=== PATIENT | male | born 1965 | race Caucasian/White ===

== ENCOUNTER → 2018-07-12 | Outpatient (REF) | payer OTHER | LOC: M SFHCWOUN 11:30 | DX: Z53.20 Procedure and treatment not carried out because of patient's decision for unspecified reasons (principal) ==

== ENCOUNTER → 2018-07-12 | Outpatient (REF) | payer OTHER ==
[2018-07-12 18:53] LABS: C REACTIVE PROTEIN QUANTITATIV < 0.30 MG/DL (0.00-0.30)
[2018-07-12 19:00] LABS: ESTIMATED AVERAGE GLUCOSE 128 MG/DL (60-110); HEMOGLOBIN A1c 6.1 %
[2018-07-12 19:29] LABS: ERYTHROCYTE SEDIMENTATION RATE 6 mm/hr (0-20)
== END ==
LOC: M LAB REF 16:45
DX: E11.621 Type 2 diabetes mellitus with foot ulcer (principal); L97.523 Non-pressure chronic ulcer of other part of left foot with necrosis of muscle
CPT/HCPCS: 83036

== ENCOUNTER → 2019-10-10 | Outpatient (REF) | payer OTHER, BC ==
[~2019-10-10] MED LIST: ASPI81TA85 PO; ATOR1TAB21 PO; AUGM875T28 PO; HYDR25TAB PO; INSUDET SC; INVO300T PO; JANU50TA8 PO; LISI40TA PO; METO1TAB32 PO
== END ==
LOC: M SFHCPLAZ 12:35
PROVIDERS: ATTEND Surgery
DX: L97.523 Non-pressure chronic ulcer of other part of left foot with necrosis of muscle (principal)

== ENCOUNTER 2019-10-15 10:01 | Inpatient (IN) | payer BC, OTHER ==
[~2019-10-15] VITALS: Ht 182.9 cm; Wt 150.2 kg
[2019-10-15] MEDS: ENOXAPARIN 40 MG/0.4 ML SYRINGE (J1650) SC SCH (00:14)
[2019-10-15] MEDS ORDERED: JANU50TA8 PO (10:36)
[2019-10-15] MEDS ORDERED: LISI40TA PO (10:36)
[2019-10-15] MEDS ORDERED: ATOR1TAB21 PO (10:36)
[2019-10-15] MEDS ORDERED: HYDR25TAB PO (10:36)
[2019-10-15] MEDS ORDERED: INSUDET SC (10:36)
[2019-10-15] MEDS ORDERED: METO1TAB32 PO (10:36)
[2019-10-15] MEDS ORDERED: ASPI81TA85 PO (10:36)
[2019-10-15] MEDS ORDERED: INVO300T PO (10:36)
[2019-10-15] MEDS ORDERED: PIPERACILLIN/TAZOBACTAM SOD 4.5 GM in D5W MINI-BAG PLUS 50 ML IV ONE (11:00)
[2019-10-15 11:30] LABS: BASO # 0.1 10^3/uL (0.0-0.2); BASO % 0.4 % (0.0-1.0); EOS # 0.2 10^3/uL (0.0-0.5); EOS % 1.3 % (0.0-3.0); HEMATOCRIT 43.8 % (42.0-52.0); HEMOGLOBIN 14.1 g/dl (13.5-17.5); LYMPH # 1.3 10^3/uL (1.5-5.0); LYMPH % 8.6 % (24.0-44.0); MEAN CORPUSCULAR HGB CONC 32.2 g/dl (32.0-36.5); MEAN CORPUSCULAR VOLUME 90.1 fl (80.0-96.0); MONO # 1.6 10^3/uL (0.0-0.8); MONO % 10.1 % (0.0-5.0); NEUTROPHILS % 78.2 % (36.0-66.0); PLATELET COUNT, AUTOMATED 320 10^3/uL (150-450); RED BLOOD COUNT 4.86 10^6/uL (4.30-6.10); WHITE BLOOD COUNT 15.4 10^3/uL (4.0-10.0)
[2019-10-15 11:38] LABS: INR 1.23; PROTHROMBIN TIME 15.2 SECONDS (11.8-14.0)
[2019-10-15 11:39] LABS: PARTIAL THROMBOPLASTIN TIME 30.6 SECONDS (25.0-38.4)
[2019-10-15] MEDS ORDERED: AUGM875T28 PO (11:51)
[2019-10-15 11:59] LABS: ERYTHROCYTE SEDIMENTATION RATE 65 mm/hr (0-20); HEMOGLOBIN A1c 9.6 %
[2019-10-15 12:05] LABS: ALBUMIN 2.5 GM/DL (3.2-5.2); BILIRUBIN,DIRECT 0.3 MG/DL (0.0-0.2); BILIRUBIN,TOTAL 0.6 MG/DL (0.2-1.0); C REACTIVE PROTEIN QUANTITATIV 22.8 MG/DL (0.00-0.30); CALCIUM LEVEL 8.4 MG/DL (8.5-10.1); CREATININE FOR GFR 1.78 MG/DL (0.70-1.30); GLOMERULAR FILTRATION RATE 42.9 (>56); POTASSIUM SERUM 4.2 MEQ/L (3.5-5.1); TOTAL PROTEIN 7.5 GM/DL (6.4-8.2)
[2019-10-15] MEDS ORDERED: NS IV ONE (12:15)
[2019-10-15] MEDS ORDERED: DEXTROSE 50% 50 ML SYRINGE IV PRN (12:30)
[2019-10-15] MEDS ORDERED: GLUCOSE 4 GM CHEW TABLET PO PRN (12:30)
[2019-10-15] MEDS ORDERED: GLUCAGON FOR INJ 1 MG VIAL (J1610) SC PRN (12:30)
--- NOTE | 2019-10-15 13:38 | REP ---
PORTABLE CHEST X-RAY: SINGLE VIEW. HISTORY: Assess ulcer. FINDINGS: Portable semierect AP chest x-ray shows clear well-inflated lungs and sharp pleural angles. Heart is not enlarged. Pulmonary vasculature is not increased. IMPRESSION: No active disease. Electronically Signed by Derrick Fierro MD 10/15/2019 02:50 P
--- NOTE | 2019-10-15 13:43 | REP ---
LEFT FOOT SERIES, FOUR VIEWS: Four views of left foot performed. No fracture or dislocation is seen. There are no obvious radiographic signs of osteomyelitis. There is mild inferior calcaneal spurring. There is moderate dorsal navicular spurring. There is air in the soft tissues of the medial mid and forefoot, compatible with cellulitis. Electronically Signed by Javi Madrigal MD 10/15/2019 06:06 P
[2019-10-15 14:00] VITALS: BP 137/75
[2019-10-15] MEDS ORDERED: CEFTAROLINE FOSAMIL 300 MG in D5W 50 ML IV SCH (14:00)
[2019-10-15] MEDS: CEFTAROLINE FOSAMIL 600 MG in D5W MINI-BAG PLUS 50 ML IV SCH (14:16)
[2019-10-15] MEDS: HumaLOG INSULIN (NovoLOG) PER UNIT SC SCH ×3 (14:17→21:00)
[2019-10-15] MEDS: LR 1,000 ML IV SCH (14:17)
[2019-10-15 14:19] LABS: CALCIUM LEVEL 8.3 MG/DL (8.5-10.1); CREATININE FOR GFR 1.85 MG/DL (0.70-1.30); GLOMERULAR FILTRATION RATE 41.1 (>56)
[2019-10-15] MEDS ORDERED: ACETAMINOPHEN TAB 650MG DOSE (2X325MG) PO PRN (14:30)
--- NOTE | 2019-10-15 14:59 | HPE ---
DATE OF ADMISSION: 10/15/2019 PRIMARY CARE PROVIDER: Justin _RA , [place]. CHIEF COMPLAINT: Diabetic foot ulcer left first metatarsophalangeal (MTP) joint. HISTORY: Adrian Medina a 54-year-old patient of Dr[facility] is admitted to the hospitalist service with diabetic ulcer of the left first MTP joint. He has been on Augmentin as an outpatient, came for a routine appointment with Dr. Amador and found to have worsening ulcer with cellulitis of his foot to the mid lower leg. He was sent to the emergency room for admission. The patient has a history of previous diabetic foot infections which have required debridement. He has diabetes, hemoglobin A1c is up to 9.6%. Previous hemoglobin A1c per Mr. Goldberg nurse (I called prior to admission) was approximately 8.6. He denies any fever or chills. He has had increased drainage from the foot. He denies any claudication, but he is high risk for peripheral arterial disease. PAST MEDICAL HISTORY: Shows: Hypertension. Type 2 diabetes under loose control. Hyperlipidemia. Morbid obesity with a body mass index (BMI) of 46 in a diabetic. HOME MEDICATIONS: - lisinopril 40 mg daily - Janumet (Januvia/metformin) 50-1000 one tablet twice a day - atorvastatin 20 mg daily - Invokana 300 mg daily - hydrochlorothiazide 25 mg daily - aspirin 81 mg daily - Levemir 26 unit daily - Lopressor 25 mg daily - current on doxycycline and Augmentin ALLERGIES: 1. SULFA - unknown reaction. SURGICAL HISTORY: Debridement left great 05/2018. FAMILY HISTORY: Father had diabetes. Mother of heart disease, she had diabetes and hypertension. SOCIAL HISTORY: He is a nonsmoker. He drinks alcohol on rare occasions. He is single. 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 REVIEW OF SYSTEMS: No fever, chills or night sweats. No polyuria, polydipsia. No chest pain. PHYSICAL EXAMINATION: VITAL SIGNS: Per flow sheet. He is alert and conversant in no distress. HEENT: Unremarkable. LUNGS: Clear. HEART: Regular rhythm without masses. ABDOMEN: Obese, nontender, no masses. EXTREMITIES: No clubbing, cyanosis, or edema. His left lower extremity has erythema from around the foot up to the lower leg. There is blistering of the left great toe. There is an ulcer under the first MTP joint with some foul drainage. Pulses are decreased in the left foot compared to the right. LABORATORIES: X-ray of chest and foot were done. Chest x-ray showed no active disease. Foot showed air in the soft tissues of the medial foot and forefoot compatible with cellulitis. Electrolytes are unremarkable. Creatinine is 1.85 (baseline creatinine is 1.5 per the patient's primary care provider). Lactic acid was 2.6. White count 15.4, hemoglobin 14, platelets 320, sed rate 65, C-reactive protein was 22.8. IMPRESSION: 1. Diabetic ulcer left foot. Patient will be admitted to a medical bed. I have consulted Dr. Amador as well as Dr. Reddy of vascular surgery. I have started ceftaroline dosing confirmed by pharmacology, 600 mg IV every 12 hours. IV Lactated Ringer's have been ordered. 2. Diabetes. Hold oral agents, sliding scale insulin ordered with reduced dose of Levemir while on an enforced diabetic diet in order to avoid hypoglycemia. Hypoglycemic protocol ordered. 3. Hypertension. Hold the lisinopril in the face of the acute kidney injury. Hold hydrochlorothiazide while receiving IV fluids. Continue Lopressor. 4. Acute kidney injury superimposed on stage III chronic kidney disease. Creatinine is up from baseline, baseline is 1.5, currently greater than 1.8. IV hydration is ordered with Lactated Ringer's (He has already received saline in the emergency room; excess saline contributes to acute kidney injury so he will be changed to Lactated Ringer's). Repeat labs have been ordered for the morning. Hold lisinopril until renal function recovers. 5. Hyperlipidemia. Continue atorvastatin. Continue aspirin 81 mg daily. MTDD
--- NOTE | 2019-10-15 15:09 | CR.PDOC ---
General Date of Consultation: Oct 15, [address] Reddy HPI: 54 year old M referred to the emergency department as per Dr. Amador for further evaluation of left foot wound and possible need for amputation. Admission was arranged by hospitalist. Vascular surgery was consulted for further evaluation of left foot wound. Podiatry is consulted for wound management. Denies any fevers, chills, weakness, fatigue, Headache, Chest Pain, Shortness of breath, cough, palpitations, abdominal pain, N/V/D or changes in bowel or bladder habits. PMHx: IDDM Hypertension Dyslipidemia Obesity. BMI 44.9 CKD PSHX: Debridement left great toe. SOCHX: Nonsmoker. FAMHX: Hypertension CAD DM ROS: As noted in HPI, otherwise 11pt ROS of systems reviewed and unremarkable. PE: GEN: 54 yo M, appears stated age. Alert and oriented x 3. HEENT: Normocephalic, atraumatic. Moist mucous membranes. CHEST: Regular rate and rhythm, +S1, +S2 LUNGS: Clear to auscultation bilaterally. No wheezes, rales, or rhonchi. EXT: Left foot is bandaged, dark discoloration of the left great toe with erythema of the remaining toes with wet gangrene. Erythema noted at the distal pretibial area left lower extremity. NEURO: Alert and oriented x 3. Cranial nerves III-XII are intact. No focal deficits appreciated. A&P: 1. Left foot wound. The patient is reviewed and examined as per Dr. Reddy. IV antibiotics/pain control as per hospitalist. Wound management as per podiatry. Continue aspirin/statin. Will request bilateral lower extremity arterial ultrasound to further assess for any areas of concerning stenosis, likely proceed with arteriogram of the left lower extremity. 2. CKD. Serum creatinine noted to be 1.85 with GFR 41. Monitor labs. Thank you for your consultation. We will continue to follow along with you. Vital Signs/I&O Vital Signs Date Time Temp Pulse Resp B/P (MAP) Pulse Ox O2 Delivery O2 Flow Rate FiO2 10/15/19 14:00 98.8 105 20 137/75 (95) 96 Room Air Laboratory Data Labs 24H Laboratory Tests 2 10/15/19 10:54: Immature Granulocyte % (Auto) 1.4, Neutrophils (%) (Auto) 78.2H, Lymphocytes (%) (Auto) 8.6L, Monocytes (%) (Auto) 10.1H, Eosinophils (%) (Auto) 1.3, Basophils (%) (Auto) 0.4, Neutrophils # (Auto) 12.0H, Lymphocytes # (Auto) 1.3L, Monocytes # (Auto) 1.6H, Eosinophils # (Auto) 0.2, Basophils # (Auto) 0.1, Nucleated Red Blood Cells % (auto) 0.0, Erythrocyte Sedimentation Rate 65H, Prothrombin Time 15.2H, Prothromb Time International Ratio 1.23, Activated Partial Thromboplast Time 30.6, Anion Gap 12, Glomerular Filtration Rate 42.9L, Estimated Mean Plasma Glucose 229H, Hemoglobin A1c 9.6, Lactic Acid Level 2.6*H, Calcium Level 8.4L, Total Bilirubin 0.6, Direct Bilirubin 0.3H, Aspartate Amino Transf (AST/SGOT) 24, Alanine Aminotransferase (ALT/SGPT) 33, Alkaline Phosphatase 81, C-Reactive Protein, Quantitative 22.80H, Total Protein 7.5, Albumin 2.5L, Albumin/Globulin Ratio 0.50L 10/15/19 11:04: Bedside Glucose (Misc Panel) 337H 10/15/19 13:34: Anion Gap 12, Glomerular Filtration Rate 41.1L, Calcium Level 8.3L CBC/BMP Laboratory Tests 10/15/19 10:54 10/15/19 13:34 Microbiology Microbiology 10/15/19 Gram Stain, Received Pending 10/15/19 Wound Culture, Received Pending 10/15/19 Blood Culture, Received Pending 10/15/19 Blood Culture, Received Pending Allergies Coded Allergies: Sulfa (Sulfonamide Antibiotics) (Verified Allergy, Unknown, UNKNOWN CHILDHOOD REACTION, 10/15/19) Home Medications Scheduled Amoxicillin/Potassium Clav (Augmentin 875-125 Tablet) 1 Each Tablet, 1 TAB PO BID, (Reported) for 10 days, filled 10/12/19 Aspirin (Aspir 81) 81 Mg Tablet.dr, 81 MG PO DAILY, (Reported) Atorvastatin Calcium (Atorvastatin Calcium) 20 Mg Tablet, 20 MG PO DAILY, (Reported) Canagliflozin (Invokana) 300 Mg Tablet, 300 MG PO DAILY, (Reported) Hydrochlorothiazide (Hydrochlorothiazide) 25 Mg Tablet, 25 MG PO DAILY, (Reported) Insulin Detemir (Levemir) 100 Unit/1 Ml Vial, 26 UNITS SC QHS, (Reported) Lisinopril (Lisinopril) 40 Mg Tablet, 40 MG PO DAILY, (Reported) Metoprolol Succinate (Metoprolol Succinate) 25 Mg Tab.er.24h, 25 MG PO QHS, (Reported) Sitagliptin Phos/Metformin HCl (Janumet 50-1,000 mg Tablet) 1 Each Tablet, 1 TAB PO BID, (Reported) Sandie Tabares Oct 15, 2019 14:47
[2019-10-15 18:00] VITALS: BP 110/77
[2019-10-15 18:51] LABS: CALCIUM LEVEL 8.7 MG/DL (8.5-10.1); CREATININE FOR GFR 1.66 MG/DL (0.70-1.30); GLOMERULAR FILTRATION RATE 46.5 (>56); POTASSIUM SERUM 3.7 MEQ/L (3.5-5.1)
--- NOTE | 2019-10-15 19:51 | ECGEPIP ---
[facility] - ED Test Date: 2019-10-15 Pat Name: KRYSTYNA ARCEO Department: Room: - Gender: Male Guest Request Runner: DAJA : [id number] Requested By: Charmaine Cuellar Order Number: [id number] Reading MD: Charmaine Cuellar Measurements Intervals [place] Rate: 110 P: 56 SC: 154 QRS: 50 QRSD: 99 T: 30 QT: 326 QTc: 441 Interpretive Statements SINUS TACHYCARDIA NONSPECIFIC T-WAVE ABNORMALITY ABNORMAL RHYTHM ECG NO PRIOR ECG FOR COMPARISON Electronically Signed on 10-15-2019 19:51:19 EST by Charmaine Cuellar
[2019-10-15 21:00] VITALS: BP 116/74
[2019-10-15] MEDS ORDERED: LABETALOL HCL 100 MG/20 ML VIAL As Ordered ONE (22:26)
[2019-10-15] MEDS ORDERED: MIDAZOLAM INJ 5 MG/ML VIAL (J2250) As Ordered ONE (22:26)
[2019-10-15] MEDS ORDERED: fentaNYL 100 MCG/2 ML INJECTION (J3010) As Ordered ONE (22:26)
[2019-10-15 23:30] VITALS: BP 116/71
[2019-10-15] MEDS ORDERED: fentaNYL 100 MCG/2 ML INJECTION (J3010) IV PRN (23:30)
[2019-10-15] MEDS ORDERED: ONDANSETRON 4MG/2ML VIAL (J2405) IV PRN (23:30)
[2019-10-15] MEDS ORDERED: PERCOCET 5MG/325MG TAB PO PRN (23:30)
[2019-10-15] MEDS ORDERED: LR 1,000 ML IV SCH (23:30)
[2019-10-16] VITALS (14 sets, daily range): BP systolic 115–143; BP diastolic 72–88
[2019-10-16] MEDS: LR 1,000 ML IV SCH (00:02)
[2019-10-16] MEDS: LEVEMIR (INSULIN DETEMIR) 1 UNITS/0.01ML SC SCH ×2 (00:18→21:04)
[2019-10-16 00:32] LABS: CALCIUM LEVEL 8.4 MG/DL (8.5-10.1); CREATININE FOR GFR 1.49 MG/DL (0.70-1.30); GLOMERULAR FILTRATION RATE 52.7 (>56); POTASSIUM SERUM 3.8 MEQ/L (3.5-5.1)
[2019-10-16] MEDS: CEFTAROLINE FOSAMIL 600 MG in D5W MINI-BAG PLUS 50 ML IV SCH ×2 (02:25→13:13)
[2019-10-16] MEDS ORDERED: NORCO, ANEXSIA 5/325MG TABLET (HYDROcodone/ACETAMINOPHEN) PO PRN (03:30)
--- NOTE | 2019-10-16 05:59 | CR ---
DATE OF CONSULTATION: 10/15/2019 REASON FOR CONSULTATION: Left foot infection. Adrian Medina is a pleasant 54-year-old male who was admitted to the emergency room (ER) from the wound care center due to worsening left foot infection. He has been seeing Dr. Amador for a chronic left first metatarsal phalangeal joint ulceration. He was being treated with Augmentin as an outpatient; however he was seen to have significant worsening redness and swelling to his left foot and leg and he was sent to the ER for admission. PAST MEDICAL HISTORY: 1. Significant for diabetes with poor control of glucose. 2. Neuropathy. 3. Hypertension related to obesity. ALLERGIES: SULFA. SOCIAL HISTORY: Nonsmoker. As I reviewed, temperature maximum (T-MAX) is 98.8, vitals are stable. LABS: Reviewed. White blood cell count is 15.4, ESR 65, CRP 22.8, lactic acid on admission was 2.6, followup is pending. A1c 9.6, culture is also pending. X-RAYS are reviewed. There is moderate amount of soft tissue erythema along the dorsomedial left foot consistent with area of ulceration. LOWER EXTREMITY EXAMINATION: On the left foot there is significant erythema to the left forefoot. There is duskiness to the left hallux. Pedal pulses are nonpalpable secondary to edema and there is a large ulceration of the plantar first metatarsal head with necrotic tissue. ASSESSMENT: This is a 54-year-old diabetic male with left foot diabetic ulceration infection. PLAN: The patient will be brought to the operating room tonight for incision and drainage. He should be nothing by mouth, continue with empiric antibiotics. Will take operative cultures. Did discuss the patient is high risk for limb loss secondary to severity of the infection. Vascular surgery has been consulted and is on board.
[2019-10-16 07:04] LABS: BASO # 0.1 10^3/uL (0.0-0.2); BASO % 0.4 % (0.0-1.0); EOS # 0.4 10^3/uL (0.0-0.5); EOS % 3.1 % (0.0-3.0); HEMATOCRIT 37.9 % (42.0-52.0); HEMOGLOBIN 12.3 g/dl (13.5-17.5); LYMPH # 1.4 10^3/uL (1.5-5.0); LYMPH % 12.7 % (24.0-44.0); MEAN CORPUSCULAR HEMOGLOBIN 29.3 pg (27.0-33.0); MEAN CORPUSCULAR HGB CONC 32.5 g/dl (32.0-36.5); MEAN CORPUSCULAR VOLUME 90.2 fl (80.0-96.0); MONO # 1.3 10^3/uL (0.0-0.8); MONO % 11.5 % (0.0-5.0); NEUTROPHILS # 7.8 10^3/uL (1.5-8.5); NEUTROPHILS % 70.1 % (36.0-66.0); PLATELET COUNT, AUTOMATED 292 10^3/uL (150-450); WHITE BLOOD COUNT 11.2 10^3/uL (4.0-10.0)
[2019-10-16 07:27] LABS: BLOOD UREA NITROGEN 29 MG/DL (7-18); CALCIUM LEVEL 8.5 MG/DL (8.5-10.1); CARBON DIOXIDE LEVEL 21 MEQ/L (21-32); CHLORIDE LEVEL 103 MEQ/L (98-107); CREATININE FOR GFR 1.29 MG/DL (0.70-1.30); GLOMERULAR FILTRATION RATE > 60.0 (>56); GLUCOSE, FASTING 176 MG/DL (70-100); POTASSIUM SERUM 3.9 MEQ/L (3.5-5.1); SODIUM LEVEL 135 MEQ/L (136-145)
[2019-10-16] MEDS: HumaLOG INSULIN (NovoLOG) PER UNIT SC SCH ×4 (07:30→20:50)
--- NOTE | 2019-10-16 08:32 | IPNPDOC ---
Text Note Date of Service The patient was seen on 10/16/19. NOTE Vascular surgery. Dr. Reddy HPI: 54 year old M referred to the emergency department as per Dr. Amador for further evaluation of left foot wound and possible need for amputation. Admission 10/15/19 was arranged by hospitalist. Vascular surgery was consulted for further evaluation of left foot wound. Podiatry is consulted for wound management. The irritation is currently off the floor for MRI and ultrasound. PE: The pt is currently off the floor for imaging. A&P: 1. Left foot wound. The patient is reviewed and examined as per Dr. Reddy. IV antibiotics/pain control as per hospitalist. Wound management as per podiatry. Continue aspirin/statin. The patient is currently in the ultrasound department, await results of bilateral lower extremity arterial ultrasound. Will likely proceed with arteriogram of the left lower extremity later today. 2. CKD. Serum creatinine on admission noted to be 1.85 with GFR 41. This a.m. labs indicate serum creatinine 1.29 with GFR greater than 60 status post IV fluids overnight. Continue to Monitor labs. VS,Fishbone, I+O VS, Fishbone, I+O Laboratory Tests 10/15/19 10:54 10/15/19 13:34 10/15/19 18:08 10/15/19 23:58 10/16/19 06:30 Vital Signs Date Time Temp Pulse Resp B/P (MAP) Pulse Ox O2 Delivery O2 Flow Rate FiO2 10/16/19 04:00 98.1 97 18 124/76 (92) 96 NIPPV (BIPAP/CPAP) I&O- Last 24 Hours up to 6 AM 10/16/19 06:00 Intake Total 2860 ml Output Total 950 ml Balance 1910 ml Sandie Tabares Oct 16, 2019 08:32
[2019-10-16] MEDS ORDERED: lisinopriL 40 MG TAB PO SCH (09:00)
[2019-10-16] MEDS: ATORVASTATIN 20 MG TAB PO SCH (09:35)
[2019-10-16] MEDS: ASPIRIN 81 MG ENTERIC TAB PO SCH (09:35)
--- NOTE | 2019-10-16 10:02 | REP ---
MRI left foot without contrast: History: Question osteomyelitis. Comparison radiographs 15 October 2019. Technique: Axial, sagittal, and coronal imaging planes were utilized. T1 and T2-weighted scans were obtained with and without fat saturation. MRI findings: The big toe has been amputated in the interval since yesterday's foot radiograph. The first digital ray is amputated at the level of the distal metatarsal. T1 signal intensity is normal in the remaining distal first metatarsal and in the other metatarsals and remaining phalanges. There is no MR evidence to suggest osteomyelitis. No soft tissue abscess is appreciated. There is considerable soft tissue edema in the medial aspect of the forefoot and diffuse edema is seen dorsally in the soft tissues. There is some plantar calcaneal spurring and thickening of the plantar fascia. Impression: Diffuse forefoot edema. Status post transmetatarsal first digital ray amputation. No MRI evidence of osteomyelitis. Electronically Signed by Derrick Fierro MD 10/16/2019 01:07 P
--- NOTE | 2019-10-16 10:21 | RO ---
DATE OF PROCEDURE: 10/15/2019 PREOPERATIVE DIAGNOSES: Left foot gas gangrene and diabetic foot infection. POSTOPERATIVE DIAGNOSES: Left foot gas gangrene and diabetic foot infection. PROCEDURE: Left foot incision and drainage, hallux and first metatarsal head amputation. SURGEON: Nelson Laboy DPM [employer]ER: ANESTHESIA: Monitored anesthesia care (MAC). ESTIMATED BLOOD LOSS: 50 mL. SPECIMENS: Left hallux, left first metatarsal and necrotic tissue. COMPLICATIONS: None. CONDITION: Stable. Adrian Medina is a 54-year-old male who was admitted to the hospital with a left foot infection. He had x-ray findings significant for gas in the soft tissue. Decision was made to bring him to the operating room for surgical intervention. The patient site and side were identified in the preoperative area, consent was reviewed and obtained. The risks, complications and alternatives to the procedure were explained to the patient in detail, and all questions were answered. PROCEDURE: The patient was brought to the operating room and placed on the operating room table in supine position. Monitored anesthesia care was delivered by the anesthesia team. Tourniquet was applied to the left ankle but was not used during the procedure. The foot was prepped and draped in a normal sterile fashion. The foot was inspected. Apparently, the ulceration causing this infection started at the plantar aspect of the first metatarsal. Using a hemostat, tracking was noted from the dorsal plantar wound into the dorsal tissue. Tracking continued along the entire dorsal aspect of the first metatarsal as well as the medial aspect of the metatarsal with tracking laterally to approximately the fourth toe. Significant purulence, necrotic tissue and malodor was noted circumferentially around the first metatarsal and at the sites I just listed. Using a #15 blade, incisions were made and purulent drainage was expressed. The toe had no viability as there was no bleeding surrounding the toe and no capillary refill. So the toe was disarticulated at the metatarsal phalangeal joint and sent for pathology. Culture had been taken of the purulent drainage, aerobic and anaerobic. Because of the soft tissue defect of the metatarsal head, this would not be viable and this was removed as well using a sagittal saw. Site was irrigated with 3000 mL pulse irrigation. No further significant purulence was noted. The wound was packed using saline soaked gauze and dry sterile dressing. The patient was brought to the postanesthesia care unit (PACU) with vital signs stable and neurovascular status intact. He will be readmitted to the floor for continued antibiotics and monitoring. He will require further surgery during this hospital stay, I suspect on . Will follow and monitor wound progress.
--- NOTE | 2019-10-16 10:34 | REP ---
Bilateral lower extremity arterial ultrasound: Doppler evaluation. History: Left foot wound. Findings: Ankle brachial index on the right was normal at 1.3. On the left the ankle brachial index could not be accomplished due to the patient's wound recent amputation and dressing. Triphasic waveforms are noted throughout the right lower extremity. These are normal. Normal triphasic waveforms are seen in the left lower extremity to the level of the up proximal anterior tibial artery. At and below the tibioperoneal trunk, with monophasic waveforms are noted on the left but no high-grade stenosis or significant plaquing is seen. There is minimal diffuse plaquing noted. No high-grade stenosis noted on either side. Right lower extremity arterial Doppler velocity chart: CF A 69 cm/S Profunda 38 Proximal SFA 75 Mid SFA 58 Distal SFA and 56 Popliteal 44 Proximal AT A 45 Tibioperoneal trunk 63 Proximal BUSINESS CENTER MANAGER 85 Distal BUSINESS CENTER MANAGER 58 Distal AT A 79 Left lower extremity arterial Doppler velocity chart: CF A 93 cm/S Profunda 68 Proximal SFA 99 Mid SFA 92 Distal SFA 88 Popliteal 52 Proximal AT A 46 Tibioperoneal trunk 47 Proximal BUSINESS CENTER MANAGER 81 Distal BUSINESS CENTER MANAGER 103 Distal AT A 102 Electronically Signed by Derrick Fierro MD 10/16/2019 10:24 A
[2019-10-16 12:59] LABS: BLOOD UREA NITROGEN 24 MG/DL (7-18); CALCIUM LEVEL 8.9 MG/DL (8.5-10.1); CARBON DIOXIDE LEVEL 22 MEQ/L (21-32); CHLORIDE LEVEL 104 MEQ/L (98-107); CREATININE FOR GFR 1.19 MG/DL (0.70-1.30); GLOMERULAR FILTRATION RATE > 60.0 (>56); GLUCOSE, FASTING 163 MG/DL (70-100); POTASSIUM SERUM 4.1 MEQ/L (3.5-5.1); SODIUM LEVEL 134 MEQ/L (136-145)
--- NOTE | 2019-10-16 13:34 | IPN ---
DATE: 10/16/2019 Patient seen and examined, denies overnight complaints. He has no pain in feet. Vitals are reviewed. He has remained afebrile. Labs are reviewed. White blood cell count is 11.2. MRI reviewed. No osteomyelitis noted to the bones. Postsurgical changes noted. Arterial study examined. Triphasic waveforms noted of the right lower extremity with monophasic noted below the tibioperoneal trunk. Lower extremity examination: Erythema and edema are improved. Wound base without significant necrosis or purulence. ASSESSMENT: 54-year-old male with gas gangrene, diabetic ulceration, status post right hallux and first metatarsal partial amputation. PLAN: He is to undergo angiogram by Dr. Reddy later today Start saline wet-to-dry dressings three times a day. Continue on empiric antibiotics. Await culture results. Will follow.
[2019-10-16] MEDS ORDERED: MIDAZOLAM INJ 2 MG/2 ML VIAL (J2250) As Ordered ONE (14:48)
[2019-10-16] MEDS ORDERED: HEPARIN 1,000 UNITS/ML 10ML VIAL (FOR RADIOLOGY& DIALYSIS ONLY) As Ordered ONE (14:48)
[2019-10-16] MEDS ORDERED: fentaNYL 100 MCG/2 ML INJECTION (J3010) As Ordered ONE (14:48)
[2019-10-16] MEDS ORDERED: LIDOCAINE 1% MDV 20ML VIAL As Ordered ONE (14:49)
[2019-10-16] MEDS ORDERED: ISOVUE-300 61% 50ML VIAL (Q9967) As Ordered ONE (14:49)
--- NOTE | 2019-10-16 15:59 | ROOPDOC ---
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 Ultrasound-guided access right common femoral artery 2. Aortoiliofemoral arteriogram, selection left common femoral artery and left lower extremity arteriogram, selection left superficial femoral artery and left lower extremity runoff 3. Mynx closure right common femoral artery SURGEON: Nancy Reddy MD ANESTHESIA: Local anesthesia 6 mL lidocaine. Moderate intravenous conscious sedation was supervised by Dr. Reddy. The patient was independent we monitored by a registered nurse assigned to the Department of radiology using automated blood pressure, EKG, and pulse oximetry. The detailed sedation record is permanently housed in the hospital information system. The following if the brief sedation record: Start time 15:14, stop time 15:30, Versed 1 mg IV, fentanyl 50 g IV. CONTRAST: 26 mL Isovue-300 INDICATION FOR PROCEDURE: Mr. Medina is a very pleasant 54-year-old gentleman with uncontrolled diabetes and long-standing left foot wound progressed to wet gangrene status post debridement by our podiatry colleagues last night. The patient had a noninvasive arterial study, and after reviewing it, I am not sure he has significant arterial disease. He does have some monophasic flow below the knee, but there is good flow velocity with good diastolic flow, and I am wondering if the phasicity is affected by the left foot wounds. Nevertheless, I discussed the risks benefits and alternatives to an arteriogram and potential intervention with the patient. It is possible he has some mild disease, and any improvement in blood flow we could give him would be helpful. However, I did discuss with the patient that there may not be any significant arterial disease present, which is never a bad thing, and then wound healing would depend on the amount of viable tissue, his compliance with tight glucose control diet and offloading of his foot, and surgical outcomes and local wound care. The patient was thoroughly counseled and he was agreeable to proceed. Informed consent was obtained. INTERPRETATION: The patient has widely patent inflow from the aorta to the left toe. His aortoiliac segment are widely patent including the common iliac arteries, hypogastric arteries, and external iliac arteries. The common femoral arteries are widely patent, and on the left the profunda is widely patent as well as the SFA. There is widely patent popliteal artery with 3 vessel runoff to the foot. The vessels are large and no areas of stenosis are noted. The pedal vessels are also good size and widely patent. The flow to the foot is rapid, and no intervention was needed at this time. REPORT OF OPERATION: The patient was brought to the angiographic suite in stable condition. His bilateral groins were prepped and draped in a sterile fashion. A timeout was performed. Sedation was administered without complication. Local anesthesia was a project leader to the skin and subcutaneous tissue in the right groin and a microneedle was used to access the right common femoral artery under ultrasound guidance. A wire was passed through this access under fluoroscopic g uidance and the needle was exchanged for a micro-sheath over the wire using a Seldinger technique. The inner cannula and wire were removed and the Glidewire was advanced into the aorta under fluoroscopic guidance. The sheath was exchanged for 6 Indonesian sheath which was flushed with saline. An Omni flushed catheter was advanced over the wire into the aorta and in aortoiliofemoral art eriogram was performed. Please see interpretation above. We then went up and over the bifurcation with the Glidewire and Omni flushed catheter and selected the left common femoral artery. Arteriograms were performed and the interpretation as above. We then selected the left superficial femoral artery and advanced the catheter to the mid superficial femoral artery and a runoff was performed. Please see interpretation above. A Mynx closure device was then deployed in the right common femoral artery with good hemostasis. Pressure was held for 10 minutes and the patient was taken to recovery in stable condition and was then discharged back to his room for bedrest until later this evening. ESTIMATED BLOOD LOSS: Approximately 5 mL. COMPLICATIONS: None. PLAN: Okay for patient to resume preoperative medications, IV fluids, and diet. Flat bed rest with right leg straight for 3 hours postprocedure and additional hours bedrest following that for an end of bedrest at 20:00 tonight. No further vascular intervention indicated further left lower extremity at this time. The patient has excellent vascular flow. He is a suitable candidate for what ever intervention podiatry has in mind for foot salvage, and also a suitable candidate for a below-knee amputation should his foot be unsalvageable. NANCY REDDY MD Oct 16, 2019 15:59
--- NOTE | 2019-10-16 16:14 | IPNPDOC ---
Subjective Date Seen The patient was seen on 10/16/19. Subjective Chief Complaint/HPI Resting in bed, no complaints. Afebrile, awaiting lower extremity a-gram this afternoon. 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 I+D w/ hallux & 1st metatarsal amputation (10/15) POD # 1 - s/p a-gram with no evidence of arterial stenosis - IV ceftaroline day # 2 - operative cultures pending # DM type 2 not well controlled - continue SS and levemir # ANA superimposed on CKD stage 3 - resolved - repeat BMP in am # Hyperlipidemia - continue atorvastatin Plan/VTE VTE Prophylaxis Ordered?: Yes (hep sq bid) VS, I&O, 24H, Fishbone Vital Signs/I&O Vital Signs Date Time Temp Pulse Resp B/P (MAP) Pulse Ox O2 Delivery O2 Flow Rate FiO2 10/16/19 15:53 92 18 94 Room Air 10/16/19 14:40 97.7 10/16/19 10:00 124/74 (91) I&O- Last 24 Hours up to 6 AM 10/16/19 05:59 Intake Total 2860 ml Output Total 450 ml Balance 2410 ml Laboratory Data 24H LABS Laboratory Tests 2 10/15/19 16:23: Bedside Glucose (Misc Panel) 225H 10/15/19 18:08: Anion Gap 9, Glomerular Filtration Rate 46.5L, Calcium Level 8.7 10/15/19 21:03: Bedside Glucose (Misc Panel) 183H 10/15/19 23:58: Anion Gap 10, Glomerular Filtration Rate 52.7L, Calcium Level 8.4L 10/16/19 06:30: Immature Granulocyte % (Auto) 2.2, Neutrophils (%) (Auto) 70.1H, Lymphocytes (%) (Auto) 12.7L, Monocytes (%) (Auto) 11.5H, Eosinophils (%) (Auto) 3.1H, Basophils (%) (Auto) 0.4, Neutrophils # (Auto) 7.8, Lymphocytes # (Auto) 1.4L, Monocytes # (Auto) 1.3H, Eosinophils # (Auto) 0.4, Basophils # (Auto) 0.1, Nucleated Red Blood Cells % (auto) 0.0, Anion Gap 11, Glomerular Filtration Rate > 60.0, Calcium Level 8.5 10/16/19 12:00: Bedside Glucose (Misc Panel) 162H 10/16/19 12:22: Anion Gap 8, Glomerular Filtration Rate > 60.0, Calcium Level 8.9 CBC/BMP Laboratory Tests 10/15/19 18:08 10/15/19 23:58 10/16/19 06:30 10/16/19 12:22 Microbiology Microbiology 10/15/19 Gram Stain - Final, Resulted 10/15/19 Wound Culture, Resulted Pending 10/15/19 Anaerobic Culture, Resulted Pending 10/15/19 Gram Stain - Final, Resulted 10/15/19 Wound Culture, Resulted Pending 10/15/19 Blood Culture - Preliminary, Resulted No growth after 24 hours . All specim... 10/15/19 Blood Culture - Preliminary, Resulted No growth after 24 hours . All specim... VIVIENNE TELLO MD Oct 16, 2019 16:14
[2019-10-16 18:49] LABS: BLOOD UREA NITROGEN 23 MG/DL (7-18); CALCIUM LEVEL 8.2 MG/DL (8.5-10.1); CARBON DIOXIDE LEVEL 21 MEQ/L (21-32); CHLORIDE LEVEL 105 MEQ/L (98-107); CREATININE FOR GFR 1.11 MG/DL (0.70-1.30); GLOMERULAR FILTRATION RATE > 60.0 (>56); GLUCOSE, FASTING 139 MG/DL (70-100); POTASSIUM SERUM 4.2 MEQ/L (3.5-5.1); SODIUM LEVEL 137 MEQ/L (136-145)
[2019-10-16] MEDS: METOPROLOL SUCC *XL* 25MG TAB (TopROL *XL*) PO SCH (21:05)
[2019-10-16] MEDS: ENOXAPARIN 40 MG/0.4 ML SYRINGE (J1650) SC SCH (21:05)
[2019-10-17 00:34] LABS: BLOOD UREA NITROGEN 24 MG/DL (7-18); CALCIUM LEVEL 8.5 MG/DL (8.5-10.1); CARBON DIOXIDE LEVEL 23 MEQ/L (21-32); CHLORIDE LEVEL 104 MEQ/L (98-107); CREATININE FOR GFR 1.26 MG/DL (0.70-1.30); GLOMERULAR FILTRATION RATE > 60.0 (>56); GLUCOSE, FASTING 192 MG/DL (70-100); POTASSIUM SERUM 4.1 MEQ/L (3.5-5.1); SODIUM LEVEL 135 MEQ/L (136-145)
[2019-10-17] MEDS: CEFTAROLINE FOSAMIL 600 MG in D5W MINI-BAG PLUS 50 ML IV SCH ×2 (01:21→13:00)
[2019-10-17 02:00] VITALS: BP 125/75
[2019-10-17 06:00] VITALS: BP 121/73
[2019-10-17 06:11] LABS: BASO # 0.1 10^3/uL (0.0-0.2); BASO % 0.6 % (0.0-1.0); EOS # 0.5 10^3/uL (0.0-0.5); EOS % 5.7 % (0.0-3.0); HEMATOCRIT 37.3 % (42.0-52.0); HEMOGLOBIN 12.2 g/dl (13.5-17.5); LYMPH # 1.8 10^3/uL (1.5-5.0); LYMPH % 18.9 % (24.0-44.0); MEAN CORPUSCULAR HEMOGLOBIN 29.6 pg (27.0-33.0); MEAN CORPUSCULAR HGB CONC 32.7 g/dl (32.0-36.5); MEAN CORPUSCULAR VOLUME 90.5 fl (80.0-96.0); MONO % 11.1 % (0.0-5.0); NEUTROPHILS # 5.6 10^3/uL (1.5-8.5); NEUTROPHILS % 59.9 % (36.0-66.0); PLATELET COUNT, AUTOMATED 322 10^3/uL (150-450); RED BLOOD COUNT 4.12 10^6/uL (4.30-6.10); WHITE BLOOD COUNT 9.3 10^3/uL (4.0-10.0)
[2019-10-17 06:35] LABS: BLOOD UREA NITROGEN 21 MG/DL (7-18); CALCIUM LEVEL 8.3 MG/DL (8.5-10.1); CARBON DIOXIDE LEVEL 20 MEQ/L (21-32); CHLORIDE LEVEL 107 MEQ/L (98-107); GLOMERULAR FILTRATION RATE > 60.0 (>56); GLUCOSE, FASTING 163 MG/DL (70-100); POTASSIUM SERUM 4.2 MEQ/L (3.5-5.1); SODIUM LEVEL 138 MEQ/L (136-145)
[2019-10-17] MEDS: ASPIRIN 81 MG ENTERIC TAB PO SCH (08:17)
[2019-10-17] MEDS: ATORVASTATIN 20 MG TAB PO SCH (08:17)
[2019-10-17] MEDS: HumaLOG INSULIN (NovoLOG) PER UNIT SC SCH ×4 (08:17→21:00)
--- NOTE | 2019-10-17 09:51 | IPNPDOC ---
Date Seen The patient was seen on 10/17/19. Progress Note Patient seen and examined. Doing well this morning status post arteriogram yesterday evening. His right groin access site is clean dry and intact. The nurse is going to place a dry dressing today since the patient is quite obese and has a large overhanging of his pannus over his groin, this one more day of dressings will be helpful. It is okay for the patient to shower from a vascular standpoint, considering of course that this may not be possible from a podiatry standpoint due to open foot wounds. Tomorrow it is okay to remove the dressing and leave open to air. We will see how he does from a podiatry standpoint. If his foot is salvageable, no further vascular intervention needed at this time. However, we would be happy to help, if for some reason his foot is not salvageable, to provide a below-knee amputation if needed. VS, I&O, 24H, Fishbone Vital Signs/I&O Vital Signs Date Time Temp Pulse Resp B/P (MAP) Pulse Ox O2 Delivery O2 Flow Rate FiO2 10/17/19 06:00 97.0 51 17 121/73 (89) 100 NIPPV (BIPAP/CPAP) I&O- Last 24 Hours up to 6 AM 10/17/19 06:00 Intake Total 2570 ml Output Total 2225 ml Balance 345 ml Laboratory Data 24H LABS Laboratory Tests 2 10/16/19 12:00: Bedside Glucose (Misc Panel) 162H 10/16/19 12:22: Anion Gap 8, Glomerular Filtration Rate > 60.0, Calcium Level 8.9 10/16/19 16:39: Bedside Glucose (Misc Panel) 146H 10/16/19 18:11: Anion Gap 11, Glomerular Filtration Rate > 60.0, Calcium Level 8.2L 10/16/19 20:46: Bedside Glucose (Misc Panel) 185H 10/17/19 00:06: Anion Gap 8, Glomerular Filtration Rate > 60.0, Calcium Level 8.5 10/17/19 05:55: Anion Gap 11, Glomerular Filtration Rate > 60.0, Calcium Level 8.3L, Immature Granulocyte % (Auto) 3.8H, Neutrophils (%) (Auto) 59.9, Lymphocytes (%) (Auto) 18.9L, Monocytes (%) (Auto) 11.1H, Eosinophils (%) (Auto) 5.7H, Basophils (%) (Auto) 0.6, Neutrophils # (Auto) 5.6, Lymphocytes # (Auto) 1.8, Monocytes # (Auto) 1.0H, Eosinophils # (Auto) 0.5, Basophils # (Auto) 0.1, Nucleated Red Blood Cells % (auto) 0.0, C-Reactive Protein, Quantitative 11.60H CBC/BMP Laboratory Tests 10/16/19 12:22 10/16/19 18:11 10/17/19 00:06 10/17/19 05:55 Microbiology Microbiology 10/15/19 Gram Stain - Final, Resulted 10/15/19 Wound Culture, Resulted Pending 10/15/19 Anaerobic Culture, Resulted Pending 10/15/19 Gram Stain - Final, Resulted 10/15/19 Wound Culture, Resulted Pending 10/15/19 Blood Culture - Preliminary, Resulted No growth after 24 hours . All specim... 10/15/19 Blood Culture - Preliminary, Resulted No growth after 24 hours . All specim... NANCY REYES MD Oct 17, 2019 09:51
[2019-10-17 10:00] VITALS: BP 147/80
--- NOTE | 2019-10-17 13:21 | IPNPDOC ---
Subjective Date Seen The patient was seen on 10/17/19. Subjective Chief Complaint/HPI Stable, no complaints. Groin w/o hematoma. Afebrile. 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 I+D w/ hallux & 1st metatarsal amputation (10/15) POD # 2 - s/p a-gram with no evidence of arterial stenosis - IV ceftaroline day # 3 - operative cultures pending - D/w Podiatry, planning on doing further debridement in am, and likely placing wound vac # DM type 2 not well controlled - continue SS and levemir # ANA superimposed on CKD stage 3 - resolved # Hyperlipidemia - continue atorvastatin Plan/VTE VTE Prophylaxis Ordered?: Yes (hep sq bid) VS, I&O, 24H, Fishbone Vital Signs/I&O Vital Signs Date Time Temp Pulse Resp B/P (MAP) Pulse Ox O2 Delivery O2 Flow Rate FiO2 10/17/19 10:00 98.1 89 20 147/80 (102) 97 Room Air l I&O- Last 24 Hours up to 6 AM 10/17/19 05:59 Intake Total 2570 ml Output Total 2725 ml Balance -155 ml Laboratory Data 24H LABS Laboratory Tests 2 10/16/19 16:39: Bedside Glucose (Misc Panel) 146H 10/16/19 18:11: Anion Gap 11, Glomerular Filtration Rate > 60.0, Calcium Level 8.2L 10/16/19 20:46: Bedside Glucose (Misc Panel) 185H 10/17/19 00:06: Anion Gap 8, Glomerular Filtration Rate > 60.0, Calcium Level 8.5 10/17/19 05:55: Immature Granulocyte % (Auto) 3.8H, Neutrophils (%) (Auto) 59.9, Lymphocytes (%) (Auto) 18.9L, Monocytes (%) (Auto) 11.1H, Eosinophils (%) (Auto) 5.7H, Basophils (%) (Auto) 0.6, Neutrophils # (Auto) 5.6, Lymphocytes # (Auto) 1.8, Monocytes # (Auto) 1.0H, Eosinophils # (Auto) 0.5, Basophils # (Auto) 0.1, Nucleated Red Blood Cells % (auto) 0.0, Anion Gap 11, Glomerular Filtration Rate > 60.0, Sandro cium Level 8.3L, C-Reactive Protein, Quantitative 11.60H 10/17/19 11:19: Bedside Glucose (Misc Panel) 195H CBC/BMP Laboratory Tests 10/16/19 18:11 10/17/19 00:06 10/17/19 05:55 Microbiology Microbiology 10/15/19 Gram Stain - Final, Resulted 10/15/19 Wound Culture, Resulted Pending 10/15/19 Anaerobic Culture, Resulted Pending 10/15/19 Gram Stain - Final, Resulted 10/15/19 Wound Culture, Resulted Pending 10/15/19 Blood Culture - Preliminary, Resulted No Growth after 48 hours. All Specime... 10/15/19 Blood Culture - Preliminary, Resulted No Growth after 48 hours. All Specime... VIVIENNE TELLO MD Oct 17, 2019 13:21
[2019-10-17 14:00] VITALS: BP 146/78
--- NOTE | 2019-10-17 14:47 | IPN ---
DATE: 10/17/2019 Patient seen and examined. Denies overnight complaints. Denies nausea, vomiting, fever or chills. Vitals are reviewed. He has remained afebrile. Labs are reviewed. White blood cell count is 9.3. CRP is improved to 11.6. Cultures are all pending. LOWER EXTREMITY EXAMINATION: Erythema and edema are improved. There remains some necrotic tissue and some eschar surrounding the periphery of the wound. No active purulent drainage is noted. ASSESSMENT: 54-year-old male with gas gangrene status post first hallux partial ray amputation, incision and drainage. PLAN: We will repeat incision and drainage with some debridement of necrotic tissue tomorrow afternoon. Nothing by mouth after 8 a.m. Hold anticoagulation. Tentative plan will be for wound vacuum-assisted closure (VAC) once infection full under control.
[2019-10-17 18:00] VITALS: BP_SYST 146; BP_SYST 147; BP_DIAS 78; BP_DIAS 80
[2019-10-17] MEDS: LEVEMIR (INSULIN DETEMIR) 1 UNITS/0.01ML SC SCH (21:38)
[2019-10-17] MEDS: METOPROLOL SUCC *XL* 25MG TAB (TopROL *XL*) PO SCH (21:38)
[2019-10-17 22:00] VITALS: BP 148/79
[2019-10-18] VITALS (11 sets, daily range): BP systolic 130–143; BP diastolic 68–90
[2019-10-18] MEDS: CEFTAROLINE FOSAMIL 600 MG in D5W MINI-BAG PLUS 50 ML IV SCH ×2 (02:13→13:43)
[2019-10-18 06:20] LABS: HEMATOCRIT 37.9 % (42.0-52.0); HEMOGLOBIN 12.4 g/dl (13.5-17.5); MEAN CORPUSCULAR HEMOGLOBIN 29.4 pg (27.0-33.0); MEAN CORPUSCULAR HGB CONC 32.7 g/dl (32.0-36.5); MEAN CORPUSCULAR VOLUME 89.8 fl (80.0-96.0); PLATELET COUNT, AUTOMATED 336 10^3/uL (150-450); RED BLOOD COUNT 4.22 10^6/uL (4.30-6.10); WHITE BLOOD COUNT 8.4 10^3/uL (4.0-10.0)
[2019-10-18 07:02] LABS: ATYPICAL LYMPH 2 % (0-5); EOSINOPHILS 7 % (0-3); LYMPHOCYTES 15 % (16-44); MONOCYTES 5 % (0-5); MYELOCYTES 1 % (0-0); NEUTROPHILS 69 % (28-66)
[2019-10-18 07:03] LABS: PLATELET ESTIMATE NORMAL (NORMAL)
[2019-10-18] MEDS: HumaLOG INSULIN (NovoLOG) PER UNIT SC SCH ×4 (08:52→21:00)
[2019-10-18] MEDS: ATORVASTATIN 20 MG TAB PO SCH (08:52)
--- NOTE | 2019-10-18 16:35 | IPNPDOC ---
Subjective Date Seen The patient was seen on 10/18/19. Subjective Chief Complaint/HPI Resting in bed with good spirits awaiting OR this afternoon. No complaints currently. Objective Physical Examination General Exam: Positive: Alert, No Acute Distress Eye Exam: Positive: PERRLA; Negative: Sclera icteric ENT Exam: Positive: Mucous membr. moist/pink, Pharynx Normal Neck Exam: Positive: Supple; Negative: JVD Chest Exam: Positive: Clear to auscultation Heart Exam: Positive: Rate Normal, Regular Rhythm, Normal S1, Normal S2 Abdomen Exam: Positive: Normal bowel sounds, Soft; Negative: Tenderness Extremity Exam: Positive: Other (left foot pink in color) Skin Exam: Positive: Nl turgor and temperature; Negative: Rash Neuro Exam: Positive: Normal Speech Psych Exam: Positive: Mental status NL Assessment /Plan Assessment # Diabetic Left foot Gas Gangrene - s/p left foot I+D w/ hallux & 1st metatarsal amputation (10/15) POD # 3 - s/p a-gram with no evidence of arterial stenosis - IV ceftaroline day # 4 - operative cultures growing (e.coli, coag (-) staph and alicaligenes f.), can likely transition to oral Bactrim at discharge. MRI Left foot did not show osteomyelitis - OR today for debridement and wound vac placement # DM type 2 not well controlled - continue SS and levemir # ANA superimposed on CKD stage 3 - resolved # Hyperlipidemia - continue atorvastatin Plan/VTE VTE Prophylaxis Ordered?: Yes (hep sq bid) VS, I&O, 24H, Fishbone Vital Signs/I&O Vital Signs Date Time Temp Pulse Resp B/P (MAP) Pulse Ox O2 Delivery O2 Flow Rate FiO2 10/18/19 14:32 98.1 67 18 137/90 (106) 97 Room Air I&O- Last 24 Hours up to 6 AM 10/18/19 06:00 Intake Total 1560 ml Output Total 3150 ml Balance -1590 ml Laboratory Data 24H LABS Laboratory Tests 2 10/17/19 16:25: Bedside Glucose (Misc Panel) 184H 10/17/19 19:58: Bedside Glucose (Misc Panel) 234H 10/18/19 06:00: Immature Granulocyte % (Auto) , Nucleated Red Blood Cells % (auto) 0.0, Neutrophils 69H, Band Neutrophils 1, Lymphocytes (Manual) 15L, Monocytes (Manual) 5, Eosinophils (Manual) 7H, Myelocytes 1H, Atypical Lymphocytes 2, Red Blood Cell Morphology NORMAL, Platelet Estimate NORMAL 10/18/19 06:03: Bedside Glucose (Misc Panel) 184H 10/18/19 12:10: Bedside Glucose (Misc Panel) 178H CBC/BMP Laboratory Tests 10/18/19 06:00 Microbiology Microbiology 10/15/19 Gram Stain - Final, Resulted 10/15/19 Wound Culture - Preliminary, Resulted Escherichia Coli Strep Agalactiae Group B 10/15/19 Anaerobic Culture, Resulted Pending 10/15/19 Gram Stain - Final, Complete 10/15/19 Wound Culture - Final, Complete Escherichia Coli Staphylococcus Sp Coag Neg Alcaligenes Sp. Faecalis 10/15/19 Blood Culture - Preliminary, Resulted No Growth after 72 hours. All specime... 10/15/19 Blood Culture - Preliminary, Resulted No Growth after 72 hours. All specime... VIVIENNE TELLO MD Oct 18, 2019 16:14
[2019-10-18] MEDS ORDERED: LIDOCAINE 1% MDV 20ML VIAL As Ordered ONE (18:01)
[2019-10-18] MEDS ORDERED: BUPIVACAINE HCL 0.5% 30 ML VIAL As Ordered ONE (18:01)
[2019-10-18] MEDS ORDERED: propofoL 500 MG/50 ML VIAL As Ordered ONE (18:04)
[2019-10-18] MEDS ORDERED: MIDAZOLAM INJ 2 MG/2 ML VIAL (J2250) As Ordered ONE (18:04)
[2019-10-18] MEDS ORDERED: fentaNYL 100 MCG/2 ML INJECTION (J3010) As Ordered ONE (18:04)
[2019-10-18] MEDS ORDERED: PERCOCET 5MG/325MG TAB PO PRN (19:30)
[2019-10-18] MEDS ORDERED: METOCLOPRAMIDE INJ 10MG/2ML VIAL (J2765) IV PRN (19:30)
[2019-10-18] MEDS ORDERED: LR 1,000 ML IV SCH (19:30)
[2019-10-18] MEDS ORDERED: fentaNYL 100 MCG/2 ML INJECTION (J3010) IV PRN (19:30)
[2019-10-18] MEDS ORDERED: ONDANSETRON 4MG/2ML VIAL (J2405) IV PRN (19:30)
[2019-10-18] MEDS: LEVEMIR (INSULIN DETEMIR) 1 UNITS/0.01ML SC SCH (21:21)
[2019-10-18] MEDS: METOPROLOL SUCC *XL* 25MG TAB (TopROL *XL*) PO SCH (21:22)
[2019-10-19] VITALS: BP 134/79
--- NOTE | 2019-10-19 00:26 | RO ---
DATE OF PROCEDURE: 10/18/2019 PREPROCEDURE DIAGNOSIS: Left foot diabetic ulceration, infection. POSTPROCEDURE DIAGNOSIS: Left foot diabetic ulceration, infection. PROCEDURE: Left foot incision and drainage with excisional wound debridement, including skin, subcutaneous tissue, muscle and tendon. SURGEON: Nelson Laboy DPM CASTING SUPERVISOR: None. ANESTHESIA: Monitored anesthesia care. ESTIMATED BLOOD LOSS: 10 mL. COMPLICATIONS: None. CONDITION: Stable. Adrian Medina is a 54-year-old male who has severe foot infection to his left foot. He had previous left hallux and first metatarsal partial amputation. He was noted to have continued drainage and necrosis in his wound. He was brought to the operating room for further debridement. The patient's site and side were identified and marked in the preoperative holding area. Consent was reviewed and obtained. All risks, complications and alternatives to the procedure were explained to the patient in detail and all questions were answered. DESCRIPTION OF PROCEDURE: The patient was brought to the operating room and placed on the operating table in supine position. Monitored anesthesia care was delivered by anesthesia team The left foot was prepped and draped in the normal sterile fashion. No tourniquet was used during the procedure. The wound was inspected. There was eschar necrotic tissue noted at the dorsal aspect of the foot near the toes, as well as some purulent drainage on the proximal margins of the wound. All eschar necrotic tissue in nonviable tendon or muscle were debrided free using #15 blade in excisional fashion. Once the majority of the nonviable tissue was removed, site was irrigated with normal saline via bulb syringe. Rongeurs removed some additional nonviable tissue until wound base was much improved in appearance. Site was dressed with saline-soaked gauze. The patient was brought to the post-anesthesia care unit (PACU), vital signs stable, neurovascular status intact. He will be readmitted to the floor for continued antibiotics, wound care. Tentative plan will be wound VAC once the infection is better under control and no further purulent drainage is noted.
[2019-10-19 01:00] VITALS: BP 138/77
[2019-10-19] MEDS: CEFTAROLINE FOSAMIL 600 MG in D5W MINI-BAG PLUS 50 ML IV SCH ×2 (02:52→13:53)
[2019-10-19 05:00] VITALS: BP 139/75
[2019-10-19 06:08] LABS: BASO # 0.1 10^3/uL (0.0-0.2); BASO % 0.8 % (0.0-1.0); EOS # 0.5 10^3/uL (0.0-0.5); EOS % 5.4 % (0.0-3.0); HEMATOCRIT 39.5 % (42.0-52.0); HEMOGLOBIN 12.5 g/dl (13.5-17.5); LYMPH # 1.6 10^3/uL (1.5-5.0); LYMPH % 18.2 % (24.0-44.0); MEAN CORPUSCULAR HEMOGLOBIN 28.9 pg (27.0-33.0); MEAN CORPUSCULAR HGB CONC 31.6 g/dl (32.0-36.5); MEAN CORPUSCULAR VOLUME 91.4 fl (80.0-96.0); MONO # 0.7 10^3/uL (0.0-0.8); MONO % 8.2 % (0.0-5.0); NEUTROPHILS # 5.5 10^3/uL (1.5-8.5); NEUTROPHILS % 63.2 % (36.0-66.0); PLATELET COUNT, AUTOMATED 346 10^3/uL (150-450); RED BLOOD COUNT 4.32 10^6/uL (4.30-6.10); WHITE BLOOD COUNT 8.7 10^3/uL (4.0-10.0)
[2019-10-19 06:37] LABS: BLOOD UREA NITROGEN 13 MG/DL (7-18); C REACTIVE PROTEIN QUANTITATIV 3.56 MG/DL (0.00-0.30); CALCIUM LEVEL 8.3 MG/DL (8.5-10.1); CARBON DIOXIDE LEVEL 23 MEQ/L (21-32); CHLORIDE LEVEL 107 MEQ/L (98-107); GLOMERULAR FILTRATION RATE > 60.0 (>56); GLUCOSE, FASTING 187 MG/DL (70-100); POTASSIUM SERUM 4.3 MEQ/L (3.5-5.1); SODIUM LEVEL 137 MEQ/L (136-145)
[2019-10-19] MEDS: HumaLOG INSULIN (NovoLOG) PER UNIT SC SCH ×4 (08:06→21:22)
[2019-10-19] MEDS: ASPIRIN 81 MG ENTERIC TAB PO SCH (08:07)
[2019-10-19] MEDS: ATORVASTATIN 20 MG TAB PO SCH (08:07)
--- NOTE | 2019-10-19 12:19 | IPNPDOC ---
Subjective Date Seen The patient was seen on 10/19/19. Subjective Chief Complaint/HPI Had a large bm today, denies any diarrhea. Uneventful post-op course. Lying in bed w/o sob/cough. Remains afebrile. Objective Physical Examination General Exam: Positive: Alert, No Acute Distress Eye Exam: Positive: PERRLA; Negative: Sclera icteric ENT Exam: Positive: Mucous membr. moist/pink, Pharynx Normal Neck Exam: Positive: Supple; Negative: JVD Chest Exam: Positive: Clear to auscultation Heart Exam: Positive: Rate Normal, Regular Rhythm, Normal S1, Normal S2 Abdomen Exam: Positive: Normal bowel sounds, Soft; Negative: Tenderness Extremity Exam: Positive: Other (left foot pink in color) Skin Exam: Positive: Nl turgor and temperature; Negative: Rash Neuro Exam: Positive: Normal Speech Psych Exam: Positive: Mental status NL Assessment /Plan Assessment # Diabetic Left foot Gas Gangrene - s/p left foot I+D w/ hallux & 1st metatarsal amputation (10/15) POD # 4 - s/p second I +D Left foot wound (10/18) - s/p a-gram with no evidence of arterial stenosis - IV ceftaroline day # 5 - operative cultures growing (e.coli, coag (-) staph and alicaligenes f.), can likely transition to oral abx on . MRI Left foot did not show osteomyelitis - D/w business performance specialist, will re-examine wound on tuesday to insure no further drainage before applying wound vac # DM type 2 not well controlled - continue SS - increase levemir 15 units sq qhs # ANA superimposed on CKD stage 3 - resolved # Hyperlipidemia - continue atorvastatin Plan/VTE VTE Prophylaxis Ordered?: Yes (hep sq bid) VS, I&O, 24H, Fishbone Vital Signs/I&O Vital Signs Date Time Temp Pulse Resp B/P (MAP) Pulse Ox O2 Delivery O2 Flow Rate FiO2 10/19/19 05:00 97.1 73 17 139/75 (96) 97 NIPPV (BIPAP/CPAP) I&O- Last 24 Hours up to 6 AM 10/19/19 06:00 Intake Total 1250 ml Output Total 1975 ml Balance -725 ml Laboratory Data 24H LABS Laboratory Tests 2 10/18/19 16:44: Bedside Glucose (Misc Panel) 176H 10/18/19 19:12: Bedside Glucose (Misc Panel) 162H 10/18/19 20:32: Bedside Glucose (Misc Panel) 147H 10/19/19 05:33: Immature Granulocyte % (Auto) 4.2H, Neutrophils (%) (Auto) 63.2, Lymphocytes (%) (Auto) 18.2L, Monocytes (%) (Auto) 8.2H, Eosinophils (%) (Auto) 5.4H, Basophils (%) (Auto) 0.8, Neutrophils # (Auto) 5.5, Lymphocytes # (Auto) 1.6, Monocytes # (Auto) 0.7, Eosinophils # (Auto) 0.5, Basophils # (Auto) 0.1, Nucleated Red Blood Cells % (auto) 0.0, Anion Gap 7L, Glomerular Filtration Rate > 60.0, Calcium Level 8.3L, C-Reactive Protein, Quantitative 3.56H 10/19/19 11:24: Bedside Glucose (Misc Panel) 204H CBC/BMP Laboratory Tests 10/19/19 05:33 Microbiology Microbiology 10/15/19 Gram Stain - Final, Resulted 10/15/19 Wound Culture - Final, Resulted Escherichia Coli Strep Agalactiae Group B 10/15/19 Anaerobic Culture, Resulted Pending 10/15/19 Gram Stain - Final, Complete 10/15/19 Wound Culture - Final, Complete Escherichia Coli Staphylococcus Sp Coag Neg Alcaligenes Sp. Faecalis 10/15/19 Blood Culture - Preliminary, Resulted No Growth after 72 hours. All specime... 10/15/19 Blood Culture - Preliminary, Resulted No Growth after 72 hours. All specime... VIVIENNE TELLO MD Oct 19, 2019 12:19
[2019-10-19 14:00] VITALS: BP 131/74
[2019-10-19 18:00] VITALS: BP 129/75
[2019-10-19] MEDS ORDERED: LEVEMIR (INSULIN DETEMIR) 1 UNITS/0.01ML SC SCH (21:00)
[2019-10-19] MEDS: METOPROLOL SUCC *XL* 25MG TAB (TopROL *XL*) PO SCH (21:21)
[2019-10-19] MEDS: ENOXAPARIN 40 MG/0.4 ML SYRINGE (J1650) SC SCH (21:22)
[2019-10-19 22:00] VITALS: BP 130/76
[2019-10-20] MEDS: CEFTAROLINE FOSAMIL 600 MG in D5W MINI-BAG PLUS 50 ML IV SCH ×2 (01:43→14:10)
[2019-10-20 02:00] VITALS: BP 127/76
[2019-10-20 06:00] VITALS: BP 120/72
[2019-10-20 06:10] LABS: HEMATOCRIT 37.1 % (42.0-52.0); HEMOGLOBIN 12.2 g/dl (13.5-17.5); MEAN CORPUSCULAR HEMOGLOBIN 29.6 pg (27.0-33.0); MEAN CORPUSCULAR HGB CONC 32.9 g/dl (32.0-36.5); PLATELET COUNT, AUTOMATED 336 10^3/uL (150-450); RED BLOOD COUNT 4.12 10^6/uL (4.30-6.10); WHITE BLOOD COUNT 8.2 10^3/uL (4.0-10.0)
[2019-10-20 06:45] LABS: BLOOD UREA NITROGEN 15 MG/DL (7-18); CALCIUM LEVEL 8.1 MG/DL (8.5-10.1); CARBON DIOXIDE LEVEL 23 MEQ/L (21-32); CHLORIDE LEVEL 106 MEQ/L (98-107); CREATININE FOR GFR 1.06 MG/DL (0.70-1.30); GLOMERULAR FILTRATION RATE > 60.0 (>56); GLUCOSE, FASTING 215 MG/DL (70-100); POTASSIUM SERUM 4.2 MEQ/L (3.5-5.1); SODIUM LEVEL 136 MEQ/L (136-145)
[2019-10-20 07:03] LABS: BASOPHILS 1 % (0-1); EOSINOPHILS 3 % (0-3); LYMPHOCYTES 29 % (16-44); METAMYELOCYTES 5 % (0-0); MONOCYTES 8 % (0-5); MYELOCYTES 2 % (0-0); NEUTROPHILS 52 % (28-66)
[2019-10-20 07:05] LABS: PLATELET ESTIMATE NORMAL (NORMAL)
--- NOTE | 2019-10-20 07:17 | IPN ---
DATE: 10/18/2019 Patient is examined. Denies overnight complaints. Remains afebrile. Labs are reviewed. White blood cell count is 8.7, hemoglobin is 12.5, CRP is 3.56. Lower extremity examination: Erythema and edema are again improved. There is less necrotic tissue and minimal purulence at the periphery of the wounds. ASSESSMENT: 54-year-old diabetic male status post left foot incision and drainage. PLAN: Start Vashe wound dressings daily. Will re-evaluate Tuesday. If drainage resolved, will start wound vac at that time.
[2019-10-20] MEDS: ATORVASTATIN 20 MG TAB PO SCH (08:16)
[2019-10-20] MEDS: HumaLOG INSULIN (NovoLOG) PER UNIT SC SCH ×4 (08:16→20:48)
[2019-10-20] MEDS: ASPIRIN 81 MG ENTERIC TAB PO SCH (08:16)
[2019-10-20 10:00] VITALS: BP 124/72
--- NOTE | 2019-10-20 11:21 | IPNPDOC ---
Subjective Date Seen The patient was seen on 10/20/19. Subjective Chief Complaint/HPI Lying in bed. Wound c/d/i. afebrile. Objective Physical Examination General Exam: Positive: Cooperative, No Acute Distress Eye Exam: Positive: Conjunctiva & lids normal; Negative: Sclera icteric ENT Exam: Positive: Mucous membr. moist/pink Neck Exam: Positive: Supple; Negative: JVD Chest Exam: Positive: Clear to auscultation Heart Exam: Positive: Rate Normal, Regular Rhythm, Normal S1, Normal S2; Negative: Murmurs Abdomen Exam: Positive: Normal bowel sounds, Soft; Negative: Tenderness Extremity Exam: Positive: Other (left foot pink in color, cap refill < 5 sec) Skin Exam: Positive: Nl turgor and temperature; Negative: Rash Neuro Exam: Positive: Normal Speech Psych Exam: Positive: Mental status NL Assessment /Plan Assessment # Diabetic Left foot Gas Gangrene - s/p left foot I+D w/ hallux & 1st metatarsal amputation (10/15) POD # 5 - s/p second I +D Left foot wound (10/18) - s/p a-gram with no evidence of arterial stenosis - IV ceftaroline day # 6 - operative cultures growing (e.coli, coag (-) staph and alicaligenes f.), can likely transition to oral abx on tuesday . MRI Left foot did not show osteomyelitis - D/w form maker plaster, will re-examine wound on tuesday to insure no further drainage before applying wound vac # DM type 2 not well controlled - continue SS - increase levemir 26 units sq qhs # ANA superimposed on CKD stage 3 - resolved # Hyperlipidemia - continue atorvastatin Plan/VTE VTE Prophylaxis Ordered?: Yes (hep sq bid) VS, I&O, 24H, Fishbone Vital Signs/I&O Vital Signs Date Time Temp Pulse Resp B/P (MAP) Pulse Ox O2 Delivery O2 Flow Rate FiO2 10/20/19 10:00 98.4 80 17 124/72 (89) 96 Room Air I&O- Last 24 Hours up to 6 AM 10/20/19 05:59 Intake Total 1815 ml Output Total 1700 ml Balance 115 ml Laboratory Data 24H LABS Laboratory Tests 2 10/19/19 11:24: Bedside Glucose (Misc Panel) 204H 10/19/19 16:31: Bedside Glucose (Misc Panel) 200H 10/19/19 20:42: Bedside Glucose (Misc Panel) 256H 10/20/19 05:58: Immature Granulocyte % (Auto) , Nucleated Red Blood Cells % (auto) 0.2H, Neutrophils 52, Lymphocytes (Manual) 29, Monocytes (Manual) 8H, Eosinophils (Manual) 3, Basophils (Manual) 1, Metamyelocytes 5H, Myelocytes 2H, Red Blood Cell Morphology NORMAL, Platelet Estimate NORMAL, Anion Gap 7L, Glomerular Filtration Rate > 60.0, Calcium Level 8.1L CBC/BMP Laboratory Tests 10/20/19 05:58 Microbiology Microbiology 10/15/19 Gram Stain - Final, Resulted 10/15/19 Wound Culture - Final, Resulted Escherichia Coli Strep Agalactiae Group B 10/15/19 Anaerobic Culture, Resulted Pending 10/15/19 Gram Stain - Final, Complete 10/15/19 Wound Culture - Final, Complete Escherichia Coli Staphylococcus Sp Coag Neg Alcaligenes Sp. Faecalis 10/15/19 Blood Culture - Preliminary, Resulted No Growth after 72 hours. All specime... 10/15/19 Blood Culture - Final, Complete NO GROWTH AFTER 5 DAYS VIVIENNE TELLO MD Oct 20, 2019 11:21
[2019-10-20 14:00] VITALS: BP 154/91
[2019-10-20 18:00] VITALS: BP 140/80
--- NOTE | 2019-10-20 18:03 | IPN ---
DATE OF SERVICE: 10/20/2019 Patient seen and examined. Denies new complaints. Vitals signs are reviewed. He has been afebrile. Labs are reviewed. White blood cell count is 8.2. Lower extremity examination: No further purulence is noted in the wound. There is some necrotic tissue and eschar at the periphery of the wound; however, this is reduced from previous examinations. There is exposed bone and tendon. ASSESSMENT: A 54-year-old male status post Hallux and 1st metatarsal head excision on the left with incision and drainage. PLAN: Continue current wound dressings with Vashe and Hydrofera Blue. Tentatively will consider wound vacuum-assisted closure (VAC) on Tuesday.
[2019-10-20] MEDS: METOPROLOL SUCC *XL* 25MG TAB (TopROL *XL*) PO SCH (20:48)
[2019-10-20] MEDS: ENOXAPARIN 40 MG/0.4 ML SYRINGE (J1650) SC SCH (20:49)
[2019-10-20] MEDS: LEVEMIR (INSULIN DETEMIR) 1 UNITS/0.01ML SC SCH (20:49)
[2019-10-20 22:00] VITALS: BP 127/25
[2019-10-21 02:00] VITALS: BP 137/81
[2019-10-21] MEDS: CEFTAROLINE FOSAMIL 600 MG in D5W MINI-BAG PLUS 50 ML IV SCH ×2 (02:02→13:10)
[2019-10-21 06:00] VITALS: BP 134/83
[2019-10-21 06:36] LABS: HEMATOCRIT 38.6 % (42.0-52.0); HEMOGLOBIN 12.2 g/dl (13.5-17.5); MEAN CORPUSCULAR HEMOGLOBIN 28.7 pg (27.0-33.0); MEAN CORPUSCULAR HGB CONC 31.6 g/dl (32.0-36.5); MEAN CORPUSCULAR VOLUME 90.8 fl (80.0-96.0); PLATELET COUNT, AUTOMATED 335 10^3/uL (150-450); RED BLOOD COUNT 4.25 10^6/uL (4.30-6.10); WHITE BLOOD COUNT 7.3 10^3/uL (4.0-10.0)
[2019-10-21 06:56] LABS: BLOOD UREA NITROGEN 13 MG/DL (7-18); CALCIUM LEVEL 7.8 MG/DL (8.5-10.1); CARBON DIOXIDE LEVEL 25 MEQ/L (21-32); CHLORIDE LEVEL 107 MEQ/L (98-107); CREATININE FOR GFR 1.08 MG/DL (0.70-1.30); GLOMERULAR FILTRATION RATE > 60.0 (>56); GLUCOSE, FASTING 211 MG/DL (70-100); POTASSIUM SERUM 4.5 MEQ/L (3.5-5.1); SODIUM LEVEL 137 MEQ/L (136-145)
[2019-10-21 07:25] LABS: BASOPHILS 1 % (0-1); EOSINOPHILS 4 % (0-3); LYMPHOCYTES 27 % (16-44); MONOCYTES 11 % (0-5); NEUTROPHILS 57 % (28-66); PLATELET ESTIMATE NORMAL (NORMAL)
[2019-10-21] MEDS: ATORVASTATIN 20 MG TAB PO SCH (09:04)
[2019-10-21] MEDS: ASPIRIN 81 MG ENTERIC TAB PO SCH (09:04)
[2019-10-21] MEDS: HumaLOG INSULIN (NovoLOG) PER UNIT SC SCH ×4 (09:04→21:36)
[2019-10-21] MEDS: NYSTATIN 100,000 UNITS/GM TOPICAL PWD 15 GM TOP SCH ×2 (09:05→21:36)
--- NOTE | 2019-10-21 10:09 | IPNPDOC ---
Subjective Date Seen The patient was seen on 10/21/19. Subjective Chief Complaint/HPI Doing fine this morning, hoping to spend the day in the cardiac chair. No diarrhea. Objective Physical Examination General Exam: Positive: Cooperative, No Acute Distress Eye Exam: Positive: Conjunctiva & lids normal; Negative: Sclera icteric ENT Exam: Positive: Mucous membr. moist/pink Neck Exam: Positive: Supple; Negative: JVD Chest Exam: Positive: Clear to auscultation Heart Exam: Positive: Rate Normal, Regular Rhythm, Normal S1, Normal S2; Negative: Murmurs Abdomen Exam: Positive: Normal bowel sounds, Soft; Negative: Tenderness Extremity Exam: Positive: Other (left foot pink in color, cap refill < 5 sec) Skin Exam: Positive: Nl turgor and temperature; Negative: Rash Neuro Exam: Positive: Normal Speech Psych Exam: Positive: Mental status NL Assessment /Plan Assessment # Diabetic Left foot Gas Gangrene - s/p left foot I+D w/ hallux & 1st metatarsal amputation (10/15) POD # 6 - s/p second I +D Left foot wound (10/18) - s/p a-gram with no evidence of arterial stenosis - IV ceftaroline day # 7 - operative cultures growing (e.coli, coag (-) staph and alicaligenes f.), can likely transition to Augmentin on tuesday . MRI Left foot did not show osteomyelitis - D/w mobile equipment servicer, will re-examine wound on tuesday to insure no further drainage before applying wound vac # DM type 2 not well controlled - continue SS - increase levemir 26 units sq qhs # ANA superimposed on CKD stage 3 - resolved # Hyperlipidemia - continue atorvastatin Plan/VTE VTE Prophylaxis Ordered?: Yes (hep sq bid) VTE Exclusion Mechanical Proph: N/A:VTE Prophy Ordered VTE Exclusion Pharmacological: N/A:VTE Prophy Ordered VS, I&O, 24H, Fishbone Vital Signs/I&O Vital Signs Date Time Temp Pulse Resp B/P (MAP) Pulse Ox O2 Delivery O2 Flow Rate FiO2 10/21/19 06:00 98.3 77 18 134/83 (100) 96 Room Air I&O- Last 24 Hours up to 6 AM 10/21/19 06:00 Intake Total 1440 ml Output Total 1875 ml Balance -435 ml Laboratory Data 24H LABS Laboratory Tests 2 10/20/19 11:33: Bedside Glucose (Misc Panel) 235H 10/20/19 16:20: Bedside Glucose (Misc Panel) 264H 10/20/19 20:38: Bedside Glucose (Misc Panel) 219H 10/21/19 06:19: Immature Granulocyte % (Auto) , Nucleated Red Blood Cells % (auto) 0.0, Neutrophils 57, Lymphocytes (Manual) 27, Monocytes (Manual) 11H, Eosinophils (Manual) 4H, Basophils (Manual) 1, Red Blood Cell Morphology NORMAL, Platelet Estimate NORMAL, Anion Gap 5L, Glomerular Filtration Rate > 60.0, Calcium Level 7.8L CBC/BMP Laboratory Tests 10/21/19 06:19 Microbiology Microbiology 10/15/19 Gram Stain - Final, Resulted 10/15/19 Wound Culture - Final, Resulted Escherichia Coli Strep Agalactiae Group B 10/15/19 Anaerobic Culture, Resulted Pending 10/15/19 Gram Stain - Final, Complete 10/15/19 Wound Culture - Final, Complete Escherichia Coli Staphylococcus Sp Coag Neg Alcaligenes Sp. Faecalis 10/15/19 Blood Culture - Final, Complete NO GROWTH AFTER 5 DAYS 10/15/19 Blood Culture - Final, Complete NO GROWTH AFTER 5 DAYS VIVIENNE TELLO MD Oct 21, 2019 10:09
[2019-10-21 14:00] VITALS: BP 139/82
[2019-10-21 18:00] VITALS: BP 143/82
[2019-10-21] MEDS: METOPROLOL SUCC *XL* 25MG TAB (TopROL *XL*) PO SCH (21:35)
[2019-10-21] MEDS: ENOXAPARIN 40 MG/0.4 ML SYRINGE (J1650) SC SCH (21:36)
[2019-10-21] MEDS: LEVEMIR (INSULIN DETEMIR) 1 UNITS/0.01ML SC SCH (21:36)
[2019-10-21 22:00] VITALS: BP 127/67
[2019-10-22] MEDS: CEFTAROLINE FOSAMIL 600 MG in D5W MINI-BAG PLUS 50 ML IV SCH ×2 (01:41→13:40)
[2019-10-22 02:00] VITALS: BP 123/69
[2019-10-22 06:00] VITALS: BP 125/90
[2019-10-22 06:13] LABS: HEMATOCRIT 38.9 % (42.0-52.0); HEMOGLOBIN 12.4 g/dl (13.5-17.5); MEAN CORPUSCULAR HEMOGLOBIN 29.1 pg (27.0-33.0); MEAN CORPUSCULAR HGB CONC 31.9 g/dl (32.0-36.5); MEAN CORPUSCULAR VOLUME 91.3 fl (80.0-96.0); PLATELET COUNT, AUTOMATED 328 10^3/uL (150-450); RED BLOOD COUNT 4.26 10^6/uL (4.30-6.10); WHITE BLOOD COUNT 7.1 10^3/uL (4.0-10.0)
[2019-10-22 06:39] LABS: EOSINOPHILS 5 % (0-3); LYMPHOCYTES 28 % (16-44); MONOCYTES 2 % (0-5); NEUTROPHILS 65 % (28-66); PLATELET ESTIMATE NORMAL (NORMAL)
[2019-10-22 06:43] LABS: BLOOD UREA NITROGEN 14 MG/DL (7-18); CALCIUM LEVEL 8.1 MG/DL (8.5-10.1); CARBON DIOXIDE LEVEL 26 MEQ/L (21-32); CHLORIDE LEVEL 107 MEQ/L (98-107); CREATININE FOR GFR 1.08 MG/DL (0.70-1.30); GLOMERULAR FILTRATION RATE > 60.0 (>56); GLUCOSE, FASTING 206 MG/DL (70-100); POTASSIUM SERUM 4.2 MEQ/L (3.5-5.1); SODIUM LEVEL 139 MEQ/L (136-145)
[2019-10-22] MEDS: ATORVASTATIN 20 MG TAB PO SCH (08:05)
[2019-10-22] MEDS: HumaLOG INSULIN (NovoLOG) PER UNIT SC SCH ×4 (08:05→21:00)
[2019-10-22] MEDS: ASPIRIN 81 MG ENTERIC TAB PO SCH (08:06)
[2019-10-22] MEDS: NYSTATIN 100,000 UNITS/GM TOPICAL PWD 15 GM TOP SCH ×2 (08:06→21:54)
[2019-10-22 10:00] VITALS: BP 110/65
--- NOTE | 2019-10-22 12:36 | IPN ---
DATE OF SERVICE: 10/22/2019 The patient is seen and examined. Denies overnight complaints. Negative for nausea, vomiting, fever, chills. Vital signs were reviewed. He has remained afebrile. Laboratories are reviewed. White blood cell count is 7.1. PHYSICAL EXAMINATION: Lower foot examination, improved granulation tissue to most of the wound. There is some necrosis and eschar around the periphery, on the dorsal aspect of the wound. There is no purulence. ASSESSMENT: 54-year-old diabetic male, status post first toe partial ray amputation. PLAN: For now, continue Vashe and Hydrofera Blue. At this time, the periphery of the skin is too friable for a wound Vac. Once this is improved, that ultimately will be the plan. We will reassess on Tuesday. [facility]ITALBlessing
[2019-10-22 14:00] VITALS: BP 120/66
--- NOTE | 2019-10-22 17:09 | IPNPDOC ---
Subjective Date Seen The patient was seen on 10/22/19. Subjective Chief Complaint/HPI No complaints. Pleasant as usual. No diarrhea. Objective Physical Examination General Exam: Positive: Cooperative, No Acute Distress Eye Exam: Negative: Sclera icteric ENT Exam: Positive: Atraumatic Chest Exam: Positive: Clear to auscultation Heart Exam: Positive: Rate Normal, Regular Rhythm, Normal S1, Normal S2; Negative: Murmurs Abdomen Exam: Positive: Normal bowel sounds, Soft; Negative: Tenderness Extremity Exam: Positive: Other (left foot pink in color, cap refill < 5 sec) Skin Exam: Positive: Nl turgor and temperature; Negative: Rash Psych Exam: Positive: Mood NL Assessment /Plan Assessment # Diabetic Left foot Gas Gangrene - s/p left foot I+D w/ hallux & 1st metatarsal amputation (10/15) POD # 7 - s/p second I +D Left foot wound POD # 4 (10/18) - s/p a-gram with no evidence of arterial stenosis - IV ceftaroline day # 8 - operative cultures growing (e.coli, coag (-) staph and alicaligenes f., + anaerobic cx :provetella morning of 10/22), change to augmentin bid and flagyl. MRI Left foot did not show osteomyelitis - Podiatry noted reviewed will reexamine for wound vac placement on Tuesday # DM type 2 not well controlled - continue SS - increase levemir 26 units sq qhs # ANA superimposed on CKD stage 3 - resolved # Hyperlipidemia - continue atorvastatin Plan/VTE VTE Prophylaxis Ordered?: Yes (hep sq bid) VTE Exclusion Mechanical Proph: N/A:VTE Prophy Ordered VTE Exclusion Pharmacological: N/A:VTE Prophy Ordered VS, I&O, 24H, Fishbone Vital Signs/I&O Vital Signs Date Time Temp Pulse Resp B/P (MAP) Pulse Ox O2 Delivery O2 Flow Rate FiO2 10/22/19 14:00 97.4 71 16 120/66 (84) 98 Room Air I&O- Last 24 Hours up to 6 AM 10/22/19 06:00 Intake Total 2020 ml Output Total 1250 ml Balance 770 ml Laboratory Data 24H LABS Laboratory Tests 2 10/21/19 21:02: Bedside Glucose (Misc Panel) 263H 10/22/19 05:44: Immature Granulocyte % (Auto) , Nucleated Red Blood Cells % (auto) 0.3H, Neutrophils 65, Lymphocytes (Manual) 28, Monocytes (Manual) 2, Eosinophils (Manual) 5H, Red Blood Cell Morphology NORMAL, Platelet Estimate NORMAL, Anion Gap 6L, Glomerular Filtration Rate > 60.0, Calcium Level 8.1L 10/22/19 11:31: Bedside Glucose (Misc Panel) 216H 10/22/19 16:18: Bedside Glucose (Misc Panel) 262H CBC/BMP Laboratory Tests 10/22/19 05:44 Microbiology Microbiology 10/15/19 Gram Stain - Final, Complete 10/15/19 Wound Culture - Final, Complete Escherichia Coli Strep Agalactiae Group B 10/15/19 Anaerobic Culture - Final, Complete Prevotella Intermedia 10/15/19 Gram Stain - Final, Complete 10/15/19 Wound Culture - Final, Complete Escherichia Coli Staphylococcus Sp Coag Neg Alcaligenes Sp. Faecalis 10/15/19 Blood Culture - Final, Complete NO GROWTH AFTER 5 DAYS 10/15/19 Blood Culture - Final, Complete NO GROWTH AFTER 5 DAYS VIVIENNE TELLO MD Oct 22, 2019 17:09
[2019-10-22 18:00] VITALS: BP 126/69
[2019-10-22] MEDS: AUGMENTIN 875 MG TAB PO SCH (21:53)
[2019-10-22] MEDS: ENOXAPARIN 40 MG/0.4 ML SYRINGE (J1650) SC SCH (21:53)
[2019-10-22] MEDS: LEVEMIR (INSULIN DETEMIR) 1 UNITS/0.01ML SC SCH (21:54)
[2019-10-22] MEDS: METOPROLOL SUCC *XL* 25MG TAB (TopROL *XL*) PO SCH (21:56)
[2019-10-22] MEDS: metroNIDAZOLE (FLAGYL) 500 MG TAB PO SCH (21:58)
[2019-10-22 22:00] VITALS: BP 129/69
[2019-10-23] MEDS: metroNIDAZOLE (FLAGYL) 500 MG TAB PO SCH ×3 (05:24→21:40)
[2019-10-23 06:00] VITALS: BP 151/85
[2019-10-23] MEDS: HumaLOG INSULIN (NovoLOG) PER UNIT SC SCH ×4 (09:41→21:00)
[2019-10-23] MEDS: AUGMENTIN 875 MG TAB PO SCH ×2 (09:42→21:40)
[2019-10-23] MEDS: ATORVASTATIN 20 MG TAB PO SCH (09:42)
[2019-10-23] MEDS: ASPIRIN 81 MG ENTERIC TAB PO SCH (09:42)
[2019-10-23] MEDS: NYSTATIN 100,000 UNITS/GM TOPICAL PWD 15 GM TOP SCH ×2 (09:43→21:42)
[2019-10-23 10:00] VITALS: BP 140/76
[2019-10-23] MEDS ORDERED: FLAG500T PO (12:36)
[2019-10-23] MEDS ORDERED: AUGM875T28 PO (12:36)
[2019-10-23 14:00] VITALS: BP 131/74
[2019-10-23 18:00] VITALS: BP 151/79
--- NOTE | 2019-10-23 20:05 | IPN ---
DATE: 10/23/2019 The patient has no pain at the moment, rated at 1 out of 10, remains laying down and when he ambulates he will usually hop on the right foot, requesting a bariatric walker. Awaiting Dr. Laboy for evaluation of the left partial ambulation on Tuesday to decide whether a wound Vac is appropriate. The patient is requesting home care. He says that his glucose level has been over 180 usually at home, 80s since he has been infected. No fever or chills. Tolerating his diet well. No nausea or vomiting, dysuria, urgency or frequency. No chest pain, pressure, tightness or shortness of breath. The patient has passed physical therapy (PT) and is awaiting disposition. He would like to make an appointment with Dr. Amador on Tuesday for chronic wound care. He will be arranging for some extra help at home, as he is unable to do his chores. PHYSICAL EXAMINATION: VITAL SIGNS: Afebrile, temperature 97.8, pulse 79, respiratory rate 19, blood pressure 140/76, 96% on room air. GENERAL: Awake, alert, oriented, obese male. No respiratory distress. Speaking in full sentences. LUNGS: Clear to auscultation. No wheezing, rales or rhonchi. HEART: S1, S2. Sinus rhythm. ABDOMEN: Obese, soft, nontender, nondistended. Positive bowel sounds times four quadrants. EXTREMITIES: Left lower extremity with no purulence. Partial amputation noted with bandage. Dorsalis pedis and posterior tibialis noted. Chronic lower extremity edema. Venous stasis changes. LABORATORY DATA: White count 7.1, hemoglobin 12, hematocrit 38, platelet count 328. Sodium 139, potassium 4.2, chloride 107, bicarbonate 26, BUN 14, creatinine 1.0, glucose 206. Microbiology: Wound culture showed Escherichia (E) coli, group B Streptococcus, Prevotella intermedia sensitive to ampicillin, sulbactam, ceftriaxone, Levaquin. ASSESSMENT AND PLAN: This is a 54-year-old with diabetes, morbid obesity, hypertension, dyslipidemia, chronic kidney disease stage III who follows with Dr. Amador for chronic diabetic wound, status post arterial study with Doppler that showed normal triphasic waveforms to the left lower extremity to the level of the proximal anterior tibial artery below the tibioperoneal trunk with monophasic waveforms noted on the left but no high grade stenosis or significant plaquing. No high grade stenosis noted in either side. MRI of the foot on 10/16/2019 showed diffuse forefoot edema status post transmetatarsal first digit ray amputation. No MRI evidence of osteomyelitis. ACTIVE ISSUES: 1. Status post transmetatarsal first digit ray amputation secondary to diabetic foot infection with Escherichia (E) coli, Group B Streptococcus agalactiae and Prevotella, as well as coag negative Staphylococcus alcaligenes species. Currently on Augmentin and Flagyl. The patient has remained afebrile with normal white count. Sedimentation rate on 10/15/2019 was 65. C-reactive protein was 22.8, currently 3.56 on 10/19/2019. Awaiting clearance from podiatry for discharge home. Currently undergoing Vashe and Hydrofera Blue cleansing. Outpatient followup with Dr. Amador and Dr. Laboy once cleared for home. Patient and family services (PFS) has been consulted for home care referral. Physical therapy (PT) has cleared the patient for discharge home. No significant peripheral arterial disease that requires stenting or angioplasty, according to Dr. Reddy. 2. Type 2 diabetes, uncontrolled due to diabetic foot infection. Currently on Levemir 26 units at night. 3. Dyslipidemia. On chronic Lipitor. 4. Morbid obesity. Body Mass Index (BMI) 44.9, complicating his care. DISPOSITION: Discharge in the morning if cleared by podiatry. Will need home care, dressing changes as an outpatient. Followup with grounds/maintenance specialist, Dr. Amador. [facility]
[2019-10-23] MEDS: LEVEMIR (INSULIN DETEMIR) 1 UNITS/0.01ML SC SCH (21:41)
[2019-10-23 21:42] VITALS: BP 143/88
[2019-10-23] MEDS: ENOXAPARIN 40 MG/0.4 ML SYRINGE (J1650) SC SCH (21:42)
[2019-10-23] MEDS: METOPROLOL SUCC *XL* 25MG TAB (TopROL *XL*) PO SCH (21:42)
[2019-10-23 22:00] VITALS: BP 143/87
[2019-10-24] MEDS: metroNIDAZOLE (FLAGYL) 500 MG TAB PO SCH ×2 (05:20→13:42)
[2019-10-24 06:00] VITALS: BP 136/85
[2019-10-24] MEDS: ATORVASTATIN 20 MG TAB PO SCH (09:06)
[2019-10-24] MEDS: AUGMENTIN 875 MG TAB PO SCH (09:06)
[2019-10-24] MEDS: HumaLOG INSULIN (NovoLOG) PER UNIT SC SCH ×2 (09:06→13:42)
[2019-10-24] MEDS: NYSTATIN 100,000 UNITS/GM TOPICAL PWD 15 GM TOP SCH (09:06)
[2019-10-24] MEDS: ASPIRIN 81 MG ENTERIC TAB PO SCH (09:06)
[2019-10-24 10:00] VITALS: BP 118/71
[2019-10-24] MEDS ORDERED: LEVA750T7 PO (12:48)
[2019-10-24 14:00] VITALS: BP 148/78
--- NOTE | 2019-10-24 20:40 | DSES ---
DATE OF ADMISSION: 10/15/2019 DATE OF DISCHARGE: 10/24/2019 CONSULTANTS DURING ADMISSION: Skirt Clipper, Dr. Nelson Laboy. Vascular surgery, Dr. Reddy. PROCEDURES DURING THIS ADMISSION: 1. 10/15/2019, incision and drainage of the left foot, amputation of the left hallux and first metatarsal of the left foot secondary to left foot gangrene and diabetic foot infection. 2. 10/17/2019, angiogram of her extremity by Dr. Reddy. 3. 10/18/2019, left foot incision and drainage, wound debridement, including skin, subcutaneous tissue, muscle and tendon by Dr. Laboy. PRIMARY DISCHARGE DIAGNOSES: 1. Left foot gangrene, status post transmetatarsal first digit ray amputation. Incision and drainage and debridement. 2. Left foot diabetic infection. 3. Peripheral vascular disease. 4. Type 2 diabetes. 5. Dyslipidemia. 6. Morbid obesity. DISCHARGE MEDICATIONS: - Flagyl 500 mg every 8 hours for 7 days - Augmentin one tablet by mouth twice a day for 7 days - aspirin 81 mg daily - atorvastatin 20 mg daily - hydrochlorothiazide 25 mg daily - Invokana 300 daily - Levemir insulin 26 units at night - Lisinopril 40 mg daily - metoprolol 25 mg at night - Janumet one tablet by mouth twice a day mg tablet DISCHARGE INSTRUCTIONS: The patient is to have immediate followup for debridement and surgical postoperative management with Dr. Laboy within 5 days of hospital discharge, as well as Dr. Amador for chronic wound management within 7 days of discharge. Primary care doctor appointment within 1 week. Call his physician if fever greater than 100.4, increase in drainage, pain or purulent discharge of the foot. Dressing changes per Dr. Laboy. HOSPITAL COURSE: This is a 54-year-old male, diabetic, with chronic left foot diabetic foot infection managed by Dr. Amador and Dr. Laboy, morbid obesity, hypertension, dyslipidemia, chronic kidney disease stage III, who presented on 10/15/2019 for treatment for left first metatarsal joint infection with no signs of osteomyelitis, on Augmentin. The patient had no fever or chills. He was admitted to the hospitalist service and given intravenous ceftaroline [address] Reddy of vascular surgery was consulted to evaluate for peripheral arterial disease. The patient was afebrile, temperature 97.2 on arrival. White count was elevated at 15.4. Sedimentation rate was 65. C-reactive protein was elevated at 22.8. The patient underwent foot x-ray, which showed left foot without any signs of osteomyelitis, air in the soft tissue was seen on the medial, mid and forefoot compatible with cellulitis. The patient underwent incision and drainage with first ray amputation by Dr. Laboy on 10/15/2019. Vascular surgery evaluated the patient. Dr. Reddy did not feel that there was significant peripheral arterial disease that would require angioplasty or any stenting. The patient had significant improvement with antibiotics and was transitioned to Augmentin, as well as Flagyl. White count improved to normal. He remained afebrile. The patient's glucose levels were uncontrolled with a glucose of 304. Fingersticks improved with increasing Levemir insulin to 26 units at night to current numbers of 189 fasting. Wound cultures grew out Escherichia (E) coli , coagulase negative Staphylococcus alcaligenes and Group B Streptococcus, Prevotella intermedia. The patient is discharged in stable condition with immediate followup with Dr. Amador, logistic specialist, and Dr. Laboy, podiatry, for postoperative management. PHYSICAL EXAMINATION: On discharge: Vital signs: Temperature 98.1, pulse 72, respiratory rate 16, blood pressure 118/71, 98% on room air. GENERAL: Awake, alert, oriented times three. Answering questions appropriately. LUNGS: Clear to auscultation. No wheezing, rales or rhonchi. HEART: S1, S2. Sinus rhythm. No murmurs, rubs or gallops. ABDOMEN: Obese, soft, nontender, nondistended. EXTREMITIES: The patient's left foot is pink in color. Capillary refill less than 5 seconds. The patient's foot is bandaged. Dorsalis pedis and posterior tibialis pulses noted. Skin is warm and dry, well perfused, pink in color. LABORATORY DATA: On discharge: White count 7.1, hemoglobin 12, hematocrit 38, platelet count 328. Sodium 139, potassium 4.2, chloride 107, bicarbonate 26, BUN 14, creatinine 1.08, glucose of 206. Wound culture of the left foot Group B Streptococcus, Prevotella, coag negative Staphylococcus alcaligenes. IMAGING STUDIES: Extremity arterial study showed CHE on the right is normal at 1.3, on the left could not be accomplished due to wound, recent amputation and dressing. Triphasic waveforms on the right lower extremity are normal. There is minimal diffuse plaquing noted. Foot MRI on 10/16/2019 showed diffuse forefoot edema, status post transmetatarsal first digit ray amputation, no MRI evidence of osteomyelitis. Chest x-ray on 10/15/2019 showed no active disease. Foot x-ray on 10/15/2019 compatible with cellulitis. No signs of osteomyelitis of the left foot. Time spent on discharge: 30 minutes. MTDD
== END 2019-10-24 15:29 | disposition home health service (06) | DRG 314 ==
LOC: M ED 10:01 → M ED INP 12:26 → ENRESERV 12:45 → M MSPAV 13:53
PROVIDERS: ADMIT Family Medicine; ATTEND General Practice
PROC: 0Y6Q0Z1 Detachment at Left 1st Toe, High, Open Approach (ICD-10-PCS; principal; 2019-10-15 21:00)
PROC: BW0 Imaging, Anatomical Regions, Plain Radiography (ICD-10-PCS; 2019-10-16)
PROC: B400YZZ Plain Radiography of Abdominal Aorta using Other Contrast (ICD-10-PCS; 2019-10-16)
PROC: 0LBW0ZZ Excision of Left Foot Tendon, Open Approach (ICD-10-PCS; 2019-10-18)
DX: E11.621 Type 2 diabetes mellitus with foot ulcer (principal); E11.22 Type 2 diabetes mellitus with diabetic chronic kidney disease; A48.0 Gas gangrene; N17.9 Acute kidney failure, unspecified; I70.262 Atherosclerosis of native arteries of extremities with gangrene, left leg; E11.40 Type 2 diabetes mellitus with diabetic neuropathy, unspecified; Z68.42 Body mass index [BMI] 45.0-49.9, adult; L03.116 Cellulitis of left lower limb; E11.52 Type 2 diabetes mellitus with diabetic peripheral angiopathy with gangrene; N18.3 Chronic kidney disease, stage 3 (moderate); E66.01 Morbid (severe) obesity due to excess calories; E11.65 Type 2 diabetes mellitus with hyperglycemia; L97.528 Non-pressure chronic ulcer of other part of left foot with other specified severity; I12.9 Hypertensive chronic kidney disease with stage 1 through stage 4 chronic kidney disease, or unspecified chronic kidney disease; E78.5 Hyperlipidemia, unspecified; Z79.82 Long term (current) use of aspirin; Z79.84 Long term (current) use of oral hypoglycemic drugs; Z79.899 Other long term (current) drug therapy; Z88.2 Allergy status to sulfonamides

== ENCOUNTER → 2019-11-02 | Outpatient (REF) | payer BC ==
[~2019-11-02] MED LIST changes: +FLAG500T PO; +LEVA750T7 PO
== END ==
LOC: M SFHCLERA 12:24
PROVIDERS: ATTEND Physician Assistant
DX: L97.523 Non-pressure chronic ulcer of other part of left foot with necrosis of muscle (principal)

== ENCOUNTER → 2020-10-17 | Outpatient (CLI) | payer BC ==
[~2020-10-17] MED LIST changes: +ASPI81TA26 PO; -ASPI81TA85 PO; +ASPI81TA86 PO
== END ==
LOC: M LABSMTC 10:01
PROVIDERS: ATTEND Anesthesiology
DX: Z01.812 Encounter for preprocedural laboratory examination (principal); Z20.822 Contact with and (suspected) exposure to COVID-19

== ENCOUNTER 2020-10-22 09:36 | Day surgery (SDC) | payer BC ==
[~2020-10-22] VITALS: Ht 182.9 cm; Wt 151.4 kg
[~2020-10-22 09:36] MED LIST changes: +BUPIVACAINE HCL 0.5% 30 ML VIAL As Ordered ONE; +HYDR-3490 PO; -HYDR25TAB PO; +LIDOCAINE 1% SDV 30ML VIAL As Ordered ONE; +LIDOCAINE 2% 100MG/5ML SDV (FOR ANES.) As Ordered ONE; -LISI40TA PO; +LISI40TA4 PO; +LR 1,000 ML IV ONE; +MIDAZOLAM INJ 2MG/2ML VIAL (J2250 PER 1MG) As Ordered ONE; +ceFAZolin SOD 2 GM in IV 1 EA IV ONE; +dexameTHASONE 4 MG/ML 1ML VIAL (J1100 PER 1MG) As Ordered ONE; +propofoL 200 MG/20 ML VIAL As Ordered ONE
--- OUTSIDE RECORDS SUMMARY | 2020-10-22 09:41 | CCD ---
Author Author [facility] er Organization [facility] er Address Unknown Phone Unavailable Care Team Providers Care Resource Conservationist Name Role Phone Justin Valdez Unavailable PROBLEMS Type Condition ICD9-CM Code [id number] Code Onset Dates Condition S tatus SNOMED Code Notes Problem Hyperlipidemia, unspecified hyperlipidemia type E7 8.5 Active 06016046 Problem Essential (primary) hypertension I10 Active 97324994 Problem BRANDEN (obstructive sleep apnea) G47.33 Active 78 164670 Problem Body mass index (BMI) of 45.0-49.9 in adult Z68.42 Active 352461044 Problem Chronic renal failure, stage 3 (moderate) N18.3 Active 72942473 Problem Morbid (severe) obesity due to excess calories E66 .01 Active 550193111 Problem Type 2 diabetes mellitus with foot ulcer E11.621 Active 4378209554719 Problem Other osteomyelitis of left foot M86.8X7 Active 36727540 Problem Peripheral polyneuropathy G62.9 Active 060840 00 ALLERGIES Allergen (clinical drug ingredient) Drug/Non Drug Allergy do cumented on EMR Reaction Allergy Type Onset Date Status Sulfa Medications Unknown Drug Allergy Activ e ENCOUNTERS from 1967 to 2020-10-20 Encounter Location Date Provider Diagnosis [facility] Internal Medicine [address] [facility] [address] [place] [address] Oct, Justin Valdez Pre-operative cleara nce Z01.818 ; Type 2 diabetes mellitus with foot ulcer E11.621 ; Body mass index (BMI) of 45.0-49.9 in adult Z68.42 ; Essential (primary) hypertension I10 ; Hyperlipidemia, unspec ified hyperlipidemia type E78.5 ; BRANDEN (obstructive sleep apnea) G47.33 ; Peripheral polyneuropathy G62.9 and Chronic renal failure, stage 3 (moderate) N18.3 IMMUNIZATIONS Vaccine Route Administration Date Status Influenza (FluLaval 6+ mos) >18 yrs Unknown Aug 07, 2020 Administered Influenza, Medicare, Afluria Unknown Jul 03, 2019 Adm inistered Influenza (Afluria/Fluvirin 3+ yrs) <18 yrs Unknown Aug 14, 2018 Administered Tdap 18 or < IM Intramuscular April 25, 2020 Administered Pneumococcal (PPSV 23) 18 or < IM Intramuscular April 25, 2020 Administered SOCIAL HISTORY Tobacco Use: Social History Observation Description Date Details (start date - stop date) Never Smoker Sex Assigned At : Social History Observation Description Sex Assigned At Unknown Alcohol Screen (Audit-C) Question Answer Notes Did you have a drink containing alcohol in the past year? Ye s Points 1 Interpretation Negative How often did you have 6 or more drinks on one occasio n in the past year? Never (0 points) How many drinks did you have on a typica l day when you were drinking in the past year? 1 or 2 (0 points) How often did you have a drink containing alcohol in t he past year? Monthly or less (1 point) DAST-10 Question Answer Notes Total Score: 0 Interpretation: No problems reported Tobacco Use/Smoking Question Answer Notes Patient is a never smoker REASON FOR REFERRAL No Information VITAL SIGNS Height 72 in Oct, Weight 330 lbs Oct, BMI 44.75 kg/m2 Oct, Temperature 96.1 degrees Fahrenheit Oct, Heart Rate 84 /min Oct, Respiratory Rate 18 /min Oct, Oximetry 96 % Oct, Blood pressure systolic 128 mm Hg Oct, Blood pressure diastolic 72 mm Hg Oct, MEDICATIONS Medication SIG (Take, Route, Frequency, Duration) Notes Start Da te End Date Status Hydrochlorothiazide 25 MG TAKE ONE TABLET BY MOUTH EVERY DAY for 90 Active Aspirin 81 MG 1 tablet Orally Once a day for 30 day(s) May, Active OneTouch Delica Lancets 33G - as directed in vitro DX E11.9 3-4 times per day for 30 days Jul, Active Metoprolol Succinate ER 25 MG 1 tablet Orally Once a day for 30 Active Levemir FlexTouch 100 UNIT/ML 24 units Subcutaneous every night Active Pen Creswell 02/15" 31G X 8 MM as directed sub cut Daily for 30 days Active Lisinopril 40 MG TAKE ONE TABLET BY MOUTH EVERY DAY for 90 Active Invokana 300 MG TAKE ONE TABLET BY MOUTH EVERY DAY for 90 Active One Touch Ultra Test Strips 1 use as directed sub cut DX E11.9 Use as directed 3-4 times per day for 30 days Jul, Ac tive Janumet 50-1000 MG TAKE ONE TABLET BY MOUTH TWICE A DAY WITH MEALS fo r 90 Active Atorvastatin Calcium 20 MG TAKE ONE TABLET BY MOUTH EVERY DAY for 90 Active NovoLog Flexpen 100 UNIT/ML 5 units Subcutaneous immed iately prior to meal if blood glucose greater than 140 mg/dl for 30 days Nov, Active PROCEDURES No Information RESULTS Component Value Reference Range Hemoglobin A1C (IH) Reviewed date:10/10/2020 13:06:06 Interpretation: Performing Lab: HgBA1C 7.2 CMP COMPREHENSIVE METABOLIC PROFILE Reviewed date:10/13/2020 08:24:30 Interpretation: Performing Lab: GLU 157 70-110 BUN 26 7-23 CRE 1.520 0.500-1.300 GFR 51 CHLORIDE 103 99-110 NA 141 136-147 POTASSIUM 4.4 3.5-5.1 TCO2 29 20-33 ANION GAP 13.4 10.0-20.0 CA 9.0 8.3-10.7 ALKALINE PHOS 73 45-117 TP 7.8 6.0-7.8 ALB 3.9 3.5-5.0 GL 3.9 2.3-3.5 A/G 1.0 1.0-2.5 T. BILIRUBIN 0.4 0.1-1.1 ALTI 48 6-54 AST 19 8-40 MICROALBUMIN/CREATININE RATIO Reviewed date:10/13/2020 08:24:30 Interpretation: Performing Lab: ALBUMIN,URINE < 5.0 5-17 MICROALB/CREAT 7.4 0-30 CREAT. URINE 67.0 CBC Reviewed date:10/13/2020 08:24:30 Interpretation: Performing Lab: WBC 7.48 4.0-10.5 RBC 5.42 4.70-6.00 Hemoglobin 16.0 14.0-18.0 Hematocrit 46.8 42.0-52.0 MCV 86.3 81.0-99.0 MCH 29.5 27.0-31.0 MCHC 34.2 32.7-35.6 RDW 13.0 11.5-14.0 Platelet count 237 150-450 MPV 10.2 6.9-9.5 Neutrophils 53.0 34-64 Lymphocytes 34.2 25-45 Monocytes 8.2 1.7-10.6 Eosinophils 3.6 0.4-7.0 Basophils 0.7 0.1-2.0 Imm. Gran. 0.3 0.1-2.0 Abs. Neutro. 3.97 1.2-7.6 Abs. Lymph. 2.56 1.0-3.5 Abs. Newport. 0.61 0.1-1.0 Abs. Eosin. 0.27 0.1-0.7 Abs. Baso. 0.05 0.0-0.1 Abs. Imm. Gran. 0.02 0.0-0.1 ANRBC% 0 0 URINALYSIS Reviewed date:10/13/2020 08:24:30 Interpretation: Performing Lab: URINE COLOR Yellow UAPR Clear UGLU 3+ NEGATIVE URINE BILIRUBIN Negative NEGATIVE UKET Negative NEGATIVE USG 1.026 1.010-1.025 UBLO Negative NEGATIVE UpH 5.0 5.0-8.0 UPRO Negative Negative UUB 0.2 0.2-1.0 UNIT Negative Negative ULEU Negative Negative EKG 96188 Reviewed date:10/14/2020 16:44:24 Interpretation: Performing Lab: REASON FOR VISIT med clearance for left second metatarsal head excision with Dr Laboy on 10/22/19 MEDICAL (GENERAL) HISTORY Type Description Date Medical History Essential (primary) hypertension Medical History Morbid (severe) obesity due to excess ca lories Medical History Type 2 diabetes mellitus wit hout complication, unspecified half-way insulin use status Medical History Hyperlipidemia, unspecified hyperlipidem ia type Medical History BRANDEN (obstructive sleep apnea) Medical History Essential (primary) hypertension Medical History Morbid (severe) obesity due to excess ca lories Medical History Hyperlipidemia, unspecified hyperlipidem ia type Medical History BRANDEN (obstructive sleep apnea) Medical History Type 2 diabetes mellitus with foot ulcer Medical History Other osteomyelitis of left foot Surgical History Left Great Toe Debridement 05/11/18 Surgical History Left Great toe amputation 10/2019 Hospitalization History osteomyelitis 05/2018 Hospitalization History Foot infection 10/2019 Goals Section No Information Health Concerns No Information MEDICAL EQUIPMENT No Information MENTAL STATUS No Information FUNCTIONAL STATUS No Information ASSESSMENTS Encounter Date Diagnosis Assessment Notes Treatment Notes Treatm ent Clinical Notes Oct, Pre-operative clearance (ICD-10 - Z01.818) DO NOT EAT OR DRINK ANYTHING ON THE DAY OF YOUR SURGERY/ PROCEDURE EXCEPT YOUR MEDICATIONS WITH A SIP OF WATER Hold all herbal and over the counter medications 7 days prior to surgery and resume the day following surgery Hold aspirin 3-7 days prior to surgery and resume the day following surgery based on the discretion and guidance of the surgeon Hold diuretics on the day of surgery Continue beta blockers and calcium channel blockers on the day of surgery Continue statin medication Reduce long acting insulin dose by 50% on the evening prior to the procedure Hold meal time insulin on the day of surgery until eating again after the surgery -Physical exam is unremarkable; vitals are stable -The patient has a calculated Revised Cardiac Risk Index Score of _1_ (Class 1__) suggestive of 6% risk of a major cardiac event during surgery -Relevant labs have been ordered for pre-op clearance -EKG was reviewed today and showed a normal sinus rhythm with a rate of approximately 97 bpm there were no acute changes noted. -Based on the past medical history and ongoing chronic conditions, this patient is at intermediate risk for the planned procedure and is currently medically optimized for 2nd left metatarsal head excison under MAC anesthesia. Medications to be held prior to procedure were discussed in detail with the patient and given as part of written instructions. He will contact Dr. Coombs office for instructions for Covid testing. -Patient verbalized understanding the above plan Oct, Type 2 diabetes mellitus with foot ulcer (ICD-10 - E11.621) His hemoglobin A1c today is 7.2%. His diabetes appears to be under fairly good control. We will continue with her current treatment plan. Oct, Body mass index (BMI) of 45.0-49.9 in adult (ICD -10 - Z68.42) Learning About [employer]ting Calories material was printed He does have morbid obesity. Unfortunately his mobility is somewhat limited by his foot issues. Hopefully after his surgery he will be able to increase his activity and be able to bring his weight down some. Oct, Essential (primary) hypertension (ICD-10 - I10) His blood pressure appears to be under good control. We will continue with our current medications. Oct, Hyperlipidemia, unspecified hyperlipidemia type (ICD-10 - E78.5) He is up-to-date on his lipid profiles. We will continue with her current medications. Oct, BRANDEN (obstructive sleep apnea) (ICD-10 - G47.33) He does have a diagnosis of obstructive sleep apnea and does wear his CPAP machine on a regular basis. He finds that this is beneficial for him and we will continue with such. Oct, Peripheral polyneuropathy (ICD-10 - G62.9) He does have a diagnosis of diabetes related to polyneuropathy. We will continue to follow this carefully. Oct, Chronic renal failure, stage 3 (moderate) (ICD-1 0 - N18.3) He does have mild chronic renal failure this appears to be generally stable we will be updating his labs today. Oct, Other He has received his influenza vaccine this year. He is up-to-date on his health maintenance issues. I will be seeing him back in 3 months for follow-up. PLAN OF TREATMENT Medication Medication Name Sig Start Date Stop Date Pen Creswell 02/15" 31G X 8 MM as directed sub cut Daily for 30 da ys Treatment Notes Assessment Notes Clinical Notes Pre-operative clearance DO NOT EAT OR DRINK ANYTHING ON THE DAY OF YOUR SURGERY/ PROCEDURE EXCEPT YOUR MEDICATIONS WITH A SIP OF WATERHold all herbal and over the counter medications 7 days prior to surgery and resume the day following surgeryHold aspirin 3-7 days prior to surgery and resume the day following surgery based on the discretion and guidance of the surgeonHold diuretics on the day of surgeryContinue beta blockers and calcium channel blockers on the day of surgeryContinue statin medicationReduce long acting insulin dose by 50% on the evening prior to the procedureHold meal time insulin on the day of surgery until eating again after the surgery -Physical exam is unremarkable; vitals a re stable-The patient has a calculated Revised Cardiac Risk Index Score of _1_ (Class 1__) suggestive of 6% risk of a major cardiac event during surgery-Releva nt labs have been ordered for pre-op clearance-EKG was reviewed today and showed a normal sinus rhythm with a rate of approximately 97 bpm there were no acute changes noted.-Based on the past medical history and ongoing chronic conditions, this patient is at intermediate risk for the planned procedure and is currently medically optimized for 2nd left metatarsal head excison under MAC anesthesia.Medications to be held prior to procedure were discussed in detail with the patient and given as part of written instructions. He will contact Dr. Coombs office for instructions for Covid testing.-Patient verbalized understanding the above plan Type 2 diabetes mellitus with foot ulcer His hemoglobin A1c today is 7.2%. His diabetes appears to be under fairly good control. We will continue with her current treatment plan. Body mass index (BMI) of 45.0-49.9 in adult Learning A bout [employer]ting Calories material was printed He does have morbid obesity. Unfortunat jazlyn his mobility is somewhat limited by his foot issues. Hopefully after his surgery he will be able to increase his activity and be able to bring his weight down some. Essential (primary) hypertension His blo od pressure appears to be under good control. We will continue with our current medications. Hyperlipidemia, unspecified hyperlipidemia type He is up-to-date on his lipid profiles. We will continue with her current medications. BRANDEN (obstructive sleep apnea) He does rao ve a diagnosis of obstructive sleep apnea and does wear his CPAP machine on a regular basis. He finds that this is beneficial for him and we will continue with such. Peripheral polyneuropathy He does have a diagnosis of diabetes related to polyneuropathy. We will continue to follow this carefully. Chronic renal failure, stage 3 (moderate) He does have mild chronic renal failure this appears to be generally stable we will be updating his labs today. Next Appt Details 3 Months Reason: Provider Name:Justin Valdez, 2021-01-08 0 2:30:00 PM, [address] [facility], [address], [address], Provider Name:Justin José Miguel, 2021-04-27 0 8:00:00 AM, [address] [facility], [address], [place], [address], Insurance Providers Payer Name Payer Address Payer Phone Insured Name Patient Relati onship to Insured Coverage Start Date Coverage End Date [employer] [address] [address] [place] [address] KRYSTYNA ARCEO
--- OUTSIDE RECORDS SUMMARY | 2020-10-22 09:42 | CCD ---
Author Author [facility] er Organization [facility] er Address Unknown Phone Unavailable Care Team Providers Care It Application Administrator Name Role Phone Justin Valdez Unavailable PROBLEMS Type Condition ICD9-CM Code [id number] Code Onset Dates Condition S tatus SNOMED Code Notes Problem Hyperlipidemia, unspecified hyperlipidemia type E7 8.5 Active 76024505 Problem Essential (primary) hypertension I10 Active 63260853 Problem BRANDEN (obstructive sleep apnea) G47.33 Active 78 777049 Problem Body mass index (BMI) of 45.0-49.9 in adult Z68.42 Active 972621219 Problem Chronic renal failure, stage 3 (moderate) N18.3 Active 54215569 Problem Morbid (severe) obesity due to excess calories E66 .01 Active 429481818 Problem Type 2 diabetes mellitus with foot ulcer E11.621 Active 6832547333872 Problem Other osteomyelitis of left foot M86.8X7 Active 07746631 Problem Peripheral polyneuropathy G62.9 Active 741079 00 ALLERGIES Allergen (clinical drug ingredient) Drug/Non Drug Allergy do cumented on EMR Reaction Allergy Type Onset Date Status Sulfa Medications Unknown Drug Allergy Activ e ENCOUNTERS from 1967 to 2020-07-25 Encounter Location Date Provider Diagnosis [facility] [address] [facility] [address] [place] [address] 16 Jul, 2020 Justin Valdez IMMUNIZATIONS Vaccine Route Administration Date Status Influenza, Medicare, Afluria Unknown Jul 03, 2019 [...] REASON FOR REFERRAL No Information VITAL SIGNS No information MEDICATIONS Medication SIG (Take, Route, Frequency, Duration) Start Date En d Date Status Invokana 300 MG TAKE ONE TABLET BY MOUTH EVERY DAY for 90 Active NovoLog Flexpen 100 UNIT/ML 5 units Subcutaneous immed iately prior to meal if blood glucose greater than 140 mg/dl for 30 days Nov, Active Hydrochlorothiazide 25 MG TAKE ONE TABLET BY MOUTH EVERY DAY for 90 Active Atorvastatin Calcium 20 MG TAKE ONE TABLET BY MOUTH EVERY DAY for 9 0 Active Levemir FlexTouch 100 UNIT/ML 20 units Subcutaneous every night for 30 Active Metoprolol Succinate ER 25 MG 1 tablet Orally Once a day for 30 Active Janumet 50-1000 MG TAKE ONE TABLET BY MOUTH TWICE A DAY WITH MEALS for 90 Active One Touch Ultra Test Strips 1 use as directed sub cut DX E11.9 Use as directed 3-4 times per day for 30 days Jul, Active OneTouch Delica Lancets 33G - as directed in vitro DX E11.9 3-4 times per day for 30 days Jul, Active Aspirin 81 MG 1 tablet Orally Once a day for 30 day(s) May, Active Pen Naper 5/16" 31G X 8 MM as directed sub cut Daily for 100 Active Lisinopril 40 MG TAKE ONE TABLET BY MOUTH EVERY DAY for 90 Active PROCEDURES No Information RESULTS No Results REASON FOR VISIT refill MEDICAL (GENERAL) HISTORY Type Description Date Medical History Essential (primary) hypertension Medical History Morbid (severe) obesity due to excess ca lories Medical History Type 2 diabetes mellitus wit hout complication, unspecified halfway insulin use status Medical History Hyperlipidemia, unspecified [...] No Information FUNCTIONAL STATUS No Information ASSESSMENTS No Information PLAN OF TREATMENT Medication Medication Name Sig Start Date Stop Date Pen Naper 02/15" 31G X 8 MM as directed sub cut Daily for 100 Invokana 300 MG TAKE ONE TABLET BY MOUTH EVERY DAY for 90 Levemir FlexTouch 100 UNIT/ML 20 units Subcutaneous every night for 30 Metoprolol Succinate ER 25 MG 1 tablet Orally Once a day for 30 Janumet 50-1000 MG TAKE ONE TABLET BY MOUTH TWICE A DAY WITH JOSE A LS for 90 Lisinopril 40 MG TAKE ONE TABLET BY MOUTH EVERY DAY for 90 Hydrochlorothiazide 25 MG TAKE ONE TABLET BY MOUTH EVERY DAY for 90 Atorvastatin Calcium 20 MG TAKE ONE TABLET BY MOUTH EVERY DAY fo r 90 Next Appt Details Provider Name:Justin Valdez, 2020-08-08 0 2:30:00 PM, [address] [place] [address], [id number], Provider Name:Justin Valdez 2021-04-27 0 8:00:00 AM, 3 [facility], [address], [address], Insurance Providers Payer Name Payer Address Payer Phone Insured Name Patient Relati onship to Insured Coverage Start Date Coverage End Date [employer] [address] [address] [facility] [id number] KRYSTYNA ARCEO
--- OUTSIDE RECORDS SUMMARY | 2020-10-22 09:42 | CCD ---
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 Active 162825745 Problem Traumatic open wound of left lower leg, subsequent enc ounter S81.802D Active 887649241 Problem Type 2 diabetes mellitus with foot ulcer E11.621 Active 812129953 Problem 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 Active 569826780 ALLERGIES Allergen (clinical drug ingredient) Drug/Non Drug Allergy do cumented on EMR Reaction Allergy Type Onset Date Status Sulfa (for allergy use only) unknown Drug Allergy Active ENCOUNTERS from 1967 to 2020-08-12 Encounter Location Date Provider Diagnosis [facility] [address] [place] [address] Jul Andres Amador Type 2 diabetes mellitus with foot ulcer E11.621 and Non-pressure chronic ulcer of other part of left foot with necrosis of muscle L97.523 IMMUNIZATIONS Vaccine Route Administration Date Status Influenza (Pharmacy Given) Unknown Aug 14, 2018 Refus ed Influenza (18 yrs & older) Flublok Unknown Oct 10, 2019 Refused SOCIAL HISTORY Tobacco Use: Social History Observation Description Date Details (start date - stop date) Never Smoker Sex Assigned At : Social History Observation Description Sex Assigned At Unknown Education: Question Answer Notes Level of Education: Finished College Language: Question Answer Notes Languages spoken: Citizen Of [place] Alcohol Screening: Question Answer Notes Did you have a drink containing alcohol in the past year? Ye s Points 4 Interpretation Positive How often did you have six or more drinks on one occas ion in the past year? Less than monthly (1 point) How many drinks did you have on a typica l day when you were drinking in the past year? 5 or 6 (2 points) How often did you have a drink containing alcohol in t he past year? Monthly or less (1 point) Tobacco Use: Question Answer Notes Are you a: never smoker REASON FOR REFERRAL No Information VITAL SIGNS Weight 337 lbs Jul, Weight-kg PER PATIENT kg Jul, Height 72 in Jul, BMI 45.70 kg/m2 Jul, Heart Rate 80 /min Jul, Respiratory Rate 16 /min Jul, Temperature 97.2 degrees Fahrenheit Jul, Oximetry 98 Jul, Blood pressure systolic 134 mm Hg Jul, Blood pressure diastolic 77 mm Hg Jul, MEDICATIONS Medication SIG (Take, Route, Frequency, Duration) Start Date En d Date Status Levofloxacin 750 MG TAKE ONE TABLET BY MOUTH EVERY DAY Oral for 7 Not-Taking NovoLog Flexpen 100 UNIT/ML 5 units Subcutaneous before lunch & din ner Active Hydrochlorothiazide 25 MG 1 tablet in the morning Orally Once a day Active Atorvastatin Calcium 20 MG 1 tablet Orally Once a day Active Janumet 50-1000 MG 1 tablet with meals Orally Twice a day Active Amoxicillin-Pot Clavulanate 875-125 MG 1 tablet Orally every 12 hrs for 10 day(s) Oct, Not-Taking Doxycycline Hyclate 100 MG 1 tablet Orally twice a day for 1 0 day(s) Oct, Not-Taking Aspirin 81 81 MG 1 tablet Orally Once a day Active Ceftriaxone Sodium 2 GM Injection Not- Taking Vitamin C 250 MG 1 tablet Orally Once a day Not-Taking Metoprolol Tartrate 25 MG 1 tablet with food Orally DAILY Active Lactobacillus - Orally Not-Taking Levemir 28 units intradermally Daily Active Lisinopril 40 MG 1 tablet Orally Once a day Active Invokana 300 MG 1 tablet Orally Once a day Active NovoLog 100 UNIT/ML as directed Subcutaneous Active PROCEDURES No Information RESULTS No Results REASON FOR VISIT Cast Check MEDICAL (GENERAL) HISTORY Type Description Date Medical History DM Medical History HTN Surgical History Debridement of left great toe 05/2018 Surgical History Left great toe amputation 10/15/2019 Hospitalization History Related to debridement 05/2018 Hospitalization History Left great toe amputation 10/2019 Goals Section No Information Health Concerns No Information MEDICAL EQUIPMENT No Information MENTAL STATUS No Information FUNCTIONAL STATUS No Information ASSESSMENTS Encounter Date Diagnosis Notes Jul, Type 2 diabetes mellitus with foot ulcer (ICD-10 - E11.621) Jul, 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
--- OUTSIDE RECORDS SUMMARY | 2020-10-22 09:42 | CCD ---
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 Active 506797881 Problem Traumatic open wound of left lower leg, subsequent enc ounter S81.802D Active 626559534 Problem Type 2 diabetes mellitus with foot ulcer E11.621 Active 477237049 Problem 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 Active 922357371 ALLERGIES Allergen (clinical drug ingredient) Drug/Non Drug Allergy do cumented on EMR Reaction Allergy Type Onset Date Status Sulfa (for allergy use only) unknown Drug Allergy Active ENCOUNTERS from 1967 to 2020-10-15 Encounter Location Date Provider Diagnosis [facility] W[facility] Care [address] [place] [address] Oct Caty Alvarez Type 2 diabetes mellitus with foot ulcer [...] College Language: Question Answer Notes Languages spoken: Kuwaiti Alcohol Screening: Question Answer Notes Did you [...] FOR REFERRAL No Information VITAL SIGNS Weight 340 lbs Oct, Weight-kg per pt kg Oct, Height 72 in Oct, BMI 46.11 kg/m2 Oct, Heart Rate 77 /min Oct, Respiratory Rate 18 /min Oct, Temperature 96.8 degrees Fahrenheit Oct, Oximetry 94 Oct, Blood pressure systolic 145 mm Hg Oct, Blood pressure diastolic 86 mm Hg Oct, MEDICATIONS Medication SIG (Take, Route, Frequency, Duration) Notes Start Da te End Date Status Lactobacillus - Orally Not-Takin g Invokana 300 MG 1 tablet Orally Once a day Active Atorvastatin Calcium 20 MG 1 tablet Orally Once a day Active NovoLog 100 UNIT/ML as directed Subcutaneous Active Metoprolol Tartrate 25 MG 1 tablet with food Orally DAILY Active NovoLog Flexpen 100 UNIT/ML 5 units Subcutaneous before lunch & dinne r Active Aspirin 81 81 MG 1 tablet Orally Once a day Active Janumet 50-1000 MG 1 tablet with meals Orally Twice a day Active Vitamin C 250 MG 1 tablet Orally Once a day Not-Taking Lisinopril 40 MG 1 tablet Orally Once a day Active Hydrochlorothiazide 25 MG 1 tablet in the morning Orally Once a day Active Levofloxacin 750 MG TAKE ONE TABLET BY MOUTH EVERY DAY Oral for 7 Not-Taking Amoxicillin-Pot Clavulanate 875-125 MG 1 tablet Orally every 12 hrs for 10 day(s) Oct, Not-Taking Levemir 28 units intradermally Daily Active Doxycycline Hyclate 100 MG 1 tablet Orally twice a day for 10 da y(s) Oct, Not-Taking Ceftriaxone Sodium 2 GM Injection N ot-Taking PROCEDURES No Information RESULTS No Results REASON FOR VISIT Left foot wound MEDICAL (GENERAL) HISTORY Type Description Date Medical [...] Treatment Notes Treatm ent Clinical Notes Oct, Type 2 diabetes mellitus with foot ulcer (ICD-10 - E11.621) Oct, 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
--- OUTSIDE RECORDS SUMMARY | 2020-10-22 09:42 | CCD ---
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 Active 499458968 ALLERGIES Allergen (clinical drug ingredient) Drug/Non Drug Allergy do cumented on EMR Reaction Allergy Type Onset Date Status Sulfa (for allergy use only) unknown Drug Allergy Active ENCOUNTERS from 1967 to 2020-08-23 Encounter Location Date Provider Diagnosis [facility] Wound Care [address] [place] [address] Aug Caty Alvarez Type 2 diabetes mellitus with [...] College Language: Question Answer Notes Languages spoken: South African Alcohol Screening: Question Answer Notes Did you [...] REFERRAL No Information VITAL SIGNS Weight 337 per pt. lbs Aug, Height 72 in Aug, BMI 45.70 kg/m2 Aug, Heart Rate 76 /min Aug, Respiratory Rate 18 /min Aug, Temperature 96.6 degrees Fahrenheit Aug, Oximetry 96 Aug, Blood pressure systolic 143 mm Hg Aug, Blood pressure diastolic 84 mm Hg Aug, MEDICATIONS Medication SIG (Take, Route, Frequency, Duration) Notes Start Da te End Date Status NovoLog 100 UNIT/ML as directed Subcutaneous Active Metoprolol Tartrate 25 MG 1 tablet with food Orally DAILY Active Levofloxacin 750 MG TAKE ONE TABLET BY MOUTH EVERY DAY Oral for 7 Not-Taking Hydrochlorothiazide 25 MG 1 tablet in the morning Orally Once a day Active Invokana 300 MG 1 tablet Orally Once a day Active Lactobacillus - Orally Not-Takin g Vitamin C 250 MG 1 tablet Orally Once a day Not-Taking Doxycycline Hyclate 100 MG 1 tablet Orally twice a day for 10 da y(s) Oct, Not-Taking Lisinopril 40 MG 1 tablet Orally Once a day Active Ceftriaxone Sodium 2 GM Injection N ot-Taking Amoxicillin-Pot Clavulanate 875-125 MG 1 tablet Orally every 12 hrs for 10 day(s) Oct, Not-Taking NovoLog Flexpen 100 UNIT/ML 5 units Subcutaneous before lunch & dinne r Active Janumet 50-1000 MG 1 tablet with meals Orally Twice a day Active Atorvastatin Calcium 20 MG 1 tablet Orally Once a day Active Aspirin 81 81 MG 1 tablet Orally Once a day Active Levemir 28 units intradermally Daily Active PROCEDURES No Information RESULTS No Results REASON FOR VISIT cast removal , LE wound MEDICAL (GENERAL) HISTORY Type Description Date [...] Notes Treatment Notes Treatm ent Clinical Notes Aug, Type 2 diabetes mellitus with foot ulcer (ICD-10 - E11.621) Dressing changes once a week. 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 The dressing should follow those documented in the procedure note Next Appt Details later today for TCC placement Reason: Provider Name:Andres Amador, 08:30:00 AM, [address] [place], [address], Provider Name:Caty Alvarez, 09-05 07:30:00 AM, [address] [place], [address], Insurance Providers Payer Name Payer Address Payer Phone Insured Name Patient Relati onship to Insured Coverage Start Date Coverage End Date BCHORACE BUENROSTRO PPO [phone] [facility] [employer] [facility] [place] [address] KRYSTYNA ARCEO self
--- OUTSIDE RECORDS SUMMARY | 2020-10-22 09:42 | CCD ---
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 Active 989719290 Problem Traumatic open wound of left lower leg, subsequent enc ounter S81.802D Active 157971362 Problem Type 2 diabetes mellitus with foot ulcer E11.621 Active 736970735 Problem 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 Active 834247820 ALLERGIES Allergen (clinical drug ingredient) Drug/Non Drug Allergy do cumented on EMR Reaction Allergy Type Onset Date Status Sulfa (for allergy use only) unknown Drug Allergy Active ENCOUNTERS from 1967 to 2020-08-05 Encounter Location Date Provider Diagnosis [facility] Wound Care [address] [place] [address] Jul Andres Amador Open wound T14.8XXA ; Type 2 diabetes me llitus with foot ulcer E11.621 and Non-pressure chronic [...] College Language: Question Answer Notes Languages spoken: Kiswahili Alcohol Screening: Question Answer Notes Did you [...] REFERRAL No Information VITAL SIGNS Weight 337 PER PT lbs Jul, Height 72 in Jul, BMI 45.70 kg/m2 Jul, Heart Rate 93 /min Jul, Respiratory Rate 16 /min Jul, Temperature 97.9 degrees Fahrenheit Jul, Oximetry 95 Jul, Blood pressure systolic 138 mm Hg Jul, Blood pressure diastolic 84 mm Hg Jul, MEDICATIONS Medication SIG (Take, Route, Frequency, Duration) Start Date En d Date Status NovoLog 100 UNIT/ML as directed Subcutaneous Active Metoprolol Tartrate 25 MG 1 tablet with food Orally DAILY Active Invokana 300 MG 1 tablet Orally Once a day Active Janumet 50-1000 MG 1 tablet with meals Orally Twice a day Active Lisinopril 40 MG 1 tablet Orally Once a day Active Doxycycline Hyclate 100 MG 1 tablet Orally twice a day for 1 0 day(s) Oct, Not-Taking Levofloxacin 750 MG TAKE ONE TABLET BY MOUTH EVERY DAY Oral for 7 Not-Taking Hydrochlorothiazide 25 MG 1 tablet in the morning Orally Once a day Active Lactobacillus - Orally Not-Taking Amoxicillin-Pot Clavulanate 875-125 MG 1 tablet Orally every 12 hrs for 10 day(s) Oct, Not-Taking Aspirin 81 81 MG 1 tablet Orally Once a day Active Vitamin C 250 MG 1 tablet Orally Once a day Not-Taking Ceftriaxone Sodium 2 GM Injection Not- Taking NovoLog Flexpen 100 UNIT/ML 5 units Subcutaneous before lunch & din ner Active Atorvastatin Calcium 20 MG 1 tablet [...] Information ASSESSMENTS Encounter Date Diagnosis Notes Jul, Open wound (ICD-10 - T14.8XXA) Jul, 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
--- OUTSIDE RECORDS SUMMARY | 2020-10-22 09:42 | CCD ---
Author Author [facility] Organization [facility] Address Unknown Phone Unavailable Care Team Providers Care Sr. 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 Active 163940257 ALLERGIES Allergen (clinical drug ingredient) Drug/Non Drug Allergy do cumented on EMR Reaction Allergy Type Onset Date Status Sulfa (for allergy use only) unknown Drug Allergy Active ENCOUNTERS from 1967 to 2020-08-23 Encounter Location Date Provider Diagnosis [facility] Wound Care [address] [place] [address] 13 Aug Caty Alvarez Type 2 diabetes mellitus [...] College Language: Question Answer Notes Languages spoken: Malaysian Alcohol Screening: Question Answer Notes Did you [...] Aug, BMI 45.70 kg/m2 Aug, Heart Rate 72 /min Aug, Respiratory Rate 18 /min Aug, Temperature 96 degrees Fahrenheit Aug, Oximetry 97 Aug, Blood pressure systolic 146 mm Hg Aug, Blood pressure diastolic 82 mm Hg Aug, MEDICATIONS Medication SIG (Take, [...] Levemir 28 units intradermally Daily Active PROCEDURES Procedure Date Ordered Result Body Site LIDOCAINE 4% CREAM TOPICAL 2020-08-15 N/A RESULTS No Results REASON FOR VISIT Left [...] in the procedure note Next Appt Details 1 Week Reason: Provider Name:Andres Amador, 08:30:00 AM, [address] [place], [address], Provider Name:Caty Alvarez 09-05 07:30:00 AM, [address] [place], [address], Insurance Providers Payer Name Payer Address Payer Phone Insured Name Patient Relati onship to Insured Coverage Start Date Coverage End Date FLAQUITO BUENROSTRO PPO [phone] [facility] [employer] [facility] [place] [address] KRYSTYNA ARCEO self
--- OUTSIDE RECORDS SUMMARY | 2020-10-22 09:42 | CCD ---
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 Active 582545611 Problem Traumatic open wound of left lower leg, subsequent enc ounter S81.802D Active 470701041 Problem Type 2 diabetes mellitus with foot ulcer E11.621 Active 998640724 Problem 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 Active 735319643 ALLERGIES Allergen (clinical drug ingredient) Drug/Non Drug Allergy do cumented on EMR Reaction Allergy Type Onset Date Status Sulfa (for allergy use only) unknown Drug Allergy Active ENCOUNTERS from 1967 to 2020-07-29 Encounter Location Date Provider Diagnosis [facility] Wound Care [address] [place] [address] Jul Andres Amador IMMUNIZATIONS Vaccine Route Administration Date Status Influenza [...] College Language: Question Answer Notes Languages spoken: Austrian Alcohol Screening: Question Answer Notes Did you [...] Duration) Start Date En d Date Status Janumet 50-1000 MG 1 tablet with meals Orally Twice a day Active Lisinopril 40 MG 1 tablet Orally Once a day Active Levemir 28 units intradermally Daily Active Atorvastatin Calcium 20 MG 1 tablet [...] 12 hrs for 10 day(s) Oct, Not-Taking Vitamin C 250 MG 1 tablet Orally Once a day Not-Taking Invokana 300 MG 1 tablet Orally Once a day Active Metoprolol Tartrate 25 MG 1 tablet with food Orally DAILY Active NovoLog Flexpen 100 UNIT/ML 5 units Subcutaneous before lunch & din ner Active Ceftriaxone Sodium 2 GM Injection Not- Taking Hydrochlorothiazide 25 MG 1 tablet in the morning Orally Once a day Active NovoLog 100 UNIT/ML as directed Subcutaneous Active Lactobacillus - Orally Not-Taking PROCEDURES No Information RESULTS No Results REASON FOR VISIT surgery MEDICAL (GENERAL) HISTORY Type Description Date Medical [...] Information ASSESSMENTS No Information PLAN OF TREATMENT Next Appt Details Provider Name:Caty Alvarez 08-01 07:00:00 AM, [address] [place], [address], Provider Name:Caty Alvarez 08-07 07:30:00 AM, [place], [address], Insurance Providers Payer Name Payer Address Payer Phone Insured Name Patient Relati onship to Insured Coverage Start Date Coverage End Date BCBS NORMAN BUENROSTRO [facility] [phone] [facility] [address] KRYSTYNA ARCEO self
--- OUTSIDE RECORDS SUMMARY | 2020-10-22 09:42 | CCD ---
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 Active 889146300 ALLERGIES Allergen (clinical drug ingredient) Drug/Non Drug Allergy do cumented on EMR Reaction Allergy Type Onset Date Status Sulfa (for allergy use only) unknown Drug Allergy Active ENCOUNTERS from 1967 to 2020-08-12 Encounter Location Date Provider Diagnosis [facility] Wound Care [address] [place] [address] Jul Caty Alvarez Type 2 diabetes mellitus with [...] College Language: Question Answer Notes Languages spoken: Cymraes Alcohol Screening: Question Answer Notes Did you [...] VITAL SIGNS Weight 337 lbs Jul, Weight-kg per pt kg Jul, Height 72 in Jul, BMI 45.70 kg/m2 Jul, Heart Rate 70 /min Jul, Respiratory Rate 18 /min Jul, Temperature 95.7 degrees Fahrenheit Jul, Oximetry 97 Jul, Blood pressure systolic 145 mm Hg Jul, Blood pressure diastolic 92 mm Hg Jul, MEDICATIONS Medication SIG (Take, [...] 100 UNIT/ML as directed Subcutaneous Active PROCEDURES Procedure Date Ordered Result Body Site LIDOCAINE 4% CREAM TOPICAL 2020-08-01 N/A RESULTS No Results REASON FOR VISIT LE wound MEDICAL (GENERAL) HISTORY Type Description [...] Provider Name:Caty Alvarez, 08-15 07:30:00 AM, [address] [place], [address], Insurance Providers Payer Name Payer Address Payer Phone Insured Name Patient Relati onship to Insured Coverage Start Date Coverage End Date BCBS NORMAN BUENROSTRO PPO [phone] [facility] [employer] [place] [address] KRYSTYNA ARCEO self
--- OUTSIDE RECORDS SUMMARY | 2020-10-22 09:42 | CCD ---
Author Author [facility] Organization [facility] Address Unknown Phone Unavailable Care Team Providers Care Physician Scientist Name Role Phone Justin Valdez Unavailable PROBLEMS Type Condition ICD9-CM Code [id number] Code Onset Dates Condition S tatus SNOMED Code Notes Problem Hyperlipidemia, unspecified hyperlipidemia type E7 8.5 Active 93897334 Problem Essential (primary) hypertension I10 Active 48469194 Problem BRANDEN (obstructive sleep apnea) G47.33 Active 78 279780 Problem Body mass index (BMI) of 45.0-49.9 in adult Z68.42 Active 480743603 Problem Chronic renal failure, stage 3 (moderate) N18.3 Active 19397548 Problem Morbid (severe) obesity due to excess calories E66 .01 Active 966511969 Problem Type 2 diabetes mellitus with foot ulcer E11.621 Active 9702940560992 Problem Other osteomyelitis of left foot M86.8X7 Active 21243480 Problem Peripheral polyneuropathy G62.9 Active 975673 00 ALLERGIES Allergen (clinical drug ingredient) Drug/Non Drug Allergy do cumented on EMR Reaction Allergy Type Onset Date Status Sulfa Medications Unknown Drug Allergy Activ e ENCOUNTERS from 1967 to 2020-10-11 Encounter Location Date Provider Diagnosis [facility] Internal Medicine [address] [facility] [address] [place] [address] Oct, Justin Valdez IMMUNIZATIONS Vaccine Route Administration Date Status Influenza [...] 24 units Subcutaneous every night Active Pen Beatrice 5/16" 31G X 8 MM as directed [...] days Nov, Active PROCEDURES No Information RESULTS No Results REASON FOR VISIT Needs call back from office MEDICAL (GENERAL) HISTORY Type Description Date Medical History Essential (primary) hypertension Medical History Morbid (severe) obesity due to excess ca lories Medical History Type 2 diabetes mellitus wit hout complication, unspecified termite technician insulin use status Medical History Hyperlipidemia, unspecified [...] Name Sig Start Date Stop Date Pen Beatrice 02/15" 31G X 8 MM as directed sub cut Daily for 30 da ys Next Appt Details Provider Name:Justin Valdez, 2021-01-08 0 2:30:00 PM, [address] [facility], [address], [address], Provider Name:Justin Valdez 2021-04-27 0 8:00:00 AM, [address] [facility], [facility] [address], [address], Insurance Providers Payer Name Payer Address Payer Phone Insured Name Patient Relati onship to Insured Coverage Start Date Coverage End Date [employer] [address] [address] [place] [address] KRYSTYNA ARCEO
--- OUTSIDE RECORDS SUMMARY | 2020-10-22 09:42 | CCD ---
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 Active 210716546 Problem Traumatic open wound of left lower leg, subsequent enc ounter S81.802D Active 538140477 Problem Type 2 diabetes mellitus with foot ulcer E11.621 Active 880982981 Problem 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 Active 317982006 ALLERGIES Allergen (clinical drug ingredient) Drug/Non Drug Allergy do cumented on EMR Reaction Allergy Type Onset Date Status Sulfa (for allergy use only) unknown Drug Allergy Active ENCOUNTERS from 1967 to 2020-08-06 Encounter Location Date Provider Diagnosis [facility] Wound Care [address] [place] [address] Aug Caty Alvarez IMMUNIZATIONS Vaccine Route Administration Date Status Influenza [...] College Language: Question Answer Notes Languages spoken: Greek Alcohol Screening: Question Answer Notes Did you [...] Information RESULTS No Results REASON FOR VISIT No Information MEDICAL (GENERAL) HISTORY Type Description Date Medical [...] TREATMENT Next Appt Details Provider Name:Caty Alvarez 08-07 08:00:00 AM, [address] [place], [address], Provider Name:Caty Alvarez 08-15 07:30:00 AM, [address] [place], [address], Insurance Providers Payer Name Payer Address Payer Phone Insured Name Patient Relati onship to Insured Coverage Start Date Coverage End Date HORACE BUENROSTRO [facility] [phone] [facility] [place] [address] KRYSTYNA ARCEO self
--- OUTSIDE RECORDS SUMMARY | 2020-10-22 09:42 | CCD ---
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 Active 627501581 Problem Traumatic open wound of left lower leg, subsequent enc ounter S81.802D Active 203950590 Problem Type 2 diabetes mellitus with foot ulcer E11.621 Active 000266169 Problem 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 Active 705556402 ALLERGIES Allergen (clinical drug ingredient) Drug/Non Drug Allergy do cumented on EMR Reaction Allergy Type Onset Date Status Sulfa (for allergy use only) unknown Drug Allergy Active ENCOUNTERS from 1967 to 2020-09-04 Encounter Location Date Provider Diagnosis [facility] [address] [place] [address] Aug Caty Alvarez Type 2 diabetes mellitus [...] College Language: Question Answer Notes Languages spoken: Indian Alcohol Screening: Question Answer Notes Did you [...] No Information VITAL SIGNS Weight 337 lbs Aug, Weight-kg per pt kg Aug, Height 72 in Aug, BMI 45.70 kg/m2 Aug, Heart Rate 78 /min Aug, Respiratory Rate 18 /min Aug, Temperature 97.1 degrees Fahrenheit Aug, Oximetry 93 Aug, Blood pressure systolic 141 mm Hg Aug, Blood pressure diastolic 81 mm Hg Aug, MEDICATIONS Medication SIG (Take, Route, Frequency, Duration) Notes Start Da te End Date Status Levofloxacin 750 MG TAKE ONE TABLET BY MOUTH EVERY DAY Oral for 7 Not-Taking NovoLog Flexpen 100 UNIT/ML 5 units Subcutaneous before lunch & dinne r Active Atorvastatin Calcium 20 MG 1 tablet Orally Once a day Active Lisinopril 40 MG 1 tablet Orally Once a day Active Aspirin 81 81 MG 1 tablet Orally Once a day Active Levemir 28 units intradermally Daily Active Ceftriaxone Sodium 2 GM Injection N ot-Taking Invokana 300 MG 1 tablet Orally Once a day Active Vitamin C 250 MG 1 tablet Orally Once a day Not-Taking Doxycycline Hyclate 100 MG 1 tablet Orally twice a day for 10 da y(s) Oct, Not-Taking Metoprolol Tartrate 25 MG 1 tablet with food Orally DAILY Active Amoxicillin-Pot Clavulanate 875-125 MG 1 tablet Orally every 12 hrs for 10 day(s) Oct, Not-Taking Lactobacillus - Orally Not-Takin g Hydrochlorothiazide 25 MG 1 tablet in the morning Orally Once a day Active Janumet 50-1000 MG 1 tablet with meals Orally Twice a day Active NovoLog 100 UNIT/ML as [...] note Next Appt Details 1 Week Reason: Insurance Providers Payer Name Payer Address Payer Phone Insured Name Patient Relati onship to Insured Coverage Start Date Coverage End Date BCHORACE BUENROSTRO PPO [id number] [facility] [employer] [place] [place] [facility] [place] [id number] KRYSTYNA ARCEO self
--- OUTSIDE RECORDS SUMMARY | 2020-10-22 09:42 | CCD | Continuity of Care Document ---
Author Author Adrian OLIVO DPM Organization Unknown Address [address] [place] [address], [facility] [address] [place] [address] Phone [phone] Care Team Providers Care Export Clerk Name Role Phone Oskar Thomas MD AUTM [phone] Justin Valdez RPA AUTM [phone] MD Andres Amador AUTM [phone] Problems Active Problems Provider Date Type 2 diabetes mellitus with diabetic polyneuropathy Nelson Olivo DPM Onset: 10/30/2019 Type 2 diabetes mellitus with ulcer Nelson Olivo DPM Ons et: 08/26/2020 Pressure ulcer of left foot stage 1 Nelson Olivo DPM Ons et: 08/26/2020 Osteochondropathy Nelson Olivo DPM Onset: 08/26/2020 Social History Type Date Description Comments Sex Unknown ETOH Use Rarely consumes alcohol 3-4 time s per year Tobacco Use Start: Unknown Patient has never smoked Allergies, Adverse Reactions, Alerts Active Allergies Reaction Severity Comments Date Bactrim sulfa drugs 10/29/2019 Medications Active Medications SIG Qnty Indications Ordering Provide r Date Atorvastatin Calcium 20mg Tablets Take One Tablet By Mouth Every Day Unknown Lisinopril 40mg Tablets Take One Tablet By Mouth Every Day Unknown Janumet 50-1000mg Tablets Take One Tablet By Mouth Twice A Day With Meals Unknown Invokana 300mg Tablets Take One Tablet By Mouth Every Day Unknown Hydrochlorothiazide 25mg Tablets Take One Tablet By Mouth Every Day Unknown Levemir Flextouch 10 0Unit/ML Solution Pen-Inject Inject 20 Units Under The Skin Every Evening Unknown Metoprolol Succinate ER 25mg Tablets ER 24HR Take One Tablet By Mouth Every Day Unknow n Aspirin Unknown Unifine Pentips Plus 31G X 8 mm Mi sc Use as Directed Once Daily Unknown 0 Novolog Flexpen 100U nit/ML Solution Pen-Inject Inject 5 Units Subcutaneously Immediatel y Prior To Meals If Blood Glucose Is 140 MG/DL Unknown Levofloxacin 750mg Tablets Take One Tablet By Mouth Every Day Unknown Amoxicillin/Clavulanate Potassium 875-125mg Tablets Take 1 Tablet By Mouth Every 12 Hours Unk nown Doxycycline Hyclate 100mg Tablets Take One Tablet By Mouth Twice A Day For 10 Days Unknown Immunizations Description No Information Available Vital Signs Date Vital Result Comment 10/07/2020 9:20am Height 72 inches 6'0" Weight 340.00 lb BP Systolic 132 mmHg BP Diastolic 86 mmHg Heart Rate 84 /min BMI (Body Mass Index) 46.1 kg/m2 08/07/2020 9:39am Height 72 inches 6'0" Weight 337.00 lb BP Systolic 120 mmHg BP Diastolic 74 mmHg Heart Rate 99 /min BMI (Body Mass Index) 45.7 kg/m2 Results Description No Information Available Procedures Date Code Description Status 10/07/2020 16704 X-Ray Foot Complete Completed Medical Devices Description No Information Available Encounters Type Date Location Provider Dx Diagnosis Office Visit 10/07/2020 9:00a [place] [facility] Nelson Olivo DPM M84.872 Other disorders of continuity of bone, left ankle and foot E11.621 Type 2 diabetes mellitus wit h foot ulcer L89.892 Pressure ulcer of other site , stage 2 Office Visit 08/07/2020 9:45a [place] [facility] Nelson Olivo DPM E11.621 Type 2 diabetes mellitus with foot ulcer L89.891 Pressure ulcer of other site , stage 1 M84.872 Other disorders of continuit y of bone, left ankle and foot Assessments Date Code Description Provider 10/07/2020 M84.872 Other disorders of continuity of bone, left ankle and foot Nelson Olivo DPM 10/07/2020 E11.621 Type 2 diabetes mellitus with fo ot ulcer Nelson Olivo DPM 10/07/2020 L89.892 Pressure ulcer of other site, st age 4 Nelson Olivo DPM 08/07/2020 E11.621 Type 2 diabetes mellitus with fo ot ulcer Nelson Olivo DPM 08/07/2020 L89.891 Pressure ulcer of other site, st age 3 Nelson Olivo DPM 08/07/2020 M84.872 Other disorders of continuity of bone, left ankle and foot Nelson Olivo DPM Plan of Treatment Future Appointment(s):* 10/24/2020 3:00 pm - Nelson Olivo DPM at [facility] * 10/22/2020 1:30 pm - Nelson Olivo DPM at [facility] Functional Status Description No Information Available Mental Status Description No Information Available Referrals Description No Information Available
--- OUTSIDE RECORDS SUMMARY | 2020-10-22 09:42 | CCD | Continuity of Care Document ---
Author Adrian Lind DPOtto Organization Unknown Address [address] [place] [address], [facility] [address] [place] [address] Phone [phone] Care Team Providers Care Manager Corporate Name Role Phone Oskar Thomas MD AUTM [phone] Justin Valdez RPA AUTM [phone] MD Andres Amador AUTM [phone] Problems Active Problems Provider Date Type 2 diabetes mellitus with diabetic polyneuropathy Nelson Laboy DPM Onset: 10/30/2019 Social History Type Date Description Comments Sex [...] Available Vital Signs Date Vital Result Comment 08/07/2020 9:39am Height 72 inches 6'0" Weight 337.00 lb BP Systolic 120 mmHg BP Diastolic 74 mmHg Heart Rate 99 /min BMI (Body Mass Index) 45.7 kg/m2 10/29/2019 10:45am Height 72 inches 6'0" Weight 338.00 lb BMI (Body Mass Index) 45.8 kg/m2 Results Description No Information Available Procedures Description No Information Available Medical Devices Description No Information Available Encounters Type Date Location Provider Dx Diagnosis Office Visit 08/07/2020 9:45a [place] [facility] Nelson Laboy DPM E11.621 Type 2 diabetes mellitus with foot ulcer L89.891 Pressure ulcer of other site , stage 1 M84.872 Other disorders of continuit y of bone, left ankle and foot Assessments Date Code Description Provider 08/07/2020 E11.621 Type 2 diabetes mellitus with fo ot ulcer Nelson Laboy DPM 08/07/2020 L89.891 Pressure ulcer of other site, st age 3 Nelson Laboy DPM 08/07/2020 M84.872 Other disorders of continuity of bone, left ankle and foot Nelson Laboy DPM Plan of Treatment Future Appointment(s):* 10/07/2020 9:00 am - Nelson Laboy DPM at [facility] Functional Status Description No Information Available Mental Status Description No Information Available Referrals Description No Information Available
--- OUTSIDE RECORDS SUMMARY | 2020-10-22 09:42 | CCD ---
Author Author [facility] Organization 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 [address] [place] [address] Aug Andres Amador Type 2 diabetes mellitus with [...] College Language: Question Answer Notes Languages spoken: Wallisian Alcohol Screening: Question Answer Notes Did you [...] VITAL SIGNS Weight 337 lbs Aug, Weight-kg PER PT kg Aug, Height 72 in Aug, BMI 45.70 kg/m2 Aug, Heart Rate 83 /min Aug, Respiratory Rate 19 /min Aug, Temperature 96.4 degrees Fahrenheit Aug, Oximetry 97% Aug, Blood pressure systolic 137 mm Hg Aug, Blood pressure diastolic 91 mm Hg Aug, MEDICATIONS Medication SIG (Take, [...] 100 UNIT/ML as directed Subcutaneous Active PROCEDURES from 1967 to 2020-09-10 Procedure Date Ordered Result Body Site LIDOCAINE 4% CREAM TOPICAL 2020-08-27 N/A RESULTS No Results REASON FOR VISIT [...] mellitus with foot ulcer (ICD-10 - E11.621) Patient's plantar wound left foot second metatarsal head region is now closed. I have discussed with the patient the need for semi-elective amputation of the left second toe or excision of the left second toe metatarsal head in an effort to avoid recurrence. Patient is aware that some time in the future he may require a transmetatarsal amputation but that is not indicated at this time. He is aware that any drainage erythema odor or discomfort from his wound site would indicate a recurrence and that his first treatment is to immediately offload by bedrest apply a foam dressing and call our clinic. He is also aware that he is to follow-up with Dr. Martin sooner versus later as I have discussed with Dr. Martin the need for early surgical intervention in an effort to prevent recurrence. 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 I have discussed with the patient the need for semi-elective amputation of the left second toe or excision of the left second toe metatarsal head in an effort to avoid recurrence. Patient is aware that some time in the future he may require a transmetatarsal amputation but that is not indicated at this time. He is aware that any drainage erythema odor or discomfort from his wound site would indicate a recurrence and that his first treatment is to immediately offload by bedrest apply a foam dressing and call our clinic. He is also aware that he is to follow-up with Dr. Martin sooner versus later as I have discussed with Dr. Martin the need for early surgical intervention in an effort to prevent recurrence. Next Appt Details prn Reason: Insurance Providers Payer Name Payer Address Payer Phone Insured Name Patient Relati onship to Insured Coverage Start Date Coverage End Date [employer]CH[employer] BUENROSTRO PPO [phone] [facility] [place] [id number] KRYSTYNA ARCEO self
--- OUTSIDE RECORDS SUMMARY | 2020-10-22 09:45 | CCD ---
Author Author [facility] Organization [facility] Address Unknown Phone Unavailable Care Team Providers Care University Counselor Name Role Phone Brittanie Villeda MD Unavailable Unavailable Brittanie Villeda MD Unavailable Unavailable Brittanie Villeda MD Unavailable Unavailable Brittanie Villeda MD Unavailable Unavailable Brittanie Villeda MD Unavailable Unavailable Brittanie Villeda MD Unavailable Unavailable Brittanie Villeda MD Unavailable Unavailable Brittanie Villeda MD Unavailable Unavailable Brittanie OLIVO DPM Unavailable Unavailable Brittanie OLIVO DPM Unavailable Unavailable Brittanie OLIVO DPM Unavailable Unavailable Brittanie OLIVO DPM Unavailable Unavailable Brittanie OLIVO DPM Unavailable Unavailable Brittanie OLIVO DPM Unavailable Unavailable Brittanie OLIVO DPM Unavailable Unavailable Brittanie OLIVO DPM Unavailable Unavailable Brittanie OLIVO DPM Unavailable Unavailable Brittanie OLIVO DPM Unavailable Unavailable Brittanie OLIVO DPM Unavailable Unavailable Brittanie OLIVO DPM Unavailable Unavailable Brittanie OLIVO DPM Unavailable Unavailable Brittanie OLIVO DPM Unavailable Unavailable Brittanie OLIVO DPM Unavailable Unavailable MAJAK, R VILLA DPM Unavailable Unavailable MAJAK, R VILLA DPM Unavailable Unavailable MAJAK, R VILLA DPM Unavailable Unavailable MAJAK, R VILLA DPM Unavailable Unavailable MAJAK, R VILLA DPM Unavailable Unavailable MAJAK, R VILLA DPM Unavailable Unavailable MAJAK, R VILLA DPM Unavailable Unavailable MAJAK, R VILLA DPM Unavailable Unavailable MAJAK, R VILLA DPM Unavailable Unavailable MAJAK, R VILLA DPM Unavailable Unavailable MAJAK, R VILLA DPM Unavailable Unavailable MAJAK, R VILLA DPM Unavailable Unavailable MAJAK, R VILLA DPM Unavailable Unavailable MAJAK, R VILLA DPM Unavailable Unavailable MAJAK, R VILLA DPM Unavailable Unavailable Beeles, D Justin PA Unavailable Unavailable Beeles, D Justin PA Unavailable Unavailable Beeles, D Justin PA Unavailable Unavailable Beeles, D Justin PA Unavailable Unavailable Beeles, D Justin PA Unavailable Unavailable Beeles, D Justin PA Unavailable Unavailable Beeles, D Justin PA Unavailable Unavailable Beeles, D Justin PA Unavailable Unavailable Beeles, D Justin PA Unavailable Unavailable Beeles, D Justin PA Unavailable Unavailable Beeles, D Justin PA Unavailable Unavailable Beeles, D Justin PA Unavailable Unavailable Beeles, D Justin PA Unavailable Unavailable Beeles, D Justin PA Unavailable Unavailable Beeles, D Justin PA Unavailable Unavailable Beeles, D Justin PA Unavailable Unavailable Beeles, D Justin PA Unavailable Unavailable Beeles, D Justin PA Unavailable Unavailable Beeles, D Justin PA Unavailable Unavailable Beeles, D Justin PA Unavailable Unavailable Beeles, D Justin PA Unavailable Unavailable Beeles, D Justin PA Unavailable Unavailable Beeles, D Justin PA Unavailable Unavailable Beeles, D Justin PA Unavailable Unavailable Beeles, D Justin PA Unavailable Unavailable Beeles, D Justin PA Unavailable Unavailable Beeles, D Justin PA Unavailable Unavailable Beeles, D Justin PA Unavailable Unavailable Beeles, D Justin PA Unavailable Unavailable Beeles, D Justin PA Unavailable Unavailable Beeles, D Justin PA Unavailable Unavailable Beeles, D Justin PA Unavailable Unavailable Beeles, D Justin PA Unavailable Unavailable Beeles, D Justin PA Unavailable Unavailable Beeles, D Justin PA Unavailable Unavailable Beeles, D Justin PA Unavailable Unavailable Beeles, D Justin PA Unavailable Unavailable Beeles, D Justin PA Unavailable Unavailable Beeles, D Justin PA Unavailable Unavailable Beeles, D Justin PA Unavailable Unavailable Beeles, D Justin PA Unavailable Unavailable Beeles, D Justin PA Unavailable Unavailable Beeles, D Justin PA Unavailable Unavailable Beeles, D Justin PA Unavailable Unavailable THATTE, Loretta SARAVIAMI MD Unavailable Unavailable THATTE, V RADHA MD Unavailable Unavailable THATTE, V RADHA MD Unavailable Unavailable THATTE, V RADHA MD Unavailable Unavailable THATTE, V RADHA MD Unavailable Unavailable THATTE, V RADHA MD Unavailable Unavailable YARRA, SRINADH MD Unavailable Unavailable YARRA, SRINADH MD Unavailable Unavailable YARRA, SRINADH MD Unavailable Unavailable YARRA, SRINADH MD Unavailable Unavailable YARRA, SRINADH MD Unavailable Unavailable YARRA, SRINADH MD Unavailable Unavailable YARRA, SRINADH MD Unavailable Unavailable YARRA, SRINADH MD Unavailable Unavailable YARRA, SRINADH MD Unavailable Unavailable YARRA, SRINADH MD Unavailable Unavailable YARRA, SRINADH MD Unavailable Unavailable YARRA, SRINADH MD Unavailable Unavailable YARRA, SRINADH MD Unavailable Unavailable JOSE ARMANDO VILLEDA MD Unavailable Unavailable BELLA, ROGERIO MD Unavailable Unavailable BELLA, ROGERIO MD Unavailable Unavailable BELLA, ROGERIO MD Unavailable Unavailable BELLA, ROGERIO MD Unavailable Unavailable BELLA, ROGERIO MD Unavailable Unavailable BELLA, ROGERIO MD Unavailable Unavailable BELLA, ROGERIO MD Unavailable Unavailable BELLA, ROGERIO MD Unavailable Unavailable BELLA, ROGERIO MD Unavailable Unavailable BELLA, ROGERIO MD Unavailable Unavailable BELLA, ROGERIO MD Unavailable Unavailable BELLA, ROGERIO MD Unavailable Unavailable BELLA, ROGERIO MD Unavailable Unavailable BELLA, ROGERIO MD Unavailable Unavailable BELLA, ROGERIO MD Unavailable Unavailable BELLA, ROGERIO MD Unavailable Unavailable BELLA, ROGERIO MD Unavailable Unavailable BELLA, ROGERIO MD Unavailable Unavailable BELLA, ROGERIO MD Unavailable Unavailable BELLA, ROGERIO MD Unavailable Unavailable BELLA, ROGERIO MD Unavailable Unavailable BELLA, ROGERIO MD Unavailable Unavailable BELLA, ROGERIO MD Unavailable Unavailable BELLA, ROGERIO MD Unavailable Unavailable BELLA, ROGERIO MD Unavailable Unavailable BELLA, ROGERIO MD Unavailable Unavailable BELLA, ROGERIO MD Unavailable Unavailable BELLA, ROGERIO MD Unavailable Unavailable BELLA, ROGERIO MD Unavailable Unavailable BELLA, ROGERIO MD Unavailable Unavailable BELLA, ROGERIO MD Unavailable Unavailable BELLA, ROGERIO MD Unavailable Unavailable BELLA, ROGERIO MD Unavailable Unavailable BELLA, ROGERIO MD Unavailable Unavailable BELLA, ROGERIO MD Unavailable Unavailable BELLA, ROGERIO MD Unavailable Unavailable BELLA, ROGERIO MD Unavailable Unavailable BELLA, ROGERIO MD Unavailable Unavailable BELLA, ROGERIO MD Unavailable Unavailable BELLA, ROGERIO MD Unavailable Unavailable BELLA, ROGERIO MD Unavailable Unavailable BELLA, ROGERIO MD Unavailable Unavailable Brydges, I Dawson DO Unavailable Unavailable Brydges, I Dawson DO Unavailable Unavailable Brydges, I Dawson DO Unavailable Unavailable Brydges, I Dawson DO Unavailable Unavailable Brydges, I Dawson DO Unavailable Unavailable Brydges, I Dawson DO Unavailable Unavailable Brydges, I Dawson DO Unavailable Unavailable Brydges, I Dawson DO Unavailable Unavailable Brydges, I Dawson DO Unavailable Unavailable Brydges, I Dawson DO Unavailable Unavailable Brydges, I Dawson DO Unavailable Unavailable Brydges, I Dawson DO Unavailable Unavailable Brydges, I Dawson DO Unavailable Unavailable Brydges, I Dawson DO Unavailable Unavailable Brydges, I Dawson DO Unavailable Unavailable Brydges, I Dawson DO Unavailable Unavailable Brydges, I Dawson DO Unavailable Unavailable Brydges, I Dawson DO Unavailable Unavailable Brydges, I Dawson DO Unavailable Unavailable Brydges, I Dawson DO Unavailable Unavailable Brydges, I Dawson DO Unavailable Unavailable Brydges, I Dawson DO Unavailable Unavailable Brydges, I Dawson DO Unavailable Unavailable Brydges, I Dawson DO Unavailable Unavailable Brydges, I Dawson DO Unavailable Unavailable Brydges, I Dawson DO Unavailable Unavailable Brydges, I Dawson DO Unavailable Unavailable Brydges, I Dawson DO Unavailable Unavailable Brydges, I Dawson DO Unavailable Unavailable Brydges, I Dawson DO Unavailable Unavailable Brydges, I Dawson DO Unavailable Unavailable Brydges, I Dawson DO Unavailable Unavailable Re-disclosure Warning The records that you are about to access may contain information from federally-assisted alcohol or drug abuse programs. If such information is present, then the following federally mandated warning applies: This information has been disclosed to you from records protected by federal confidentiality rules (42 CFR part 2). The federal rules prohibit you from making any further disclosure of this information unless further disclosure is expressly permitted by the written consent of the person to whom it pertains or as otherwise permitted by 42 CFR part 2. A general authorization for the release of medical or other information is NOT sufficient for this purpose. The Federal rules restrict any use of the information to criminally investigate or prosecute any alcohol or drug abuse patient.The records that you are about to access may contain highly sensitive health information, the redisclosure of which is protected by Article 27-F of the [facility] Public Health law. If you continue you may have access to information: Regarding HIV / AIDS; Provided by facilities licensed or operated by the [facility] Office of Mental Health; or Provided by the [facility] Office for People With Developmental Disabilities. If such information is present, then the following [facility] mandated warning applies: This information has been disclosed to you from confidential records which are protected by state law. State law prohibits you from making any further disclosure of this information without the specific written consent of the person to whom it pertains, or as otherwise permitted by law. Any unauthorized further disclosure in violation of state law may result in a fine or penitentiary sentence or both. A general authorization for the release of medical or other information is NOT sufficient authorization for further disc losure. Allergies and Adverse Reactions Type Description Substance Reaction Status Data Source(s ) Sulfa (for allergy use only) Sulfa (for allergy use only) Neri lfa (for allergy use only) unknown Active eCW1 ([facility]) Sulfa (for allergy use only) Sulfa (for allergy use only) Neri lfa (for allergy use only) unknown Active eCW1 ([facility]) Sulfa (for allergy use only) Sulfa (for allergy use only) Neri lfa (for allergy use only) unknown Active eCW1 ([facility]) Sulfa (for allergy use only) Sulfa (for allergy use only) Neri lfa (for allergy use only) unknown Active eCW1 ([facility]) Sulfa (for allergy use only) Sulfa (for allergy use only) Neri lfa (for allergy use only) unknown Active eCW1 ([facility]) Sulfa (for allergy use only) Sulfa (for allergy use only) Neri lfa (for allergy use only) unknown Active eCW1 ([facility]) Sulfa (for allergy use only) Sulfa (for allergy use only) Neri lfa (for allergy use only) unknown Active eCW1 ([facility]) Sulfa (for allergy use only) Sulfa (for allergy use only) Neri lfa (for allergy use only) unknown Active eCW1 ([facility]) Sulfa (for allergy use only) Sulfa (for allergy use only) Neri lfa (for allergy use only) unknown Active eCW1 ([facility]) Sulfa (for allergy use only) Sulfa (for allergy use only) Neri lfa (for allergy use only) unknown Active eCW1 ([facility]) Sulfa (for allergy use only) Sulfa (for allergy use only) Neri lfa (for allergy use only) unknown Active eCW1 ([facility]) Sulfa (for allergy use only) Sulfa (for allergy use only) Neri lfa (for allergy use only) unknown Active eCW1 ([facility]) Sulfa (for allergy use only) Sulfa (for allergy use only) Neri lfa (for allergy use only) unknown Active eCW1 ([facility]) Sulfa (for allergy use only) Sulfa (for allergy use only) Neri lfa (for allergy use only) unknown Active eCW1 ([facility]) Sulfa (for allergy use only) Sulfa (for allergy use only) Neri lfa (for allergy use only) unknown Active eCW1 ([facility]) Sulfa (for allergy use only) Sulfa (for allergy use only) Neri lfa (for allergy use only) unknown Active eCW1 ([facility]) Sulfa (for allergy use only) Sulfa (for allergy use only) Neri lfa (for allergy use only) unknown Active eCW1 ([facility]) Sulfa (for allergy use only) Sulfa (for allergy use only) Neri lfa (for allergy use only) unknown Active eCW1 ([facility]) Sulfa (for allergy use only) Sulfa (for allergy use only) Neri lfa (for allergy use only) unknown Active eCW1 ([facility]) Sulfa (for allergy use only) Sulfa (for allergy use only) Neri lfa (for allergy use only) unknown Active eCW1 ([facility]) Sulfa (for allergy use only) Sulfa (for allergy use only) Neri lfa (for allergy use only) unknown Active eCW1 ([facility]) Sulfa (for allergy use only) Sulfa (for allergy use only) Neri lfa (for allergy use only) unknown Active eCW1 ([facility]) Sulfa (for allergy use only) Sulfa (for allergy use only) Neri lfa (for allergy use only) unknown Active eCW1 ([facility]) Sulfa (for allergy use only) Sulfa (for allergy use only) Neri lfa (for allergy use only) unknown Active eCW1 ([facility]) Sulfa (for allergy use only) Sulfa (for allergy use only) Neri lfa (for allergy use only) unknown Active eCW1 ([facility]) Sulfa (for allergy use only) Sulfa (for allergy use only) Neri lfa (for allergy use only) unknown Active eCW1 ([facility]) Sulfa (for allergy use only) Sulfa (for allergy use only) Neri lfa (for allergy use only) unknown Active eCW1 ([facility]) Sulfa Medications Sulfa Medications Sulfa Medications Unknown Acti ve eCW1 ([facility]) Sulfa (for allergy use only) Sulfa (for allergy use only) Neri lfa (for allergy use only) unknown Active eCW1 ([facility]) Sulfa (for allergy use only) Sulfa (for allergy use only) Neri lfa (for allergy use only) unknown Active eCW1 ([facility]) Sulfa (for allergy use only) Sulfa (for allergy use only) Neri lfa (for allergy use only) unknown Active eCW1 ([facility]) Sulfa (for allergy use only) Sulfa (for allergy use only) Neri lfa (for allergy use only) unknown Active eCW1 ([facility]) Sulfa (for allergy use only) Sulfa (for allergy use only) Neri lfa (for allergy use only) unknown Active eCW1 ([facility]) Sulfa (for allergy use only) Sulfa (for allergy use only) Neri lfa (for allergy use only) unknown Active eCW1 ([facility]) Sulfa (for allergy use only) Sulfa (for allergy use only) Neri lfa (for allergy use only) unknown Active eCW1 ([facility]) Sulfa (for allergy use only) Sulfa (for allergy use only) Neri lfa (for allergy use only) unknown Active eCW1 ([facility]) Sulfa (for allergy use only) Sulfa (for allergy use only) Neri lfa (for allergy use only) unknown Active eCW1 ([facility]) Sulfa (for allergy use only) Sulfa (for allergy use only) Neri lfa (for allergy use only) unknown Active eCW1 ([facility]) Sulfa (for allergy use only) Sulfa (for allergy use only) Neri lfa (for allergy use only) unknown Active eCW1 ([facility]) Sulfa (for allergy use only) Sulfa (for allergy use only) Neri lfa (for allergy use only) unknown Active eCW1 ([facility]) Sulfa (for allergy use only) Sulfa (for allergy use only) Neri lfa (for allergy use only) unknown Active eCW1 ([facility]) Sulfa (for allergy use only) Sulfa (for allergy use only) Neri lfa (for allergy use only) unknown Active eCW1 ([facility]) Sulfa (for allergy use only) Sulfa (for allergy use only) Neri lfa (for allergy use only) unknown Active eCW1 ([facility]) Sulfa (for allergy use only) Sulfa (for allergy use only) Neri lfa (for allergy use only) unknown Active eCW1 ([facility]) Sulfa (for allergy use only) Sulfa (for allergy use only) Neri lfa (for allergy use only) unknown Active eCW1 ([facility]) Sulfa (for allergy use only) Sulfa (for allergy use only) Neri lfa (for allergy use only) unknown Active eCW1 ([facility]) Sulfa (for allergy use only) Sulfa (for allergy use only) Neri lfa (for allergy use only) unknown Active eCW1 ([facility]) Sulfa (for allergy use only) Sulfa (for allergy use only) Neri lfa (for allergy use only) unknown Active eCW1 ([facility]) Sulfa (for allergy use only) Sulfa (for allergy use only) Neri lfa (for allergy use only) unknown Active eCW1 ([facility]) Sulfa (for allergy use only) Sulfa (for allergy use only) Neri lfa (for allergy use only) unknown Active eCW1 ([facility]) Sulfa (for allergy use only) Sulfa (for allergy use only) Neri lfa (for allergy use only) unknown Active eCW1 ([facility]) Sulfa (for allergy use only) Sulfa (for allergy use only) Neri lfa (for allergy use only) unknown Active eCW1 ([facility]) Sulfa (for allergy use only) Sulfa (for allergy use only) Neri lfa (for allergy use only) unknown Active eCW1 ([facility]) Sulfa (for allergy use only) Sulfa (for allergy use only) Neri lfa (for allergy use only) unknown Active eCW1 ([facility]) Sulfa (for allergy use only) Sulfa (for allergy use only) Neri lfa (for allergy use only) unknown Active eCW1 ([facility]) Sulfa (for allergy use only) Sulfa (for allergy use only) Neri lfa (for allergy use only) unknown Active eCW1 ([facility]) Sulfa (for allergy use only) Sulfa (for allergy use only) Neri lfa (for allergy use only) unknown Active eCW1 ([facility]) Sulfa (for allergy use only) Sulfa (for allergy use only) Neri lfa (for allergy use only) unknown Active eCW1 ([facility]) Sulfa (for allergy use only) Sulfa (for allergy use only) Neri lfa (for allergy use only) unknown Active eCW1 ([facility]) Sulfa (for allergy use only) Sulfa (for allergy use only) Neri lfa (for allergy use only) unknown Active eCW1 ([facility]) Sulfa (for allergy use only) Sulfa (for allergy use only) Neri lfa (for allergy use only) unknown Active eCW1 ([facility]) Sulfa (for allergy use only) Sulfa (for allergy use only) Neri lfa (for allergy use only) unknown Active eCW1 ([facility]) Sulfa (for allergy use only) Sulfa (for allergy use only) Neri lfa (for allergy use only) unknown Active eCW1 ([facility]) Sulfa (for allergy use only) Sulfa (for allergy use only) Neri lfa (for allergy use only) unknown Active eCW1 ([facility]) Sulfa (for allergy use only) Sulfa (for allergy use only) Neri lfa (for allergy use only) unknown Active eCW1 ([facility]) Sulfa (for allergy use only) Sulfa (for allergy use only) Neri lfa (for allergy use only) unknown Active eCW1 ([facility]) Sulfa (for allergy use only) Sulfa (for allergy use only) Neri lfa (for allergy use only) unknown Active eCW1 ([facility]) Sulfa (for allergy use only) Sulfa (for allergy use only) Neri lfa (for allergy use only) unknown Active eCW1 ([facility]) Sulfa (for allergy use only) Sulfa (for allergy use only) Neri lfa (for allergy use only) unknown Active eCW1 ([facility]) Sulfa (for allergy use only) Sulfa (for allergy use only) Neri lfa (for allergy use only) unknown Active eCW1 ([facility]) Sulfa (for allergy use only) Sulfa (for allergy use only) Neri lfa (for allergy use only) unknown Active eCW1 ([facility]) Sulfa (for allergy use only) Sulfa (for allergy use only) Neri lfa (for allergy use only) unknown Active eCW1 ([facility]) Sulfa (for allergy use only) Sulfa (for allergy use only) Neri lfa (for allergy use only) unknown Active eCW1 ([facility]) Sulfa (for allergy use only) Sulfa (for allergy use only) Neri lfa (for allergy use only) unknown Active eCW1 ([facility]) Sulfa (for allergy use only) Sulfa (for allergy use only) Neri lfa (for allergy use only) unknown Active eCW1 ([facility]) Sulfa (for allergy use only) Sulfa (for allergy use only) Neri lfa (for allergy use only) unknown Active eCW1 ([facility]) Sulfa (for allergy use only) Sulfa (for allergy use only) Neri lfa (for allergy use only) unknown Active eCW1 ([facility]) Sulfa (for allergy use only) Sulfa (for allergy use only) Neri lfa (for allergy use only) unknown Active eCW1 ([facility]) Sulfa (for allergy use only) Sulfa (for allergy use only) Neri lfa (for allergy use only) unknown Active eCW1 ([facility]) Sulfa (for allergy use only) Sulfa (for allergy use only) Neri lfa (for allergy use only) unknown Active eCW1 ([facility]) Sulfa (for allergy use only) Sulfa (for allergy use only) Neri lfa (for allergy use only) unknown Active eCW1 ([facility]) Sulfa Medications Sulfa Medications Sulfa Medications Unknown Acti ve eCW1 ([facility]) Sulfa (for allergy use only) Sulfa (for allergy use only) Neri lfa (for allergy use only) unknown Active eCW1 ([facility]) Sulfa (for allergy use only) Sulfa (for allergy use only) Neri lfa (for allergy use only) unknown Active eCW1 ([facility]) Sulfa (for allergy use only) Sulfa (for allergy use only) Neri lfa (for allergy use only) unknown Active eCW1 ([facility]) Sulfa (for allergy use only) Sulfa (for allergy use only) Neri lfa (for allergy use only) unknown Active eCW1 ([facility]) Sulfa (for allergy use only) Sulfa (for allergy use only) Neri lfa (for allergy use only) unknown Active eCW1 ([facility]) Sulfa (for allergy use only) Sulfa (for allergy use only) Neri lfa (for allergy use only) unknown Active eCW1 ([facility]) Sulfa (for allergy use only) Sulfa (for allergy use only) Neri lfa (for allergy use only) unknown Active eCW1 ([facility]) Sulfa (for allergy use only) Sulfa (for allergy use only) Neri lfa (for allergy use only) unknown Active eCW1 ([facility]) Sulfa (for allergy use only) Sulfa (for allergy use only) Neri lfa (for allergy use only) unknown Active eCW1 ([facility]) Sulfa (for allergy use only) Sulfa (for allergy use only) Neri lfa (for allergy use only) unknown Active eCW1 ([facility]) Sulfa (for allergy use only) Sulfa (for allergy use only) Neri lfa (for allergy use only) unknown Active eCW1 ([facility]) Sulfa (for allergy use only) Sulfa (for allergy use only) Neri lfa (for allergy use only) unknown Active eCW1 ([facility]) Encounters Encounter Providers Location Date Indications Data Source(s ) Outpatient Attender: Justin [facility] 10/10/2020 02:26:00 [facility] [address] [facility] [address] 10/10/2020 12:00:00 AM EST eCW1 ([facility]) Outpatient [address] [facility] [address] [place] [address] 10/10/2020 12:00:00 AM EST eCW1 ([facility]) ([id number]) Est New Patient [address] [place] [id number] 10/09/2020 12:00:00 AM EST eCW1 ([facility]) Outpatient Attender: VILLA OLIVO [facility] Office 01/2021 08:00:00 AM EST [facility] ([facility] Outpatient [address] [facility] [address] 08/27/2020 12:00:00 AM EST eCW1 ([facility]) ([id number]) For Template Rivera [address] [place] [phone] 08/22/2020 12:00:00 AM EST eCW1 ([facility]) ([id number]) For Template Rivera [address] [place] [phone] 08/15/2020 12:00:00 AM EST eCW1 ([facility]) Outpatient Attender: VILLA OLIVO [facility] Office 02/2020 08:45:00 AM EST MED[facility] ([facility] ([id number]) For Template Rivera [address] [place] [phone] 08/07/2020 12:00:00 AM EST eCW1 ([facility]) Unknown [address] [place] [phone] 08/06/2020 12:00:00 AM EST eCW1 ([facility]) Office Visit, Est Pt., Level 3 [address] [place] [address] 08/01/2020 12:00:00 AM EDT eCW1 ([facility]) [place] [address] [facility] [address] 07/28/2020 12:00:00 AM EDT [facility]CW1 [facility]) [place] [address] [facility] [address] 07/28/2020 12:00:00 AM EDT eCW1 ([facility]) ([id number]) Est New Patient 60 [address] [place] [address] 07/25/2020 12:00:00 AM EDT eCW1 ([facility]) Outpatient [address] [facility] [address] [place] [address] 07/18/2020 12:00:00 AM EDT eCW1 ([facility]) Outpatient Attender: Justin PATE ER-LAB-PNP 04/27/2020 03:19:00 P M EDT [facility] Admission cancelled. Disregard status an d admitted date. Outpatient Attender: Justin PATE ER-LAB-PNP 04/26/2020 03:20:00 P M EDT [facility] Admission cancelled. Disregard status an d admitted date. Outpatient Attender: Justin PATE ER-MOB 04/25/2020 09:13:00 A M EDT [facility] Outpatient 3 [facility] [address] [place] [address] 04/25/2020 12:00:00 AM EDT eCW1 ([facility]) [place] [address] [facility] [address] 03/21/2020 12:00:00 AM EDT eCW1 ([facility]) [place] [address] [facility] [address] 03/14/2020 12:00:00 AM EDT eCW1 ([facility]) [place] [address] [facility] [address] 03/06/2020 12:00:00 AM EDT eCW1 ([facility]) [facility] [address] [facility] [address] 03/05/2020 12:00:00 AM EDT eCW1 ([facility]) [place] [address] [facility] [address] 03/04/2020 12:00:00 AM EDT eCW1 ([facility]) [facility] [address] [facility] [address] 03/03/2020 12:00:00 AM EDT eCW1 ([facility]) [facility] [address] [facility] [address] 02/29/2020 12:00:00 AM EDT eCW1 ([facility]) [facility] [address] [facility] [address] 02/28/2020 12:00:00 AM EDT eCW1 ([facility]) ([id number]) For Template Rivera [address] [place] [address] 02/27/2020 12:00:00 AM EDT eCW1 ([facility]) [facility] [address] [facility] [address] 02/27/2020 12:00:00 AM EDT eCW1 ([facility]) [facility] [address] [facility] [address] 02/26/2020 12:00:00 AM EDT eCW1 ([facility]) [facility] [address] [facility] [address] 02/22/2020 12:00:00 AM EDT eCW1 ([facility]) [facility] [address] [facility] [address] 02/21/2020 12:00:00 AM EDT eCW1 ([facility]) [facility] [address] [facility] [address] 02/20/2020 12:00:00 AM EDT eCW1 ([facility]) [facility] [address] [facility] [address] 02/20/2020 12:00:00 AM EDT eCW1 ([facility]) [facility] [address] [facility] [address] 02/19/2020 12:00:00 AM EDT [facility]CW1 [facility] [address] [facility] [address] 02/18/2020 12:00:00 AM EDT eCW1 ([facility] [address] [facility] [address] 02/15/2020 12:00:00 AM EDT eCW1 ([facility] [address] [facility] [address] 02/14/2020 12:00:00 AM EDT eCW1 ([facility]) [facility] [address] [facility] [address] 02/13/2020 12:00:00 AM EDT eCW1 ([facility]) [facility] [address] [facility] [address] 02/13/2020 12:00:00 AM EDT eCW1 ([facility] [address] [facility] [address] 02/12/2020 12:00:00 AM EDT eCW1 ([facility]) [facility] [address] [facility] [address] 02/11/2020 12:00:00 AM EDT eCW1 ([facility]) [facility] [address] [facility] [address] 02/08/2020 12:00:00 AM EDT eCW1 ([facility] [address] [facility] [address] 02/07/2020 12:00:00 AM EDT eCW1 ([facility]) [facility] [address] [facility] [address] 02/06/2020 12:00:00 AM EDT eCW1 ([facility] [address] [facility] [address] 02/06/2020 12:00:00 AM EDT eCW1 ([facility]) [facility] [address] [facility] [address] 2020 12:00:00 AM EDT eCW1 ([facility]) [facility] [address] [facility] [address] 02/04/2020 12:00:00 AM EDT eCW1 ([facility] [address] [facility] [address] 02/04/2020 12:00:00 AM EDT eCW1 ([facility]) [facility] [address] [facility] [address] 02/01/2020 12:00:00 AM EDT eCW1 ([facility]) [facility] [address] [facility] [address] 01/31/2020 12:00:00 AM EDT eCW1 ([facility]) [facility] [address] [facility] [address] 01/30/2020 12:00:00 AM EDT eCW1 ([facility]) [facility] [address] [facility] [address] 01/30/2020 12:00:00 AM EDT eCW1 ([facility]) [facility] [address] [facility] [address] 01/29/2020 12:00:00 AM EDT eCW1 ([facility]) [facility] [address] [facility] [address] 01/28/2020 12:00:00 AM EDT eCW1 ([facility]) [facility] [address] [facility] [address] 01/25/2020 12:00:00 AM EDT eCW1 ([facility]) [facility] [address] [address] 01/25/2020 12:00:00 AM EDT eCW1 ([facility]) [facility] [address] [address] 01/25/2020 12:00:00 AM EDT eCW1 ([facility]) [facility] [address] [facility] [address] 01/24/2020 12:00:00 AM EDT eCW1 ([facility]) [facility] [address] [facility] [address] 01/23/2020 12:00:00 AM EDT eCW1 ([facility]) [facility] [address] [facility] [address] 01/23/2020 12:00:00 AM EDT eCW1 ([facility]) [facility] [address] [facility] [address] 01/22/2020 12:00:00 AM EDT eCW1 ([facility]) [facility] [address] [address] 01/22/2020 12:00:00 AM EDT eCW1 ([facility]) [facility] [address] [facility] [address] 01/21/2020 12:00:00 AM EDT eCW1 ([facility]) [facility] [address] [facility] [address] 01/18/2020 12:00:00 AM EDT eCW1 ([facility]) [facility] [address] [facility] [address] 01/17/2020 12:00:00 AM EDT eCW1 ([facility]) [facility] [address] [facility] [address] 01/16/2020 12:00:00 AM EDT eCW1 ([facility]) [facility] [address] [facility] [address] 01/16/2020 12:00:00 AM EDT eCW1 ([facility]) [facility] [address] [facility] [address] 01/15/2020 12:00:00 AM EDT eCW1 ([facility]) [facility] [address] [place] [address] 01/15/2020 12:00:00 AM EDT eCW1 ([facility]) [facility] [address] [facility] [address] 01/14/2020 12:00:00 AM EDT eCW1 ([facility]) [facility] [address] [facility] [address] 01/11/2020 12:00:00 AM EDT eCW1 [facility]) [facility] [address] [facility] [address] 01/10/2020 12:00:00 AM EDT eCW1 ([facility]) [facility] [address] [facility] [address] 01/09/2020 12:00:00 AM EDT eCW1 ([facility]) [facility] [address] [facility] [address] 01/09/2020 12:00:00 AM EDT eCW1 ([facility]) Unknown [address] [facility] [address] 01/08/2020 12:00:00 AM EDT eCW1 ([facility]) [facility] [address] [facility] [address] 01/08/2020 12:00:00 AM EDT eCW1 ([facility]) [facility] [address] [place] [address] 01/08/2020 12:00:00 AM EDT eCW1 ([facility]) [facility] [address] [facility] [address] 01/07/2020 12:00:00 AM EDT eCW1 ([facility]) [facility] [address] [facility] [place] [address] 01/04/2020 12:00:00 AM EDT eCW1 ([facility]) Unknown [address] [place] [address] [place] [address] 01/03/2020 12:00:00 AM EDT eCW1 ([facility]) [facility] [address] [facility] [place] [address] 01/03/2020 12:00:00 AM EDT eCW1 ([facility]) ([id number]) For Template Rivera [address] [place] [address] 01/02/2020 12:00:00 AM EDT eCW1 ([facility]) [facility] [address] [facility] [place] [address] 01/02/2020 12:00:00 AM EDT eCW1 ([facility]) [facility] [address] [facility] [place] [address] 01/01/2020 12:00:00 AM EDT eCW1 ([facility]) [facility] [address] [facility] [place] [address] 12/31/2019 12:00:00 AM EDT eCW1 ([facility]) [facility] [address] [facility] [place] [address] 12/28/2019 12:00:00 AM EDT eCW1 ([facility]) [facility] [address] [place] [address], [place] [address] 12/28/2019 12:00:00 AM EDT eCW1 ([facility]) [facility] [address] [facility] [address] 12/27/2019 12:00:00 AM EDT eCW1 ([facility]) [facility] [address] [facility] [address] 12/26/2019 12:00:00 AM EDT eCW1 ([facility]) [facility] [address] [facility] [address] 12/26/2019 12:00:00 AM EDT eCW1 ([facility]) [facility] [address] [facility] [address] 12/25/2019 12:00:00 AM EDT eCW1 ([facility]) [facility] [address] [facility] [address] 12/24/2019 12:00:00 AM EDT eCW1 ([facility]) [facility] [address] [facility] [address] 12/21/2019 12:00:00 AM EDT eCW1 ([facility]) [facility] [address] [place] [address] 12/20/2019 12:00:00 AM EDT eCW1 ([facility]) [facility] [address] [facility] [address] 12/20/2019 12:00:00 AM EDT eCW1 ([facility]) [facility] [address] [facility] [address] 12/20/2019 12:00:00 AM EDT eCW1 ([facility]) [facility] [address] [facility] [address] 12/19/2019 12:00:00 AM EDT eCW1 ([facility]) [facility] [address] [facility] [address] 12/19/2019 12:00:00 AM EDT eCW1 ([facility]) [facility] [address] [facility] [address] 12/18/2019 12:00:00 AM EDT eCW1 ([facility]) [facility] [address] [facility] [address] 12/17/2019 12:00:00 AM EDT eCW1 ([facility]) [facility] [address] [facility] [address] 12/14/2019 12:00:00 AM EDT eCW1 ([facility] [address] [facility] [address] 12/13/2019 12:00:00 AM EDT eCW1 ([facility]) [facility] [address] [facility] [address] 12/12/2019 12:00:00 AM EDT eCW1 ([facility]) [facility] [address] [facility] [address] 12/12/2019 12:00:00 AM EDT eCW1 ([facility]) [facility] [address] [facility] [address] 12/11/2019 12:00:00 AM EDT eCW1 ([facility]) [facility] [address] [facility] [address] 12/10/2019 12:00:00 AM EDT eCW1 ([facility]) [facility] [address] [facility] [address] 12/10/2019 12:00:00 AM EDT eCW1 ([facility]) [facility] [address] [facility] [address] 12/10/2019 12:00:00 AM EDT eCW1 ([facility]) [facility] [address] [facility] [address] 12/07/2019 12:00:00 AM EST eCW1 ([facility]) [facility] [address] [facility] [address] 12/06/2019 12:00:00 AM EST eCW1 ([facility]) [facility] [address] [facility] [address] 12/05/2019 12:00:00 AM EST eCW1 ([facility]) [facility] [address] [facility] [address] 12/05/2019 12:00:00 AM EST eCW1 ([facility]) [facility] [address] [facility] [address] 12/04/2019 12:00:00 AM EST eCW1 ([facility]) [facility] [address] [facility] [address] 12/03/2019 12:00:00 AM EST eCW1 ([facility]) [facility] [address] [facility] [address] 11/30/2019 12:00:00 AM EST eCW1 ([facility]) [facility] [address] [facility] [address] 11/29/2019 12:00:00 AM EST eCW1 ([facility]) [facility] [address] [facility] [address] 11/28/2019 12:00:00 AM EST eCW1 ([facility]) [facility] [address] [facility] [address] 11/28/2019 12:00:00 AM EST eCW1 ([facility]) [facility] [address] [facility] [place] [address] 11/27/2019 12:00:00 AM EST eCW1 ([facility]) [facility] [address] [facility] [address] 11/26/2019 12:00:00 AM EST eCW1 ([facility]) [facility] [address] [facility] [address] 11/22/2019 12:00:00 AM EST eCW1 ([facility]) [facility] [address] [facility] [address] 11/21/2019 12:00:00 AM EST eCW1 ([facility]) [facility] [address] [facility] [address] 11/21/2019 12:00:00 AM EST eCW1 ([facility]) [facility] [address] [facility] [address] 11/20/2019 12:00:00 AM EST eCW1 ([facility]) [facility] [address] [facility] [address] 11/19/2019 12:00:00 AM EST eCW1 ([facility]) [facility] [address] [facility] [address] 11/16/2019 12:00:00 AM EST eCW1 ([facility]) [facility] [address] [address] 11/16/2019 12:00:00 AM EST eCW1 ([facility]) [facility] [address] [facility] [address] 11/15/2019 12:00:00 AM EST eCW1 ([facility]) [facility] [address] [address] 11/15/2019 12:00:00 AM EST eCW1 ([facility]) [facility] [address] [facility] [address] 11/14/2019 12:00:00 AM EST eCW1 ([facility]) [facility] [address] [facility] [address] 11/14/2019 12:00:00 AM EST eCW1 [facility]) [facility] [address] [facility] [address] 11/13/2019 12:00:00 AM EST eCW1 ([facility]) [facility] [address] [facility] [address] 11/12/2019 12:00:00 AM EST eCW1 ([facility]) [facility] [address] [facility] [address] 11/12/2019 12:00:00 AM EST eCW1 ([facility]) [facility] [address] [facility] [address] 11/09/2019 12:00:00 AM EST eCW1 ([facility]) [facility] [address] [facility] [address] 11/07/2019 12:00:00 AM EST eCW1 ([facility]) [facility] [address] [facility] [address] 11/02/2019 12:00:00 AM EST eCW1 ([facility]) [facility] [address] [facility] [address] 10/31/2019 12:00:00 AM EST eCW1 ([facility]) Outpatient 10/30/2019 08:01:00 AM EST [facility] [address] [facility] [address] 10/29/2019 12:00:00 AM EST eCW1 [facility] [address] [place] [address] 10/29/2019 12:00:00 AM EST eCW1 ([facility]) [facility] [address] [facility] [address] 10/26/2019 12:00:00 AM EST eCW1 ([facility]) [facility] [address] [facility] [address] 10/26/2019 12:00:00 AM EST eCW1 ([facility]) [facility] [address] [facility] [address] 10/24/2019 12:00:00 AM EST eCW1 ([facility]) [facility] [address] [address] 10/24/2019 12:00:00 AM EST eCW1 ([facility]) [facility] [address] [place] [address] 10/24/2019 12:00:00 AM EST eCW1 ([facility]) [facility] [address] [facility] [address] 10/22/2019 12:00:00 AM EST eCW1 ([facility]) [facility] [address] [place] [address] 10/17/2019 12:00:00 AM EST eCW1 ([facility]) [facility] [address] [facility] [address] 10/16/2019 12:00:00 AM EST eCW1 ([facility]) [facility] [address] [facility] [address] 10/15/2019 12:00:00 AM EST eCW1 ([facility]) [facility] [address] [place] [address] 10/15/2019 12:00:00 AM EST eCW1 ([facility]) [facility] [address] [facility] [address] 10/12/2019 12:00:00 AM EST eCW1 ([facility]) [facility] [address] [facility] [address] 10/10/2019 12:00:00 AM EST eCW1 ([facility]) Outpatient Attender: Justin PATE ER-MOB 07/18/2019 02:41:00 P M [facility] Outpatient Attender: Justin PTAE ER-LAB 05/31/2019 01:43:00 P M [facility] Outpatient Attender: Justin PATE ER-LAB 11/20/2018 06:30:00 A M EST [facility] Outpatient Attender: ROGERIO BLANCO MD 07/25/2018 03:20:0 0 PM [facility] Outpatient Attender: ROGERIO BLANCO MD 07/18/2018 11:14:0 0 AM [facility] Outpatient Attender: [facility] 07/11/2018 0 3:15:00 PM [facility] Att[facility]: [facility] 07/04/2018 0 8:54:00 AM [facility] Outpatient Attender: Dawson Glass DO 06/29/2018 09:15:0 0 AM [facility] Outpatient Attender: ROGERIO BLANCO [facility] 06/27/2018 0 9:07:00 AM [facility] Outpatient Attender: ROGERIO BLANCO MD [facility] 06/20/2018 0 9:36:00 AM [facility] Outpatient Attender: Dawson Glass DO 06/16/2018 09:31:0 0 AM [facility] Outpatient Attender: Dawson Glass DO 06/13/2018 08:15:0 0 AM [facility] Outpatient Attender: Justin PATE ER-LAB 06/12/2018 11:27:00 A M [facility] Outpatient Attender: Dawson Glass DO 06/06/2018 03:15:0 0 PM [facility] Outpatient Attender: Dawson Glass DO 05/30/2018 01:57:0 0 PM [facility] Outpatient Attender: Dawson Glass DO ER-RAD 05/30/2018 04:43:0 0 AM [facility] Outpatient Attender: Dawson Jimeneserrer: FIDE CHANDLER MD 05/22/2018 08:00:00 AM EDT [facility] Inpatient Attender: RADHA BIANCHI MDAt tender: FIED MELENDREZ MDAttender: JOSE ARMANDO VILLEDA MDAttender: Jose Armando Villeda MDAdmitter: FIDE MELENDREZ MD ER-2WEST 05/11/2018 03:55:00 PM EDT - 05/18/2018 05:39:00 PM EDT [facility] Immunizations Vaccine Date Status Description Data Source(s) New in 2011. IIV4 08/07/2020 01:07:00 PM EST completed eCW1 ([facility]) New in 2011. IIV4 08/07/2020 01:07:00 PM EST completed eCW1 ([facility]) INFLUENZA VIRUS VACCINE QUADRIVALENT 2020-21 (6 MOS AN D UP) 08/07/2020 12:00:00 AM EST completed [facility] pneumococcal polysaccharide PPV23 04/25/2020 09:14:00 AM EDT comple agueda eCW1 ([facility]) pneumococcal polysaccharide PPV23 04/25/2020 09:14:00 AM EDT comple agueda eCW1 ([facility]) pneumococcal polysaccharide PPV23 04/25/2020 09:14:00 AM EDT comple agueda eCW1 ([facility]) pneumococcal polysaccharide PPV23 04/25/2020 09:14:00 AM EDT comple agueda eCW1 ([facility]) Tdap 04/25/2020 09:11:00 AM EDT completed e CW1 ([facility]) Tdap 04/25/2020 09:11:00 AM EDT completed e CW1 ([facility]) Tdap 04/25/2020 09:11:00 AM EDT completed e CW1 ([facility]) Tdap 04/25/2020 09:11:00 AM EDT completed e CW1 ([facility]) influenza, recombinant, quadrIvalent,injectable, prese rvative free 10/10/2019 08:54:00 AM EST completed eCW1 ([facility]) influenza, recombinant, quadrIvalent,injectable, prese rvative free 10/10/2019 08:54:00 AM EST completed eCW1 ([facility]) influenza, recombinant, quadrIvalent,injectable, prese rvative free 10/10/2019 08:54:00 AM EST completed eCW1 ([facility]) influenza, recombinant, quadrIvalent,injectable, prese rvative free 10/10/2019 08:54:00 AM EST completed eCW1 ([facility]) influenza, recombinant, quadrIvalent,injectable, prese rvative free 10/10/2019 08:54:00 AM EST completed eCW1 ([facility]) influenza, recombinant, quadrIvalent,injectable, prese rvative free 10/10/2019 08:54:00 AM EST completed eCW1 ([facility]) influenza, recombinant, quadrIvalent,injectable, prese rvative free 10/10/2019 08:54:00 AM EST completed eCW1 ([facility]) influenza, recombinant, quadrIvalent,injectable, prese rvative free 10/10/2019 08:54:00 AM EST completed eCW1 ([facility]) influenza, recombinant, quadrIvalent,injectable, prese rvative free 10/10/2019 08:54:00 AM EST completed eCW1 ([facility]) influenza, recombinant, quadrIvalent,injectable, prese rvative free 10/10/2019 08:54:00 AM EST completed eCW1 ([facility]) Medications Medication Brand Name Start Date Product Form Dose Route Admi nistrative Instructions Pharmacy Instructions Status Indications Reaction Description Data Source(s) 31 gauge x 5/16" 10/10/2020 12:00:00 AM EST needle 100 USE DIRECTED FOUR TIMES A DAY USE DIRECTED FOUR TIMES A DAY SOLD: 10/20/2020 [facility] 25 mg 07/21/2020 12:00:00 AM EDT tablet extended release 24 hr 30 TAKE ONE TABLET BY MOUTH EVERY DAY TAKE ONE TABLET BY MOUTH EVERY DAY SOLD: 08/20/2020 [facility] 25 mg 07/21/2020 12:00:00 AM EDT tablet extended release 24 hr 30 TAKE ONE TABLET BY MOUTH EVERY DAY TAKE ONE TABLET BY MOUTH EVERY DAY SOLD: 07/23/2020 [facility] 25 mg 07/21/2020 12:00:00 AM EDT tablet extended release 24 hr 30 TAKE ONE TABLET BY MOUTH EVERY DAY TAKE ONE TABLET BY MOUTH EVERY DAY SOLD: 10/20/2020 [facility] 25 mg 07/21/2020 12:00:00 AM EDT tablet extended release 24 hr 30 TAKE ONE TABLET BY MOUTH EVERY DAY TAKE ONE TABLET BY MOUTH EVERY DAY SOLD: 09/21/2020 [facility] 31 gauge x 5/16" 06/17/2020 12:00:00 AM EDT needle 30 USE DIRECTED ONCE DAILY USE DIRECTED ONCE DAILY SOLD: 06/17/2020 [facility] 31 gauge x 5/16" 06/17/2020 12:00:00 AM EDT needle 30 USE DIRECTED ONCE DAILY USE DIRECTED ONCE DAILY SOLD: 08/18/2020 [facility] 31 gauge x 5/16" 06/17/2020 12:00:00 AM EDT needle 30 USE DIRECTED ONCE DAILY USE DIRECTED ONCE DAILY SOLD: 07/18/2020 [facility] 31 gauge x 5/16" 06/17/2020 12:00:00 AM EDT needle 30 USE DIRECTED ONCE DAILY USE DIRECTED ONCE DAILY SOLD: 09/21/2020 [facility] 100 unit/mL (3 mL) 06/17/2020 12:00:00 AM EDT insulin pen 15 INJECT 20 UNITS SUBCUTANEOUSLY EVERY EVENING (75 SUPPLY) INJECT 20 UNITS SUBCUTANEOUSLY EVERY EVENING (75 SUPPLY) SOLD: 06/17/2020 [facility] 100 unit/mL (3 mL) 06/17/2020 12:00:00 AM EDT insulin pen 15 INJECT 20 UNITS SUBCUTANEOUSLY EVERY EVENING (75 SUPPLY) INJECT 20 UNITS SUBCUTANEOUSLY EVERY EVENING (75 SUPPLY) SOLD: 08/07/2020 [facility] 100 unit/mL (3 mL) 06/17/2020 12:00:00 AM EDT insulin pen 15 INJECT 20 UNITS SUBCUTANEOUSLY EVERY EVENING (75 SUPPLY) INJECT 20 UNITS SUBCUTANEOUSLY EVERY EVENING (75 SUPPLY) SOLD: 10/01/2020 [facility] 300 mg 06/16/2020 12:00:00 AM EDT tablet 30 TAKE ONE TABLET BY MOUTH EVERY DAY TAKE ONE TABLET BY MOUTH EVERY DAY SOLD: 08/18/2020 [facility] 300 mg 06/16/2020 12:00:00 AM EDT tablet 30 TAKE ONE TABLET BY MOUTH EVERY DAY TAKE ONE TABLET BY MOUTH EVERY DAY SOLD: 09/21/2020 [facility] 300 mg 06/16/2020 12:00:00 AM EDT tablet 30 TAKE ONE TABLET BY MOUTH EVERY DAY TAKE ONE TABLET BY MOUTH EVERY DAY SOLD: 07/18/2020 [facility] 300 mg 06/16/2020 12:00:00 AM EDT tablet 30 TAKE ONE TABLET BY MOUTH EVERY DAY TAKE ONE TABLET BY MOUTH EVERY DAY SOLD: 06/17/2020 [facility] 300 mg 06/16/2020 12:00:00 AM EDT tablet 30 TAKE ONE TABLET BY MOUTH EVERY DAY TAKE ONE TABLET BY MOUTH EVERY DAY SOLD: 10/20/2020 [facility] 50-1,000 mg 05/21/2020 12:00:00 AM EDT tablet 60 TAKE ONE TABLET BY MOUTH TWICE A DAY WITH MEALS TAKE ONE TABLET BY MOUTH TWICE A DAY WITH MEALS SOLD: 10/20/2020 [facility] 25 mg 05/21/2020 12:00:00 AM EDT tablet 30 TAKE ONE TABLET BY MOUTH EVERY DAY TAKE ONE TABLET BY MOUTH EVERY DAY SOLD: 05/22/2020 [facility] 40 mg 05/21/2020 12:00:00 AM EDT tablet 30 TAKE ONE TABLET BY MOUTH EVERY DAY TAKE ONE TABLET BY MOUTH EVERY DAY SOLD: 05/22/2020 [facility] 50-1,000 mg 05/21/2020 12:00:00 AM EDT tablet 60 TAKE ONE TABLET BY MOUTH TWICE A DAY WITH MEALS TAKE ONE TABLET BY MOUTH TWICE A DAY WITH MEALS SOLD: 09/21/2020 [facility] 50-1,000 mg 05/21/2020 12:00:00 AM EDT tablet 60 TAKE ONE TABLET BY MOUTH TWICE A DAY WITH MEALS TAKE ONE TABLET BY MOUTH TWICE A DAY WITH MEALS SOLD: 08/18/2020 [facility] 50-1,000 mg 05/21/2020 12:00:00 AM EDT tablet 60 TAKE ONE TABLET BY MOUTH TWICE A DAY WITH MEALS TAKE ONE TABLET BY MOUTH TWICE A DAY WITH MEALS SOLD: 07/18/2020 [facility] 40 mg 05/21/2020 12:00:00 AM EDT tablet 30 TAKE ONE TABLET BY MOUTH EVERY DAY TAKE ONE TABLET BY MOUTH EVERY DAY SOLD: 10/20/2020 [facility] 50-1,000 mg 05/21/2020 12:00:00 AM EDT tablet 60 TAKE ONE TABLET BY MOUTH TWICE A DAY WITH MEALS TAKE ONE TABLET BY MOUTH TWICE A DAY WITH MEALS SOLD: 05/22/2020 [facility] 25 mg 05/21/2020 12:00:00 AM EDT tablet 30 TAKE ONE TABLET BY MOUTH EVERY DAY TAKE ONE TABLET BY MOUTH EVERY DAY SOLD: 10/20/2020 [facility] 40 mg 05/21/2020 12:00:00 AM EDT tablet 30 TAKE ONE TABLET BY MOUTH EVERY DAY TAKE ONE TABLET BY MOUTH EVERY DAY SOLD: 06/17/2020 [facility] 40 mg 05/21/2020 12:00:00 AM EDT tablet 30 TAKE ONE TABLET BY MOUTH EVERY DAY TAKE ONE TABLET BY MOUTH EVERY DAY SOLD: 08/18/2020 [facility] 40 mg 05/21/2020 12:00:00 AM EDT tablet 30 TAKE ONE TABLET BY MOUTH EVERY DAY TAKE ONE TABLET BY MOUTH EVERY DAY SOLD: 07/18/2020 [facility] 25 mg 05/21/2020 12:00:00 AM EDT tablet 30 TAKE ONE TABLET BY MOUTH EVERY DAY TAKE ONE TABLET BY MOUTH EVERY DAY SOLD: 08/18/2020 [facility] 40 mg 05/21/2020 12:00:00 AM EDT tablet 30 TAKE ONE TABLET BY MOUTH EVERY DAY TAKE ONE TABLET BY MOUTH EVERY DAY SOLD: 09/21/2020 [facility] 25 mg 05/21/2020 12:00:00 AM EDT tablet 30 TAKE ONE TABLET BY MOUTH EVERY DAY TAKE ONE TABLET BY MOUTH EVERY DAY SOLD: 07/18/2020 [facility] 25 mg 05/21/2020 12:00:00 AM EDT tablet 30 TAKE ONE TABLET BY MOUTH EVERY DAY TAKE ONE TABLET BY MOUTH EVERY DAY SOLD: 09/21/2020 [facility] 25 mg 05/21/2020 12:00:00 AM EDT tablet 30 TAKE ONE TABLET BY MOUTH EVERY DAY TAKE ONE TABLET BY MOUTH EVERY DAY SOLD: 06/17/2020 [facility] 50-1,000 mg 05/21/2020 12:00:00 AM EDT tablet 60 TAKE ONE TABLET BY MOUTH TWICE A DAY WITH MEALS TAKE ONE TABLET BY MOUTH TWICE A DAY WITH MEALS SOLD: 06/17/2020 [facility] atorvastatin 20 MG Oral Tablet ATORVASTATIN CALCIUM 05/20/2020 1 2:00:00 AM EDT tablet 30 TAKE ONE TABLET BY MOUTH EVERY D AY TAKE ONE TABLET BY MOUTH EVERY DAY SOLD: 10/20/2020 [facility] atorvastatin 20 MG Oral Tablet ATORVASTATIN CALCIUM 05/20/2020 1 2:00:00 AM EDT tablet 30 TAKE ONE TABLET BY MOUTH EVERY D AY TAKE ONE TABLET BY MOUTH EVERY DAY SOLD: 06/17/2020 [facility] atorvastatin 20 MG Oral Tablet ATORVASTATIN CALCIUM 05/20/2020 1 2:00:00 AM EDT tablet 30 TAKE ONE TABLET BY MOUTH EVERY D AY TAKE ONE TABLET BY MOUTH EVERY DAY SOLD: 09/21/2020 [facility] atorvastatin 20 MG Oral Tablet ATORVASTATIN CALCIUM 05/20/2020 1 2:00:00 AM EDT tablet 30 TAKE ONE TABLET BY MOUTH EVERY D AY TAKE ONE TABLET BY MOUTH EVERY DAY SOLD: 05/22/2020 [facility] atorvastatin 20 MG Oral Tablet ATORVASTATIN CALCIUM 05/20/2020 1 2:00:00 AM EDT tablet 30 TAKE ONE TABLET BY MOUTH EVERY D AY TAKE ONE TABLET BY MOUTH EVERY DAY SOLD: 07/18/2020 [facility] atorvastatin 20 MG Oral Tablet ATORVASTATIN CALCIUM 05/20/2020 1 2:00:00 AM EDT tablet 30 TAKE ONE TABLET BY MOUTH EVERY D AY TAKE ONE TABLET BY MOUTH EVERY DAY SOLD: 08/18/2020 [facility] 25 mg 01/22/2020 12:00:00 AM EDT tablet extended release 24 hr 30 TAKE ONE TABLET BY MOUTH EVERY DAY TAKE ONE TABLET BY MOUTH EVERY DAY SOLD: 05/19/2020 [facility] 25 mg 01/22/2020 12:00:00 AM EDT tablet extended release 24 hr 30 TAKE ONE TABLET BY MOUTH EVERY DAY TAKE ONE TABLET BY MOUTH EVERY DAY SOLD: 04/17/2020 [facility] 25 mg 01/22/2020 12:00:00 AM EDT tablet extended release 24 hr 30 TAKE ONE TABLET BY MOUTH EVERY DAY TAKE ONE TABLET BY MOUTH EVERY DAY SOLD: 06/17/2020 [facility] 25 mg 01/22/2020 12:00:00 AM EDT tablet extended release 24 hr 30 TAKE ONE TABLET BY MOUTH EVERY DAY TAKE ONE TABLET BY MOUTH EVERY DAY SOLD: 01/24/2020 [facility] 25 mg 01/22/2020 12:00:00 AM EDT tablet extended release 24 hr 30 TAKE ONE TABLET BY MOUTH EVERY DAY TAKE ONE TABLET BY MOUTH EVERY DAY SOLD: 02/22/2020 [facility] 25 mg 01/22/2020 12:00:00 AM EDT tablet extended release 24 hr 30 TAKE ONE TABLET BY MOUTH EVERY DAY TAKE ONE TABLET BY MOUTH EVERY DAY SOLD: 03/24/2020 [facility] 300 mg 12/31/2019 12:00:00 AM EDT tablet 30 TAKE ONE TABLET BY MOUTH EVERY DAY TAKE ONE TABLET BY MOUTH EVERY DAY SOLD: 01/04/2020 [facility] 300 mg 12/31/2019 12:00:00 AM EDT tablet 30 TAKE ONE TABLET BY MOUTH EVERY DAY TAKE ONE TABLET BY MOUTH EVERY DAY SOLD: 04/25/2020 [facility] 300 mg 12/31/2019 12:00:00 AM EDT tablet 30 TAKE ONE TABLET BY MOUTH EVERY DAY TAKE ONE TABLET BY MOUTH EVERY DAY SOLD: 2020 [facility] 300 mg 12/31/2019 12:00:00 AM EDT tablet 30 TAKE ONE TABLET BY MOUTH EVERY DAY TAKE ONE TABLET BY MOUTH EVERY DAY SOLD: 02/22/2020 [facility] 300 mg 12/31/2019 12:00:00 AM EDT tablet 30 TAKE ONE TABLET BY MOUTH EVERY DAY TAKE ONE TABLET BY MOUTH EVERY DAY SOLD: 05/22/2020 [facility] 300 mg 12/31/2019 12:00:00 AM EDT tablet 30 TAKE ONE TABLET BY MOUTH EVERY DAY TAKE ONE TABLET BY MOUTH EVERY DAY SOLD: 03/24/2020 [facility] 50-1,000 mg 12/05/2019 12:00:00 AM EST tablet 60 TAKE ONE TABLET BY MOUTH TWICE A DAY WITH MEALS TAKE ONE TABLET BY MOUTH TWICE A DAY WITH MEALS SOLD: 03/24/2020 [facility] 50-1,000 mg 12/05/2019 12:00:00 AM EST tablet 60 TAKE ONE TABLET BY MOUTH TWICE A DAY WITH MEALS TAKE ONE TABLET BY MOUTH TWICE A DAY WITH MEALS SOLD: 2020 [facility] 50-1,000 mg 12/05/2019 12:00:00 AM EST tablet 60 TAKE ONE TABLET BY MOUTH TWICE A DAY WITH MEALS TAKE ONE TABLET BY MOUTH TWICE A DAY WITH MEALS SOLD: 04/25/2020 [facility] 25 mg 12/05/2019 12:00:00 AM EST tablet 30 TAKE ONE TABLET BY MOUTH EVERY DAY TAKE ONE TABLET BY MOUTH EVERY DAY SOLD: 04/25/2020 [facility] 50-1,000 mg 12/05/2019 12:00:00 AM EST tablet 60 TAKE ONE TABLET BY MOUTH TWICE A DAY WITH MEALS TAKE ONE TABLET BY MOUTH TWICE A DAY WITH MEALS SOLD: 02/22/2020 [facility] 25 mg 12/05/2019 12:00:00 AM EST tablet 30 TAKE ONE TABLET BY MOUTH EVERY DAY TAKE ONE TABLET BY MOUTH EVERY DAY SOLD: 12/06/2019 [facility] atorvastatin 20 MG Oral Tablet ATORVASTATIN CALCIUM 12/05/2019 1 2:00:00 AM EST tablet 30 TAKE ONE TABLET BY MOUTH EVERY D AY TAKE ONE TABLET BY MOUTH EVERY DAY SOLD: 01/04/2020 [facility] 50-1,000 mg 12/05/2019 12:00:00 AM EST tablet 60 TAKE ONE TABLET BY MOUTH TWICE A DAY WITH MEALS TAKE ONE TABLET BY MOUTH TWICE A DAY WITH MEALS SOLD: 01/04/2020 [facility] 25 mg 12/05/2019 12:00:00 AM EST tablet 30 TAKE ONE TABLET BY MOUTH EVERY DAY TAKE ONE TABLET BY MOUTH EVERY DAY SOLD: 03/24/2020 [facility] 40 mg 12/05/2019 12:00:00 AM EST tablet 30 TAKE ONE TABLET BY MOUTH EVERY DAY TAKE ONE TABLET BY MOUTH EVERY DAY SOLD: 02/22/2020 [facility] 50-1,000 mg 12/05/2019 12:00:00 AM EST tablet 60 TAKE ONE TABLET BY MOUTH TWICE A DAY WITH MEALS TAKE ONE TABLET BY MOUTH TWICE A DAY WITH MEALS SOLD: 12/06/2019 [facility] 25 mg 12/05/2019 12:00:00 AM EST tablet 30 TAKE ONE TABLET BY MOUTH EVERY DAY TAKE ONE TABLET BY MOUTH EVERY DAY SOLD: 01/04/2020 [facility] 25 mg 12/05/2019 12:00:00 AM EST tablet 30 TAKE ONE TABLET BY MOUTH EVERY DAY TAKE ONE TABLET BY MOUTH EVERY DAY SOLD: 2020 [facility] atorvastatin 20 MG Oral Tablet ATORVASTATIN CALCIUM 12/05/2019 1 2:00:00 AM EST tablet 30 TAKE ONE TABLET BY MOUTH EVERY D AY TAKE ONE TABLET BY MOUTH EVERY DAY SOLD: 04/25/2020 [facility] 25 mg 12/05/2019 12:00:00 AM EST tablet 30 TAKE ONE TABLET BY MOUTH EVERY DAY TAKE ONE TABLET BY MOUTH EVERY DAY SOLD: 02/22/2020 [facility] 40 mg 12/05/2019 12:00:00 AM EST tablet 30 TAKE ONE TABLET BY MOUTH EVERY DAY TAKE ONE TABLET BY MOUTH EVERY DAY SOLD: 03/24/2020 [facility] atorvastatin 20 MG Oral Tablet ATORVASTATIN CALCIUM 12/05/2019 1 2:00:00 AM EST tablet 30 TAKE ONE TABLET BY MOUTH EVERY D AY TAKE ONE TABLET BY MOUTH EVERY DAY SOLD: 02/22/2020 [facility] 40 mg 12/05/2019 12:00:00 AM EST tablet 30 TAKE ONE TABLET BY MOUTH EVERY DAY TAKE ONE TABLET BY MOUTH EVERY DAY SOLD: 2020 [facility] atorvastatin 20 MG Oral Tablet ATORVASTATIN CALCIUM 12/05/2019 1 2:00:00 AM EST tablet 30 TAKE ONE TABLET BY MOUTH EVERY D AY TAKE ONE TABLET BY MOUTH EVERY DAY SOLD: 03/24/2020 [facility] atorvastatin 20 MG Oral Tablet ATORVASTATIN CALCIUM 12/05/2019 1 2:00:00 AM EST tablet 30 TAKE ONE TABLET BY MOUTH EVERY D AY TAKE ONE TABLET BY MOUTH EVERY DAY SOLD: 12/06/2019 [facility] 40 mg 12/05/2019 12:00:00 AM EST tablet 30 TAKE ONE TABLET BY MOUTH EVERY DAY TAKE ONE TABLET BY MOUTH EVERY DAY SOLD: 01/04/2020 [facility] 40 mg 12/05/2019 12:00:00 AM EST tablet 30 TAKE ONE TABLET BY MOUTH EVERY DAY TAKE ONE TABLET BY MOUTH EVERY DAY SOLD: 04/25/2020 [facility] 40 mg 12/05/2019 12:00:00 AM EST tablet 30 TAKE ONE TABLET BY MOUTH EVERY DAY TAKE ONE TABLET BY MOUTH EVERY DAY SOLD: 12/06/2019 [facility] atorvastatin 20 MG Oral Tablet ATORVASTATIN CALCIUM 12/05/2019 1 2:00:00 AM EST tablet 30 TAKE ONE TABLET BY MOUTH EVERY D AY TAKE ONE TABLET BY MOUTH EVERY DAY SOLD: 2020 [facility] 31 gauge x 5/16" 11/22/2019 12:00:00 AM EST needle 150 USE DIRECTED DAILY USE DIRECTED DAILY SOLD: 11/23/2019 [facility] 31 gauge x 5/16" 11/22/2019 12:00:00 AM EST needle 120 USE DIRECTED DAILY USE DIRECTED DAILY SOLD: 02/22/2020 [facility] 31 gauge x 5/16" 11/22/2019 12:00:00 AM EST needle 120 USE DIRECTED DAILY USE DIRECTED DAILY SOLD: 03/24/2020 [facility] 100 unit/mL (3 mL) 11/17/2019 12:00:00 AM EST insulin pen 3 INJECT 5 UNITS SUBCUTANEOUSLY IMMEDIATELY PRIOR TO MEALS IF BLOOD GLUCOSE IS > 140 MG/DL INJECT 5 UNITS SUBCUTANEOUSLY IMMEDIATELY PRIOR TO MEALS IF BLOOD GLUCOSE IS > 140 MG/DL SOLD: 11/17/2019 [facility] 100 unit/mL (3 mL) 11/17/2019 12:00:00 AM EST insulin pen 3 INJECT 5 UNITS SUBCUTANEOUSLY IMMEDIATELY PRIOR TO MEALS IF BLOOD GLUCOSE IS > 140 MG/DL INJECT 5 UNITS SUBCUTANEOUSLY IMMEDIATELY PRIOR TO MEALS IF BLOOD GLUCOSE IS > 140 MG/DL SOLD: 12/06/2019 [facility] 100 unit/mL (3 mL) 11/17/2019 12:00:00 AM EST insulin pen 15 INJECT 5 UNITS SUBCUTANEOUSLY IMMEDIATELY PRIOR TO MEALS IF BLOOD GLUCOSE IS > 140 MG/DL INJECT 5 UNITS SUBCUTANEOUSLY IMMEDIATELY PRIOR TO MEALS IF BLOOD GLUCOSE IS > 140 MG/DL SOLD: 05/09/2020 [facility] 100 unit/mL (3 mL) 11/17/2019 12:00:00 AM EST insulin pen 3 INJECT 5 UNITS SUBCUTANEOUSLY IMMEDIATELY PRIOR TO MEALS IF BLOOD GLUCOSE IS > 140 MG/DL INJECT 5 UNITS SUBCUTANEOUSLY IMMEDIATELY PRIOR TO MEALS IF BLOOD GLUCOSE IS > 140 MG/DL SOLD: 02/22/2020 [facility] 100 unit/mL (3 mL) 11/17/2019 12:00:00 AM EST insulin pen 3 INJECT 5 UNITS SUBCUTANEOUSLY IMMEDIATELY PRIOR TO MEALS IF BLOOD GLUCOSE IS > 140 MG/DL INJECT 5 UNITS SUBCUTANEOUSLY IMMEDIATELY PRIOR TO MEALS IF BLOOD GLUCOSE IS > 140 MG/DL SOLD: 01/18/2020 [facility] 3 ML Insulin, Aspart, Human 100 UNT/ML P en Injector [NovoLog] NovoLog Flexpen 100 UNIT/ML NovoLog Flexpen 100 UNIT/ML 11/16/2019 12:00:00 AM EST active 5 units eCW1 ([facility]) 3 ML Insulin, Aspart, Human 100 UNT/ML P en Injector [NovoLog] NovoLog Flexpen 100 UNIT/ML NovoLog Flexpen 100 UNIT/ML 11/16/2019 12:00:00 AM EST active NovoLog Flexpen 100 UNIT/ML eCW1 ([facility]) 3 ML Insulin, Aspart, Human 100 UNT/ML P en Injector [NovoLog] NovoLog Flexpen 100 UNIT/ML NovoLog Flexpen 100 UNIT/ML 11/16/2019 12:00:00 AM EST active NovoLog Flexpen 100 UNIT/ML eCW1 ([facility]) 3 ML Insulin, Aspart, Human 100 UNT/ML P en Injector [NovoLog] NovoLog Flexpen 100 UNIT/ML NovoLog Flexpen 100 UNIT/ML 11/16/2019 12:00:00 AM EST active NovoLog Flexpen 100 UNIT/ML eCW1 ([facility]) 3 ML Insulin, Aspart, Human 100 UNT/ML P en Injector [NovoLog] NovoLog Flexpen 100 UNIT/ML NovoLog Flexpen 100 UNIT/ML 11/16/2019 12:00:00 AM EST active 5 units eCW1 ([facility]) 3 ML Insulin, Aspart, Human 100 UNT/ML P en Injector [NovoLog] NovoLog Flexpen 100 UNIT/ML NovoLog Flexpen 100 UNIT/ML 11/16/2019 12:00:00 AM EST active NovoLog Flexpen 100 UNIT/ML eCW1 ([facility]) 750 mg 10/24/2019 12:00:00 AM EST tablet 7 TAKE ONE TABLET BY MOUTH EVERY DAY TAKE ONE TABLET BY MOUTH EVERY DAY SOLD: 10/24/2019 [facility] Amoxicillin 875 MG / Clavulanate 125 MG Oral Tablet Amoxicillin-Pot Clavulanate 875-125 MG Amoxicillin-Pot Clavulanate 875-125 MG 10/12/2019 12:00:00 AM ES T active 1 tablet eCW1 ([facility]) Amoxicillin 875 MG / Clavulanate 125 MG Oral Tablet Amoxicillin-Pot Clavulanate 875-125 MG Amoxicillin-Pot Clavulanate 875-125 MG 10/12/2019 12:00:00 AM ES T suspended 1 tablet eCW1 ([facility]) Amoxicillin 875 MG / Clavulanate 125 MG Oral Tablet Amoxicillin-Pot Clavulanate 875-125 MG Amoxicillin-Pot Clavulanate 875-125 MG 10/12/2019 12:00:00 AM ES T suspended 1 tablet eCW1 ([facility]) Amoxicillin 875 MG / Clavulanate 125 MG Oral Tablet Amoxicillin-Pot Clavulanate 875-125 MG Amoxicillin-Pot Clavulanate 875-125 MG 10/12/2019 12:00:00 AM ES T suspended 1 tablet eCW1 ([facility]) Amoxicillin 875 MG / Clavulanate 125 MG Oral Tablet Amoxicillin-Pot Clavulanate 875-125 MG Amoxicillin-Pot Clavulanate 875-125 MG 10/12/2019 12:00:00 AM ES T suspended 1 tablet eCW1 ([facility]) Amoxicillin 875 MG / Clavulanate 125 MG Oral Tablet Amoxicillin-Pot Clavulanate 875-125 MG Amoxicillin-Pot Clavulanate 875-125 MG 10/12/2019 12:00:00 AM ES T suspended 1 tablet eCW1 ([facility]) Amoxicillin 875 MG / Clavulanate 125 MG Oral Tablet Amoxicillin-Pot Clavulanate 875-125 MG Amoxicillin-Pot Clavulanate 875-125 MG 10/12/2019 12:00:00 AM ES T suspended 1 tablet eCW1 ([facility]) Amoxicillin 875 MG / Clavulanate 125 MG Oral Tablet Amoxicillin-Pot Clavulanate 875-125 MG Amoxicillin-Pot Clavulanate 875-125 MG 10/12/2019 12:00:00 AM ES T 1.0 {tablet} suspended Amoxicillin-Pot C lavulanate 875-125 MG eCW1 ([facility]) Amoxicillin 875 MG / Clavulanate 125 MG Oral Tablet Amoxicillin-Pot Clavulanate 875-125 MG Amoxicillin-Pot Clavulanate 875-125 MG 10/12/2019 12:00:00 AM ES T suspended 1 tablet eCW1 ([facility]) Amoxicillin 875 MG / Clavulanate 125 MG Oral Tablet Amoxicillin-Pot Clavulanate 875-125 MG Amoxicillin-Pot Clavulanate 875-125 MG 10/12/2019 12:00:00 AM ES T suspended 1 tablet eCW1 ([facility]) Amoxicillin 875 MG / Clavulanate 125 MG Oral Tablet Amoxicillin-Pot Clavulanate 875-125 MG Amoxicillin-Pot Clavulanate 875-125 MG 10/12/2019 12:00:00 AM ES T suspended 1 tablet eCW1 ([facility]) Amoxicillin 875 MG / Clavulanate 125 MG Oral Tablet Amoxicillin-Pot Clavulanate 875-125 MG Amoxicillin-Pot Clavulanate 875-125 MG 10/12/2019 12:00:00 AM ES T suspended 1 tablet eCW1 ([facility]) Amoxicillin 875 MG / Clavulanate 125 MG Oral Tablet Amoxicillin-Pot Clavulanate 875-125 MG Amoxicillin-Pot Clavulanate 875-125 MG 10/12/2019 12:00:00 AM ES T 1.0 {tablet} suspended Amoxicillin-Pot C lavulanate 875-125 MG eCW1 ([facility]) Amoxicillin 875 MG / Clavulanate 125 MG Oral Tablet Amoxicillin-Pot Clavulanate 875-125 MG Amoxicillin-Pot Clavulanate 875-125 MG 10/12/2019 12:00:00 AM ES T suspended 1 tablet eCW1 ([facility]) Amoxicillin 875 MG / Clavulanate 125 MG Oral Tablet Amoxicillin-Pot Clavulanate 875-125 MG Amoxicillin-Pot Clavulanate 875-125 MG 10/12/2019 12:00:00 AM ES T suspended 1 tablet eCW1 ([facility]) Amoxicillin 875 MG / Clavulanate 125 MG Oral Tablet Amoxicillin-Pot Clavulanate 875-125 MG Amoxicillin-Pot Clavulanate 875-125 MG 10/12/2019 12:00:00 AM ES T suspended 1 tablet eCW1 ([facility]) Amoxicillin 875 MG / Clavulanate 125 MG Oral Tablet Amoxicillin-Pot Clavulanate 875-125 MG Amoxicillin-Pot Clavulanate 875-125 MG 10/12/2019 12:00:00 AM ES T suspended 1 tablet eCW1 ([facility]) Amoxicillin 875 MG / Clavulanate 125 MG Oral Tablet Amoxicillin-Pot Clavulanate 875-125 MG Amoxicillin-Pot Clavulanate 875-125 MG 10/12/2019 12:00:00 AM ES T suspended 1 tablet eCW1 ([facility]) Amoxicillin 875 MG / Clavulanate 125 MG Oral Tablet Amoxicillin-Pot Clavulanate 875-125 MG Amoxicillin-Pot Clavulanate 875-125 MG 10/12/2019 12:00:00 AM ES T suspended 1 tablet eCW1 ([facility]) Amoxicillin 875 MG / Clavulanate 125 MG Oral Tablet Amoxicillin-Pot Clavulanate 875-125 MG Amoxicillin-Pot Clavulanate 875-125 MG 10/12/2019 12:00:00 AM ES T suspended 1 tablet eCW1 ([facility]) Amoxicillin 875 MG / Clavulanate 125 MG Oral Tablet Amoxicillin-Pot Clavulanate 875-125 MG Amoxicillin-Pot Clavulanate 875-125 MG 10/12/2019 12:00:00 AM ES T suspended 1 tablet eCW1 ([facility]) Amoxicillin 875 MG / Clavulanate 125 MG Oral Tablet Amoxicillin-Pot Clavulanate 875-125 MG Amoxicillin-Pot Clavulanate 875-125 MG 10/12/2019 12:00:00 AM ES T suspended 1 tablet eCW1 ([facility]) Amoxicillin 875 MG / Clavulanate 125 MG Oral Tablet Amoxicillin-Pot Clavulanate 875-125 MG Amoxicillin-Pot Clavulanate 875-125 MG 10/12/2019 12:00:00 AM ES T suspended 1 tablet eCW1 ([facility]) Amoxicillin 875 MG / Clavulanate 125 MG Oral Tablet Amoxicillin-Pot Clavulanate 875-125 MG Amoxicillin-Pot Clavulanate 875-125 MG 10/12/2019 12:00:00 AM ES T suspended 1 tablet eCW1 ([facility]) Amoxicillin 875 MG / Clavulanate 125 MG Oral Tablet Amoxicillin-Pot Clavulanate 875-125 MG Amoxicillin-Pot Clavulanate 875-125 MG 10/12/2019 12:00:00 AM ES T suspended 1 tablet eCW1 ([facility]) Amoxicillin 875 MG / Clavulanate 125 MG Oral Tablet Amoxicillin-Pot Clavulanate 875-125 MG Amoxicillin-Pot Clavulanate 875-125 MG 10/12/2019 12:00:00 AM ES T suspended 1 tablet eCW1 ([facility]) Amoxicillin 875 MG / Clavulanate 125 MG Oral Tablet Amoxicillin-Pot Clavulanate 875-125 MG Amoxicillin-Pot Clavulanate 875-125 MG 10/12/2019 12:00:00 AM ES T suspended 1 tablet eCW1 ([facility]) Amoxicillin 875 MG / Clavulanate 125 MG Oral Tablet Amoxicillin-Pot Clavulanate 875-125 MG Amoxicillin-Pot Clavulanate 875-125 MG 10/12/2019 12:00:00 AM ES T suspended 1 tablet eCW1 ([facility]) Amoxicillin 875 MG / Clavulanate 125 MG Oral Tablet Amoxicillin-Pot Clavulanate 875-125 MG Amoxicillin-Pot Clavulanate 875-125 MG 10/12/2019 12:00:00 AM ES T suspended 1 tablet eCW1 ([facility]) Amoxicillin 875 MG / Clavulanate 125 MG Oral Tablet Amoxicillin-Pot Clavulanate 875-125 MG Amoxicillin-Pot Clavulanate 875-125 MG 10/12/2019 12:00:00 AM ES T suspended 1 tablet eCW1 ([facility]) Amoxicillin 875 MG / Clavulanate 125 MG Oral Tablet Amoxicillin-Pot Clavulanate 875-125 MG Amoxicillin-Pot Clavulanate 875-125 MG 10/12/2019 12:00:00 AM ES T suspended 1 tablet eCW1 ([facility]) Amoxicillin 875 MG / Clavulanate 125 MG Oral Tablet Amoxicillin-Pot Clavulanate 875-125 MG Amoxicillin-Pot Clavulanate 875-125 MG 10/12/2019 12:00:00 AM ES T suspended 1 tablet eCW1 ([facility]) Amoxicillin 875 MG / Clavulanate 125 MG Oral Tablet Amoxicillin-Pot Clavulanate 875-125 MG Amoxicillin-Pot Clavulanate 875-125 MG 10/12/2019 12:00:00 AM ES T 1.0 {tablet} suspended Amoxicillin-Pot C lavulanate 875-125 MG eCW1 ([facility]) Amoxicillin 875 MG / Clavulanate 125 MG Oral Tablet Amoxicillin-Pot Clavulanate 875-125 MG Amoxicillin-Pot Clavulanate 875-125 MG 10/12/2019 12:00:00 AM ES T suspended 1 tablet eCW1 ([facility]) Amoxicillin 875 MG / Clavulanate 125 MG Oral Tablet Amoxicillin-Pot Clavulanate 875-125 MG Amoxicillin-Pot Clavulanate 875-125 MG 10/12/2019 12:00:00 AM ES T suspended 1 tablet eCW1 ([facility]ly [facility]) Amoxicillin 875 MG / Clavulanate 125 MG Oral Tablet Amoxicillin-Pot Clavulanate 875-125 MG Amoxicillin-Pot Clavulanate 875-125 MG 10/12/2019 12:00:00 AM ES T suspended 1 tablet eCW1 ([facility]ly [facility]) Amoxicillin 875 MG / Clavulanate 125 MG Oral Tablet Amoxicillin-Pot Clavulanate 875-125 MG Amoxicillin-Pot Clavulanate 875-125 MG 10/12/2019 12:00:00 AM ES T 1.0 {tablet} suspended Amoxicillin-Pot C lavulanate 875-125 MG eCW1 ([facility]) Amoxicillin 875 MG / Clavulanate 125 MG Oral Tablet Amoxicillin-Pot Clavulanate 875-125 MG Amoxicillin-Pot Clavulanate 875-125 MG 10/12/2019 12:00:00 AM ES T 1.0 {tablet} suspended Amoxicillin-Pot C lavulanate 875-125 MG eCW1 ([facility]) Amoxicillin 875 MG / Clavulanate 125 MG Oral Tablet Amoxicillin-Pot Clavulanate 875-125 MG Amoxicillin-Pot Clavulanate 875-125 MG 10/12/2019 12:00:00 AM ES T suspended 1 tablet eCW1 (Formerly [facility], [facility]) Amoxicillin 875 MG / Clavulanate 125 MG Oral Tablet Amoxicillin-Pot Clavulanate 875-125 MG Amoxicillin-Pot Clavulanate 875-125 MG 10/12/2019 12:00:00 AM ES T suspended 1 tablet eCW1 (Formerly [facility], [facility]) Amoxicillin 875 MG / Clavulanate 125 MG Oral Tablet Amoxicillin-Pot Clavulanate 875-125 MG Amoxicillin-Pot Clavulanate 875-125 MG 10/12/2019 12:00:00 AM ES T suspended 1 tablet eCW1 (Formerly [facility], [facility]) Amoxicillin 875 MG / Clavulanate 125 MG Oral Tablet Amoxicillin-Pot Clavulanate 875-125 MG Amoxicillin-Pot Clavulanate 875-125 MG 10/12/2019 12:00:00 AM ES T suspended 1 tablet eCW1 (Formerly [facility], [facility]) Amoxicillin 875 MG / Clavulanate 125 MG Oral Tablet Amoxicillin-Pot Clavulanate 875-125 MG Amoxicillin-Pot Clavulanate 875-125 MG 10/12/2019 12:00:00 AM ES T suspended 1 tablet eCW1 (Formerly [facility], [facility]) Amoxicillin 875 MG / Clavulanate 125 MG Oral Tablet Amoxicillin-Pot Clavulanate 875-125 MG Amoxicillin-Pot Clavulanate 875-125 MG 10/12/2019 12:00:00 AM ES T 1.0 {tablet} suspended Amoxicillin-Pot C lavulanate 875-125 MG eCW1 ([facility]) Amoxicillin 875 MG / Clavulanate 125 MG Oral Tablet Amoxicillin-Pot Clavulanate 875-125 MG Amoxicillin-Pot Clavulanate 875-125 MG 10/12/2019 12:00:00 AM ES T 1.0 {tablet} suspended Amoxicillin-Pot C lavulanate 875-125 MG eCW1 ([facility]) Amoxicillin 875 MG / Clavulanate 125 MG Oral Tablet Amoxicillin-Pot Clavulanate 875-125 MG Amoxicillin-Pot Clavulanate 875-125 MG 10/12/2019 12:00:00 AM ES T 1.0 {tablet} suspended Amoxicillin-Pot C lavulanate 875-125 MG eCW1 ([facility]) Amoxicillin 875 MG / Clavulanate 125 MG Oral Tablet Amoxicillin-Pot Clavulanate 875-125 MG Amoxicillin-Pot Clavulanate 875-125 MG 10/12/2019 12:00:00 AM ES T suspended 1 tablet eCW1 ([facility]ly [facility]) Amoxicillin 875 MG / Clavulanate 125 MG Oral Tablet Amoxicillin-Pot Clavulanate 875-125 MG Amoxicillin-Pot Clavulanate 875-125 MG 10/12/2019 12:00:00 AM ES T suspended 1 tablet eCW1 ([facility]ly [facility]) Amoxicillin 875 MG / Clavulanate 125 MG Oral Tablet Amoxicillin-Pot Clavulanate 875-125 MG Amoxicillin-Pot Clavulanate 875-125 MG 10/12/2019 12:00:00 AM ES T 1.0 {tablet} suspended Amoxicillin-Pot C lavulanate 875-125 MG eCW1 ([facility]) Amoxicillin 875 MG / Clavulanate 125 MG Oral Tablet Amoxicillin-Pot Clavulanate 875-125 MG Amoxicillin-Pot Clavulanate 875-125 MG 10/12/2019 12:00:00 AM ES T suspended 1 tablet eCW1 ([facility]ly [facility]) Amoxicillin 875 MG / Clavulanate 125 MG Oral Tablet Amoxicillin-Pot Clavulanate 875-125 MG Amoxicillin-Pot Clavulanate 875-125 MG 10/12/2019 12:00:00 AM ES T suspended 1 tablet eCW1 ([facility]ly [facility]) Amoxicillin 875 MG / Clavulanate 125 MG Oral Tablet Amoxicillin-Pot Clavulanate 875-125 MG Amoxicillin-Pot Clavulanate 875-125 MG 10/12/2019 12:00:00 AM ES T 1.0 {tablet} suspended Amoxicillin-Pot C lavulanate 875-125 MG eCW1 ([facility]) Amoxicillin 875 MG / Clavulanate 125 MG Oral Tablet Amoxicillin-Pot Clavulanate 875-125 MG Amoxicillin-Pot Clavulanate 875-125 MG 10/12/2019 12:00:00 AM ES T suspended 1 tablet eCW1 ([facility]ly [facility]) Amoxicillin 875 MG / Clavulanate 125 MG Oral Tablet Amoxicillin-Pot Clavulanate 875-125 MG Amoxicillin-Pot Clavulanate 875-125 MG 10/12/2019 12:00:00 AM ES T suspended 1 tablet eCW1 ([facility]ly [facility]) Amoxicillin 875 MG / Clavulanate 125 MG Oral Tablet Amoxicillin-Pot Clavulanate 875-125 MG Amoxicillin-Pot Clavulanate 875-125 MG 10/12/2019 12:00:00 AM ES T suspended 1 tablet eCW1 ([facility]) Amoxicillin 875 MG / Clavulanate 125 MG Oral Tablet Amoxicillin-Pot Clavulanate 875-125 MG Amoxicillin-Pot Clavulanate 875-125 MG 10/12/2019 12:00:00 AM ES T suspended 1 tablet eCW1 ([facility]) Amoxicillin 875 MG / Clavulanate 125 MG Oral Tablet Amoxicillin-Pot Clavulanate 875-125 MG Amoxicillin-Pot Clavulanate 875-125 MG 10/12/2019 12:00:00 AM ES T suspended 1 tablet eCW1 ([facility]) Amoxicillin 875 MG / Clavulanate 125 MG Oral Tablet Amoxicillin-Pot Clavulanate 875-125 MG Amoxicillin-Pot Clavulanate 875-125 MG 10/12/2019 12:00:00 AM ES T suspended 1 tablet eCW1 ([facility]) Amoxicillin 875 MG / Clavulanate 125 MG Oral Tablet Amoxicillin-Pot Clavulanate 875-125 MG Amoxicillin-Pot Clavulanate 875-125 MG 10/12/2019 12:00:00 AM ES T 1.0 {tablet} suspended Amoxicillin-Pot C lavulanate 875-125 MG eCW1 ([facility]) Amoxicillin 875 MG / Clavulanate 125 MG Oral Tablet Amoxicillin-Pot Clavulanate 875-125 MG Amoxicillin-Pot Clavulanate 875-125 MG 10/12/2019 12:00:00 AM ES T suspended 1 tablet eCW1 ([facility]) Amoxicillin 875 MG / Clavulanate 125 MG Oral Tablet Amoxicillin-Pot Clavulanate 875-125 MG Amoxicillin-Pot Clavulanate 875-125 MG 10/12/2019 12:00:00 AM ES T suspended 1 tablet eCW1 ([facility]) Amoxicillin 875 MG / Clavulanate 125 MG Oral Tablet Amoxicillin-Pot Clavulanate 875-125 MG Amoxicillin-Pot Clavulanate 875-125 MG 10/12/2019 12:00:00 AM ES T suspended 1 tablet eCW1 ([facility]ly [facility]) Amoxicillin 875 MG / Clavulanate 125 MG Oral Tablet Amoxicillin-Pot Clavulanate 875-125 MG Amoxicillin-Pot Clavulanate 875-125 MG 10/12/2019 12:00:00 AM ES T 1.0 {tablet} suspended Amoxicillin-Pot C lavulanate 875-125 MG eCW1 ([facility]) Amoxicillin 875 MG / Clavulanate 125 MG Oral Tablet Amoxicillin-Pot Clavulanate 875-125 MG Amoxicillin-Pot Clavulanate 875-125 MG 10/12/2019 12:00:00 AM ES T suspended 1 tablet eCW1 ([facility]ly [facility]) Amoxicillin 875 MG / Clavulanate 125 MG Oral Tablet Amoxicillin-Pot Clavulanate 875-125 MG Amoxicillin-Pot Clavulanate 875-125 MG 10/12/2019 12:00:00 AM ES T suspended 1 tablet eCW1 ([facility]) Amoxicillin 875 MG / Clavulanate 125 MG Oral Tablet Amoxicillin-Pot Clavulanate 875-125 MG Amoxicillin-Pot Clavulanate 875-125 MG 10/12/2019 12:00:00 AM ES T 1.0 {tablet} suspended Amoxicillin-Pot C lavulanate 875-125 MG eCW1 ([facility]) Amoxicillin 875 MG / Clavulanate 125 MG Oral Tablet Amoxicillin-Pot Clavulanate 875-125 MG Amoxicillin-Pot Clavulanate 875-125 MG 10/12/2019 12:00:00 AM ES T suspended 1 tablet eCW1 ([facility]) Amoxicillin 875 MG / Clavulanate 125 MG Oral Tablet Amoxicillin-Pot Clavulanate 875-125 MG Amoxicillin-Pot Clavulanate 875-125 MG 10/12/2019 12:00:00 AM ES T suspended 1 tablet eCW1 ([facility]) Amoxicillin 875 MG / Clavulanate 125 MG Oral Tablet Amoxicillin-Pot Clavulanate 875-125 MG Amoxicillin-Pot Clavulanate 875-125 MG 10/12/2019 12:00:00 AM ES T suspended 1 tablet eCW1 ([facility]) Amoxicillin 875 MG / Clavulanate 125 MG Oral Tablet Amoxicillin-Pot Clavulanate 875-125 MG Amoxicillin-Pot Clavulanate 875-125 MG 10/12/2019 12:00:00 AM ES T suspended 1 tablet eCW1 ([facility]) Amoxicillin 875 MG / Clavulanate 125 MG Oral Tablet Amoxicillin-Pot Clavulanate 875-125 MG Amoxicillin-Pot Clavulanate 875-125 MG 10/12/2019 12:00:00 AM ES T suspended 1 tablet eCW1 ([facility]) Amoxicillin 875 MG / Clavulanate 125 MG Oral Tablet Amoxicillin-Pot Clavulanate 875-125 MG Amoxicillin-Pot Clavulanate 875-125 MG 10/12/2019 12:00:00 AM ES T suspended 1 tablet eCW1 ([facility]) Amoxicillin 875 MG / Clavulanate 125 MG Oral Tablet Amoxicillin-Pot Clavulanate 875-125 MG Amoxicillin-Pot Clavulanate 875-125 MG 10/12/2019 12:00:00 AM ES T suspended 1 tablet eCW1 ([facility]) Amoxicillin 875 MG / Clavulanate 125 MG Oral Tablet Amoxicillin-Pot Clavulanate 875-125 MG Amoxicillin-Pot Clavulanate 875-125 MG 10/12/2019 12:00:00 AM ES T suspended 1 tablet eCW1 ([facility]) Amoxicillin 875 MG / Clavulanate 125 MG Oral Tablet Amoxicillin-Pot Clavulanate 875-125 MG Amoxicillin-Pot Clavulanate 875-125 MG 10/12/2019 12:00:00 AM ES T suspended 1 tablet eCW1 ([facility]) Amoxicillin 875 MG / Clavulanate 125 MG Oral Tablet Amoxicillin-Pot Clavulanate 875-125 MG Amoxicillin-Pot Clavulanate 875-125 MG 10/12/2019 12:00:00 AM ES T suspended 1 tablet eCW1 ([facility]) Amoxicillin 875 MG / Clavulanate 125 MG Oral Tablet Amoxicillin-Pot Clavulanate 875-125 MG Amoxicillin-Pot Clavulanate 875-125 MG 10/12/2019 12:00:00 AM ES T 1.0 {tablet} suspended Amoxicillin-Pot C lavulanate 875-125 MG eCW1 ([facility]) Amoxicillin 875 MG / Clavulanate 125 MG Oral Tablet Amoxicillin-Pot Clavulanate 875-125 MG Amoxicillin-Pot Clavulanate 875-125 MG 10/12/2019 12:00:00 AM ES T suspended 1 tablet eCW1 ([facility]) Amoxicillin 875 MG / Clavulanate 125 MG Oral Tablet Amoxicillin-Pot Clavulanate 875-125 MG Amoxicillin-Pot Clavulanate 875-125 MG 10/12/2019 12:00:00 AM ES T suspended 1 tablet eCW1 ([facility]) Amoxicillin 875 MG / Clavulanate 125 MG Oral Tablet Amoxicillin-Pot Clavulanate 875-125 MG Amoxicillin-Pot Clavulanate 875-125 MG 10/12/2019 12:00:00 AM ES T suspended 1 tablet eCW1 ([facility]) Amoxicillin 875 MG / Clavulanate 125 MG Oral Tablet Amoxicillin-Pot Clavulanate 875-125 MG Amoxicillin-Pot Clavulanate 875-125 MG 10/12/2019 12:00:00 AM ES T suspended 1 tablet eCW1 ([facility]) Amoxicillin 875 MG / Clavulanate 125 MG Oral Tablet Amoxicillin-Pot Clavulanate 875-125 MG Amoxicillin-Pot Clavulanate 875-125 MG 10/12/2019 12:00:00 AM ES T suspended 1 tablet eCW1 ([facility]) Amoxicillin 875 MG / Clavulanate 125 MG Oral Tablet Amoxicillin-Pot Clavulanate 875-125 MG Amoxicillin-Pot Clavulanate 875-125 MG 10/12/2019 12:00:00 AM ES T suspended 1 tablet eCW1 ([facility]) Amoxicillin 875 MG / Clavulanate 125 MG Oral Tablet Amoxicillin-Pot Clavulanate 875-125 MG Amoxicillin-Pot Clavulanate 875-125 MG 10/12/2019 12:00:00 AM ES T suspended 1 tablet eCW1 ([facility]) Amoxicillin 875 MG / Clavulanate 125 MG Oral Tablet Amoxicillin-Pot Clavulanate 875-125 MG Amoxicillin-Pot Clavulanate 875-125 MG 10/12/2019 12:00:00 AM ES T suspended 1 tablet eCW1 ([facility]) Amoxicillin 875 MG / Clavulanate 125 MG Oral Tablet Amoxicillin-Pot Clavulanate 875-125 MG Amoxicillin-Pot Clavulanate 875-125 MG 10/12/2019 12:00:00 AM ES T suspended 1 tablet eCW1 ([facility]) Amoxicillin 875 MG / Clavulanate 125 MG Oral Tablet Amoxicillin-Pot Clavulanate 875-125 MG Amoxicillin-Pot Clavulanate 875-125 MG 10/12/2019 12:00:00 AM ES T suspended 1 tablet eCW1 ([facility]) Amoxicillin 875 MG / Clavulanate 125 MG Oral Tablet Amoxicillin-Pot Clavulanate 875-125 MG Amoxicillin-Pot Clavulanate 875-125 MG 10/12/2019 12:00:00 AM ES T suspended 1 tablet eCW1 ([facility]) Amoxicillin 875 MG / Clavulanate 125 MG Oral Tablet Amoxicillin-Pot Clavulanate 875-125 MG Amoxicillin-Pot Clavulanate 875-125 MG 10/12/2019 12:00:00 AM ES T suspended 1 tablet eCW1 ([facility]) Amoxicillin 875 MG / Clavulanate 125 MG Oral Tablet Amoxicillin-Pot Clavulanate 875-125 MG Amoxicillin-Pot Clavulanate 875-125 MG 10/12/2019 12:00:00 AM ES T suspended 1 tablet eCW1 ([facility]) Amoxicillin 875 MG / Clavulanate 125 MG Oral Tablet Amoxicillin-Pot Clavulanate 875-125 MG Amoxicillin-Pot Clavulanate 875-125 MG 10/12/2019 12:00:00 AM ES T suspended 1 tablet eCW1 ([facility]) Amoxicillin 875 MG / Clavulanate 125 MG Oral Tablet Amoxicillin-Pot Clavulanate 875-125 MG Amoxicillin-Pot Clavulanate 875-125 MG 10/12/2019 12:00:00 AM ES T suspended 1 tablet eCW1 ([facility]) Amoxicillin 875 MG / Clavulanate 125 MG Oral Tablet Amoxicillin-Pot Clavulanate 875-125 MG Amoxicillin-Pot Clavulanate 875-125 MG 10/12/2019 12:00:00 AM ES T suspended 1 tablet eCW1 ([facility]) Amoxicillin 875 MG / Clavulanate 125 MG Oral Tablet Amoxicillin-Pot Clavulanate 875-125 MG Amoxicillin-Pot Clavulanate 875-125 MG 10/12/2019 12:00:00 AM ES T suspended 1 tablet eCW1 ([facility]) Amoxicillin 875 MG / Clavulanate 125 MG Oral Tablet Amoxicillin-Pot Clavulanate 875-125 MG Amoxicillin-Pot Clavulanate 875-125 MG 10/12/2019 12:00:00 AM ES T suspended 1 tablet eCW1 ([facility]) Amoxicillin 875 MG / Clavulanate 125 MG Oral Tablet Amoxicillin-Pot Clavulanate 875-125 MG Amoxicillin-Pot Clavulanate 875-125 MG 10/12/2019 12:00:00 AM ES T 1.0 {tablet} suspended Amoxicillin-Pot C lavulanate 875-125 MG eCW1 ([facility]) 875-125 mg 10/12/2019 12:00:00 AM EST tablet 20 TAKE 1 TABLET BY MOUTH EVERY 12 HOURS TAKE 1 TABLET BY MOUTH EVERY 12 HOURS SOLD: 10/12/2019 [facility] Amoxicillin 875 MG / Clavulanate 125 MG Oral Tablet Amoxicillin-Pot Clavulanate 875-125 MG Amoxicillin-Pot Clavulanate 875-125 MG 10/12/2019 12:00:00 AM ES T suspended 1 tablet eCW1 ([facility]) Amoxicillin 875 MG / Clavulanate 125 MG Oral Tablet Amoxicillin-Pot Clavulanate 875-125 MG Amoxicillin-Pot Clavulanate 875-125 MG 10/12/2019 12:00:00 AM ES T suspended 1 tablet eCW1 ([facility]) Amoxicillin 875 MG / Clavulanate 125 MG Oral Tablet Amoxicillin-Pot Clavulanate 875-125 MG Amoxicillin-Pot Clavulanate 875-125 MG 10/12/2019 12:00:00 AM ES T suspended 1 tablet eCW1 ([facility]) Amoxicillin 875 MG / Clavulanate 125 MG Oral Tablet Amoxicillin-Pot Clavulanate 875-125 MG Amoxicillin-Pot Clavulanate 875-125 MG 10/12/2019 12:00:00 AM ES T suspended 1 tablet eCW1 ([facility]) Amoxicillin 875 MG / Clavulanate 125 MG Oral Tablet Amoxicillin-Pot Clavulanate 875-125 MG Amoxicillin-Pot Clavulanate 875-125 MG 10/12/2019 12:00:00 AM ES T suspended 1 tablet eCW1 ([facility]) Amoxicillin 875 MG / Clavulanate 125 MG Oral Tablet Amoxicillin-Pot Clavulanate 875-125 MG Amoxicillin-Pot Clavulanate 875-125 MG 10/12/2019 12:00:00 AM ES T suspended 1 tablet eCW1 ([facility]) Amoxicillin 875 MG / Clavulanate 125 MG Oral Tablet Amoxicillin-Pot Clavulanate 875-125 MG Amoxicillin-Pot Clavulanate 875-125 MG 10/12/2019 12:00:00 AM ES T active 1 tablet eCW1 ([facility]) Amoxicillin 875 MG / Clavulanate 125 MG Oral Tablet Amoxicillin-Pot Clavulanate 875-125 MG Amoxicillin-Pot Clavulanate 875-125 MG 10/12/2019 12:00:00 AM ES T suspended 1 tablet eCW1 ([facility]) Amoxicillin 875 MG / Clavulanate 125 MG Oral Tablet Amoxicillin-Pot Clavulanate 875-125 MG Amoxicillin-Pot Clavulanate 875-125 MG 10/12/2019 12:00:00 AM ES T 1.0 {tablet} suspended Amoxicillin-Pot C lavulanate 875-125 MG eCW1 ([facility]) Amoxicillin 875 MG / Clavulanate 125 MG Oral Tablet Amoxicillin-Pot Clavulanate 875-125 MG Amoxicillin-Pot Clavulanate 875-125 MG 10/12/2019 12:00:00 AM ES T suspended 1 tablet eCW1 ([facility]) Amoxicillin 875 MG / Clavulanate 125 MG Oral Tablet Amoxicillin-Pot Clavulanate 875-125 MG Amoxicillin-Pot Clavulanate 875-125 MG 10/12/2019 12:00:00 AM ES T suspended 1 tablet eCW1 ([facility]) doxycycline hyclate 100 MG Oral Tablet Doxycycline Hyc late 100 MG Doxycycline Hyclate 100 MG 10/10/2019 12:00:00 AM EST suspende d 1 tablet eCW1 ([facility]) doxycycline hyclate 100 MG Oral Tablet Doxycycline Hyc late 100 MG Doxycycline Hyclate 100 MG 10/10/2019 12:00:00 AM EST suspende d 1 tablet eCW1 ([facility]) doxycycline hyclate 100 MG Oral Tablet Doxycycline Hyc late 100 MG Doxycycline Hyclate 100 MG 10/10/2019 12:00:00 AM EST 1.0 {tablet} suspended Doxycycline Hyclate 100 MG eCW1 ([facility]) doxycycline hyclate 100 MG Oral Tablet Doxycycline Hyc late 100 MG Doxycycline Hyclate 100 MG 10/10/2019 12:00:00 AM EST suspende d 1 tablet eCW1 ([facility]) doxycycline hyclate 100 MG Oral Tablet Doxycycline Hyc late 100 MG Doxycycline Hyclate 100 MG 10/10/2019 12:00:00 AM EST 1.0 {tablet} suspended Doxycycline Hyclate 100 MG eCW1 ([facility]) doxycycline hyclate 100 MG Oral Tablet Doxycycline Hyc late 100 MG Doxycycline Hyclate 100 MG 10/10/2019 12:00:00 AM EST suspende d 1 tablet eCW1 ([facility]) doxycycline hyclate 100 MG Oral Tablet Doxycycline Hyc late 100 MG Doxycycline Hyclate 100 MG 10/10/2019 12:00:00 AM EST suspende d 1 tablet eCW1 ([facility]) doxycycline hyclate 100 MG Oral Tablet Doxycycline Hyc late 100 MG Doxycycline Hyclate 100 MG 10/10/2019 12:00:00 AM EST suspende d 1 tablet eCW1 ([facility]) doxycycline hyclate 100 MG Oral Tablet Doxycycline Hyc late 100 MG Doxycycline Hyclate 100 MG 10/10/2019 12:00:00 AM EST suspende d 1 tablet eCW1 ([facility]) doxycycline hyclate 100 MG Oral Tablet Doxycycline Hyc late 100 MG Doxycycline Hyclate 100 MG 10/10/2019 12:00:00 AM EST suspende d 1 tablet eCW1 ([facility]) doxycycline hyclate 100 MG Oral Tablet Doxycycline Hyc late 100 MG Doxycycline Hyclate 100 MG 10/10/2019 12:00:00 AM EST suspende d 1 tablet eCW1 ([facility]) doxycycline hyclate 100 MG Oral Tablet Doxycycline Hyc late 100 MG Doxycycline Hyclate 100 MG 10/10/2019 12:00:00 AM EST 1.0 {tablet} suspended Doxycycline Hyclate 100 MG eCW1 ([facility]) doxycycline hyclate 100 MG Oral Tablet Doxycycline Hyc late 100 MG Doxycycline Hyclate 100 MG 10/10/2019 12:00:00 AM EST suspende d 1 tablet eCW1 ([facility]) doxycycline hyclate 100 MG Oral Tablet Doxycycline Hyc late 100 MG Doxycycline Hyclate 100 MG 10/10/2019 12:00:00 AM EST suspende d 1 tablet eCW1 ([facility]) doxycycline hyclate 100 MG Oral Tablet Doxycycline Hyc late 100 MG Doxycycline Hyclate 100 MG 10/10/2019 12:00:00 AM EST suspende d 1 tablet eCW1 ([facility]) doxycycline hyclate 100 MG Oral Tablet Doxycycline Hyc late 100 MG Doxycycline Hyclate 100 MG 10/10/2019 12:00:00 AM EST suspende d 1 tablet eCW1 ([facility]) doxycycline hyclate 100 MG Oral Tablet Doxycycline Hyc late 100 MG Doxycycline Hyclate 100 MG 10/10/2019 12:00:00 AM EST suspende d 1 tablet eCW1 ([facility]) doxycycline hyclate 100 MG Oral Tablet Doxycycline Hyc late 100 MG Doxycycline Hyclate 100 MG 10/10/2019 12:00:00 AM EST suspende d 1 tablet eCW1 ([facility]) Doxycycline Hyclate 100 MG UNK 10/10/2019 12:00:00 AM EST active 1 tablet eCW1 ([facility]) doxycycline hyclate 100 MG Oral Tablet Doxycycline Hyc late 100 MG Doxycycline Hyclate 100 MG 10/10/2019 12:00:00 AM EST suspende d 1 tablet eCW1 ([facility]) doxycycline hyclate 100 MG Oral Tablet Doxycycline Hyc late 100 MG Doxycycline Hyclate 100 MG 10/10/2019 12:00:00 AM EST suspende d 1 tablet eCW1 ([facility]) doxycycline hyclate 100 MG Oral Tablet Doxycycline Hyc late 100 MG Doxycycline Hyclate 100 MG 10/10/2019 12:00:00 AM EST suspende d 1 tablet eCW1 ([facility]) doxycycline hyclate 100 MG Oral Tablet Doxycycline Hyc late 100 MG Doxycycline Hyclate 100 MG 10/10/2019 12:00:00 AM EST suspende d 1 tablet eCW1 ([facility]) doxycycline hyclate 100 MG Oral Tablet Doxycycline Hyc late 100 MG Doxycycline Hyclate 100 MG 10/10/2019 12:00:00 AM EST suspende d 1 tablet eCW1 ([facility]) doxycycline hyclate 100 MG Oral Tablet Doxycycline Hyc late 100 MG Doxycycline Hyclate 100 MG 10/10/2019 12:00:00 AM EST suspende d 1 tablet eCW1 ([facility]) doxycycline hyclate 100 MG Oral Tablet Doxycycline Hyc late 100 MG Doxycycline Hyclate 100 MG 10/10/2019 12:00:00 AM EST suspende d 1 tablet eCW1 ([facility]) doxycycline hyclate 100 MG Oral Tablet Doxycycline Hyc late 100 MG Doxycycline Hyclate 100 MG 10/10/2019 12:00:00 AM EST 1.0 {tablet} suspended Doxycycline Hyclate 100 MG eCW1 ([facility]) doxycycline hyclate 100 MG Oral Tablet Doxycycline Hyc late 100 MG Doxycycline Hyclate 100 MG 10/10/2019 12:00:00 AM EST suspende d 1 tablet eCW1 ([facility]) doxycycline hyclate 100 MG Oral Tablet Doxycycline Hyc late 100 MG Doxycycline Hyclate 100 MG 10/10/2019 12:00:00 AM EST suspende d 1 tablet eCW1 ([facility]) doxycycline hyclate 100 MG Oral Tablet Doxycycline Hyc late 100 MG Doxycycline Hyclate 100 MG 10/10/2019 12:00:00 AM EST suspende d 1 tablet eCW1 ([facility]) doxycycline hyclate 100 MG Oral Tablet Doxycycline Hyc late 100 MG Doxycycline Hyclate 100 MG 10/10/2019 12:00:00 AM EST suspende d 1 tablet eCW1 ([facility]) doxycycline hyclate 100 MG Oral Tablet Doxycycline Hyc late 100 MG Doxycycline Hyclate 100 MG 10/10/2019 12:00:00 AM EST suspende d 1 tablet eCW1 ([facility]) doxycycline hyclate 100 MG Oral Tablet Doxycycline Hyc late 100 MG Doxycycline Hyclate 100 MG 10/10/2019 12:00:00 AM EST 1.0 {tablet} suspended Doxycycline Hyclate 100 MG eCW1 ([facility]) doxycycline hyclate 100 MG Oral Tablet Doxycycline Hyc late 100 MG Doxycycline Hyclate 100 MG 10/10/2019 12:00:00 AM EST suspende d 1 tablet eCW1 ([facility]) doxycycline hyclate 100 MG Oral Tablet Doxycycline Hyc late 100 MG Doxycycline Hyclate 100 MG 10/10/2019 12:00:00 AM EST 1.0 {tablet} suspended Doxycycline Hyclate 100 MG eCW1 ([facility]) doxycycline hyclate 100 MG Oral Tablet Doxycycline Hyc late 100 MG Doxycycline Hyclate 100 MG 10/10/2019 12:00:00 AM EST suspende d 1 tablet eCW1 ([facility] [facility]) doxycycline hyclate 100 MG Oral Tablet Doxycycline Hyc late 100 MG Doxycycline Hyclate 100 MG 10/10/2019 12:00:00 AM EST suspende d 1 tablet eCW1 ([facility]) doxycycline hyclate 100 MG Oral Tablet Doxycycline Hyc late 100 MG Doxycycline Hyclate 100 MG 10/10/2019 12:00:00 AM EST 1.0 {tablet} suspended Doxycycline Hyclate 100 MG eCW1 ([facility]) 100 mg 10/10/2019 12:00:00 AM EST tablet 20 TAKE ONE TABLET BY MOUTH TWICE A DAY FOR 10 DAYS TAKE ONE TABLET BY MOUTH TWICE A DAY FOR 10 DAYS SOLD: 10/10/2019 [facility] doxycycline hyclate 100 MG Oral Tablet Doxycycline Hyc late 100 MG Doxycycline Hyclate 100 MG 10/10/2019 12:00:00 AM EST suspende d 1 tablet eCW1 ([facility]) doxycycline hyclate 100 MG Oral Tablet Doxycycline Hyc late 100 MG Doxycycline Hyclate 100 MG 10/10/2019 12:00:00 AM EST suspende d 1 tablet eCW1 ([facility]) doxycycline hyclate 100 MG Oral Tablet Doxycycline Hyc late 100 MG Doxycycline Hyclate 100 MG 10/10/2019 12:00:00 AM EST suspende d 1 tablet eCW1 ([facility]) doxycycline hyclate 100 MG Oral Tablet Doxycycline Hyc late 100 MG Doxycycline Hyclate 100 MG 10/10/2019 12:00:00 AM EST suspende d 1 tablet eCW1 ([facility]) doxycycline hyclate 100 MG Oral Tablet Doxycycline Hyc late 100 MG Doxycycline Hyclate 100 MG 10/10/2019 12:00:00 AM EST suspende d 1 tablet eCW1 ([facility]) doxycycline hyclate 100 MG Oral Tablet Doxycycline Hyc late 100 MG Doxycycline Hyclate 100 MG 10/10/2019 12:00:00 AM EST suspende d 1 tablet eCW1 ([facility]) doxycycline hyclate 100 MG Oral Tablet Doxycycline Hyc late 100 MG Doxycycline Hyclate 100 MG 10/10/2019 12:00:00 AM EST suspende d 1 tablet eCW1 ([facility]) doxycycline hyclate 100 MG Oral Tablet Doxycycline Hyc late 100 MG Doxycycline Hyclate 100 MG 10/10/2019 12:00:00 AM EST suspende d 1 tablet eCW1 ([facility]) doxycycline hyclate 100 MG Oral Tablet Doxycycline Hyc late 100 MG Doxycycline Hyclate 100 MG 10/10/2019 12:00:00 AM EST suspende d 1 tablet eCW1 ([facility]) doxycycline hyclate 100 MG Oral Tablet Doxycycline Hyc late 100 MG Doxycycline Hyclate 100 MG 10/10/2019 12:00:00 AM EST suspende d 1 tablet eCW1 ([facility]) doxycycline hyclate 100 MG Oral Tablet Doxycycline Hyc late 100 MG Doxycycline Hyclate 100 MG 10/10/2019 12:00:00 AM EST suspende d 1 tablet eCW1 ([facility]) doxycycline hyclate 100 MG Oral Tablet Doxycycline Hyc late 100 MG Doxycycline Hyclate 100 MG 10/10/2019 12:00:00 AM EST suspende d 1 tablet eCW1 ([facility]) doxycycline hyclate 100 MG Oral Tablet Doxycycline Hyc late 100 MG Doxycycline Hyclate 100 MG 10/10/2019 12:00:00 AM EST suspende d 1 tablet eCW1 ([facility]) doxycycline hyclate 100 MG Oral Tablet Doxycycline Hyc late 100 MG Doxycycline Hyclate 100 MG 10/10/2019 12:00:00 AM EST suspende d 1 tablet eCW1 ([facility]) doxycycline hyclate 100 MG Oral Tablet Doxycycline Hyc late 100 MG Doxycycline Hyclate 100 MG 10/10/2019 12:00:00 AM EST suspende d 1 tablet eCW1 ([facility]) doxycycline hyclate 100 MG Oral Tablet Doxycycline Hyc late 100 MG Doxycycline Hyclate 100 MG 10/10/2019 12:00:00 AM EST suspende d 1 tablet eCW1 ([facility]) doxycycline hyclate 100 MG Oral Tablet Doxycycline Hyc late 100 MG Doxycycline Hyclate 100 MG 10/10/2019 12:00:00 AM EST suspende d 1 tablet eCW1 ([facility]) doxycycline hyclate 100 MG Oral Tablet Doxycycline Hyc late 100 MG Doxycycline Hyclate 100 MG 10/10/2019 12:00:00 AM EST suspende d 1 tablet eCW1 ([facility]) doxycycline hyclate 100 MG Oral Tablet Doxycycline Hyc late 100 MG Doxycycline Hyclate 100 MG 10/10/2019 12:00:00 AM EST suspende d 1 tablet eCW1 ([facility]) doxycycline hyclate 100 MG Oral Tablet Doxycycline Hyc late 100 MG Doxycycline Hyclate 100 MG 10/10/2019 12:00:00 AM EST suspende d 1 tablet eCW1 ([facility]) doxycycline hyclate 100 MG Oral Tablet Doxycycline Hyc late 100 MG Doxycycline Hyclate 100 MG 10/10/2019 12:00:00 AM EST 1.0 {tablet} suspended Doxycycline Hyclate 100 MG eCW1 ([facility]) doxycycline hyclate 100 MG Oral Tablet Doxycycline Hyc late 100 MG Doxycycline Hyclate 100 MG 10/10/2019 12:00:00 AM EST suspende d 1 tablet eCW1 ([facility]) doxycycline hyclate 100 MG Oral Tablet Doxycycline Hyc late 100 MG Doxycycline Hyclate 100 MG 10/10/2019 12:00:00 AM EST 1.0 {tablet} suspended Doxycycline Hyclate 100 MG eCW1 ([facility]) doxycycline hyclate 100 MG Oral Tablet Doxycycline Hyc late 100 MG Doxycycline Hyclate 100 MG 10/10/2019 12:00:00 AM EST active 1 tablet eCW1 ([facility]) doxycycline hyclate 100 MG Oral Tablet Doxycycline Hyc late 100 MG Doxycycline Hyclate 100 MG 10/10/2019 12:00:00 AM EST suspende d 1 tablet eCW1 ([facility]) doxycycline hyclate 100 MG Oral Tablet Doxycycline Hyc late 100 MG Doxycycline Hyclate 100 MG 10/10/2019 12:00:00 AM EST 1.0 {tablet} suspended Doxycycline Hyclate 100 MG eCW1 ([facility]) doxycycline hyclate 100 MG Oral Tablet Doxycycline Hyc late 100 MG Doxycycline Hyclate 100 MG 10/10/2019 12:00:00 AM EST suspende d 1 tablet eCW1 ([facility]) doxycycline hyclate 100 MG Oral Tablet Doxycycline Hyc late 100 MG Doxycycline Hyclate 100 MG 10/10/2019 12:00:00 AM EST suspende d 1 tablet eCW1 ([facility]) doxycycline hyclate 100 MG Oral Tablet Doxycycline Hyc late 100 MG Doxycycline Hyclate 100 MG 10/10/2019 12:00:00 AM EST suspende d 1 tablet eCW1 ([facility]) doxycycline hyclate 100 MG Oral Tablet Doxycycline Hyc late 100 MG Doxycycline Hyclate 100 MG 10/10/2019 12:00:00 AM EST 1.0 {tablet} suspended Doxycycline Hyclate 100 MG eCW1 ([facility]) doxycycline hyclate 100 MG Oral Tablet Doxycycline Hyc late 100 MG Doxycycline Hyclate 100 MG 10/10/2019 12:00:00 AM EST suspende d 1 tablet eCW1 ([facility]) doxycycline hyclate 100 MG Oral Tablet Doxycycline Hyc late 100 MG Doxycycline Hyclate 100 MG 10/10/2019 12:00:00 AM EST active 1 tablet eCW1 ([facility]) doxycycline hyclate 100 MG Oral Tablet Doxycycline Hyc late 100 MG Doxycycline Hyclate 100 MG 10/10/2019 12:00:00 AM EST suspende d 1 tablet eCW1 ([facility]) doxycycline hyclate 100 MG Oral Tablet Doxycycline Hyc late 100 MG Doxycycline Hyclate 100 MG 10/10/2019 12:00:00 AM EST suspende d 1 tablet eCW1 ([facility]) doxycycline hyclate 100 MG Oral Tablet Doxycycline Hyc late 100 MG Doxycycline Hyclate 100 MG 10/10/2019 12:00:00 AM EST suspende d 1 tablet eCW1 ([facility]) doxycycline hyclate 100 MG Oral Tablet Doxycycline Hyc late 100 MG Doxycycline Hyclate 100 MG 10/10/2019 12:00:00 AM EST suspende d 1 tablet eCW1 ([facility]) doxycycline hyclate 100 MG Oral Tablet Doxycycline Hyc late 100 MG Doxycycline Hyclate 100 MG 10/10/2019 12:00:00 AM EST suspende d 1 tablet eCW1 ([facility]) doxycycline hyclate 100 MG Oral Tablet Doxycycline Hyc late 100 MG Doxycycline Hyclate 100 MG 10/10/2019 12:00:00 AM EST suspende d 1 tablet eCW1 ([facility]) doxycycline hyclate 100 MG Oral Tablet Doxycycline Hyc late 100 MG Doxycycline Hyclate 100 MG 10/10/2019 12:00:00 AM EST suspende d 1 tablet eCW1 ([facility]) doxycycline hyclate 100 MG Oral Tablet Doxycycline Hyc late 100 MG Doxycycline Hyclate 100 MG 10/10/2019 12:00:00 AM EST suspende d 1 tablet eCW1 ([facility]) doxycycline hyclate 100 MG Oral Tablet Doxycycline Hyc late 100 MG Doxycycline Hyclate 100 MG 10/10/2019 12:00:00 AM EST suspende d 1 tablet eCW1 ([facility]) doxycycline hyclate 100 MG Oral Tablet Doxycycline Hyc late 100 MG Doxycycline Hyclate 100 MG 10/10/2019 12:00:00 AM EST suspende d 1 tablet eCW1 ([facility]) doxycycline hyclate 100 MG Oral Tablet Doxycycline Hyc late 100 MG Doxycycline Hyclate 100 MG 10/10/2019 12:00:00 AM EST suspende d 1 tablet eCW1 ([facility]) doxycycline hyclate 100 MG Oral Tablet Doxycycline Hyc late 100 MG Doxycycline Hyclate 100 MG 10/10/2019 12:00:00 AM EST suspende d 1 tablet eCW1 ([facility]) doxycycline hyclate 100 MG Oral Tablet Doxycycline Hyc late 100 MG Doxycycline Hyclate 100 MG 10/10/2019 12:00:00 AM EST suspende d 1 tablet eCW1 ([facility]) doxycycline hyclate 100 MG Oral Tablet Doxycycline Hyc late 100 MG Doxycycline Hyclate 100 MG 10/10/2019 12:00:00 AM EST suspende d 1 tablet eCW1 ([facility]) doxycycline hyclate 100 MG Oral Tablet Doxycycline Hyc late 100 MG Doxycycline Hyclate 100 MG 10/10/2019 12:00:00 AM EST suspende d 1 tablet eCW1 ([facility]) doxycycline hyclate 100 MG Oral Tablet Doxycycline Hyc late 100 MG Doxycycline Hyclate 100 MG 10/10/2019 12:00:00 AM EST suspende d 1 tablet eCW1 ([facility]) doxycycline hyclate 100 MG Oral Tablet Doxycycline Hyc late 100 MG Doxycycline Hyclate 100 MG 10/10/2019 12:00:00 AM EST suspende d 1 tablet eCW1 ([facility]) doxycycline hyclate 100 MG Oral Tablet Doxycycline Hyc late 100 MG Doxycycline Hyclate 100 MG 10/10/2019 12:00:00 AM EST suspende d 1 tablet eCW1 ([facility]) doxycycline hyclate 100 MG Oral Tablet Doxycycline Hyc late 100 MG Doxycycline Hyclate 100 MG 10/10/2019 12:00:00 AM EST 1.0 {tablet} suspended Doxycycline Hyclate 100 MG eCW1 ([facility]) doxycycline hyclate 100 MG Oral Tablet Doxycycline Hyc late 100 MG Doxycycline Hyclate 100 MG 10/10/2019 12:00:00 AM EST suspende d 1 tablet eCW1 ([facility]) doxycycline hyclate 100 MG Oral Tablet Doxycycline Hyc late 100 MG Doxycycline Hyclate 100 MG 10/10/2019 12:00:00 AM EST suspende d 1 tablet eCW1 ([facility]) doxycycline hyclate 100 MG Oral Tablet Doxycycline Hyc late 100 MG Doxycycline Hyclate 100 MG 10/10/2019 12:00:00 AM EST suspende d 1 tablet eCW1 ([facility]) doxycycline hyclate 100 MG Oral Tablet Doxycycline Hyc late 100 MG Doxycycline Hyclate 100 MG 10/10/2019 12:00:00 AM EST 1.0 {tablet} suspended Doxycycline Hyclate 100 MG eCW1 ([facility]) doxycycline hyclate 100 MG Oral Tablet Doxycycline Hyc late 100 MG Doxycycline Hyclate 100 MG 10/10/2019 12:00:00 AM EST suspende d 1 tablet eCW1 ([facility]) doxycycline hyclate 100 MG Oral Tablet Doxycycline Hyc late 100 MG Doxycycline Hyclate 100 MG 10/10/2019 12:00:00 AM EST suspende d 1 tablet eCW1 ([facility]) doxycycline hyclate 100 MG Oral Tablet Doxycycline Hyc late 100 MG Doxycycline Hyclate 100 MG 10/10/2019 12:00:00 AM EST suspende d 1 tablet eCW1 ([facility]) doxycycline hyclate 100 MG Oral Tablet Doxycycline Hyc late 100 MG Doxycycline Hyclate 100 MG 10/10/2019 12:00:00 AM EST 1.0 {tablet} suspended Doxycycline Hyclate 100 MG eCW1 ([facility]) doxycycline hyclate 100 MG Oral Tablet Doxycycline Hyc late 100 MG Doxycycline Hyclate 100 MG 10/10/2019 12:00:00 AM EST suspende d 1 tablet eCW1 ([facility]) doxycycline hyclate 100 MG Oral Tablet Doxycycline Hyc late 100 MG Doxycycline Hyclate 100 MG 10/10/2019 12:00:00 AM EST suspende d 1 tablet eCW1 ([facility]) doxycycline hyclate 100 MG Oral Tablet Doxycycline Hyc late 100 MG Doxycycline Hyclate 100 MG 10/10/2019 12:00:00 AM EST suspende d 1 tablet eCW1 ([facility]) doxycycline hyclate 100 MG Oral Tablet Doxycycline Hyc late 100 MG Doxycycline Hyclate 100 MG 10/10/2019 12:00:00 AM EST 1.0 {tablet} suspended Doxycycline Hyclate 100 MG eCW1 ([facility]) doxycycline hyclate 100 MG Oral Tablet Doxycycline Hyc late 100 MG Doxycycline Hyclate 100 MG 10/10/2019 12:00:00 AM EST suspende d 1 tablet eCW1 ([facility]) doxycycline hyclate 100 MG Oral Tablet Doxycycline Hyc late 100 MG Doxycycline Hyclate 100 MG 10/10/2019 12:00:00 AM EST 1.0 {tablet} suspended Doxycycline Hyclate 100 MG eCW1 ([facility]) doxycycline hyclate 100 MG Oral Tablet Doxycycline Hyc late 100 MG Doxycycline Hyclate 100 MG 10/10/2019 12:00:00 AM EST suspende d 1 tablet eCW1 ([facility]) doxycycline hyclate 100 MG Oral Tablet Doxycycline Hyc late 100 MG Doxycycline Hyclate 100 MG 10/10/2019 12:00:00 AM EST suspende d 1 tablet eCW1 ([facility]) doxycycline hyclate 100 MG Oral Tablet Doxycycline Hyc late 100 MG Doxycycline Hyclate 100 MG 10/10/2019 12:00:00 AM EST suspende d 1 tablet eCW1 ([facility]) doxycycline hyclate 100 MG Oral Tablet Doxycycline Hyc late 100 MG Doxycycline Hyclate 100 MG 10/10/2019 12:00:00 AM EST suspende d 1 tablet eCW1 ([facility]) doxycycline hyclate 100 MG Oral Tablet Doxycycline Hyc late 100 MG Doxycycline Hyclate 100 MG 10/10/2019 12:00:00 AM EST suspende d 1 tablet eCW1 ([facility]) 25 mg 07/18/2019 12:00:00 AM EDT tablet extended release 24 hr 30 TAKE ONE TABLET BY MOUTH EVERY DAY TAKE ONE TABLET BY MOUTH EVERY DAY SOLD: 10/12/2019 [facility] 25 mg 07/18/2019 12:00:00 AM EDT tablet extended release 24 hr 30 TAKE ONE TABLET BY MOUTH EVERY DAY TAKE ONE TABLET BY MOUTH EVERY DAY SOLD: 12/23/2019 [facility] 25 mg 07/18/2019 12:00:00 AM EDT tablet extended release 24 hr 30 TAKE ONE TABLET BY MOUTH EVERY DAY TAKE ONE TABLET BY MOUTH EVERY DAY SOLD: 11/23/2019 [facility] 25 mg 07/18/2019 12:00:00 AM EDT tablet extended release 24 hr 30 TAKE ONE TABLET BY MOUTH EVERY DAY TAKE ONE TABLET BY MOUTH EVERY DAY SOLD: 09/16/2019 [facility] 100 unit/mL (3 mL) 07/16/2019 12:00:00 AM EDT insulin pen 15 INJECT 20 UNITS UNDER THE SKIN EVERY EVENING INJECT 20 UNITS UNDER THE SKIN EVERY EVENING SOLD: 12/03/2019 [facility] 100 unit/mL (3 mL) 07/16/2019 12:00:00 AM EDT insulin pen 15 INJECT 20 UNITS UNDER THE SKIN EVERY EVENING INJECT 20 UNITS UNDER THE SKIN EVERY EVENING SOLD: 03/08/2020 [facility] 100 unit/mL (3 mL) 07/16/2019 12:00:00 AM EDT insulin pen 15 INJECT 20 UNITS UNDER THE SKIN EVERY EVENING INJECT 20 UNITS UNDER THE SKIN EVERY EVENING SOLD: 01/18/2020 [facility] 100 unit/mL (3 mL) 07/16/2019 12:00:00 AM EDT insulin pen 15 INJECT 20 UNITS UNDER THE SKIN EVERY EVENING INJECT 20 UNITS UNDER THE SKIN EVERY EVENING SOLD: 09/12/2019 [facility] 100 unit/mL (3 mL) 07/16/2019 12:00:00 AM EDT insulin pen 15 INJECT 20 UNITS UNDER THE SKIN EVERY EVENING INJECT 20 UNITS UNDER THE SKIN EVERY EVENING SOLD: 04/17/2020 [facility] 300 mg 07/11/2019 12:00:00 AM EDT tablet 30 TAKE ONE TABLET BY MOUTH EVERY DAY TAKE ONE TABLET BY MOUTH EVERY DAY SOLD: 09/12/2019 [facility] 300 mg 07/11/2019 12:00:00 AM EDT tablet 30 TAKE ONE TABLET BY MOUTH EVERY DAY TAKE ONE TABLET BY MOUTH EVERY DAY SOLD: 11/10/2019 [facility] 300 mg 07/11/2019 12:00:00 AM EDT tablet 30 TAKE ONE TABLET BY MOUTH EVERY DAY TAKE ONE TABLET BY MOUTH EVERY DAY SOLD: 12/06/2019 [facility] 300 mg 07/11/2019 12:00:00 AM EDT tablet 30 TAKE ONE TABLET BY MOUTH EVERY DAY TAKE ONE TABLET BY MOUTH EVERY DAY SOLD: 10/10/2019 [facility] 31 gauge x 5/16" 06/07/2019 12:00:00 AM EDT needle 30 USE DIRECTED DAILY USE DIRECTED DAILY SOLD: 04/25/2020 [facility] 31 gauge x 5/16" 06/07/2019 12:00:00 AM EDT needle 30 USE DIRECTED DAILY USE DIRECTED DAILY SOLD: 01/04/2020 [facility] 31 gauge x 5/16" 06/07/2019 12:00:00 AM EDT needle 30 USE DIRECTED DAILY USE DIRECTED DAILY SOLD: 11/10/2019 [facility] 31 gauge x 5/16" 06/07/2019 12:00:00 AM EDT needle 30 USE DIRECTED DAILY USE DIRECTED DAILY SOLD: 09/12/2019 [facility] 31 gauge x 5/16" 06/07/2019 12:00:00 AM EDT needle 30 USE DIRECTED DAILY USE DIRECTED DAILY SOLD: 10/10/2019 [facility] 31 gauge x 5/16" 06/07/2019 12:00:00 AM EDT needle 30 USE DIRECTED DAILY USE DIRECTED DAILY SOLD: 2020 [facility] 31 gauge x 5/16" 06/07/2019 12:00:00 AM EDT needle 30 USE DIRECTED DAILY USE DIRECTED DAILY SOLD: 05/22/2020 [facility] atorvastatin 20 MG Oral Tablet ATORVASTATIN CALCIUM 06/06/2019 1 2:00:00 AM EDT tablet 30 TAKE ONE TABLET BY MOUTH EVERY D AY TAKE ONE TABLET BY MOUTH EVERY DAY SOLD: 09/12/2019 [facility] 25 mg 06/06/2019 12:00:00 AM EDT tablet 30 TAKE ONE TABLET BY MOUTH EVERY DAY TAKE ONE TABLET BY MOUTH EVERY DAY SOLD: 09/12/2019 [facility] 40 mg 06/06/2019 12:00:00 AM EDT tablet 30 TAKE ONE TABLET BY MOUTH EVERY DAY TAKE ONE TABLET BY MOUTH EVERY DAY SOLD: 09/12/2019 [facility] 40 mg 06/06/2019 12:00:00 AM EDT tablet 30 TAKE ONE TABLET BY MOUTH EVERY DAY TAKE ONE TABLET BY MOUTH EVERY DAY SOLD: 10/10/2019 [facility] atorvastatin 20 MG Oral Tablet ATORVASTATIN CALCIUM 06/06/2019 1 2:00:00 AM EDT tablet 30 TAKE ONE TABLET BY MOUTH EVERY D AY TAKE ONE TABLET BY MOUTH EVERY DAY SOLD: 11/10/2019 [facility] atorvastatin 20 MG Oral Tablet ATORVASTATIN CALCIUM 06/06/2019 1 2:00:00 AM EDT tablet 30 TAKE ONE TABLET BY MOUTH EVERY D AY TAKE ONE TABLET BY MOUTH EVERY DAY SOLD: 10/10/2019 [facility] 50-1,000 mg 06/06/2019 12:00:00 AM EDT tablet 60 TAKE ONE TABLET BY MOUTH TWICE A DAY WITH MEALS TAKE ONE TABLET BY MOUTH TWICE A DAY WITH MEALS SOLD: 09/12/2019 [facility] 25 mg 06/06/2019 12:00:00 AM EDT tablet 30 TAKE ONE TABLET BY MOUTH EVERY DAY TAKE ONE TABLET BY MOUTH EVERY DAY SOLD: 10/10/2019 [facility] 50-1,000 mg 06/06/2019 12:00:00 AM EDT tablet 60 TAKE ONE TABLET BY MOUTH TWICE A DAY WITH MEALS TAKE ONE TABLET BY MOUTH TWICE A DAY WITH MEALS SOLD: 11/10/2019 [facility] 40 mg 06/06/2019 12:00:00 AM EDT tablet 30 TAKE ONE TABLET BY MOUTH EVERY DAY TAKE ONE TABLET BY MOUTH EVERY DAY SOLD: 11/10/2019 [facility] 25 mg 06/06/2019 12:00:00 AM EDT tablet 30 TAKE ONE TABLET BY MOUTH EVERY DAY TAKE ONE TABLET BY MOUTH EVERY DAY SOLD: 11/10/2019 [facility] 50-1,000 mg 06/06/2019 12:00:00 AM EDT tablet 60 TAKE ONE TABLET BY MOUTH TWICE A DAY WITH MEALS TAKE ONE TABLET BY MOUTH TWICE A DAY WITH MEALS SOLD: 10/10/2019 [facility] Insurance Providers Payer name Policy type / Coverage type Policy ID Covered green party ID Covered green party's relationship to rivera Policy [place] Plan Information [place] O 302/307 [id number] SP [id number] [facility] [place] [facility]/307 [id number] SP [id number] BLUE CROSS [id number] S [id number] [employer] [id number] S [id number] [employer] [id number] S [id number] [employer] [id number] S [id number] [employer] [id number] S [id number] [employer] [id number] S [id number] [employer] [place] PPO 302/307 [id number] SP [id number] [employer] B [id number] S [id number] [facility] [address] [id number] ANSI-Commercial [id number] ANSI-Commercial [id number] ANSI-Commercial [id number] ANSI-Commercial [id number] ANSI-Commercial [id number] ANSI-Commercial [id number] ANSI-Commercial [id number] ANSI-Commercial [id number] ANSI-Commercial [id number] ANSI-Commercial [id number] ANSI-Commercial [id number] ANSI-Commercial [id number] ANSI-Commercial [id number] ANSI-Commercial [id number] ANSI-Commercial [id number] ANSI-Commercial [id number] ANSI-Commercial [id number] [employer] [id number] S [id number] [employer] [id number] S [id number] [employer] [id number] S [id number] ANSI-Commercial [id number] ANSI-Commercial [id number] ANSI-Commercial [id number] ANSI-Commercial [id number] ANSI-Commercial [id number] ANSI-Commercial [id number] ANSI-Commercial [id number] ANSI-Commercial [id number] ANSI-Commercial [id number] ANSI-Commercial [id number] ANSI-Commercial [id number]-h5tj-92n6-5e12-o430228q4m09 07q0406k-d7au-03e1-5c59-b315469r4d05 ANSI-Commercial 4j8624oi-94j5-547t-9e08-8lf87s46ibt2 8f5710nh-74q2-471m-9h12-2fs35d12qeg2 ANSI-Commercial 05zg6d6k-3424-3682-7hy8-4w6211953754 94lf4v5u-1803-1191-4ds4-5z8461207093 ANSI-Commercial 78846h97-7703-655n-ux3q-57h5m0vf7j2q 30834b55-0136-336j-yo4f-26l0y1bp8s0n ANSI-Commercial 8u832998-0494-4e9g-zxz4-836sikis625f 6c121739-2477-7r3r-bee7-484nsbge548f ANSI-Commercial 4s8z35en-1sh9-54o3-5cau-624x33h16084 5w5p15qb-5gr4-36i4-1xml-981k18f48259 ANSI-Commercial 555011f9-0jj6-05jn-552q-fh1h3o8445wc 754126x0-0nm8-71du-748y-aq7k3y0535uw ANSI-Commercial 699im649-03j2-59c5-d805-39nr6709l2m6 071vh987-36v3-11c2-m039-45gp4283e8q7 ANSI-Commercial 4z092m66-34c6-9011-w007-s06vy012pi65 9l151l72-33k5-6533-c944-m04ed429ta81 ANSI-Commercial 15h078ey-962x-7qn0-kuff-u8vr3b368t03 43c208ef-878h-0mx8-xebk-y8hj5v661y25 ANSI-Commercial 12149lhb-vy73-2868-6g47-1w4s5a403jcm 12089iae-tw60-0062-6p62-3k7v0v565oxn ANSI-Commercial an0v1690-k4u5-1810-p8q5-02d5e7d97vwx ug0h5543-d5j1-5677-h5x1-24k1j0d46epo ANSI-Commercial 97kz94s1-bkv2-6d0u-6806-h750855w73ek 06xu85x3-vvs6-7n1v-7915-g759864l45pj ANSI-Commercial d473z24n-b5b2-4620-4j29-px822080dbqu f313p72z-j5t0-4734-2o55-tn543567czzy ANSI-Commercial 14x3j4d7-6649-3i49-2439-2s6724ke791a 28i0a9j8-9247-8r46-1450-3y5060sg124i ANSI-Commercial p3ktp41c-8954-7kok-m0n0-xd73qn99p913 t7jld68e-5410-0mve-h5h5-ct96gi09x229 ANSI-Commercial 58r48583-5x7h-51t9-r2x7-dff53cq1m89x 79m67148-9m9h-84g9-u5n6-pym94by3n82f ANSI-Commercial 311n1745-yc6s-6452-7zo7-ki48vi45r58o 242p4359-bh3q-4933-5it7-bw20bg54s89r ANSI-Commercial l52o71k0-y6zb-66px-wiz8-6o4c7k70h687 f72u32m3-y6fj-63du-qpg2-3h7h7v58x634 ANSI-Commercial ww4dxo37-182v-2la9-d944-a86574997099 rh4kyz34-058z-1pt8-m370-k95035509939 ANSI-Commercial 1j4120v0-39z8-08r2-6121-06c9b5ftvc3n 7k5630v5-02p2-28i1-3157-26a2f7ryxt5v ANSI-Commercial 86q09162-6668-79c7-e0d8-36034uyux0q4 67m39946-1343-36u0-a8f1-59769mnzz5f7 ANSI-Commercial 09031410-4413-4222-27c3-7xm18y9344c4 88802327-5057-1961-26r5-6ct85r3471j1 ANSI-Commercial 1j34znu3-9965-38km-k1dj-h8re5k8o98w3 3t53dtb6-1188-32mt-d8qh-m2sc8m4j73r0 ANSI-Commercial hy75ift8-9vj2-9400-s392-593r77z44dyi zn37vtw2-2je5-8494-d639-890q81y39cjj ANSI-Commercial 61b95x30-47r2-00h7-d0j5-60386r3o615p 64h77x67-71t5-85a6-m1c4-42057v0y444l ANSI-Commercial q541127f-w6kc-648a-54g5-977ps6w0m1vv x659409a-a3si-722z-73y8-629mb2c7g1jb ANSI-Commercial ku731t5x-q51v-151h-p15d-s400ty2524tq fe190y7g-x55g-115z-a58m-j369pa2671gv ANSI-Commercial b8q675e7-62v1-5vb0-zl57-264jo084mf5m w2e919e0-48t5-2cp8-ux18-904kq023ci2f ANSI-Commercial 87wr851e-5f3o-07l8-27a4-26272a42n288 55ld088r-9i8u-98l9-81i1-80435i78m896 ANSI-Commercial c8459638-94f6-1r52-2c6v-bnkf85e5851e y8734506-90a1-3k95-4t6s-gjyv42r9704z ANSI-Commercial 4aj75226-96t7-9l38-y2lt-a65o413pduaa 9fu87259-79m8-1l80-z8zd-z51f177kliwp ANSI-Commercial 12n0z4ox-60gh-176k-79q7-q4bp0csw9950 08t1b5gv-42re-314x-84c4-r6uz2tcv3940 ANSI-Commercial 87w5hvxd-13ht-4977-g560-3oidv677uy19 58e8dlfe-74bl-1338-x333-4gnai772tr28 ANSI-Commercial grc518r6-nir5-69r7-390n-1yk9rik44xg6 umn674e7-ylo1-45g5-362z-5ex8njn93oa3 ANSI-Commercial 179i6s1m-v839-1018-40d5-u13u06d77y59 256l6v1i-w594-0314-76o0-e86k41z11c99 ANSI-Commercial 0eg92fv3-awyu-3460-nl5q-z6309h903x2j 4ld35qn9-ooye-3999-vv8v-u1914o406c3t ANSI-Commercial o68e9x2r-0ugm-6r2c-p5h7-k41xm333rp3v f31f6p5f-2yfu-8z3x-u5d1-x08mp662vh3c ANSI-Commercial 91n34i05-6u6t-86d2-40y4-4129p086443b 87c45g17-8v8y-81p0-35c9-9665c698482b ANSI-Commercial 66420c89-v91e-320b-k5fw-71a157w14vu5 50654k48-f74i-273b-p8pf-21l713o59tm4 ANSI-Commercial 5ec0t635-0i98-9468-u2f9-0d6wqone6314 0gd6p537-2o51-1648-c2i2-8l7lkagn5554 ANSI-Commercial 543a037m-135f-7128-096z-63v5nsul5577 265a407l-375c-8303-592y-38a3vzil1649 ANSI-Commercial 46n99a0v-v188-1578-00a9-088100e9j4t6 82l55n4q-b396-8187-93n3-983403f1h5w2 ANSI-Commercial p999ov37-2x50-54t9-obty-m58w11530t33 i839ls01-3d41-74n0-qwyi-t38i36334i39 ANSI-Commercial 90xc4663-43er-33p9-8y60-x24r8exj6k4v 25ks9849-26hj-10x1-6p06-x91q6zvd2l2e ANSI-Commercial 90jm2koi-6to3-7x92-g2m1-0r2svd91463c 38sa1aci-9xv0-5i10-x4c3-8d7kuo93273n ANSI-Commercial 088r6w06-1y6i-0j99-s2bs-3lhcmi857622 047s2p63-2l3f-8e55-c2bh-4ebphz220117 ANSI-Commercial 0603p5j0-o898-6663-79y0-575i22vtk42r 1508p6h0-k357-3830-26j9-880o50gdn50c ANSI-Commercial 6i235570-pa24-38hu-9pi9-282bd64784ih 1k029249-pn65-93ps-8ee3-009ta37053ye ANSI-Commercial pc64i6yp-i2ia-7225-r249-m410b9tm2jp7 qy96h7oj-x0zs-1958-s709-y115h0qm4he7 ANSI-Commercial 17b83zp0-86w2-7880-x36h-1m5y3f638613 26y70jv2-84c6-0398-r55h-8p7z5x659397 ANSI-Commercial 110r6nwf-4603-16g0-f661-9r7x259t01j5 404d1jbp-7282-14y9-s811-4b2p164k48a8 ANSI-Commercial 3tq6hn1q-4kc6-6446-i6u2-6db9f0983nif 1jq1ad9w-5ns6-6896-w3x1-3og1q7362vdb ANSI-Commercial g2h0s3e3-9p6c-1vt7-18fs-f498t7we89f8 p0y3u1r8-1j6l-2zu6-60um-f163y7bw39v5 ANSI-Commercial r480946j-3p95-4mj4-pz4g-vr1tm6zl8562 f465156s-2g42-8fq2-pg3r-tu3mp1zp6229 ANSI-Commercial tb5609rf-7hz8-3cae-y53h-d7e81qa3mbaf oo7167my-5cp4-2gav-u81g-g3z16gv7waqh ANSI-Commercial 2npf86qg-7wbl-18wl-7759-m26c327lu3ti 0ric02iv-9ofl-58gj-0896-p50c377mp4bw ANSI-SCREEMO 31c5r0k5-047b-7376-z1qg-666o832033lp 62f1n1t7-619l-4140-m2xw-300x384535jh ANSI-Commercial 1er9e8ki-s221-6h96-n295-a0u7y5g79i62 0tw4a9at-d699-5t94-j600-h1u7q7t49m64 ANSI-Commercial 99r5wf70-leqx-345a-9058-nf25pgk2m68a 20o9pc63-ppyr-500n-7857-ca75jvw4d01w ANSI-Commercial 9fvob292-l515-8hd9-5j7y-54aq19n90525 7wpqv668-o647-9vh9-2q3b-58dr14o50930 ANSI-Commercial 3j26yb4c-3ge8-6275-x0b7-67093975u6o9 9x41tc1h-8ef8-1211-m1h1-71092362f8d3 ANSI-Commercial wh331436-zhkr-4j03-iq72-i5v9l271b14h kj409162-vqcy-5a31-mz29-q3s1m018g97v ANSI-Commercial 6m756mu4-8l02-196f-172w-b74230i219x0 9c648aq4-8b88-789t-883z-y82635y771z3 ANSI-Commercial 66j027ui-zm7s-5960-i7qh-5lm0i8902146 38l866jx-of2r-8673-u7hk-7ce2m5310660 ANSI-Commercial 2we940a3-g6y8-82w0-25s7-y41229954361 6ik876c3-i6e0-55m4-62f4-d30688705519 ANSI-Commercial m6422qa5-25wk-2s87-s068-3682n8rq7s3s p1078fj5-65ch-8n51-q159-0941t9aa4h0k ANSI-Commercial 850eq714-v53p-5o88-95v3-7cj72112550n 326ng552-k93m-3i59-98x8-1jg52938588x Problems, Conditions, and Diagnoses Code Display Name Description Problem Type Effective Dates Data Source(s) 24813728 Osteochondropathy Osteochondropathy Problem 08/26/2020 12:00:00 AM EST [facility] ([facility] [id number] Pressure ulcer of left foot stage 1 Pres sure ulcer of left foot stage 1 Problem 08/26/2020 12:00:00 AM EST [facility] ([facility] 233187331 Type 2 diabetes mellitus with ulcer Type 2 diabetes mellitus with ulcer Problem 08/26/2020 12:00:00 AM EST [facility] ([facility] N18.3 36983920 Chronic renal failure, stage 3 (moderate) Problem 04/25/2020 12:00:00 AM EDT eCW1 ([facility]) S81.802D [id number] Traumatic open wound of left low er leg, subsequent encounter Problem 11/06/2019 12:00:00 AM EST eCW1 ([facility]) S81.802D 617223006 Traumatic open wound of left low er leg, subsequent encounter Problem 11/06/2019 12:00:00 AM EST eCW1 ([facility]) Type 2 diabetes mellitus with diabetic p olyneuropathy Type 2 diabetes mellitus with diabetic polyneuropathy Problem 10/30/2019 12:00:00 AM EST [facility] ([facility] L97.424 [id number] Non-pressure chronic ulcer of left heel and midfoot with necrosis of bone Problem 10/26/2019 12:00:00 AM EST eCW1 ([facility]) L97.424 [id number] Non-pressure chronic ulcer of left heel and midfoot with necrosis of bone Problem 10/26/2019 12:00:00 AM EST eCW1 ([facility]) L97.409 Non-pressure chronic ulcer o f unspecified heel and midfoot with unspecified severity NON-PRS CHRONIC ULCER OF UNSP HEEL AND MIDFOOT W U Diagnosis 10/10/2020 02:26:00 PM [facility] E11.621 Type 2 diabetes mellitus with foot ulcer TYPE 2 DIABETES MELLITUS WITH FOOT ULCER Diagnosis 10/10/2020 02[facility] Encounter for screening for malignant ne oplasm of colon ENCOUNTER FOR SCREENING FOR MALIGNANT NE Diagnosis 04/27/2020 03:19:00 PM [facility] I10 Essential (primary) hypertension ESSENTIAL (PRIMARY) H YPERTENSION Diagnosis 04/27/2020 03:19:00 PM [facility] E11.21 Type 2 diabetes mellitus with diabetic n ephropathy TYPE 2 DIABETES MELLITUS WITH DIABETIC N Diagnosis 04/25/2020 09:13:00 AM [facility] Surgeries/Procedures Procedure Description Date Indications Data Source(s) RADEX FOOT COMPLETE MINIMUM 3 VIEWS 10/07/2020 12:00:0 0 AM EST [facility] ([facility] FINE NEEDLE ASPIRATION W/O IMAGING GUIDANCE 08/27/2020 12:00:00 AM EST eCW1 ([facility]) FINE NEEDLE ASPIRATION W/O IMAGING GUIDANCE 08/15/2020 12:00:00 AM EST eCW1 ([facility]) FINE NEEDLE ASPIRATION W/O IMAGING GUIDANCE 08/01/2020 12:00:00 AM EDT eCW1 ([facility]) HBO Protocol 2.0 [place] for 90 Minutes without Air Breaks 03/04/2020 12:00:00 AM EDT eCW1 ([facility]) Hyperbaric oxygen under pressure, full body chamber, per 30 minute interval 03/03/2020 12:00:00 AM EDT eCW1 ([facility]) HYPERBARIC OXYGEN THERAPY 03/03/2020 12:00:00 AM EDT eCW1 ([facility]) Office Visit, Est Pt., Level 3 FC 02/20/2020 12:00:00 AM EDT eCW1 ([facility]) Office Visit, Est Pt., Level 3 PC 02/20/2020 12:00:00 AM EDT eCW1 ([facility]) ALANA SUBQ TISSUE 20 SQ CM/< 02/06/2020 12:00:00 AM EDT eCW1 ([facility]) ALANA SUBQ TISSUE ADD-ON 01/23/2020 12:00:00 AM EDT eCW1 ([facility]) SKIN SUB GRAFT FACE/NK/HF/G 01/15/2020 12:00:00 AM EDT eCW1 ([facility]) SKIN SUB GRAFT F/N/HF/G ADDL 01/15/2020 12:00:00 AM ED T eCW1 ([facility]) Apligraf, per square centimeter 01/15/2020 12:00:00 AM EDT eCW1 ([facility]) FINE NEEDLE ASPIRATION W/O IMAGING GUIDANCE 01/02/2020 12:00:00 AM EDT eCW1 ([facility]) HBO Protocol 2.0 [place] for 90 Minutes without Air Breaks 11/27/2019 12:00:00 AM EST eCW1 ([facility]) ALANA MUSC/FASCIA 20 SQ CM/< 11/21/2019 12:00:00 AM EST eCW1 ([facility]) ALANA MUSC/FASCIA ADD-ON 11/21/2019 12:00:00 AM EST eCW1 ([facility]) NO CHARGE VISIT 11/07/2019 12:00:00 AM EST eCW1 ([facility]) ALANA BONE 20 SQ CM/< 11/02/2019 12:00:00 AM EST eCW1 ([facility]) ALANA BONE ADD-ON 11/02/2019 12:00:00 AM EST eCW1 ([facility]) Office Visit, Est Pt., Level 2 FC 10/15/2019 12:00:00 AM EST eCW1 ([facility]) Influenza immunization administered or previously received 10/10/2019 12:00:00 AM EST eCW1 ([facility]) Results ID Date Data Source [id number] 10/17/2020 10:00:00 AM EST [facility] Name Value Range Interpretation Code Description Data Elisha rce(s) Supporting Document(s) SARS coronavirus 2 RNA Not Detected [facility] [place] This lab was ordered by [facility] and reported by [facility]. ID Date Data Source [id number] 10/14/2020 03:42:00 PM EST [facility] Exam Number: [id number] Reported By: - TIFFANIE AVILES MD Signed By: TIFFANIE AVILES MD Name Value Range Interpretation Code Description Data Elisha rce(s) Supporting Document(s) ID Date Data Source EKG [id number] 10/14/2020 12:00:00 AM EST eCW1 ([facility]) Name Value Range Interpretation Code Description Data Elisha rce(s) Supporting Document(s) EKG [id number] [facility] ([facility]) ID Date Data Source [id number] 10/10/2020 04:15:00 PM EST [facility] Name Value Range Interpretation Code Description Data Elisha rce(s) Supporting Document(s) ALBUMIN,URINE < 5.0 mg/L 5-17 [facility] MICROALB/CREAT 7.4 mg/g CR 0-30 [facility] CREAT. URINE 67.0 mg/dL N [facility] ID Date Data Source [id number] 10/10/2020 04:07:00 PM EST [facility] Name Value Range Interpretation Code Description Data Elisha rce(s) Supporting Document(s) GLU 157 mg/dL 70-110 [facility] Patients taking Sulfasalazine may have f alsely depressedGlucose levels. Patients taking Sulfapyridine may havefalsely elevated Glucose levels. Patients should be drawnfor Glucose before the initial administration of eitherdrug. BUN 26 mg/dL 7-23 [facility] CRE 1.520 mg/dL 0.500-1.300 [facility] GFR 51 mL/min [facility] CHLORIDE 103 mmol/L 99-110 [facility] NA 141 mmol/L 136-147 [facility] POTASSIUM 4.4 mmol/L 3.5-5.1 [facility] TCO2 29 mmol/L 20-33 [facility] ANION GAP 13.4 10.0-20.0 [facility] CA 9.0 mg/dL 8.3-10.7 [facility] ALKALINE PHOS 73 U/L 45-117 [facility] TP 7.8 g/dL 6.0-7.8 [facility] ALB 3.9 g/dL 3.5-5.0 [facility] ESRD Dialysis patient Albumin reference range: 2.9-4.4 g/dL GL 3.9 g/dL 2.3-3.5 [facility] A/G 1.0 1.0-2.5 [facility] T. BILIRUBIN 0.4 mg/dL 0.1-1.1 [facility] [employer] [place] Total Bilirubin is n ot recommended forpatients undergoing treatment with eltrombopag (Promacta)due to the potential for falsely elevated results. ALTI 48 U/L 6-54 [facility] Patients taking Sulfasalazine and/or Sul fapyridine may havefalsely depressed ALT levels. Patients should be drawn forALT before the initial administration of either drug. AST 19 U/L 8-40 [facility] Patients taking Sulfasalazine and/or Sul fapyridine may havefalsely depressed AST levels. Patients should be drawn forAST before the initial administration of either drug. ID Date Data Source [id number] 10/10/2020 03:47:00 PM EST [facility] Name Value Range Interpretation Code Description Data Elisha rce(s) Supporting Document(s) WBC 7.48 x10E3/uL 4.0-10.5 [facility] RBC 5.42 x10E6/uL 4.70-6.00 [facility] Hemoglobin 16.0 g/dL 14.0-18.0 [facility] Hematocrit 46.8 % 42.0-52.0 [facility] MCV 86.3 fL 81.0-99.0 [facility] MCH 29.5 pg 27.0-31.0 [facility] MCHC 34.2 g/dL 32.7-35.6 [facility] RDW 13.0 % 11.5-14.0 [facility] Platelet count 237 x10E3/uL 150-450 [facility] ital MPV 10.2 fl 6.9-9.5 [facility] Neutrophils 53.0 % 34-64 [facility] Lymphocytes 34.2 % 25-45 [facility] Monocytes 8.2 % 1.7-10.6 [facility] Eosinophils 3.6 % 0.4-7.0 [facility] Basophils 0.7 % 0.1-2.0 [facility] Imm. Gran. 0.3 % 0.1-2.0 [facility] Abs. Neutro. 3.97 x10E3/uL 1.2-7.6 [facility] Abs[facility] Lymph. 2.56 x10E3/uL 1.0-3.5 [facility] Abs. Petroleum. 0.61 x10E3/uL 0.1-1.0 [facility] Abs. Eosin. 0.27 x10E3/uL 0.1-0.7 [facility] Abs. Baso. 0.05 x10E3/uL 0.0-0.1 [facility] Abs. Imm. Gran. 0.02 x10E3/uL 0.0-0.1 [facility] spital ANRBC% 0 % 0 [facility] ID Date Data Source [id number] 10/10/2020 03:40:00 PM EST [facility] Name Value Range Interpretation Code Description Data Elisha rce(s) Supporting Document(s) URINE COLOR Yellow [facility] UAPR Clear [facility] UGLU 3+ NEGATIVE [facility] URINE BILIRUBIN Negative NEGATIVE [facility] UKET Negative NEGATIVE [facility] USG 1.026 1.010-1.025 [facility] UBLO Negative NEGATIVE N [facility] UpH 5.0 5.0-8.0 [facility] UPRO Negative Negative [facility] UUB 0.2 mg/dL 0.2-1.0 [facility] UNIT Negative Negative [facility] ULEU Negative Negative [facility] ID Date Data Source URINALYSIS 10/10/2020 12:00:00 AM EST eCW1 ([facility]) Name Value Range Interpretation Code Description Data Elisha rce(s) Supporting Document(s) Yellow URINE COLOR eCW1 ([facility]) Clear UAPR eCW1 ([facility]) Negative NEGATIVE UKET eCW1 ([facility]) Negative NEGATIVE URINE BILIRUBIN eCW1 ([facility]) 3+ NEGATIVE UGLU eCW1 ([facility]) 0.2 0.2-1.0 UUB eCW1 ([facility]) 5.0 5.0-8.0 UpH eCW1 ([facility]) Negative Negative UPRO eCW1 ([facility]) Negative NEGATIVE UBLO eCW1 ([facility]) 1.026 1.010-1.025 USG eCW1 ([facility]) Negative Negative ULEU eCW1 ([facility]) Negative Negative UNIT eCW1 ([facility]) ID Date Data Source CBC 10/10/2020 12:00:00 AM EST eCW1 ([facility]) Name Value Range Interpretation Code Description Data Elisha rce(s) Supporting Document(s) 46.8 42.0-52.0 Hematocrit eCW1 ([facility]) 16.0 14.0-18.0 Hemoglobin eCW1 ([facility]) 7.48 4.0-10.5 WBC eCW1 ([facility]) 5.42 4.70-6.00 RBC eCW1 ([facility]) 34.2 32.7-35.6 MCHC eCW1 ([facility]) 13.0 11.5-14.0 RDW eCW1 ([facility]) 29.5 27.0-31.0 MCH eCW1 ([facility]) 86.3 81.0-99.0 MCV eCW1 ([facility]) 34.2 25-45 Lymphocytes eCW1 ([facility]) 10.2 6.9-9.5 MPV eCW1 ([facility]) 53.0 34-64 Neutrophils eCW1 ([facility]) 237 150-450 Platelet count eCW1 ([facility]) 0.7 0.1-2.0 Basophils eCW1 ([facility]) 3.6 0.4-7.0 Eosinophils eCW1 ([facility]) 8.2 1.7-10.6 Monocytes eCW1 ([facility]) 0.3 0.1-2.0 Imm. Gran. eCW1 ([facility]) 2.56 1.0-3.5 Abs. Lymph. eCW1 ([facility]) 0.61 0.1-1.0 Abs. Petroleum. eCW1 ([facility]) 0.27 0.1-0.7 Abs. Eosin. eCW1 ([facility]) 3.97 1.2-7.6 Abs. Neutro. eCW1 ([facility]) 0 0 ANRBC% eCW1 ([facility]) 0.05 0.0-0.1 Abs. Baso. eCW1 ([facility]) 0.02 0.0-0.1 Abs. Imm. Gran. eCW1 ([facility]) ID Date Data Source MICROALBUMIN/CREATININE RATIO 10/10/2020 12:00:00 AM EST eCW 1 ([facility]) Name Value Range Interpretation Code Description Data Elisha rce(s) Supporting Document(s) 67.0 CREAT. URINE eCW1 ([facility]) 7.4 0-30 MICROALB/CREAT eCW1 ([facility]) < 5.0 5-17 ALBUMIN,URINE eCW1 ([facility]) ID Date Data Source CMP COMPREHENSIVE METABOLIC PROFILE 10/10/2020 12:00:[address] eCW1 ([facility]) Name Value Range Interpretation Code Description Data Elisha rce(s) Supporting Document(s) 157 70-110 GLU eCW1 ([facility]) 26 7-23 BUN eCW1 ([facility]) 103 99-110 CHLORIDE eCW1 ([facility]) 51 GFR eCW1 ([facility]) 1.520 0.500-1.300 CRE eCW1 ([facility]) 141 136-147 NA eCW1 ([facility]) 4.4 3.5-5.1 POTASSIUM eCW1 ([facility]) 13.4 10.0-20.0 ANION GAP eCW1 ([facility]) 29 20-33 TCO2 eCW1 ([facility]) 9.0 8.3-10.7 CA eCW1 ([facility]) 3.9 3.5-5.0 ALB eCW1 ([facility]) 73 45-117 ALKALINE PHOS eCW1 ([facility]) 7.8 6.0-7.8 TP eCW1 ([facility]) 1.0 1.0-2.5 A/G eCW1 ([facility]) 0.4 0.1-1.1 T. BILIRUBIN eCW1 ([facility]) 48 6-54 ALTI eCW1 ([facility]) 3.9 2.3-3.5 GL eCW1 ([facility]) 19 8-40 AST eCW1 ([facility]) ID Date Data Source Hemoglobin A1C (IH) 10/10/2020 12:00:00 AM EST eCW1 ([facility]) Name Value Range Interpretation Code Description Data Elisha rce(s) Supporting Document(s) Hemoglobin A1c/Hemoglobin.total in Blood by HPLC 7.2 HgBA1C eCW1 ([facility]) ID Date Data Source [id number] 04/28/2020 06:07:00 PM EDT [facility] Name Value Range Interpretation Code Description Data Elisha rce(s) Supporting Document(s) HEMOCCULT ICT NEGATIVE NEGATIVE [facility] Hemoccult ICT is a method of detection of humanhemoglobulin from blood in fecal samples. Fecal occultblood tests are useful screening aids for detectingprimarily lower gastrointestinal disorders that maybe related to iron dificiency anemia, diverticulitis,ulcerative colitis, polyps, adenomas, colorectal cancers orother gastrointestinal lesions. As with any occult blood test, results obtained withHemoccult ICT should not be considered conclusive evidenceof the presence or absence of G.I. bleed or pathology.Hemoccult ICT is designed for preliminary screening. It isnot intended to replace other di agnostic procedures such ascolonoscopy, or sigmoidoscopy in combination with doublecontrast barium x-ray.TEST METHODOLOGY: Immunochemical chromatography ID Date Data Source [id number] 04/28/2020 06:07:00 PM EDT [facility] Name Value Range Interpretation Code Description Data Elisha rce(s) Supporting Document(s) HEMOCCULT ICT NEGATIVE NEGATIVE [facility] Hemoccult ICT is a method of detection of humanhemoglobulin from blood in fecal samples. Fecal occultblood tests are useful screening aids for detectingprimarily lower gastrointestinal disorders that maybe related to iron dificiency anemia, diverticulitis,ulcerative colitis, polyps, adenomas, colorectal cancers orother gastrointestinal lesions. As with any occult blood test, results obtained withHemoccult ICT should not be considered conclusive evidenceof the presence or absence of G.I. bleed or pathology.Hemoccult ICT is designed for preliminary screening. It isnot intended to replace other di agnostic procedures such ascolonoscopy, or sigmoidoscopy in combination with doublecontrast barium x-ray.TEST METHODOLOGY: Immunochemical chromatography ID Date Data Source TSH Thyroid Stimulating Hormone 04/25/2020 01:45:22 PM EDT e CW1 ([facility]) Name Value Range Interpretation Code Description Data Elisha rce(s) Supporting Document(s) Thyrotropin [Units/volume] in Serum or Plasma by Detec tion limit <= 0.005 mIU/L 1.380 USTSH eCW1 ([facility]) ID Date Data Source [id number] 04/25/2020 01:45:22 PM EDT eCW1 ([facility]) Name Value Range Interpretation Code Description Data Elisha rce(s) Supporting Document(s) Triglyceride [Mass/volume] in Serum or Plasma by calculation 255 TRIG eCW1 ([facility]) Cholesterol [Moles/volume] in Serum or Plasma 143 CHOL eCW1 ([facility]) Cholesterol in LDL [Mass/volume] in Serum or Plasma by calculation 79 LDL DIRECT eCW1 ([facility]) Cholesterol in HDL [Moles/volume] in Serum or Plasma 36 HDL eCW1 ([facility]) 28 VLDL eCW1 ([facility]) ID Date Data Source [id number] 04/25/2020 11:13:00 AM [facility]T [facility] Name Value Range Interpretation Code Description Data Elisha rce(s) Supporting Document(s) ALBUMIN,URINE < 5.0 mg/L 5-17 [facility]CRO[facility]CREAT 0-30 [facility] l Unable to calculate MicroAlbumin/Creatin ine ratio result asthe concentration of either the Urine Creatinine or theUrine Albumin is less than the analytical measuring range. CREAT. URINE 77.0 mg/dL [facility] ID Date Data Source [id number] 04/25/2020 11:12:00 AM EDT [facility] ricardo Name Value Range Interpretation Code Description Data Elisha rce(s) Supporting Document(s) USTSH 1.380 uIU/mL 0.270-4.200 [facility] l ID Date Data Source [id number] 04/25/2020 11:04:00 AM EDT [facility] ricardo Name Value Range Interpretation Code Description Data Elisha rce(s) Supporting Document(s) CHOL 143 mg/dL 100-200 [facility] TRIG 255 mg/dL 30-190 [facility] HDL 36 mg/dL 35-65 [facility] LDL DIRECT 79 mg/dL 0-100 [facility] VLDL 28 mg/dL 0-100 [facility] ID Date Data Source [id number] 04/25/2020 11:04:00 AM EDT [facility] ricardo Name Value Range Interpretation Code Description Data Elisha rce(s) Supporting Document(s) GLU 145 mg/dL 70-110 [facility] Patients taking Sulfasalazine may have f alsely depressedGlucose levels. Patients taking Sulfapyridine may havefalsely elevated Glucose levels. Patients should be drawnfor Glucose before the initial administration of eitherdrug. BUN 25 mg/dL 7-23 [facility] CRE 1.370 mg/dL 0.500-1.300 [facility] GFR 58 mL/min [facility] CHLORIDE 106 mmol/L 99-110 [facility] NA 140 mmol/L 136-147 [facility] POTASSIUM 4.8 mmol/L 3.5-5.1 [facility] TCO2 26 mmol/L 20-33 [facility] ANION GAP 12.8 10.0-20.0 [facility] CA 9.5 mg/dL 8.3-10.7 [facility] ALKALINE PHOS 69 U/L 45-117 [facility] TP 8.0 g/dL 6.0-7.8 [facility] ALB 4.1 g/dL 3.5-5.0 [facility] ESRD Dialysis patient Albumin reference range: 2.9-4.4 g/dL GL 3.9 g/dL 2.3-3.5 H [facility] A/G 1.1 1.0-2.5 [facility] T. BILIRUBIN 0.4 mg/dL 0.1-1.1 [facility] The Dimension [place] Total Bilirubin is n ot recommended forpatients undergoing treatment with eltrombopag (Promacta)due to the potential for falsely elevated results. ALTI 44 U/L 6-54 [facility] Patients taking Sulfasalazine and/or Sul fapyridine may havefalsely depressed ALT levels. Patients should be drawn forALT before the initial administration of either drug. AST 26 U/L 8-40 [facility] Patients taking Sulfasalazine and/or Sul fapyridine may havefalsely depressed AST levels. Patients should be drawn forAST before the initial administration of either drug. ID Date Data Source [id number] 04/25/2020 10:51:00 AM EDT [facility] ricardo Name Value Range Interpretation Code Description Data Elisha rce(s) Supporting Document(s) WBC 7.01 x10E3/uL 4.0-10.5 [facility] RBC 5.47 x10E6/uL 4.70-6.00 [facility] Hemoglobin 16.2 g/dL 14.0-18.0 [facility] Hematocrit 48.6 % 42.0-52.0 [facility] MCV 88.8 fL 81.0-99.0 [facility] MCH 29.6 pg 27.0-31.0 [facility] MCHC 33.3 g/dL 32.7-35.6 [facility] RDW 13.1 % 11.5-14.0 [facility] Platelet count 252 x10E3/uL 150-450 [facility] ital MPV 9.9 fl 6.9-9.5 [facility] Neutrophils 53.8 % 34-64 [facility] Lymphocytes 34.0 % 25-45 [facility] Monocytes 6.8 % 1.7-10.6 [facility] Eosinophils 4.4 % 0.4-7.0 [facility] Basophils 0.7 % 0.1-2.0 [facility] Imm. Gran. 0.3 % 0.1-2.0 [facility] Abs. Neutro. 3.8 x10E3/uL 1.2-7.6 [facility] Abs. Lymph. 2.4 x10E3/uL 1.0-3.5 [facility] Abs. Petroleum. 0.5 x10E3/uL 0.1-1.0 [facility] Abs. Eosin. 0.3 x10E3/uL 0.1-0.7 [facility] Abs. Baso. 0.1 x10E3/uL 0.0-0.1 [facility] Abs. Imm. Gran. 0.0 x10E3/uL 0.0-0.1 N [facility] pital ANRBC% 0 % 0 [facility] ID Date Data Source [id number] 04/25/2020 10:42:00 AM EDT [facility] ricardo Name Value Range Interpretation Code Description Data Elisha rce(s) Supporting Document(s) URINE COLOR Yellow N [facility] UAPR Clear N [facility] UGLU 3+ NEGATIVE [facility]IN [facility] Negative NEGATIVE [facility] USG 1.027 1.010-1.025 [facility] UBLO Negative NEGATIVE [facility] UpH 5.0 5.0-8.0 [facility] UPRO Negative Negative [facility] UUB 0.2 mg/dL 0.2-1.0 N [facility] UNIT Negative Negative [facility] ULEU Negative Negative [facility] ID Date Data Source Pathology Request For Service 11/02/2019 12:00:00 AM EST eCW 1 ([facility]) Name Value Range Interpretation Code Description Data Elisha rce(s) Supporting Document(s) TISSUE-GENERAL eCW1 ([facility]) ID Date Data Source WOUND CULTURE 11/02/2019 12:00:00 AM EST eCW1 ([facility]) Name Value Range Interpretation Code Description Data Elisha rce(s) Supporting Document(s) FULL REPORT IN LAB NOTES (eCW and [facility]). WOUND CULTURE eCW1 ([facility]) Procedure Social History Code Duration Value Status Description Data Source(s ) Smoking 10/10/2020 12:00:00 AM EST Never Smoker completed Never S moker eCW1 ([facility]) Smoking 10/10/2020 12:00:00 AM EST Never Smoker completed Never S moker eCW1 ([facility]) Smoking 10/09/2020 12:00:00 AM EST Never Smoker completed Never S moker eCW1 ([facility]) Smoking 08/27/2020 12:00:00 AM EST Never Smoker completed Never S moker eCW1 ([facility]) Smoking 08/27/2020 12:00:00 AM EST Never Smoker completed Never S moker eCW1 ([facility]) Smoking 08/22/2020 12:00:00 AM EST Never Smoker completed Never S moker eCW1 ([facility]) Smoking 08/22/2020 12:00:00 AM EST Never Smoker completed Never S moker eCW1 ([facility]) Smoking 08/07/2020 12:00:00 AM EST Never Smoker completed Never S moker eCW1 ([facility]) Smoking 08/07/2020 12:00:00 AM EST Never Smoker completed Never S moker eCW1 ([facility]) Smoking 08/01/2020 12:00:00 AM EDT Never Smoker completed Never S moker eCW1 ([facility]) Smoking 08/01/2020 12:00:00 AM EDT Never Smoker completed Never S moker eCW1 ([facility]) Smoking 07/28/2020 12:00:00 AM EDT Never Smoker completed Never S moker eCW1 ([facility]) Smoking 04/25/2020 12:00:00 AM EDT Never Smoker completed Never S moker eCW1 ([facility]) Smoking 04/25/2020 12:00:00 AM EDT Never Smoker completed Never S moker eCW1 ([facility]) Smoking 03/21/2020 12:00:00 AM EDT Never Smoker completed Never S moker eCW1 ([facility]) Smoking 03/14/2020 12:00:00 AM EDT Never Smoker completed Never S moker eCW1 ([facility]) Smoking 03/06/2020 12:00:00 AM EDT Never Smoker completed Never S moker eCW1 ([facility]) Smoking 03/06/2020 12:00:00 AM EDT Never Smoker completed Never S moker eCW1 ([facility]) Vital Signs ID Date Data Source UNK Name Value Range Interpretation Code Description Data Source(s) Diastolic blood pressure 72 mm[Hg] 72 mm[Hg] eCW1 ([facility]) Systolic blood pressure 128 mm[Hg] 128 mm[Hg] e CW1 ([facility]) Oxygen saturation in Arterial blood by Pulse oximetry 96 % 96 % eCW1 ([facility]) Respiratory rate 18 /min 18 /min eCW1 ([facility]) Heart rate 84 /min 84 /min eCW1 ([facility]) Body temperature 96.1 [degF] 96.1 [degF] eCW1 ( [facility]) Body mass index (BMI) [Ratio] 44.75 kg/m2 44.75 kg/m2 eCW1 ([facility]) Body weight 330 [lb_av] 330 [lb_av] eCW1 ([facility]) Body height 72 [in_i] 72 [in_i] eCW1 ([facility]) Diastolic blood pressure 86 mm[Hg] 86 mm[Hg] eCW1 ([facility]) Systolic blood pressure 145 mm[Hg] 145 mm[Hg] e CW1 ([facility]) Body temperature 96.8 [degF] 96.8 [degF] eCW1 ( [facility]) Respiratory rate 18 /min 18 /min eCW1 ([facility] Heart rate 77 /min 77 /min eCW1 ([facility]) Body mass index (BMI) [Ratio] 46.11 kg/m2 46.11 kg/m2 eCW1 ([facility]) Body height 72 [in_i] 72 [in_i] eCW1 ([facility]) Body weight kg eCW1 ([facility]) Body weight 340 [lb_av] 340 [lb_av] eCW1 ([facility]) Body mass index (BMI) [Ratio] 46.1 kg/m2 46.1 k g/m2 MEDENT ([facility] Heart rate 84 /min 84 /min MEDENT ([facility] Diastolic blood pressure 86 mm[Hg] 86 mm[Hg] MEDENT ([facility] Systolic blood pressure 132 mm[Hg] 132 mm[Hg] M EDENT ([facility] Body weight 340.00 [lb_av] 340.00 [lb_av] MEDEN T ([facility] Body height 72 [in_i] 72 [in_i] MEDENT ([facility] 6'0" Diastolic blood pressure 91 mm[Hg] 91 mm[Hg] eCW1 ([facility]) Systolic blood pressure 137 mm[Hg] 137 mm[Hg] e CW1 ([facility]) Body temperature 96.4 [degF] 96.4 [degF] eCW1 ( [facility]) Respiratory rate 19 /min 19 /min eCW1 ([facility]) Heart rate 83 /min 83 /min eCW1 ([facility]) Body mass index (BMI) [Ratio] 45.70 kg/m2 45.70 kg/m2 eCW1 ([facility]) Body height 72 [in_i] 72 [in_i] eCW1 ([facility]) Body weight kg eCW1 ([facility]) Body weight 337 [lb_av] 337 [lb_av] eCW1 ([facility]) Diastolic blood pressure 81 mm[Hg] 81 mm[Hg] eCW1 ([facility]) Systolic blood pressure 141 mm[Hg] 141 mm[Hg] e CW1 ([facility]) Body temperature 97.1 [degF] 97.1 [degF] eCW1 ( [facility]) Respiratory rate 18 /min 18 /min eCW1 ([facility]) Heart rate 78 /min 78 /min eCW1 ([facility]) Body mass index (BMI) [Ratio] 45.70 kg/m2 45.70 kg/m2 W1 ([facility]) Body height 72 [in_i] 72 [in_i] eCW1 ([facility]) Body weight kg eCW1 ([facility]) Body weight 337 [lb_av] 337 [lb_av] eCW1 ([facility]) Diastolic blood pressure 82 mm[Hg] 82 mm[Hg] eCW1 ([facility]) Systolic blood pressure 146 mm[Hg] 146 mm[Hg] e CW1 ([facility]) Body temperature 96 [degF] 96 [degF] eCW1 ([facility]) Respiratory rate 18 /min 18 /min eCW1 ([facility]) Heart rate 72 /min 72 /min eCW1 ([facility]) Body mass index (BMI) [Ratio] 45.70 kg/m2 45.70 kg/m2 eCW1 ([facility]) Body height 72 [in_i] 72 [in_i] eCW1 ([facility]) Body weight [lb_av] eCW1 ([facility]) Body mass index (BMI) [Ratio] 45.7 kg/m2 45.7 k g/m2 MEDENT ([facility] Heart rate 99 /min 99 /min MEDENT ([facility] Diastolic blood pressure 74 mm[Hg] 74 mm[Hg] MEDENT ([facility] Systolic blood pressure 120 mm[Hg] 120 mm[Hg] M EDENT ([facility] Body weight 337.00 [lb_av] 337.00 [lb_av] MEDEN T ([facility] Body height 72 [in_i] 72 [in_i] MEDENT ([facility] 6'0" Diastolic blood pressure 84 mm[Hg] 84 mm[Hg] eCW1 ([facility]) Systolic blood pressure 143 mm[Hg] 143 mm[Hg] e CW1 ([facility]) Body temperature 96.6 [degF] 96.6 [degF] eCW1 ( [facility]) Respiratory rate 18 /min 18 /min eCW1 ([facility]) Heart rate 76 /min 76 /min eCW1 ([facility]) Body mass index (BMI) [Ratio] 45.70 kg/m2 45.70 kg/m2 W1 ([facility]) Body height 72 [in_i] 72 [in_i] eCW1 ([facility]) Body weight [lb_av] eCW1 ([facility]) Diastolic blood pressure 92 mm[Hg] 92 mm[Hg] eCW1 ([facility]) Systolic blood pressure 145 mm[Hg] 145 mm[Hg] e CW1 ([facility]) Body temperature 95.7 [degF] 95.7 [degF] eCW1 ( [facility]) Respiratory rate 18 /min 18 /min eCW1 ([facility]) Heart rate 70 /min 70 /min eCW1 ([facility]) Body mass index (BMI) [Ratio] 45.70 kg/m2 45.70 kg/m2 eCW1 ([facility]) Body height 72 [in_i] 72 [in_i] eCW1 ([facility]) Body weight kg eCW1 ([facility]) Body weight 337 [lb_av] 337 [lb_av] eCW1 ([facility]) Diastolic blood pressure 77 mm[Hg] 77 mm[Hg] eCW1 ([facility]) Systolic blood pressure 134 mm[Hg] 134 mm[Hg] e CW1 ([facility]) Body temperature 97.2 [degF] 97.2 [degF] eCW1 ( [facility]) Respiratory rate 16 /min 16 /min eCW1 ([facility]) Heart rate 80 /min 80 /min eCW1 ([facility]) Body mass index (BMI) [Ratio] 45.70 kg/m2 45.70 kg/m2 eCW1 ([facility]) Body height 72 [in_i] 72 [in_i] eCW1 ([facility]) Body weight kg eCW1 ([facility]) Body weight 337 [lb_av] 337 [lb_av] eCW1 ([facility]) Diastolic blood pressure 84 mm[Hg] 84 mm[Hg] eCW1 ([facility]) Systolic blood pressure 138 mm[Hg] 138 mm[Hg] e CW1 ([facility]) Body temperature 97.9 [degF] 97.9 [degF] eCW1 ( [facility]) Respiratory rate 16 /min 16 /min eCW1 ([facility]) Heart rate 93 /min 93 /min eCW1 ([facility]) Body mass index (BMI) [Ratio] 45.70 kg/m2 45.70 kg/m2 W1 ([facility]) Body height 72 [in_i] 72 [in_i] eCW1 ([facility]) Body weight [lb_av] eCW1 ([facility]) Diastolic blood pressure 74 mm[Hg] 74 mm[Hg] eCW1 ([facility]) Systolic blood pressure 128 mm[Hg] 128 mm[Hg] e CW1 ([facility]) Oxygen saturation in Arterial blood by Pulse oximetry 97 % 97 % eCW1 ([facility]) Heart rate 82 /min 82 /min eCW1 ([facility]) Body temperature 96.5 [degF] 96.5 [degF] eCW1 ( [facility]) Body mass index (BMI) [Ratio] 44.48 kg/m2 44.48 kg/m2 eCW1 ([facility]) Body weight 148.78 kg 148.78 kg eCW1 ([facility]) Body weight 328 [lb_av] 328 [lb_av] eCW1 ([facility]) Body height 72 [in_i] 72 [in_i] eCW1 ([facility]) Diastolic blood pressure 78 mm[Hg] 78 mm[Hg] eCW1 ([facility]) Systolic blood pressure 119 mm[Hg] 119 mm[Hg] e CW1 ([facility]) Body temperature 96.4 [degF] 96.4 [degF] eCW1 ( [facility]) Respiratory rate 16 /min 16 /min eCW1 ([facility]) Heart rate 74 /min 74 /min eCW1 ([facility]) Body mass index (BMI) [Ratio] 42.17 kg/m2 42.17 kg/m2 eCW1 ([facility]) Body height 72 [in_i] 72 [in_i] eCW1 ([facility]) Body weight kg eCW1 ([facility]) Body weight 311 [lb_av] 311 [lb_av] eCW1 ([facility]) Body mass index (BMI) [Ratio] 42.17 kg/m2 42.17 kg/m2 eCW1 ([facility]) Body height 72 [in_i] 72 [in_i] eCW1 ([facility]) Body weight kg eCW1 ([facility]) Body weight 311 [lb_av] 311 [lb_av] eCW1 ([facility]) Diastolic blood pressure 79 mm[Hg] 79 mm[Hg] eCW1 ([facility]) Systolic blood pressure 147 mm[Hg] 147 mm[Hg] e CW1 ([facility]) Body temperature 96.2 [degF] 96.2 [degF] eCW1 ( [facility]) Respiratory rate 18 /min 18 /min eCW1 ([facility]) Heart rate 75 /min 75 /min eCW1 ([facility]) Diastolic blood pressure 68 mm[Hg] 68 mm[Hg] eCW1 ([facility]) Systolic blood pressure 160 mm[Hg] 160 mm[Hg] e CW1 ([facility]) Body temperature 97.3 [degF] 97.3 [degF] eCW1 ( [facility]) Respiratory rate 18 /min 18 /min eCW1 ([facility]) Heart rate 91 /min 91 /min eCW1 ([facility]) Body mass index (BMI) [Ratio] 42.17 kg/m2 42.17 kg/m2 eCW1 ([facility]) Body height 72 [in_i] 72 [in_i] eCW1 ([facility]) Body weight kg eCW1 ([facility]) Body weight 311 [lb_av] 311 [lb_av] eCW1 ([facility]) Diastolic blood pressure 73 mm[Hg] 73 mm[Hg] eCW1 ([facility]) Systolic blood pressure 125 mm[Hg] 125 mm[Hg] e CW1 ([facility]) Body temperature 97.1 [degF] 97.1 [degF] eCW1 ( [facility]) Respiratory rate 18 /min 18 /min eCW1 ([facility]) Heart rate 85 /min 85 /min eCW1 ([facility]) Body mass index (BMI) [Ratio] 42.17 kg/m2 42.17 kg/m2 eCW1 ([facility]) Body height 72 [in_i] 72 [in_i] eCW1 ([facility]) Body weight kg eCW1 ([facility]) Body weight 311 [lb_av] 311 [lb_av] eCW1 ([facility]) Diastolic blood pressure 74 mm[Hg] 74 mm[Hg] eCW1 ([facility]) Systolic blood pressure 132 mm[Hg] 132 mm[Hg] e CW1 ([facility]) Body temperature 96.7 [degF] 96.7 [degF] eCW1 ( [facility]) Respiratory rate 18 /min 18 /min eCW1 ([facility]) Heart rate 85 /min 85 /min eCW1 ([facility]) Body mass index (BMI) [Ratio] 42.17 kg/m2 42.17 kg/m2 eCW1 ([facility]) Body height 72 [in_us] 72 [in_us] eCW1 ([facility]) Body weight Measured 311 [lb_av] 311 [lb_av] eC W1 ([facility]) Diastolic blood pressure 65 mm[Hg] 65 mm[Hg] eCW1 ([facility]) Systolic blood pressure 136 mm[Hg] 136 mm[Hg] e CW1 ([facility]) Body temperature 96.3 [degF] 96.3 [degF] eCW1 ( [facility]) Respiratory rate 18 /min 18 /min eCW1 ([facility]) Heart rate 71 /min 71 /min eCW1 ([facility]) Body mass index (BMI) [Ratio] 42.17 kg/m2 42.17 kg/m2 eCW1 ([facility]) Body height 72 [in_us] 72 [in_us] eCW1 ([facility]) Body weight Measured 311 [lb_av] 311 [lb_av] eC W1 ([facility]) Diastolic blood pressure 68 mm[Hg] 68 mm[Hg] eCW1 ([facility]) Systolic blood pressure 124 mm[Hg] 124 mm[Hg] e CW1 ([facility]) Body temperature 96.8 [degF] 96.8 [degF] eCW1 ( [facility]) Respiratory rate 18 /min 18 /min eCW1 ([facility]) Heart rate 72 /min 72 /min eCW1 ([facility]) Body mass index (BMI) [Ratio] 42.17 kg/m2 42.17 kg/m2 eCW1 ([facility]) Body height 72 [in_us] 72 [in_us] eCW1 ([facility]) Body weight Measured 311 [lb_av] 311 [lb_av] eC W1 ([facility]) Diastolic blood pressure 65 mm[Hg] 65 mm[Hg] eCW1 ([facility]) Systolic blood pressure 131 mm[Hg] 131 mm[Hg] e CW1 ([facility]) Body temperature 95.4 [degF] 95.4 [degF] eCW1 ( [facility]) Respiratory rate 18 /min 18 /min eCW1 ([facility]) Heart rate 72 /min 72 /min eCW1 ([facility]) Body mass index (BMI) [Ratio] 42.17 kg/m2 42.17 kg/m2 eCW1 ([facility]) Body height 72 [in_i] 72 [in_i] eCW1 ([facility]) Body weight kg eCW1 ([facility]) Body weight 311 [lb_av] 311 [lb_av] eCW1 ([facility]) Diastolic blood pressure 70 mm[Hg] 70 mm[Hg] eCW1 ([facility]) Systolic blood pressure 125 mm[Hg] 125 mm[Hg] e CW1 ([facility]) Body temperature 96.3 [degF] 96.3 [degF] eCW1 ( [facility]) Respiratory rate 18 /min 18 /min eCW1 ([facility]) Heart rate 76 /min 76 /min eCW1 ([facility]) Body mass index (BMI) [Ratio] 42.17 kg/m2 42.17 kg/m2 eCW1 ([facility]) Body height 72 [in_us] 72 [in_us] eCW1 ([facility]) Body weight Measured 311 [lb_av] 311 [lb_av] eC W1 ([facility]) Diastolic blood pressure 75 mm[Hg] 75 mm[Hg] eCW1 ([facility]) Systolic blood pressure 121 mm[Hg] 121 mm[Hg] e CW1 ([facility]) Body temperature 95.3 [degF] 95.3 [degF] eCW1 ( [facility]) Respiratory rate 18 /min 18 /min eCW1 ([facility]) Heart rate 83 /min 83 /min eCW1 ([facility]) Body mass index (BMI) [Ratio] 42.17 kg/m2 42.17 kg/m2 eCW1 ([facility]) Body height 72 [in_us] 72 [in_us] eCW1 ([facility]) Body weight Measured 311 [lb_av] 311 [lb_av] eC W1 ([facility]) Diastolic blood pressure 70 mm[Hg] 70 mm[Hg] eCW1 ([facility]) Systolic blood pressure 124 mm[Hg] 124 mm[Hg] e CW1 ([facility]) Body temperature 96.6 [degF] 96.6 [degF] eCW1 ( [facility]) Respiratory rate 18 /min 18 /min eCW1 ([facility]) Heart rate 83 /min 83 /min eCW1 ([facility]) Body mass index (BMI) [Ratio] 42.17 kg/m2 42.17 kg/m2 eCW1 ([facility]) Body height 72 [in_us] 72 [in_us] eCW1 ([facility]) Body weight Measured 311 [lb_av] 311 [lb_av] eC W1 ([facility]) Diastolic blood pressure 90 mm[Hg] 90 mm[Hg] eCW1 ([facility]) Systolic blood pressure 134 mm[Hg] 134 mm[Hg] e CW1 ([facility]) Body temperature 96.6 [degF] 96.6 [degF] eCW1 ( [facility]) Respiratory rate 18 /min 18 /min eCW1 ([facility]) Heart rate 83 /min 83 /min eCW1 ([facility]) Body mass index (BMI) [Ratio] 42.17 kg/m2 42.17 kg/m2 eCW1 ([facility]) Body height 72 [in_us] 72 [in_us] eCW1 ([facility]) Body weight Measured 311 [lb_av] 311 [lb_av] eC W1 ([facility]) Diastolic blood pressure 68 mm[Hg] 68 mm[Hg] eCW1 ([facility]) Systolic blood pressure 121 mm[Hg] 121 mm[Hg] e CW1 ([facility]) Body temperature 96.4 [degF] 96.4 [degF] eCW1 ( [facility]) Respiratory rate 18 /min 18 /min eCW1 ([facility]) Heart rate 74 /min 74 /min eCW1 ([facility]) Body mass index (BMI) [Ratio] 42.17 kg/m2 42.17 kg/m2 eCW1 ([facility]) Body height 72 [in_us] 72 [in_us] eCW1 ([facility]) Body weight Measured 311 [lb_av] 311 [lb_av] eC W1 ([facility]) Diastolic blood pressure 69 mm[Hg] 69 mm[Hg] eCW1 ([facility]) Systolic blood pressure 126 mm[Hg] 126 mm[Hg] e CW1 ([facility]) Body temperature 97.1 [degF] 97.1 [degF] eCW1 ( [facility]) Respiratory rate 18 /min 18 /min eCW1 ([facility]) Heart rate 72 /min 72 /min eCW1 ([facility]) Body mass index (BMI) [Ratio] 42.17 kg/m2 42.17 kg/m2 eCW1 ([facility]) Body height 72 [in_us] 72 [in_us] eCW1 (Formerly [facility], [facility]) Body weight Measured 311 [lb_av] 311 [lb_av] eC W1 ([facility]) Diastolic blood pressure 80 mm[Hg] 80 mm[Hg] eCW1 ([facility]) Systolic blood pressure 136 mm[Hg] 136 mm[Hg] e CW1 ([facility]) Body temperature 97.0 [degF] 97.0 [degF] eCW1 ( [facility]) Respiratory rate 18 /min 18 /min eCW1 ([facility]) Heart rate 84 /min 84 /min eCW1 ([facility]) Body mass index (BMI) [Ratio] 42.17 kg/m2 42.17 kg/m2 eCW1 ([facility]) Body height 72 [in_us] 72 [in_us] eCW1 (Formerly [facility], [facility]) Body weight Measured 311 [lb_av] 311 [lb_av] eC W1 ([facility]) Diastolic blood pressure 63 mm[Hg] 63 mm[Hg] eCW1 ([facility]) Systolic blood pressure 130 mm[Hg] 130 mm[Hg] e CW1 ([facility]) Body temperature 97.1 [degF] 97.1 [degF] eCW1 ( [facility]) Respiratory rate 18 /min 18 /min eCW1 ([facility]) Heart rate 78 /min 78 /min eCW1 ([facility]) Body mass index (BMI) [Ratio] 42.17 kg/m2 42.17 kg/m2 eCW1 ([facility]) Body height 72 [in_us] 72 [in_us] eCW1 (Formerly [facility], [facility]) Body weight Measured 311 [lb_av] 311 [lb_av] eC W1 ([facility]) Diastolic blood pressure 73 mm[Hg] 73 mm[Hg] eCW1 ([facility]) Systolic blood pressure 128 mm[Hg] 128 mm[Hg] e CW1 ([facility]) Body temperature 95.7 [degF] 95.7 [degF] eCW1 ( [facility]) Respiratory rate 18 /min 18 /min eCW1 ([facility]) Heart rate 70 /min 70 /min eCW1 ([facility]) Body mass index (BMI) [Ratio] 42.17 kg/m2 42.17 kg/m2 eCW1 ([facility]) Body height 72 [in_us] 72 [in_us] eCW1 ([facility]ly [facility], [facility]) Body weight Measured 311 [lb_av] 311 [lb_av] eC W1 ([facility]) Diastolic blood pressure 73 mm[Hg] 73 mm[Hg] eCW1 ([facility]) Systolic blood pressure 128 mm[Hg] 128 mm[Hg] e CW1 ([facility]) Body temperature 95.7 [degF] 95.7 [degF] eCW1 ( [facility]) Respiratory rate 16 /min 16 /min eCW1 ([facility]) Heart rate 70 /min 70 /min eCW1 ([facility]) Body mass index (BMI) [Ratio] 42.17 kg/m2 42.17 kg/m2 eCW1 ([facility]) Body height 72 [in_us] 72 [in_us] eCW1 ([facility]ly [facility], [facility]) Body weight Measured 311 [lb_av] 311 [lb_av] eC W1 ([facility]) Diastolic blood pressure 81 mm[Hg] 81 mm[Hg] eCW1 ([facility]) Systolic blood pressure 121 mm[Hg] 121 mm[Hg] e CW1 ([facility]) Body temperature 96.0 [degF] 96.0 [degF] eCW1 ( [facility]) Respiratory rate 18 /min 18 /min eCW1 ([facility]) Heart rate 76 /min 76 /min eCW1 ([facility]) Body mass index (BMI) [Ratio] 42.17 kg/m2 42.17 kg/m2 eCW1 ([facility]) Body height 72 [in_us] 72 [in_us] eCW1 ([facility]ly [facility], [facility]) Body weight Measured 311 [lb_av] 311 [lb_av] eC W1 ([facility]) Diastolic blood pressure 70 mm[Hg] 70 mm[Hg] eCW1 ([facility]) Systolic blood pressure 131 mm[Hg] 131 mm[Hg] e CW1 ([facility]) Body temperature 95.2 [degF] 95.2 [degF] eCW1 ( [facility]) Respiratory rate 18 /min 18 /min eCW1 ([facility]) Heart rate 79 /min 79 /min eCW1 ([facility]) Body mass index (BMI) [Ratio] 42.17 kg/m2 42.17 kg/m2 eCW1 ([facility]) Body height 72 [in_us] 72 [in_us] eCW1 ([facility]ly [facility], [facility]) Body weight Measured 311 [lb_av] 311 [lb_av] eC W1 ([facility]) Diastolic blood pressure 72 mm[Hg] 72 mm[Hg] eCW1 ([facility]) Systolic blood pressure 112 mm[Hg] 112 mm[Hg] e CW1 ([facility]) Body temperature 96.3 [degF] 96.3 [degF] eCW1 ( [facility]) Respiratory rate 20 /min 20 /min eCW1 ([facility]) Heart rate 83 /min 83 /min eCW1 ([facility]) Body mass index (BMI) [Ratio] 42.17 kg/m2 42.17 kg/m2 eCW1 ([facility]) Body height 72 [in_us] 72 [in_us] eCW1 ([facility]ly [facility], [facility]) Body weight Measured 311 [lb_av] 311 [lb_av] eC W1 ([facility]) Diastolic blood pressure 68 mm[Hg] 68 mm[Hg] eCW1 ([facility]) Systolic blood pressure 125 mm[Hg] 125 mm[Hg] e CW1 ([facility]) Body temperature 96.9 [degF] 96.9 [degF] eCW1 ( [facility]) Respiratory rate 18 /min 18 /min eCW1 ([facility]) Heart rate 85 /min 85 /min eCW1 ([facility]) Body mass index (BMI) [Ratio] 42.17 kg/m2 42.17 kg/m2 eCW1 ([facility]) Body height 72 [in_us] 72 [in_us] eCW1 ([facility]ly [facility], [facility]) Body weight Measured 311 [lb_av] 311 [lb_av] eC W1 ([facility]) Diastolic blood pressure 76 mm[Hg] 76 mm[Hg] eCW1 ([facility]) Systolic blood pressure 120 mm[Hg] 120 mm[Hg] e CW1 ([facility]) Body temperature 96.6 [degF] 96.6 [degF] eCW1 ( [facility]) Respiratory rate 18 /min 18 /min eCW1 ([facility]) Heart rate 76 /min 76 /min eCW1 ([facility]) Body mass index (BMI) [Ratio] 42.17 kg/m2 42.17 kg/m2 eCW1 ([facility]) Body height 72 [in_us] 72 [in_us] eCW1 ([facility]ly [facility], [facility]) Body weight Measured 311 [lb_av] 311 [lb_av] eC W1 ([facility]) Diastolic blood pressure 76 mm[Hg] 76 mm[Hg] eCW1 ([facility]) Systolic blood pressure 120 mm[Hg] 120 mm[Hg] e CW1 ([facility]) Body temperature 96.6 [degF] 96.6 [degF] eCW1 ( [facility]) Respiratory rate 16 /min 16 /min eCW1 ([facility]) Heart rate 91 /min 91 /min eCW1 ([facility]) Body mass index (BMI) [Ratio] 42.17 kg/m2 42.17 kg/m2 eCW1 ([facility]) Body height 72 [in_us] 72 [in_us] eCW1 ([facility]ly [facility], [facility]) Body weight Measured 311 [lb_av] 311 [lb_av] eC W1 ([facility]) Diastolic blood pressure 86 mm[Hg] 86 mm[Hg] eCW1 ([facility]) Systolic blood pressure 140 mm[Hg] 140 mm[Hg] e CW1 ([facility]) Body temperature 96.6 [degF] 96.6 [degF] eCW1 ( [facility]) Respiratory rate 18 /min 18 /min eCW1 ([facility]) Heart rate 82 /min 82 /min eCW1 ([facility]) Body mass index (BMI) [Ratio] 42.17 kg/m2 42.17 kg/m2 eCW1 ([facility]) Body height 72 [in_us] 72 [in_us] eCW1 ([facility]ly [facility], [facility]) Body weight Measured 311 [lb_av] 311 [lb_av] eC W1 ([facility]) Diastolic blood pressure 67 mm[Hg] 67 mm[Hg] eCW1 ([facility]) Systolic blood pressure 126 mm[Hg] 126 mm[Hg] e CW1 ([facility]) Body temperature 97.1 [degF] 97.1 [degF] eCW1 ( [facility]) Respiratory rate 18 /min 18 /min eCW1 ([facility]) Heart rate 81 /min 81 /min eCW1 ([facility]) Body mass index (BMI) [Ratio] 42.17 kg/m2 42.17 kg/m2 eCW1 ([facility]) Body height 72 [in_us] 72 [in_us] eCW1 ([facility]ly [facility], [facility]) Body weight Measured 311 [lb_av] 311 [lb_av] eC W1 ([facility]) Diastolic blood pressure 65 mm[Hg] 65 mm[Hg] eCW1 ([facility]) Systolic blood pressure 126 mm[Hg] 126 mm[Hg] e CW1 ([facility]) Body temperature 97.0 [degF] 97.0 [degF] eCW1 ( [facility]) Respiratory rate 18 /min 18 /min eCW1 ([facility]) Heart rate 70 /min 70 /min eCW1 ([facility]) Body mass index (BMI) [Ratio] 42.17 kg/m2 42.17 kg/m2 eCW1 ([facility]) Body height 72 [in_us] 72 [in_us] eCW1 ([facility]ly [facility], [facility]) Body weight Measured 311 [lb_av] 311 [lb_av] eC W1 ([facility]) Diastolic blood pressure 59 mm[Hg] 59 mm[Hg] eCW1 ([facility]) Systolic blood pressure 125 mm[Hg] 125 mm[Hg] e CW1 ([facility]) Body temperature 96.8 [degF] 96.8 [degF] eCW1 ( [facility]) Respiratory rate 18 /min 18 /min eCW1 ([facility]) Heart rate 72 /min 72 /min eCW1 ([facility]) Body mass index (BMI) [Ratio] 42.17 kg/m2 42.17 kg/m2 eCW1 ([facility]) Body height 72 [in_us] 72 [in_us] eCW1 ([facility]ly [facility], [facility]) Body weight Measured 311 [lb_av] 311 [lb_av] eC W1 ([facility]) Diastolic blood pressure 75 mm[Hg] 75 mm[Hg] eCW1 ([facility]) Systolic blood pressure 132 mm[Hg] 132 mm[Hg] e CW1 ([facility]) Body temperature 96.9 [degF] 96.9 [degF] eCW1 ( [facility]) Respiratory rate 18 /min 18 /min eCW1 ([facility]) Heart rate 81 /min 81 /min eCW1 ([facility]) Body mass index (BMI) [Ratio] 42.17 kg/m2 42.17 kg/m2 eCW1 ([facility]) Body height 72 [in_us] 72 [in_us] eCW1 ([facility], [facility]) Body weight Measured 311 [lb_av] 311 [lb_av] eC W1 ([facility]) Diastolic blood pressure 73 mm[Hg] 73 mm[Hg] eCW1 ([facility]) Systolic blood pressure 140 mm[Hg] 140 mm[Hg] e CW1 ([facility]) Body temperature 96.9 [degF] 96.9 [degF] eCW1 ( [facility]) Respiratory rate 18 /min 18 /min eCW1 ([facility]) Heart rate 90 /min 90 /min eCW1 ([facility]) Body mass index (BMI) [Ratio] 42.17 kg/m2 42.17 kg/m2 eCW1 ([facility]) Body height 72 [in_us] 72 [in_us] eCW1 ([facility]ly [facility], [facility]) Body weight Measured 311 [lb_av] 311 [lb_av] eC W1 ([facility]) Diastolic blood pressure 61 mm[Hg] 61 mm[Hg] eCW1 ([facility]) Systolic blood pressure 130 mm[Hg] 130 mm[Hg] e CW1 ([facility]) Body temperature 96.4 [degF] 96.4 [degF] eCW1 ( [facility]) Respiratory rate 18 /min 18 /min eCW1 ([facility]) Heart rate 82 /min 82 /min eCW1 ([facility]) Body mass index (BMI) [Ratio] 42.17 kg/m2 42.17 kg/m2 eCW1 ([facility]) Body height 72 [in_us] 72 [in_us] eCW1 ([facility]ly [facility], [facility]) Body weight Measured 311 [lb_av] 311 [lb_av] eC W1 ([facility]) Diastolic blood pressure 67 mm[Hg] 67 mm[Hg] eCW1 ([facility]) Systolic blood pressure 110 mm[Hg] 110 mm[Hg] e CW1 ([facility]) Body temperature 96.3 [degF] 96.3 [degF] eCW1 ( [facility]) Respiratory rate 18 /min 18 /min eCW1 ([facility]) Heart rate 93 /min 93 /min eCW1 ([facility]) Body mass index (BMI) [Ratio] 42.17 kg/m2 42.17 kg/m2 eCW1 ([facility]) Body height 72 [in_us] 72 [in_us] eCW1 ([facility]ly [facility], [facility]) Body weight Measured 311 [lb_av] 311 [lb_av] eC W1 ([facility]) Diastolic blood pressure 69 mm[Hg] 69 mm[Hg] eCW1 ([facility]) Systolic blood pressure 122 mm[Hg] 122 mm[Hg] e CW1 ([facility]) Body temperature 96.3 [degF] 96.3 [degF] eCW1 ( [facility]) Respiratory rate 18 /min 18 /min eCW1 ([facility]) Heart rate 81 /min 81 /min eCW1 ([facility]) Body mass index (BMI) [Ratio] 42.17 kg/m2 42.17 kg/m2 eCW1 ([facility]) Body height 72 [in_us] 72 [in_us] eCW1 ([facility], [facility]) Body weight Measured 311 [lb_av] 311 [lb_av] eC W1 ([facility]) Diastolic blood pressure 69 mm[Hg] 69 mm[Hg] eCW1 ([facility]) Systolic blood pressure 122 mm[Hg] 122 mm[Hg] e CW1 ([facility]) Body temperature 96.3 [degF] 96.3 [degF] eCW1 ( [facility]) Respiratory rate 18 /min 18 /min eCW1 ([facility]) Heart rate 81 /min 81 /min eCW1 ([facility]) Body mass index (BMI) [Ratio] 42.17 kg/m2 42.17 kg/m2 eCW1 ([facility]) Body height 72 [in_us] 72 [in_us] eCW1 ([facility]) Body weight Measured 311 [lb_av] 311 [lb_av] eC W1 ([facility]) Diastolic blood pressure 65 mm[Hg] 65 mm[Hg] eCW1 ([facility]) Systolic blood pressure 115 mm[Hg] 115 mm[Hg] e CW1 ([facility]) Body temperature 96.8 [degF] 96.8 [degF] eCW1 ( [facility]) Respiratory rate 18 /min 18 /min eCW1 ([facility]) Heart rate 87 /min 87 /min eCW1 ([facility]) Body mass index (BMI) [Ratio] 42.17 kg/m2 42.17 kg/m2 eCW1 ([facility]) Body height 72 [in_us] 72 [in_us] eCW1 ([facility]ly [facility]) Body weight Measured 311 [lb_av] 311 [lb_av] eC W1 ([facility]) Diastolic blood pressure 71 mm[Hg] 71 mm[Hg] eCW1 ([facility]) Systolic blood pressure 146 mm[Hg] 146 mm[Hg] e CW1 ([facility]) Body temperature 96.6 [degF] 96.6 [degF] eCW1 ( [facility]) Respiratory rate 19 /min 19 /min eCW1 ([facility]) Heart rate 76 /min 76 /min eCW1 ([facility]) Body mass index (BMI) [Ratio] 42.17 kg/m2 42.17 kg/m2 eCW1 ([facility]) Body height 72 [in_us] 72 [in_us] eCW1 ([facility]) Body weight Measured 311 [lb_av] 311 [lb_av] eC W1 ([facility]) Diastolic blood pressure 71 mm[Hg] 71 mm[Hg] eCW1 ([facility]) Systolic blood pressure 118 mm[Hg] 118 mm[Hg] e CW1 ([facility]) Body temperature 95.8 [degF] 95.8 [degF] eCW1 ( [facility]) Respiratory rate 18 /min 18 /min eCW1 ([facility]) Heart rate 77 /min 77 /min eCW1 ([facility]) Body mass index (BMI) [Ratio] 42.17 kg/m2 42.17 kg/m2 eCW1 ([facility]) Body height 72 [in_us] 72 [in_us] eCW1 ([facility]) Body weight Measured 311 [lb_av] 311 [lb_av] eC W1 ([facility]) Diastolic blood pressure 68 mm[Hg] 68 mm[Hg] eCW1 ([facility]) Systolic blood pressure 126 mm[Hg] 126 mm[Hg] e CW1 ([facility]) Body temperature 96.3 [degF] 96.3 [degF] eCW1 ( [facility]) Respiratory rate 16 /min 16 /min eCW1 ([facility]) Heart rate 89 /min 89 /min eCW1 ([facility]) Body mass index (BMI) [Ratio] 42.17 kg/m2 42.17 kg/m2 eCW1 ([facility]) Body height 72 [in_us] 72 [in_us] eCW1 ([facility]) Body weight Measured 311 [lb_av] 311 [lb_av] eC W1 ([facility]) Diastolic blood pressure 69 mm[Hg] 69 mm[Hg] eCW1 ([facility]) Systolic blood pressure 127 mm[Hg] 127 mm[Hg] e CW1 ([facility]) Body temperature 97.1 [degF] 97.1 [degF] eCW1 ( [facility]) Respiratory rate 19 /min 19 /min eCW1 ([facility]) Heart rate 72 /min 72 /min eCW1 ([facility]) Body mass index (BMI) [Ratio] 42.17 kg/m2 42.17 kg/m2 eCW1 ([facility]) Body height 72 [in_us] 72 [in_us] eCW1 ([facility]ly [facility]) Body weight Measured 311 [lb_av] 311 [lb_av] eC W1 ([facility]) Diastolic blood pressure 61 mm[Hg] 61 mm[Hg] eCW1 ([facility]) Systolic blood pressure 127 mm[Hg] 127 mm[Hg] e CW1 ([facility]) Body temperature 97.6 [degF] 97.6 [degF] eCW1 ( [facility]) Respiratory rate 18 /min 18 /min eCW1 ([facility]) Heart rate 75 /min 75 /min eCW1 ([facility]) Body mass index (BMI) [Ratio] 42.17 kg/m2 42.17 kg/m2 eCW1 ([facility]) Body height 72 [in_us] 72 [in_us] eCW1 ([facility]) Body weight Measured 311 [lb_av] 311 [lb_av] eC W1 ([facility]) Diastolic blood pressure 66 mm[Hg] 66 mm[Hg] eCW1 ([facility]) Systolic blood pressure 125 mm[Hg] 125 mm[Hg] e CW1 ([facility]) Body temperature 96.5 [degF] 96.5 [degF] eCW1 ( [facility]) Respiratory rate 18 /min 18 /min eCW1 ([facility]) Heart rate 70 /min 70 /min eCW1 ([facility]) Body mass index (BMI) [Ratio] 42.17 kg/m2 42.17 kg/m2 eCW1 ([facility]) Body height 72 [in_us] 72 [in_us] eCW1 ([facility]) Body weight Measured 311 [lb_av] 311 [lb_av] eC W1 ([facility]) Diastolic blood pressure 66 mm[Hg] 66 mm[Hg] eCW1 ([facility]) Systolic blood pressure 128 mm[Hg] 128 mm[Hg] e CW1 ([facility]) Body temperature 96.2 [degF] 96.2 [degF] eCW1 ( [facility]) Respiratory rate 18 /min 18 /min eCW1 ([facility]) Heart rate 82 /min 82 /min eCW1 ([facility]) Body mass index (BMI) [Ratio] 42.17 kg/m2 42.17 kg/m2 eCW1 ([facility]) Body height 72 [in_us] 72 [in_us] eCW1 ([facility]) Body weight Measured 311 [lb_av] 311 [lb_av] eC W1 ([facility]) Diastolic blood pressure 67 mm[Hg] 67 mm[Hg] eCW1 ([facility]) Systolic blood pressure 123 mm[Hg] 123 mm[Hg] e CW1 ([facility]) Body temperature 95.7 [degF] 95.7 [degF] eCW1 ( [facility]) Respiratory rate 18 /min 18 /min eCW1 ([facility]) Heart rate 71 /min 71 /min eCW1 ([facility]) Body mass index (BMI) [Ratio] 42.17 kg/m2 42.17 kg/m2 eCW1 ([facility]) Body height 72 [in_us] 72 [in_us] eCW1 ([facility]) Body weight Measured 311 [lb_av] 311 [lb_av] eC W1 ([facility]) Heart rate 71 /min 71 /min eCW1 ([facility]) Body mass index (BMI) [Ratio] 42.17 kg/m2 42.17 kg/m2 eCW1 ([facility]) Body height 72 [in_us] 72 [in_us] eCW1 ([facility]) Body weight Measured 311 [lb_av] 311 [lb_av] eC W1 ([facility]) Diastolic blood pressure 74 mm[Hg] 74 mm[Hg] eCW1 ([facility]) Systolic blood pressure 123 mm[Hg] 123 mm[Hg] e CW1 ([facility]) Body temperature 96.2 [degF] 96.2 [degF] eCW1 ( [facility]) Respiratory rate 18 /min 18 /min eCW1 ([facility]) Diastolic blood pressure 74 mm[Hg] 74 mm[Hg] eCW1 ([facility]) Systolic blood pressure 132 mm[Hg] 132 mm[Hg] e CW1 ([facility]) Body temperature 96.7 [degF] 96.7 [degF] eCW1 ( [facility]) Respiratory rate 18 /min 18 /min eCW1 ([facility]) Heart rate 72 /min 72 /min eCW1 ([facility]) Body mass index (BMI) [Ratio] 42.17 kg/m2 42.17 kg/m2 eCW1 ([facility]) Body height 72 [in_us] 72 [in_us] eCW1 ([facility]) Body weight Measured [lb_av] eCW1 ([facility]) Diastolic blood pressure 74 mm[Hg] 74 mm[Hg] eCW1 ([facility]) Systolic blood pressure 132 mm[Hg] 132 mm[Hg] e CW1 ([facility]) Body temperature 96.7 [degF] 96.7 [degF] eCW1 ( [facility]) Respiratory rate 18 /min 18 /min eCW1 ([facility]) Heart rate 72 /min 72 /min eCW1 ([facility]) Body mass index (BMI) [Ratio] 42.17 kg/m2 42.17 kg/m2 W1 ([facility]) Body height 72 [in_us] 72 [in_us] eCW1 ([facility]) Body weight Measured 311 [lb_av] 311 [lb_av] eC W1 ([facility]) Diastolic blood pressure 61 mm[Hg] 61 mm[Hg] eCW1 ([facility]) Systolic blood pressure 145 mm[Hg] 145 mm[Hg] e CW1 ([facility]) Body temperature 97.0 [degF] 97.0 [degF] eCW1 ( [facility]) Respiratory rate 18 /min 18 /min eCW1 ([facility]) Heart rate 77 /min 77 /min eCW1 ([facility]) Body mass index (BMI) [Ratio] 42.17 kg/m2 42.17 kg/m2 eCW1 ([facility]) Body height 72 [in_us] 72 [in_us] eCW1 ([facility]) Body weight Measured [lb_av] eCW1 ([facility]) Diastolic blood pressure 76 mm[Hg] 76 mm[Hg] eCW1 ([facility]) Systolic blood pressure 113 mm[Hg] 113 mm[Hg] e CW1 ([facility]) Body temperature 95.6 [degF] 95.6 [degF] eCW1 ( [facility]) Respiratory rate 18 /min 18 /min eCW1 ([facility]) Heart rate 72 /min 72 /min eCW1 ([facility]) Body mass index (BMI) [Ratio] 42.17 kg/m2 42.17 kg/m2 eCW1 ([facility] [facility]) Body height 72 [in_us] 72 [in_us] eCW1 ([facility]ly [facility], [facility]) Body weight Measured [lb_av] eCW1 ([facility]) Diastolic blood pressure 67 mm[Hg] 67 mm[Hg] eCW1 ([facility]) Systolic blood pressure 138 mm[Hg] 138 mm[Hg] e CW1 ([facility]) Body temperature 96.7 [degF] 96.7 [degF] eCW1 ( [facility]) Respiratory rate 18 /min 18 /min eCW1 ([facility]) Heart rate 74 /min 74 /min eCW1 ([facility]) Body mass index (BMI) [Ratio] 42.17 kg/m2 42.17 kg/m2 eCW1 ([facility]) Body height 72 [in_us] 72 [in_us] eCW1 ([facility]ly [facility], [facility]) Body weight Measured 311 [lb_av] 311 [lb_av] eC W1 ([facility]) Diastolic blood pressure 68 mm[Hg] 68 mm[Hg] eCW1 ([facility]) Systolic blood pressure 139 mm[Hg] 139 mm[Hg] e CW1 ([facility]) Body temperature 96.4 [degF] 96.4 [degF] eCW1 ( [facility]) Respiratory rate 18 /min 18 /min eCW1 ([facility]) Heart rate 75 /min 75 /min eCW1 ([facility]) Body mass index (BMI) [Ratio] 42.17 kg/m2 42.17 kg/m2 eCW1 ([facility]) Body height 72 [in_us] 72 [in_us] eCW1 ([facility], [facility]) Body weight Measured [lb_av] eCW1 ([facility]) Diastolic blood pressure 65 mm[Hg] 65 mm[Hg] eCW1 ([facility]) Systolic blood pressure 123 mm[Hg] 123 mm[Hg] e CW1 ([facility]) Body temperature 96.7 [degF] 96.7 [degF] eCW1 ( [facility]) Respiratory rate 18 /min 18 /min eCW1 ([facility]) Heart rate 75 /min 75 /min eCW1 ([facility]) Body mass index (BMI) [Ratio] 42.17 kg/m2 42.17 kg/m2 eCW1 ([facility]) Body height 72 [in_us] 72 [in_us] eCW1 ([facility], [facility]) Body weight Measured 311 [lb_av] 311 [lb_av] eC W1 ([facility]) Diastolic blood pressure 75 mm[Hg] 75 mm[Hg] eCW1 ([facility]) Systolic blood pressure 122 mm[Hg] 122 mm[Hg] e CW1 ([facility]) Body temperature 96.7 [degF] 96.7 [degF] eCW1 ( [facility]) Respiratory rate 16 /min 16 /min eCW1 ([facility]) Heart rate 84 /min 84 /min eCW1 ([facility]) Body mass index (BMI) [Ratio] 42.17 kg/m2 42.17 kg/m2 eCW1 ([facility]) Body height 72 [in_i] 72 [in_i] eCW1 ([facility]) Body weight kg eCW1 ([facility]) Body weight 311 [lb_av] 311 [lb_av] eCW1 ([facility]) Diastolic blood pressure 70 mm[Hg] 70 mm[Hg] eCW1 ([facility]) Systolic blood pressure 127 mm[Hg] 127 mm[Hg] e CW1 ([facility]) Body temperature 95.5 [degF] 95.5 [degF] eCW1 ( [facility]) Respiratory rate 16 /min 16 /min eCW1 ([facility]) Heart rate 72 /min 72 /min eCW1 ([facility]) Body mass index (BMI) [Ratio] 42.17 kg/m2 42.17 kg/m2 W1 ([facility]) Body height 72 [in_us] 72 [in_us] eCW1 ([facility]) Body weight Measured [lb_av] eCW1 ([facility]) Diastolic blood pressure 63 mm[Hg] 63 mm[Hg] eCW1 ([facility]) Systolic blood pressure 123 mm[Hg] 123 mm[Hg] e CW1 ([facility]) Body temperature 95.3 [degF] 95.3 [degF] eCW1 ( [facility]) Respiratory rate 18 /min 18 /min eCW1 ([facility]) Heart rate 80 /min 80 /min eCW1 ([facility]) Body mass index (BMI) [Ratio] 42.17 kg/m2 42.17 kg/m2 eCW1 ([facility]) Body height 72 [in_us] 72 [in_us] eCW1 ([facility], [facility]) Body weight Measured [lb_av] eCW1 ([facility]) Diastolic blood pressure 63 mm[Hg] 63 mm[Hg] eCW1 ([facility]) Systolic blood pressure 129 mm[Hg] 129 mm[Hg] e CW1 ([facility]) Body temperature 95.5 [degF] 95.5 [degF] eCW1 ( [facility]) Respiratory rate 18 /min 18 /min eCW1 ([facility]) Heart rate 66 /min 66 /min eCW1 ([facility]) Body mass index (BMI) [Ratio] 42.17 kg/m2 42.17 kg/m2 eCW1 ([facility]) Body height 72 [in_us] 72 [in_us] eCW1 ([facility]) Body weight Measured [lb_av] eCW1 ([facility]) Diastolic blood pressure 68 mm[Hg] 68 mm[Hg] eCW1 ([facility]) Systolic blood pressure 124 mm[Hg] 124 mm[Hg] e CW1 ([facility]) Body temperature 96.0 [degF] 96.0 [degF] eCW1 ( [facility]) Respiratory rate 18 /min 18 /min eCW1 ([facility]) Heart rate 72 /min 72 /min eCW1 ([facility]) Body mass index (BMI) [Ratio] 42.17 kg/m2 42.17 kg/m2 eCW1 ([facility]) Body height 72 [in_us] 72 [in_us] eCW1 ([facility]) Body weight Measured [lb_av] eCW1 ([facility]) Diastolic blood pressure 70 mm[Hg] 70 mm[Hg] eCW1 ([facility]) Systolic blood pressure 153 mm[Hg] 153 mm[Hg] e CW1 ([facility]) Body temperature 97.0 [degF] 97.0 [degF] eCW1 ( [facility]) Respiratory rate 16 /min 16 /min eCW1 ([facility]) Heart rate 91 /min 91 /min eCW1 ([facility]) Body mass index (BMI) [Ratio] 42.17 kg/m2 42.17 kg/m2 eCW1 ([facility]) Body height 72 [in_us] 72 [in_us] eCW1 ([facility]) Body weight Measured 311 [lb_av] 311 [lb_av] eC W1 ([facility]) Diastolic blood pressure 74 mm[Hg] 74 mm[Hg] eCW1 ([facility]) Systolic blood pressure 114 mm[Hg] 114 mm[Hg] e CW1 ([facility]) Body temperature 96.6 [degF] 96.6 [degF] eCW1 ( [facility]) Respiratory rate 18 /min 18 /min eCW1 ([facility]) Heart rate 76 /min 76 /min eCW1 ([facility]) Body mass index (BMI) [Ratio] 42.17 kg/m2 42.17 kg/m2 eCW1 ([facility]) Body height 72 [in_us] 72 [in_us] eCW1 ([facility]) Body weight Measured [lb_av] eCW1 ([facility]) Diastolic blood pressure 65 mm[Hg] 65 mm[Hg] eCW1 ([facility]) Systolic blood pressure 124 mm[Hg] 124 mm[Hg] e CW1 ([facility]) Body temperature 96.1 [degF] 96.1 [degF] eCW1 ( [facility]) Respiratory rate 18 /min 18 /min eCW1 ([facility]) Heart rate 69 /min 69 /min eCW1 ([facility]) Body mass index (BMI) [Ratio] 42.17 kg/m2 42.17 kg/m2 eCW1 ([facility]) Body height 72 [in_us] 72 [in_us] eCW1 ([facility]) Body weight Measured [lb_av] eCW1 ([facility]) Diastolic blood pressure 69 mm[Hg] 69 mm[Hg] eCW1 ([facility]) Systolic blood pressure 146 mm[Hg] 146 mm[Hg] e CW1 ([facility]) Body temperature 96.8 [degF] 96.8 [degF] eCW1 ( [facility]) Respiratory rate 18 /min 18 /min eCW1 ([facility]) Heart rate 82 /min 82 /min eCW1 ([facility]) Body mass index (BMI) [Ratio] 42.17 kg/m2 42.17 kg/m2 eCW1 ([facility]) Body height 72 [in_us] 72 [in_us] eCW1 ([facility]) Body weight Measured [lb_av] eCW1 ([facility]) Diastolic blood pressure 70 mm[Hg] 70 mm[Hg] eCW1 ([facility]) Systolic blood pressure 116 mm[Hg] 116 mm[Hg] e CW1 ([facility]) Body temperature 96.7 [degF] 96.7 [degF] eCW1 ( [facility]) Respiratory rate 18 /min 18 /min eCW1 ([facility]) Heart rate 88 /min 88 /min eCW1 ([facility]) Body mass index (BMI) [Ratio] 42.17 kg/m2 42.17 kg/m2 eCW1 ([facility]) Body height 72 [in_us] 72 [in_us] eCW1 ([facility]) Body weight Measured [lb_av] eCW1 ([facility]) Diastolic blood pressure 85 mm[Hg] 85 mm[Hg] eCW1 ([facility]) Systolic blood pressure 117 mm[Hg] 117 mm[Hg] e CW1 ([facility]) Body temperature 95.1 [degF] 95.1 [degF] eCW1 ( [facility]) Respiratory rate 19 /min 19 /min eCW1 ([facility]) Heart rate 85 /min 85 /min eCW1 ([facility]) Body mass index (BMI) [Ratio] 42.17 kg/m2 42.17 kg/m2 eCW1 ([facility]) Body height 72 [in_us] 72 [in_us] eCW1 ([facility]) Body weight Measured [lb_av] eCW1 ([facility]) Diastolic blood pressure 79 mm[Hg] 79 mm[Hg] eCW1 ([facility]) Systolic blood pressure 135 mm[Hg] 135 mm[Hg] e CW1 ([facility]) Body temperature 95.7 [degF] 95.7 [degF] eCW1 ( [facility]) Respiratory rate 18 /min 18 /min eCW1 ([facility]) Heart rate 87 /min 87 /min eCW1 ([facility]) Body mass index (BMI) [Ratio] 42.17 kg/m2 42.17 kg/m2 eCW1 ([facility]) Body height 72 [in_us] 72 [in_us] eCW1 ([facility]) Body weight Measured [lb_av] eCW1 ([facility]) Diastolic blood pressure 71 mm[Hg] 71 mm[Hg] eCW1 ([facility]) Systolic blood pressure 138 mm[Hg] 138 mm[Hg] e CW1 ([facility]) Body temperature 95.6 [degF] 95.6 [degF] eCW1 ( [facility]) Respiratory rate 18 /min 18 /min eCW1 ([facility]) Heart rate 78 /min 78 /min eCW1 ([facility]) Body mass index (BMI) [Ratio] 42.17 kg/m2 42.17 kg/m2 eCW1 ([facility]) Body height 72 [in_us] 72 [in_us] eCW1 ([facility]) Body weight Measured [lb_av] eCW1 ([facility]) Diastolic blood pressure 84 mm[Hg] 84 mm[Hg] eCW1 ([facility]) Systolic blood pressure 124 mm[Hg] 124 mm[Hg] e CW1 ([facility]) Body temperature 95.1 [degF] 95.1 [degF] eCW1 ( [facility]) Respiratory rate 18 /min 18 /min eCW1 ([facility]) Heart rate 84 /min 84 /min eCW1 ([facility]) Body mass index (BMI) [Ratio] 42.17 kg/m2 42.17 kg/m2 eCW1 ([facility]) Body height 72 [in_us] 72 [in_us] eCW1 ([facility]) Body weight Measured [lb_av] eCW1 ([facility]) Diastolic blood pressure 92 mm[Hg] 92 mm[Hg] eCW1 ([facility]) Systolic blood pressure 130 mm[Hg] 130 mm[Hg] e CW1 ([facility]) Body temperature 96.2 [degF] 96.2 [degF] eCW1 ( [facility]) Respiratory rate 18 /min 18 /min eCW1 ([facility]) Heart rate 90 /min 90 /min eCW1 ([facility]) Body mass index (BMI) [Ratio] 42.17 kg/m2 42.17 kg/m2 eCW1 ([facility]) Body height 72 [in_us] 72 [in_us] eCW1 ([facility]) Body weight Measured [lb_av] eCW1 ([facility]) Diastolic blood pressure 92 mm[Hg] 92 mm[Hg] eCW1 ([facility]) Systolic blood pressure 130 mm[Hg] 130 mm[Hg] e CW1 ([facility]) Body temperature 96.2 [degF] 96.2 [degF] eCW1 ( [facility]) Respiratory rate 18 /min 18 /min eCW1 ([facility]) Heart rate 90 /min 90 /min eCW1 ([facility]) Body mass index (BMI) [Ratio] 42.17 kg/m2 42.17 kg/m2 eCW1 ([facility]) Body height 72 [in_us] 72 [in_us] eCW1 ([facility]) Body weight Measured 311 [lb_av] 311 [lb_av] eC W1 ([facility]) Diastolic blood pressure 67 mm[Hg] 67 mm[Hg] eCW1 ([facility]) Systolic blood pressure 119 mm[Hg] 119 mm[Hg] e CW1 ([facility]) Body temperature 96.0 [degF] 96.0 [degF] eCW1 ( [facility]) Respiratory rate 17 /min 17 /min eCW1 ([facility]) Heart rate 84 /min 84 /min eCW1 ([facility]) Body mass index (BMI) [Ratio] 42.17 kg/m2 42.17 kg/m2 eCW1 ([facility]) Body height 72 [in_us] 72 [in_us] eCW1 ([facility]) Body weight Measured [lb_av] eCW1 ([facility]) Body temperature 96.9 [degF] 96.9 [degF] eCW1 ( [facility]) Respiratory rate 18 /min 18 /min eCW1 ([facility]) Heart rate 74 /min 74 /min eCW1 ([facility]) Body mass index (BMI) [Ratio] 42.17 kg/m2 42.17 kg/m2 eCW1 ([facility]) Body height 72 [in_us] 72 [in_us] eCW1 ([facility]) Body weight Measured [lb_av] eCW1 ([facility]) Diastolic blood pressure 68 mm[Hg] 68 mm[Hg] eCW1 ([facility]) Systolic blood pressure 125 mm[Hg] 125 mm[Hg] e CW1 ([facility]) Diastolic blood pressure 79 mm[Hg] 79 mm[Hg] eCW1 ([facility]) Systolic blood pressure 130 mm[Hg] 130 mm[Hg] e CW1 ([facility]) Body temperature 96.1 [degF] 96.1 [degF] eCW1 ( [facility]) Respiratory rate 19 /min 19 /min eCW1 ([facility]) Heart rate 84 /min 84 /min eCW1 ([facility]) Body mass index (BMI) [Ratio] 42.17 kg/m2 42.17 kg/m2 eCW1 ([facility]) Body height 72 [in_us] 72 [in_us] eCW1 ([facility]) Body weight Measured [lb_av] eCW1 ([facility]) Diastolic blood pressure 81 mm[Hg] 81 mm[Hg] eCW1 ([facility]) Systolic blood pressure 133 mm[Hg] 133 mm[Hg] e CW1 ([facility]) Body temperature 96.2 [degF] 96.2 [degF] eCW1 ( [facility]) Respiratory rate 19 /min 19 /min eCW1 ([facility]) Heart rate 78 /min 78 /min eCW1 ([facility]) Body mass index (BMI) [Ratio] 42.17 kg/m2 42.17 kg/m2 eCW1 ([facility]) Body height 72 [in_us] 72 [in_us] eCW1 ([facility]) Body weight Measured [lb_av] eCW1 ([facility]) Diastolic blood pressure 89 mm[Hg] 89 mm[Hg] eCW1 ([facility]) Systolic blood pressure 123 mm[Hg] 123 mm[Hg] e CW1 ([facility]) Body temperature 97.6 [degF] 97.6 [degF] eCW1 ( [facility]) Respiratory rate 18 /min 18 /min eCW1 ([facility]) Heart rate 60 /min 60 /min eCW1 ([facility]) Body mass index (BMI) [Ratio] 42.17 kg/m2 42.17 kg/m2 eCW1 ([facility]) Body height 72 [in_us] 72 [in_us] eCW1 ([facility]) Body weight Measured [lb_av] eCW1 ([facility]) Diastolic blood pressure 89 mm[Hg] 89 mm[Hg] eCW1 ([facility]) Systolic blood pressure 123 mm[Hg] 123 mm[Hg] e CW1 ([facility]) Body temperature 97.6 [degF] 97.6 [degF] eCW1 ( [facility]) Respiratory rate 18 /min 18 /min eCW1 ([facility]) Heart rate 60 /min 60 /min eCW1 ([facility]) Body mass index (BMI) [Ratio] 42.17 kg/m2 42.17 kg/m2 eCW1 ([facility]) Body height 72 [in_us] 72 [in_us] eCW1 ([facility]) Body weight Measured 311 [lb_av] 311 [lb_av] eC W1 ([facility]) Diastolic blood pressure 67 mm[Hg] 67 mm[Hg] eCW1 ([facility]) Systolic blood pressure 132 mm[Hg] 132 mm[Hg] e CW1 ([facility]) Body temperature 95.9 [degF] 95.9 [degF] eCW1 ( [facility]) Respiratory rate 18 /min 18 /min eCW1 ([facility]) Heart rate 70 /min 70 /min eCW1 ([facility]) Body mass index (BMI) [Ratio] 44.89 kg/m2 44.89 kg/m2 eCW1 ([facility]) Body height 72 [in_us] 72 [in_us] eCW1 ([facility]) Body weight Measured [lb_av] eCW1 ([facility]) Diastolic blood pressure 74 mm[Hg] 74 mm[Hg] eCW1 ([facility]) Systolic blood pressure 130 mm[Hg] 130 mm[Hg] e CW1 ([facility]) Body temperature 95.5 [degF] 95.5 [degF] eCW1 ( [facility]) Respiratory rate 18 /min 18 /min eCW1 ([facility]) Heart rate 82 /min 82 /min eCW1 ([facility]) Body mass index (BMI) [Ratio] 44.89 kg/m2 44.89 kg/m2 eCW1 ([facility]) Body height 72 [in_us] 72 [in_us] eCW1 ([facility]) Body weight Measured [lb_av] eCW1 ([facility]) Diastolic blood pressure 66 mm[Hg] 66 mm[Hg] eCW1 ([facility]) Systolic blood pressure 120 mm[Hg] 120 mm[Hg] e CW1 ([facility]) Body temperature 96.3 [degF] 96.3 [degF] eCW1 ( [facility]) Respiratory rate 18 /min 18 /min eCW1 ([facility]) Heart rate 87 /min 87 /min eCW1 ([facility]) Body mass index (BMI) [Ratio] 44.89 kg/m2 44.89 kg/m2 eCW1 ([facility]) Body height 72 [in_us] 72 [in_us] eCW1 ([facility]) Body weight Measured [lb_av] eCW1 ([facility]) Diastolic blood pressure 63 mm[Hg] 63 mm[Hg] eCW1 ([facility]) Systolic blood pressure 111 mm[Hg] 111 mm[Hg] e CW1 ([facility]) Body temperature 96.5 [degF] 96.5 [degF] eCW1 ( [facility]) Respiratory rate 18 /min 18 /min eCW1 ([facility]) Heart rate 106 /min 106 /min eCW1 ([facility]) Body mass index (BMI) [Ratio] 44.89 kg/m2 44.89 kg/m2 eCW1 ([facility]) Body height 72 [in_us] 72 [in_us] eCW1 ([facility]) Body weight Measured 331 [lb_av] 331 [lb_av] eC W1 ([facility]) Diastolic blood pressure 57 mm[Hg] 57 mm[Hg] eCW1 ([facility]) Systolic blood pressure 104 mm[Hg] 104 mm[Hg] e CW1 ([facility]) Body temperature 96.6 [degF] 96.6 [degF] eCW1 ( [facility]) Respiratory rate 18 /min 18 /min eCW1 ([facility]) Heart rate 88 /min 88 /min eCW1 ([facility]) Body mass index (BMI) [Ratio] 44.89 kg/m2 44.89 kg/m2 eCW1 ([facility]) Body height 72 [in_us] 72 [in_us] eCW1 ([facility]) Body weight Measured 331 [lb_av] 331 [lb_av] eC W1 ([facility]) Diastolic blood pressure 76 mm[Hg] 76 mm[Hg] eCW1 ([facility]) Systolic blood pressure 111 mm[Hg] 111 mm[Hg] e CW1 ([facility]) Body temperature 96.5 [degF] 96.5 [degF] eCW1 ( [facility]) Respiratory rate 16 /min 16 /min eCW1 ([facility]) Heart rate 99 /min 99 /min eCW1 ([facility]) Body mass index (BMI) [Ratio] 44.89 kg/m2 44.89 kg/m2 eCW1 ([facility]) Body height 72 [in_us] 72 [in_us] eCW1 ([facility]) Body weight Measured 331 [lb_av] 331 [lb_av] eC W1 ([facility]) Diastolic blood pressure 65 mm[Hg] 65 mm[Hg] eCW1 ([facility]) Systolic blood pressure 123 mm[Hg] 123 mm[Hg] e CW1 ([facility]) Body temperature 96.9 [degF] 96.9 [degF] eCW1 ( [facility]) Respiratory rate 18 /min 18 /min eCW1 ([facility]) Heart rate 88 /min 88 /min eCW1 ([facility]) Body mass index (BMI) [Ratio] 44.89 kg/m2 44.89 kg/m2 eCW1 ([facility]) Body height 72 [in_us] 72 [in_us] eCW1 ([facility]) Body weight Measured [lb_av] eCW1 ([facility]) Diastolic blood pressure 63 mm[Hg] 63 mm[Hg] eCW1 ([facility]) Systolic blood pressure 116 mm[Hg] 116 mm[Hg] e CW1 ([facility]) Body temperature 96.8 [degF] 96.8 [degF] eCW1 ( [facility]) Respiratory rate 18 /min 18 /min eCW1 ([facility]) Heart rate 95 /min 95 /min eCW1 ([facility]) Body mass index (BMI) [Ratio] 44.89 kg/m2 44.89 kg/m2 eCW1 ([facility]) Body height 72 [in_us] 72 [in_us] eCW1 ([facility]) Body weight Measured [lb_av] eCW1 ([facility]) Diastolic blood pressure 81 mm[Hg] 81 mm[Hg] eCW1 ([facility]) Systolic blood pressure 129 mm[Hg] 129 mm[Hg] e CW1 ([facility]) Body temperature 95.9 [degF] 95.9 [degF] eCW1 ( [facility]) Respiratory rate 18 /min 18 /min eCW1 ([facility]) Heart rate 78 /min 78 /min eCW1 ([facility]) Body mass index (BMI) [Ratio] 44.89 kg/m2 44.89 kg/m2 eCW1 ([facility]) Body height 72 [in_us] 72 [in_us] eCW1 ([facility]) Body weight Measured [lb_av] eCW1 ([facility]) Body mass index (BMI) [Ratio] 44.89 kg/m2 44.89 kg/m2 eCW1 ([facility] [facility]) Body height 72 [in_us] 72 [in_us] eCW1 ([facility], [facility]) Body weight Measured [lb_av] eCW1 ([facility]) Diastolic blood pressure 60 mm[Hg] 60 mm[Hg] eCW1 ([facility]) Systolic blood pressure 118 mm[Hg] 118 mm[Hg] e CW1 ([facility]) Body temperature 96.6 [degF] 96.6 [degF] eCW1 ( [facility]) Respiratory rate 17 /min 17 /min eCW1 ([facility]) Heart rate 76 /min 76 /min eCW1 ([facility]) Diastolic blood pressure 60 mm[Hg] 60 mm[Hg] eCW1 ([facility]) Systolic blood pressure 118 mm[Hg] 118 mm[Hg] e CW1 ([facility]) Body temperature 96.6 [degF] 96.6 [degF] eCW1 ( [facility]) Respiratory rate 18 /min 18 /min eCW1 ([facility]) Heart rate 102 /min 102 /min eCW1 ([facility]) Body mass index (BMI) [Ratio] 44.89 kg/m2 44.89 kg/m2 eCW1 ([facility]) Body height 72 [in_us] 72 [in_us] eCW1 ([facility]) Body weight Measured 331 [lb_av] 331 [lb_av] eC W1 ([facility]) Diastolic blood pressure 65 mm[Hg] 65 mm[Hg] eCW1 ([facility]) Systolic blood pressure 127 mm[Hg] 127 mm[Hg] e CW1 ([facility]) Body temperature 96.0 [degF] 96.0 [degF] eCW1 ( [facility]) Respiratory rate 17 /min 17 /min eCW1 ([facility]) Heart rate 70 /min 70 /min eCW1 ([facility]) Body mass index (BMI) [Ratio] 44.89 kg/m2 44.89 kg/m2 eCW1 ([facility]) Body height 72 [in_us] 72 [in_us] eCW1 ([facility]) Body weight Measured [lb_av] eCW1 ([facility]) Diastolic blood pressure 69 mm[Hg] 69 mm[Hg] eCW1 ([facility]) Systolic blood pressure 128 mm[Hg] 128 mm[Hg] e CW1 ([facility]) Body temperature 95.5 [degF] 95.5 [degF] eCW1 ( [facility]) Respiratory rate 17 /min 17 /min eCW1 ([facility]) Heart rate 75 /min 75 /min eCW1 ([facility]) Body mass index (BMI) [Ratio] 44.89 kg/m2 44.89 kg/m2 eCW1 ([facility]) Body height 72 [in_us] 72 [in_us] eCW1 ([facility]) Body weight Measured [lb_av] eCW1 ([facility]) Diastolic blood pressure 72 mm[Hg] 72 mm[Hg] eCW1 ([facility]) Systolic blood pressure 128 mm[Hg] 128 mm[Hg] e CW1 ([facility]) Deprecated Oxygen saturation in Capillary blood by Oximetry 93 % 93 % eCW1 ([facility]) Respiratory rate 18 /min 18 /min eCW1 ([facility]) Heart rate 78 /min 78 /min eCW1 ([facility]) Body temperature 98.3 [degF] 98.3 [degF] eCW1 ( [facility]) Body mass index (BMI) [Ratio] 44.89 kg/m2 44.89 kg/m2 eCW1 ([facility]) Body weight Measured 331 [lb_av] 331 [lb_av] eC W1 ([facility]) Body height 72 [in_us] 72 [in_us] eCW1 ([facility]) Diastolic blood pressure 74 mm[Hg] 74 mm[Hg] eCW1 ([facility]) Systolic blood pressure 128 mm[Hg] 128 mm[Hg] e CW1 ([facility]) Body temperature 96.5 [degF] 96.5 [degF] eCW1 ( [facility]) Respiratory rate 17 /min 17 /min eCW1 ([facility]) Heart rate 110 /min 110 /min eCW1 ([facility]) Body mass index (BMI) [Ratio] 44.89 kg/m2 44.89 kg/m2 eCW1 ([facility]) Body height 72 [in_us] 72 [in_us] eCW1 ([facility]) Body weight Measured [lb_av] eCW1 ([facility]) Diastolic blood pressure 65 mm[Hg] 65 mm[Hg] eCW1 ([facility]) Systolic blood pressure 110 mm[Hg] 110 mm[Hg] e CW1 ([facility]) Body temperature 97.0 [degF] 97.0 [degF] eCW1 ( [facility]) Respiratory rate 17 /min 17 /min eCW1 ([facility]) Heart rate 80 /min 80 /min eCW1 ([facility]) Body mass index (BMI) [Ratio] 44.89 kg/m2 44.89 kg/m2 eCW1 ([facility]) Body height 72 [in_us] 72 [in_us] eCW1 ([facility]) Body weight Measured [lb_av] eCW1 ([facility]) Diastolic blood pressure 79 mm[Hg] 79 mm[Hg] eCW1 ([facility]) Systolic blood pressure 122 mm[Hg] 122 mm[Hg] e CW1 ([facility]) Body temperature 96.3 [degF] 96.3 [degF] eCW1 ( [facility]) Respiratory rate 18 /min 18 /min eCW1 ([facility]) Heart rate 92 /min 92 /min eCW1 ([facility]) Body mass index (BMI) [Ratio] 44.89 kg/m2 44.89 kg/m2 eCW1 ([facility]) Body height 72 [in_us] 72 [in_us] eCW1 ([facility]) Body weight Measured 331 [lb_av] 331 [lb_av] eC W1 ([facility]) Diastolic blood pressure 67 mm[Hg] 67 mm[Hg] eCW1 ([facility]) Systolic blood pressure 120 mm[Hg] 120 mm[Hg] e CW1 ([facility]) Body temperature 96.5 [degF] 96.5 [degF] eCW1 ( [facility]) Respiratory rate 18 /min 18 /min eCW1 ([facility]) Heart rate 88 /min 88 /min eCW1 ([facility]) Body mass index (BMI) [Ratio] 44.89 kg/m2 44.89 kg/m2 eCW1 ([facility]) Body height 72 [in_us] 72 [in_us] eCW1 ([facility]) Body weight Measured [lb_av] eCW1 ([facility]) Diastolic blood pressure 65 mm[Hg] 65 mm[Hg] eCW1 ([facility]) Systolic blood pressure 126 mm[Hg] 126 mm[Hg] e CW1 ([facility]) Body temperature 95.5 [degF] 95.5 [degF] eCW1 ( [facility]) Respiratory rate 18 /min 18 /min eCW1 ([facility]) Heart rate 84 /min 84 /min eCW1 ([facility]) Body mass index (BMI) [Ratio] 44.89 kg/m2 44.89 kg/m2 eCW1 ([facility]) Body height 72 [in_us] 72 [in_us] eCW1 ([facility]) Body weight Measured [lb_av] eCW1 ([facility]) Diastolic blood pressure 98 mm[Hg] 98 mm[Hg] eCW1 ([facility]) Systolic blood pressure 138 mm[Hg] 138 mm[Hg] e CW1 ([facility]) Body temperature 96.1 [degF] 96.1 [degF] eCW1 ( [facility]) Respiratory rate 20 /min 20 /min eCW1 ([facility]) Heart rate 115 /min 115 /min eCW1 ([facility]) Body mass index (BMI) [Ratio] 44.89 kg/m2 44.89 kg/m2 eCW1 ([facility]) Body height 72 [in_us] 72 [in_us] eCW1 ([facility]) Body weight Measured [lb_av] eCW1 ([facility]) Diastolic blood pressure 74 mm[Hg] 74 mm[Hg] eCW1 ([facility]) Systolic blood pressure 134 mm[Hg] 134 mm[Hg] e CW1 ([facility]) Body temperature 95.9 [degF] 95.9 [degF] eCW1 ( [facility]) Respiratory rate 18 /min 18 /min eCW1 ([facility]) Heart rate 111 /min 111 /min eCW1 ([facility]) Body mass index (BMI) [Ratio] 46.79 kg/m2 46.79 kg/m2 eCW1 ([facility]) Body height 72 [in_us] 72 [in_us] eCW1 ([facility]) Body weight Measured 345 [lb_av] 345 [lb_av] eC W1 ([facility]) Diastolic blood pressure 73 mm[Hg] 73 mm[Hg] eCW1 ([facility]) Systolic blood pressure 116 mm[Hg] 116 mm[Hg] e CW1 ([facility]) Body temperature 96.1 [degF] 96.1 [degF] eCW1 ( [facility]) Respiratory rate 20 /min 20 /min eCW1 ([facility]) Heart rate 89 /min 89 /min eCW1 ([facility]) Body mass index (BMI) [Ratio] 46.79 kg/m2 46.79 kg/m2 W1 ([facility]) Body height 72 [in_us] 72 [in_us] eCW1 ([facility]) Body weight Measured 345 [lb_av] 345 [lb_av] eC W1 ([facility]) Body mass index (BMI) [Ratio] 45.8 kg/m2 45.8 k g/m2 MEDENT ([facility] Body weight 338.00 [lb_av] 338.00 [lb_av] MEDEN T ([facility] Body height 72 [in_i] 72 [in_i] MEDENT ([facility] 6'0" Diastolic blood pressure 66 mm[Hg] 66 mm[Hg] eCW1 ([facility]) Systolic blood pressure 122 mm[Hg] 122 mm[Hg] e CW1 ([facility]) Body temperature 97.7 [degF] 97.7 [degF] eCW1 ( [facility]) Respiratory rate 18 /min 18 /min eCW1 ([facility]) Heart rate 92 /min 92 /min eCW1 ([facility]) Body mass index (BMI) [Ratio] 46.79 kg/m2 46.79 kg/m2 eCW1 ([facility]) Body height 72 [in_us] 72 [in_us] eCW1 ([facility]) Body weight Measured 345 [lb_av] 345 [lb_av] eC W1 ([facility]) Diastolic blood pressure 80 mm[Hg] 80 mm[Hg] eCW1 ([facility]) Systolic blood pressure 117 mm[Hg] 117 mm[Hg] e CW1 ([facility]) Body temperature 96.3 [degF] 96.3 [degF] eCW1 ( [facility]) Respiratory rate 18 /min 18 /min eCW1 ([facility]) Heart rate 112 /min 112 /min eCW1 ([facility]) Body mass index (BMI) [Ratio] 46.79 kg/m2 46.79 kg/m2 eCW1 ([facility]) Body height 72 [in_us] 72 [in_us] eCW1 ([facility]) Body weight Measured 345 [lb_av] 345 [lb_av] eC W1 ([facility]) Diastolic blood pressure 63 mm[Hg] 63 mm[Hg] eCW1 ([facility]) Systolic blood pressure 130 mm[Hg] 130 mm[Hg] e CW1 ([facility]) Body temperature 96.9 [degF] 96.9 [degF] eCW1 ( [facility]) Respiratory rate 16 /min 16 /min eCW1 ([facility]) Heart rate 113 /min 113 /min eCW1 ([facility]) Body mass index (BMI) [Ratio] 46.79 kg/m2 46.79 kg/m2 eCW1 ([facility]) Body height 72 [in_us] 72 [in_us] eCW1 ([facility]) Body weight Measured 345 [lb_av] 345 [lb_av] eC W1 ([facility]) Diastolic blood pressure 81 mm[Hg] 81 mm[Hg] eCW1 ([facility]) Systolic blood pressure 172 mm[Hg] 172 mm[Hg] e CW1 ([facility]) Body temperature 96.6 [degF] 96.6 [degF] eCW1 ( [facility]) Respiratory rate 18 /min 18 /min eCW1 ([facility]) Heart rate 115 /min 115 /min eCW1 ([facility]) Body mass index (BMI) [Ratio] 46.79 kg/m2 46.79 kg/m2 eCW1 ([facility]) Body height 72 [in_us] 72 [in_us] eCW1 ([facility]) Body weight Measured 345 [lb_av] 345 [lb_av] eC W1 ([facility]) ID Date Data Source [id number] 06/12/2020 02:26:00 PM EDT [facility] ricardo Name Value Range Interpretation Code Description Data Source(s) WEIGHT 130.45 kilos 130.45 kilos [facility] spital HEIGHT 182.88 centimeters 182.88 centimeter [facility] WEIGHT 130.45 kilos 130.45 kilos [facility] spital HEIGHT 182.88 centimeters 182.88 centimeter [facility] Patient Treatment Plan of Care Planned Activity Planned Date Details Description Data Source (s) 3 ML Insulin, Aspart, Human 100 UNT/ML Pen Injector [N ovoLog] 11/16/2019 12:00:00 AM EST eCW1 ([facility]) Amoxicillin 875 MG / Clavulanate 125 MG Oral Tablet 10/12/19 12:00:00 AM EST eCW1 ([facility]) Doxycycline Hyclate 100 MG 10/10/2019 12:00:00 AM ALEC eCW1 ([facility])
[2020-10-22] MEDS ORDERED: KETAMINE HCL 200 MG/20 ML VIAL As Ordered ONE (11:04)
[2020-10-22] MEDS ORDERED: ACETAMINOPHEN 1000MG 100ML IV BTL (OFIRMEV) (J0131 PER 10MG) As Ordered ONE (11:52)
--- NOTE | 2020-10-22 12:46 | RO ---
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 PROCEDURE: Left second metatarsal head excision. SURGEON: Nelson Laboy DPM ADULT LITERACY TEACHER: None. ANESTHESIA: Monitored anesthesia care, preop injection of 10 mL of a 1:1 mixture of 1% lidocaine plain, 1/2% Marcaine plain. ESTIMATED BLOOD LOSS: Minimal. MATERIALS: 3-0 Vicryl, 3-0 nylon. INJECTABLES: None. COMPLICATION: None. SPECIMEN: Left second metatarsal head. 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 He has relative elongation and plantarflexion of his bone. He presents today for surgical excision. The patient's side and site were identified and marked in the preoperative area. Consent was reviewed and obtained. The risks, complications and alternatives to the procedure were explained to the patient in detail and all questions were answered. DESCRIPTION OF PROCEDURE: |The patient was brought to the operating room and placed on the operating room table. Monitored anesthesia care was delivered by the anesthesia team. Preop injection of 10 mL of a 1:1 mixture of 1% lidocaine plain, 1/2% Marcaine plain was injected in the left foot. The left foot was prepped and draped in normal sterile fashion. A tourniquet was applied to the left ankle and inflated to 250 mmHg. An incision was made along the medial aspect of the second metatarsal and carried through with a #15 blade. Dissection was carried until the second metatarsal was identified. Soft tissue attachments were released using A #15 blade and tenotomy scissors. Following this, the metatarsal head was resected with sagittal saw and sent for pathology. The site was irrigated with normal saline. Closure was performed with 3-0 Vicryl and 3-0 nylon. Sterile dressings were applied. The patient was brought to the PACU with vital signs stable, neurovascular status intact. He will follow up in office in two days."
[2020-10-22 13:05] VITALS: BP 128/76
== END 2020-10-22 13:12 | disposition home or self-care (01) ==
LOC: M SDC 09:36
PROVIDERS: ATTEND Podiatrist Foot & Ankle Surgery
DX: M20.5X2 Other deformities of toe(s) (acquired), left foot (principal); E10.621 Type 1 diabetes mellitus with foot ulcer; L97.519 Non-pressure chronic ulcer of other part of right foot with unspecified severity; Z79.4 Long term (current) use of insulin; E78.5 Hyperlipidemia, unspecified; G47.33 Obstructive sleep apnea (adult) (pediatric); Z79.82 Long term (current) use of aspirin; Z79.899 Other long term (current) drug therapy; Z88.2 Allergy status to sulfonamides
CPT/HCPCS: 28112; 88300; J0131; J0690; J2250

== ENCOUNTER → 2023-01-27 | Outpatient (CLI) | payer BC ==
[~2023-01-27] MED LIST changes: -BUPIVACAINE HCL 0.5% 30 ML VIAL As Ordered ONE; -LIDOCAINE 1% SDV 30ML VIAL As Ordered ONE; -LIDOCAINE 2% 100MG/5ML SDV (FOR ANES.) As Ordered ONE; -LR 1,000 ML IV ONE; -MIDAZOLAM INJ 2MG/2ML VIAL (J2250 PER 1MG) As Ordered ONE; -ceFAZolin SOD 2 GM in IV 1 EA IV ONE; -dexameTHASONE 4 MG/ML 1ML VIAL (J1100 PER 1MG) As Ordered ONE; -propofoL 200 MG/20 ML VIAL As Ordered ONE
== END ==
LOC: M RAD 15:35
PROVIDERS: ATTEND Surgery
DX: E11.621 Type 2 diabetes mellitus with foot ulcer (principal); R68.89 Other general symptoms and signs

== ENCOUNTER 2025-05-15 14:17 | Inpatient (IN) | payer BC ==
[~2025-05-15] VITALS: Ht 180.3 cm; Wt 152.9 kg
[~2025-05-15 14:17] MED LIST changes: +LISI40TA10 PO; -LISI40TA4 PO
[2025-05-15] MEDS ORDERED: MOM 30 ML SUSPENSION UDC PO PRN (15:50)
[2025-05-15] MEDS ORDERED: BISACODYL 10 MG SUPP PR PRN (15:50)
[2025-05-15] MEDS ORDERED: SIMETHICONE 80MG CHEW TAB PO PRN (15:50)
[2025-05-15] MEDS ORDERED: MAALOX 30 ML SUSP *UDC PO PRN (15:50)
[2025-05-15] MEDS ORDERED: GLUCOSE 4 GM CHEW PO PRN (15:50)
[2025-05-15] MEDS ORDERED: BISACODYL 5 MG TAB PO PRN (15:50)
[2025-05-15] MEDS ORDERED: GLUCAGON INJ 1 MG VIAL SC PRN (15:50)
[2025-05-15] MEDS ORDERED: DEXTROSE 50% 50 ML SYRINGE IV PRN (15:50)
[2025-05-15] MEDS ORDERED: MECLIZINE 25 MG TABLET PO PRN (15:50)
[2025-05-15 19:42] VITALS: BP 111/64; TEMP 96.7; O2SAT 96
[2025-05-15] MEDS ORDERED: HEPARIN SC (20:02)
[2025-05-15] MEDS ORDERED: HUMU1INJ2 SC (20:02)
[2025-05-15] MEDS ORDERED: DOCU100T8 PO (20:02)
[2025-05-15] MEDS ORDERED: HUMA100I5 SC (20:02)
[2025-05-15] MEDS ORDERED: ATOR80TA59 PO (20:04)
[2025-05-15] MEDS ORDERED: METF-838 PO (20:04)
[2025-05-15] MEDS ORDERED: CLOP75TA99 PO (20:05)
[2025-05-15] MEDS ORDERED: MED REC COMMENT (20:07)
[2025-05-15] MEDS ORDERED: HOME MED LIST COMPLETE! XX SCH (20:10)
[2025-05-15] MEDS: INSULIN LISPRO (NovoLOG) PER UNIT SC SCH (20:59)
[2025-05-15] MEDS: SENNA 8.6 MG TAB PO SCH (21:00)
[2025-05-15] MEDS: DOCUSATE SODIUM 100 MG CAPSULE PO SCH (21:00)
[2025-05-15] MEDS: ATORVASTATIN 20 MG TAB PO SCH (22:12)
[2025-05-15] MEDS: METOPROLOL SUCC. 25 MG *XL* TAB PO SCH (22:13)
[2025-05-15] MEDS: LanTUS (INSULIN GLARGINE INJ) 1 UNITS/0.01 ML SC SCH (22:14)
[2025-05-16 03:50] VITALS: BP 103/54; TEMP 97; O2SAT 96
[2025-05-16 07:19] LABS: BASO # 0.0 10^3/uL (0.0-0.2); BASO % 0.4 % (0.0-1.0); EOS # 0.3 10^3/uL (0.0-0.5); EOS % 3.7 % (0.0-3.0); LYMPH # 2.0 10^3/uL (1.5-5.0); LYMPH % 24.3 % (24.0-44.0); MONO # 0.7 10^3/uL (0.0-0.8); MONO % 9.0 % (2.0-8.0); NEUTROPHILS # 5.0 10^3/uL (1.5-8.5); NEUTROPHILS % 62.0 % (36.0-66.0); PLATELET COUNT, AUTOMATED 191 10^3/uL (150-450)
[2025-05-16 07:35] LABS: ESTIMATED AVERAGE GLUCOSE 157.0 MG/DL (60-110)
[2025-05-16 07:50] LABS: ALT/SGPT 65.0 U/L (7.0-40); AST/SGOT 37.0 U/L (<34); CALCIUM LEVEL 8.5 MG/DL (8.5-10.1); CARBON DIOXIDE LEVEL 24.0 MMOL/L (20-31); CHLORIDE LEVEL 106.0 MMOL/L (98-107); CREATININE FOR GFR 1.08 MG/DL (0.70-1.30); GLOMERULAR FILTRATION RATE 79.5 (>56); POTASSIUM SERUM 4.3 MMOL/L (3.5-5.1); SODIUM LEVEL 138.0 MMOL/L (136-145)
[2025-05-16] MEDS: ASPIRIN 81 MG ENTERIC TABLET PO SCH (08:47)
[2025-05-16] MEDS: CLOPIDOGREL 75 MG TAB PO SCH (08:47)
[2025-05-16] MEDS: INSULIN LISPRO (NovoLOG) PER UNIT SC SCH (08:48)
[2025-05-16] MEDS: MIRALAX *UNIT DOSE* 17 GM PACKET PO SCH (08:50)
[2025-05-16] MEDS: hydroCHLOROthiazide 25 MG TAB PO SCH (08:53)
[2025-05-16] MEDS ORDERED: HEPARIN SOD 5000 UNITS/ML 1 ML VIAL/SYRINGE SQ SCH (09:00)
[2025-05-16] MEDS ORDERED: ENOXAPARIN 40 MG/0.4 ML SYRINGE (J1650 PER 10MG) SC SCH (09:00)
[2025-05-16] MEDS ORDERED: TIRZ2.5P3 SQ (11:05)
[2025-05-16 12:00] VITALS: BP 130/66; TEMP 97.4; O2SAT 97
[2025-05-16] MEDS: HEPARIN SOD 5000 UNITS/ML 1 ML VIAL/SYRINGE SQ SCH (13:25)
[2025-05-16] MEDS ORDERED: MECLIZINE 25 MG TABLET PO PRN (14:20)
[2025-05-16] MEDS ORDERED: TRUL0.5I INJ (14:22)
[2025-05-16] MEDS ORDERED: NOVOINJ3 SC (14:22)
[2025-05-16] MEDS ORDERED: LANTINJ4 INJ (14:22)
[2025-05-16 19:36] VITALS: BP 115/62; TEMP 96.5; O2SAT 96
[2025-05-16] MEDS: ACETAMINOPHEN 500 MG TAB PO PRN (21:20)
[2025-05-17 04:00] VITALS: BP 120/56; TEMP 97.4; O2SAT 95
[2025-05-17] MEDS: MECLIZINE 25 MG TABLET PO SCH (06:05)
[2025-05-17 08:54] VITALS: BP 132/89; TEMP 97.3; O2SAT 100
[2025-05-17] MEDS: INVOKANA 300 MG PO SCH (09:00)
[2025-05-17] MEDS ORDERED: TRULICITY XX SCH (09:00)
[2025-05-17 11:55] VITALS: BP 106/53; TEMP 98.9; O2SAT 95
[2025-05-17 12:13] VITALS: BP 126/73; TEMP 97.2; O2SAT 96
[2025-05-17 20:00] VITALS: BP 124/69; TEMP 98; O2SAT 97
[2025-05-18 04:00] VITALS: BP 135/75; TEMP 97; O2SAT 93
[2025-05-18 12:07] VITALS: BP 135/72; TEMP 97.2; O2SAT 95
[2025-05-18 20:00] VITALS: BP 139/67; TEMP 97; O2SAT 96
[2025-05-19 04:00] VITALS: BP 114/55; TEMP 97; O2SAT 98
[2025-05-19 07:22] LABS: PLATELET COUNT, AUTOMATED 188 10^3/uL (150-450)
[2025-05-19] MEDS: TRULICITY 1.5 MG/0.5 ML SC SCH (08:27)
[2025-05-19 12:49] VITALS: BP 127/56; TEMP 97; O2SAT 97
[2025-05-19 19:23] VITALS: BP 120/66; TEMP 96.6; O2SAT 94
[2025-05-20 03:50] VITALS: BP 109/55; TEMP 97.8; O2SAT 97
[2025-05-20 07:50] VITALS: BP 125/62; TEMP 97.2; O2SAT 95
[2025-05-20 11:27] VITALS: BP 109/72; TEMP 97.2; O2SAT 94
[2025-05-20] MEDS: SCOPOLAMINE 1MG TRANSDERMAL PATCH TOP SCH (17:21)
[2025-05-20 20:00] VITALS: BP 126/72; TEMP 98.2; O2SAT 97
[2025-05-21 04:00] VITALS: BP 101/51; TEMP 98.2; O2SAT 95
[2025-05-21 11:26] VITALS: BP 110/60; TEMP 97.5; O2SAT 96
[2025-05-21 20:00] VITALS: BP 124/63; TEMP 98.3; O2SAT 96
[2025-05-21] MEDS: HEPARIN SOD 5000 UNITS/ML 1 ML VIAL/SYRINGE SQ SCH (20:28)
[2025-05-22 04:00] VITALS: BP 119/65; TEMP 97.8; O2SAT 99
[2025-05-22 08:22] LABS: PLATELET COUNT, AUTOMATED 202 10^3/uL (150-450)
[2025-05-22 11:53] VITALS: BP 113/71; TEMP 97.3; O2SAT 96
[2025-05-22 20:00] VITALS: BP 139/67; TEMP 97.6; O2SAT 97
[2025-05-23 04:00] VITALS: BP 107/62; TEMP 98.1; O2SAT 98
[2025-05-23 11:43] VITALS: BP 122/68; TEMP 97.2; O2SAT 96
[2025-05-23 20:00] VITALS: BP 115/63; TEMP 98.5; O2SAT 97
[2025-05-23] MEDS: INSULIN GLARGINE-YFGN 1 UNITS/0.01 ML SC SCH (20:23)
[2025-05-24 04:00] VITALS: BP 125/66; TEMP 98.5; O2SAT 97
[2025-05-24 11:54] VITALS: BP 110/65; TEMP 97.5; O2SAT 96
[2025-05-24] MEDS ORDERED: LISI40TA10 PO (14:11)
[2025-05-24] MEDS ORDERED: HYDR-3490 PO (14:11)
[2025-05-24] MEDS ORDERED: Scopolamine TOP (14:12)
[2025-05-24] MEDS ORDERED: METO1TAB32 PO (14:12)
[2025-05-24] MEDS ORDERED: MECL-86 PO (14:12)
[2025-05-24] MEDS ORDERED: ACET-683 PO (14:12)
[2025-05-24] MEDS ORDERED: CLOP75TA2 PO (14:12)
[2025-05-24] MEDS ORDERED: ATOR1TAB21 PO (14:12)
[2025-05-24] MEDS ORDERED: COLA100C5 PO (14:12)
[2025-05-24 20:00] VITALS: BP_SYST 114; BP_DIAS 114; BP_DIAS 71; TEMP 97.4; O2SAT 96
[2025-05-25 03:31] VITALS: BP 98/55; TEMP 98; O2SAT 98
[2025-05-25 08:08] LABS: PLATELET COUNT, AUTOMATED 218 10^3/uL (150-450)
[2025-05-25 12:04] VITALS: BP 105/74; TEMP 97.3; O2SAT 96
[2025-05-25 20:00] VITALS: BP 125/65; TEMP 97.4; O2SAT 97
[2025-05-26 04:00] VITALS: BP 112/65; TEMP 98.3; O2SAT 95
[2025-05-26 07:25] VITALS: BP 129/76
[2025-05-26 20:00] VITALS: BP 159/65; TEMP 97.3; O2SAT 98
[2025-05-26 20:59] VITALS: BP 159/65
[2025-05-27 04:00] VITALS: BP 117/63; TEMP 97.5; O2SAT 100
== END 2025-05-27 11:30 | disposition home health service (06) | DRG 58 ==
LOC: M PM&R 16:45
PROVIDERS: ADMIT Physical Medicine & Rehabilitation; ATTEND Physical Medicine & Rehabilitation
DX: I69.391 Dysphagia following cerebral infarction (principal); E11.40 Type 2 diabetes mellitus with diabetic neuropathy, unspecified; Z68.41 Body mass index [BMI] 40.0-44.9, adult; R13.12 Dysphagia, oropharyngeal phase; E66.01 Morbid (severe) obesity due to excess calories; I10 Essential (primary) hypertension; I69.398 Other sequelae of cerebral infarction; Z74.09 Other reduced mobility; Z74.1 Need for assistance with personal care; G47.30 Sleep apnea, unspecified; R42 Dizziness and giddiness; Z79.82 Long term (current) use of aspirin; Z79.02 Long term (current) use of antithrombotics/antiplatelets; Z79.4 Long term (current) use of insulin; Z79.899 Other long term (current) drug therapy; Z88.2 Allergy status to sulfonamides